=== PATIENT | female | born 1975 | race Caucasian/White ===

== ENCOUNTER 2019-12-19 09:15 | Outpatient (REF) | payer MEDICAID, SELFPAY | END 2019-12-19 09:16 | disposition home or self-care (01) | LOC: HO.LAB 09:15 | PROVIDERS: PCP Internal Medicine; Visit Provider Internal Medicine | DX: Z20.828 Contact with and (suspected) exposure to other viral communicable diseases (principal) | CPT/HCPCS: 36415; 87635 ==

== ENCOUNTER 2020-01-27 08:03 | Outpatient (REF) | payer MEDICAID, SELFPAY | END 2020-01-27 08:04 | disposition home or self-care (01) | LOC: HO.LAB 08:03 | PROVIDERS: Visit Provider Internal Medicine | DX: Z20.828 Contact with and (suspected) exposure to other viral communicable diseases (principal) | CPT/HCPCS: C9803; U0003 ==

== ENCOUNTER 2020-02-14 08:57 | Outpatient (REF) | payer MEDICAID, SELFPAY | END 2020-02-14 08:58 | disposition home or self-care (01) | LOC: HO.LAB 08:57 | PROVIDERS: Visit Provider Internal Medicine | DX: Z20.828 Contact with and (suspected) exposure to other viral communicable diseases (principal) | CPT/HCPCS: C9803; U0003 ==

== ENCOUNTER 2020-03-20 07:54 | Outpatient (REF) | payer MEDICAID, SELFPAY | END 2020-03-20 07:55 | disposition home or self-care (01) | LOC: HO.LAB 07:54 | PROVIDERS: Visit Provider Internal Medicine | DX: Z20.828 Contact with and (suspected) exposure to other viral communicable diseases (principal) | CPT/HCPCS: C9803; U0003 ==

== ENCOUNTER 2020-04-13 07:36 | Outpatient (REF) | payer MEDICAID, SELFPAY | END 2020-04-13 07:37 | disposition home or self-care (01) | LOC: HO.LAB 07:36 | PROVIDERS: Visit Provider Internal Medicine | DX: Z20.822 Contact with and (suspected) exposure to COVID-19 (principal) | CPT/HCPCS: 36415; C9803; U0003 ==

== ENCOUNTER 2020-05-01 07:56 | Outpatient (REF) | payer MEDICAID, SELFPAY | END 2020-05-01 07:57 | disposition home or self-care (01) | LOC: HO.LAB 07:56 | PROVIDERS: Visit Provider Internal Medicine | DX: Z20.822 Contact with and (suspected) exposure to COVID-19 (principal) | CPT/HCPCS: 36415; C9803; U0003; U0005 ==

== ENCOUNTER 2020-06-04 08:47 | Outpatient (REF) | payer MEDICAID, SELFPAY | END 2020-06-04 08:48 | disposition home or self-care (01) | LOC: HO.LAB 08:47 | PROVIDERS: Visit Provider Internal Medicine | DX: Z20.822 Contact with and (suspected) exposure to COVID-19 (principal) | CPT/HCPCS: 36415; C9803; U0003; U0005 ==

== ENCOUNTER 2020-06-07 10:21 | Outpatient (REF) | payer MEDICAID, SELFPAY ==
[2020-06-07 11:58] LABS: Alanine Aminotransferase 13 U/L (0-31); Albumin Level 4.2 g/dL (3.5-5.0); Alkaline Phosphatase 67 U/L (39-117); Aspartate Amino Transferase 16 U/L (5-31); Bilirubin Direct < 0.2 mg/dL (0.0-0.5); Bilirubin Total < 0.2 mg/dL (0.0-1.0); Cholesterol 218 mg/dL; HDL Cholesterol 49 mg/dL; LDL Cholesterol Calculated 158 mg/dl; Total Protein 7.6 g/dL (6.5-8.0); Triglycerides 56 mg/dL
[2020-06-07 12:03] LABS: Vitamin D 25-OH Total 45.6 ng/mL (>30)
== END 2020-06-07 10:22 | disposition home or self-care (01) ==
LOC: HO.LAB 10:21
PROVIDERS: PCP Internal Medicine; Visit Provider Internal Medicine
DX: Z00.00 Encounter for general adult medical examination without abnormal findings (principal)
CPT/HCPCS: 36415; 80061; 80076; 82306

== ENCOUNTER 2020-06-28 08:05 | Outpatient (REF) | payer MEDICAID, SELFPAY | END 2020-06-28 08:06 | disposition home or self-care (01) | LOC: HO.LAB 08:05 | PROVIDERS: Visit Provider Internal Medicine | DX: Z20.822 Contact with and (suspected) exposure to COVID-19 (principal) | CPT/HCPCS: C9803; U0003; U0005 ==

== ENCOUNTER 2020-11-03 09:18 | Outpatient (REF) | payer MEDICAID, SELFPAY | END 2020-11-03 09:19 | disposition home or self-care (01) | LOC: HO.LAB 09:18 | PROVIDERS: PCP Internal Medicine; Visit Provider Internal Medicine | DX: Z20.822 Contact with and (suspected) exposure to COVID-19 (principal) | CPT/HCPCS: C9803; U0003; U0005 ==

== ENCOUNTER 2020-12-30 10:42 | Outpatient (REF) | payer MEDICAID, SELFPAY | END 2020-12-30 10:43 | disposition home or self-care (01) | LOC: HO.LAB 10:42 | PROVIDERS: PCP Internal Medicine; Visit Provider Internal Medicine | DX: Z20.822 Contact with and (suspected) exposure to COVID-19 (principal) | CPT/HCPCS: C9803; U0003; U0005 ==

== ENCOUNTER 2021-01-06 09:19 | Emergency (ER) | payer MEDICAID, SELFPAY ==
[2021-01-06 09:51] VITALS: BP 132/80; PULSE 121; RESP 16; TEMP 36.1; O2SAT 98; BMI 29.6
--- NOTE | 2021-01-06 09:59 | ECG_ITS ---
Test Reason : cp Blood Pressure : / mmHG Vent. Rate : 114 BPM Atrial Rate : 114 BPM P-R Int : 138 ms QRS Dur : 072 ms QT Int : 322 ms P-R-T Axes : 069 041 045 degrees QTc Int : 443 ms Sinus tachycardia RSR' or QR pattern in V1 suggests right ventricular conduction delay Possible Left atrial enlargement Borderline ECG Heart rate has increased Referred By: Generic ED Physician Electronically Signed By:BETH VANEGAS MD
--- NOTE | 2021-01-06 11:40 | ED.ANXIETY ---
HPI - Anxiety General Chief Complaint: Anxiety Stated Complaint: Anxiety/panic attack Time Seen by Provider: 01/06/21 11:24 Source: patient Mode of arrival: ambulatory Limitations: no limitations History of Present Illness HPI narrative: 45-year-old female who presents emergency department for evaluation of panic attack. Patient states that she has had increased stress at work. She states that yesterday when she got home from work she felt very anxious. She states that she developed chest pain shortness of breath and felt dizzy. She took her Seroquel and try to relax but she states that it was not helping. She states that last night she had difficulty falling asleep again felt very anxious. She took her Seroquel again with no relief for symptoms. This morning, she states that she feels panic. She feels very anxious. She feels short of breath. She has chest pain which she describes as a left chest tightness which is worse with pushing on her chest, unchanged with movement or with breathing. The pain is [id number] in intensity. Patient states that she did have associated shortness of breath and nausea. She denies being suicidal or homicidal. Related Data Previous Rx's Medication Instructions Recorded lorazepam 1 mg tablet (Ativan) 1 mg PO TID PRN #10 tab 01/06/21 Allergies Allergy/AdvReac Type Severity Reaction Status Date / Time acetaminophen [Percocet] Allergy Unknown rash Verified 05/31/18 00:00 oxycodone [Percocet] Allergy Unknown rash Verified 05/31/18 00:00 penicillin G Allergy Unknown rash Verified 05/31/18 00:00 Penicillins Allergy Unknown ITCHY RASH Unverified 12/04/19 16:59 From VICODIN Allergy Unknown UNKNOWN Uncoded 12/04/19 16:59 Review of Systems Review of Systems: Yes all other systems are reviewed and are negative [facility] Past Medical History [facility] Narrative: Past medical history: Depression, anxiety, migraines, scoliosis. Social history: The patient states she is employed. She denies tobacco use. She denies alcohol use. She states she occasionally smokes marijuana for her anxiety. Social History Social History Advance Directives: No Physical Exam Vital Signs: Vital Signs: Last Vital Signs Temp 96.9 F 01/06/21 09:51 Pulse 121 H 01/06/21 09:51 Resp 16 01/06/21 09:51 BP 132/80 10/21/21 09:51 Pulse Ox 98 01/06/21 09:51 Body Mass Index 29.6 Const: General: cooperative and no acute distress Orientation/consciousness: oriented to person and oriented to place Limitations: no limitations HENMT: Head: Yes normal to inspection, Yes normocephalic and Yes atraumatic Ears: external ears normal General nose exam: Normal external nose present Face and sinus: Yes normal facial exam Mouth: Normal oral and palatal mucosa present Throat: Yes posterior oropharynx normal Eyes: General: appearance normal, both eyes and all related structures Pupils: Equal, round and reactive pupils present Neck: Neck: Yes normal visual inspection, Yes no lymphadenopathy, Yes trachea midline and Yes supple Chest: Chest palpation & inspection: normal inspection of the chest and normal palpation of entire chest wall Resp: Effort & Inspection: normal respiratory effort and able to speak in complete sentences Auscultation: clear to auscultation bilaterally Cardio: Rate: tachycardic Rhythm: regular rhythm Heart sounds: S1 normal heart sound present, S2 normal heart sound present and no murmurs GI: Inspection: Yes normal to inspection Palpation (GI): Soft to palpation, nontender and no guarding Auscultation: normal bowel sounds : General: Yes no CVA tenderness Back/Spine/Pelvis: Back: no CVA tenderness Skin: General skin exam: no rashes or lesions noted Neuro: General: oriented to person and oriented to place Cranial nerves: Yes CN's II-XII intact bilaterally and Yes Equal, round and reactive pupils present Cognition (Neuro): normal cognition Motor exam (neuro): 5/5 motor strength present throughout Extrem: General: Yes normal to inspection Psych: Appearance: grossly normal Speech and movement: Normal speech and movement present Affect: Anxious affect present Attitude: cooperative Thought process: Normal thought process present Thought content: Normal thought content present, suicidality and no homicidality Course Course Course Narrative: 45-year-old female with history of anxiety and depression states she has been under increased stress secondary to work who presents emergency department for evaluation of panic attack x3 episodes. The patient's vital signs reveal that she was tachycardic with a pulse of 121 otherwise unremarkable. Patient's physical examination did reveal left-sided chest wall tenderness. Patient's 12 EKG revealed a sinus tachycardia with a rate of 114 without any other abnormalities. Patient's presentation is consistent with anxiety/panic attack. The patient was given Ativan 1 mg orally. She was given a prescription for Ativan 1 mg every 6 hours as needed for anxiety, she was given 9 pills. She was advised to follow-up with her provider for further management of her anxiety. She was discharged home with printed and verbal instructions. [facility] was reviewed. The patient has been on clonazepam with her last prescription being filled on 09/2020. I do believe she is having acute anxiety would benefit from a short course of Ativan as discussed above, she was given 10 pills. MDM - Anxiety ECG Data Attestation: I personally reviewed and interpreted this ECG as follows: Interpretation: 1012: Sinus tachycardia with a rate of 114, normal ME interval, normal QRS duration, normal QTC interval. No ST segment elevation or depression, no PACs, no PVCs, no T-wave abnormalities. Except for this tachycardia, this EKG is normal. Discharge Plan Discharge Clinical Impression: Acute anxiety Patient Disposition: Home, Self-Care Instructions: Panic Disorder (ED) Additional Instructions: Your EKG was unremarkable. Your presentation is consistent with an anxiety/panic attack most likely triggered by stress. You received Ativan (lorazepam) 1 mg orally here in the emergency department. This medication will make you sleepy but should help with your anxiety, you should go home and rest. I am prescribing Ativan (lorazepam) 1 mg orally 3 times a day as needed for anxiety. This medication will make you sleepy so you should not drive or work while taking this medication. This medication can be addicting, if your concerned about addiction do not get this medication filled or you can ask the pharmacist for less pills than prescribed. Follow-up with your doctor in 2 days. Please return to the emergency department if your symptoms get worse or if you develop any symptoms that are concerning to you. Please see work note. Prescriptions: New lorazepam [Ativan] 1 mg tablet 1 mg PO TID PRN (Reason: anxiety) Qty: 10 RF: 0
[2021-01-06] MEDS: LORazepam 1 MG TABLET PO (11:53)
[2021-01-06] MEDS: Ondansetron ODT 4 MG TAB.RAPDIS TRANSLINGU (12:00)
== END 2021-01-06 12:01 | disposition home or self-care (01) ==
PROVIDERS: Emergency Provider Emergency Medicine Emergency Medical Services; PCP Internal Medicine
DX: F41.1 Generalized anxiety disorder (principal); F43.0 Acute stress reaction; Z79.899 Other long term (current) drug therapy
CPT/HCPCS: 93005; 99283; 99284

== ENCOUNTER 2021-01-19 11:40 | Outpatient (REF) | payer MEDICAID, SELFPAY ==
[2021-01-19 12:10] LABS: MANUAL DIFF FLAG NO
[2021-01-19 12:33] LABS: Basophils Absolute Auto 0.1 X10*3/uL (0.0-0.2); Basophils Percent Auto 0.7 % (0-2); Eosinophils Absolute Auto 0.2 X10*3/uL (0.0-0.4); Eosinophils Percent Auto 3.1 % (0-4); Hematocrit 39.8 % (37.0-47.0); Hemoglobin 13.5 g/dl (12.0-16.0); Imm Gran Abs Auto 0.02 X10*3/uL (0.00-0.03); Imm Gran Pct Auto 0.3 % (0.0-0.4); Lymphocytes Absolute Auto 1.8 X10*3/uL (1.2-4.9); Lymphocytes Percent Auto 26.2 % (20-40); Mean Corpuscular HGB Conc 33.9 g/dl (31.0-35.0); Mean Corpuscular Hemoglobin 30.8 pg (27.0-33.0); Mean Corpuscular Volume 90.9 fL (80.0-98.0); Mean Platelet Volume 10.1 fL (9.4-12.3); Monocytes Absolute Auto 0.6 X10*3/uL (0.1-1.2); NRBC Pct Auto 0.3 /100WBC (0.0-0.2); Neutrophils Absolute Auto 4.33 x10*3/uL (2.0-8.3); Neutrophils Percent Auto 61.7 % (45-73); Platelet Count 323 X10*3/uL (160-400); Red Blood Count 4.38 X10*6/uL (4.20-5.50); Red Cell Distribution Width 11.7 % (11.0-16.0)
[2021-01-19 13:03] LABS: INTERNATIONAL NORM RATIO 1.1 (0.9-1.1); Prothrombin Time 12.7 SEC (9.9-13.0)
[2021-01-19 13:06] LABS: Partial Thromboplastin Time 35.8 SEC (24.1-38.0)
[2021-01-19 13:29] LABS: Thyroid Stimulating Hormone 0.47 uIU/mL (0.32-4.0)
[2021-01-19 14:20] LABS: T4 Thyroxine 6.6 ug/dL (4.5-12.0)
[2021-01-21 03:46] LABS: Triiodothyronine T3 Free 2.8 pg/mL (2.3-4.2)
== END 2021-01-19 11:41 | disposition home or self-care (01) ==
LOC: HO.LAB 11:40
PROVIDERS: Absent Provider Internal Medicine; PCP Internal Medicine; Visit Provider Family Medicine
DX: N92.6 Irregular menstruation, unspecified (principal)
CPT/HCPCS: 36415; 84436; 84443; 84481; 85025; 85610; 85730

== ENCOUNTER 2021-06-26 11:26 | Emergency (ER) | payer MEDICAID, SELFPAY ==
[2021-06-26 11:50] VITALS: BP 118/69; PULSE 103; RESP 16; TEMP 37.2; O2SAT 97; BMI 27.9
--- NOTE | 2021-06-26 12:08 | ED_ITS ---
HPI - General Adult General Chief complaint: Skin/Abscess/Foreign Body Stated complaint: Abscess Time Seen by Provider: 06/26/21 11:53 Source: patient Mode of arrival: ambulatory Limitations: no limitations History of Present Illness HPI narrative: 44-year-old female with history of recurrent abscesses and breast cysts presents to ED for left breast abscess. Patient states for the past 6 days she had some swelling mass in the upper breast that was fluctuant red and warm and then it open and 3 days ago it drained completely. Patient states area no longer swollen and erythema improving. Patient came to the ED to be evaluated. Patient denies any nipple discharge, swelling of breasts, fever, chills, chest p ain, weight loss, or shortness of breath. Related Data Previous Rx's Medication Instructions Recorded lorazepam 1 mg tablet (Ativan) 1 mg PO TID PRN #10 tab 01/06/21 cephalexin 500 mg capsule 500 mg PO QID 7 Days #27 cap 06/26/21 doxycycline hyclate 100 mg tablet 100 mg PO BID 7 Days #14 tab 06/26/21 Allergies Allergy/AdvReac Type Severity Reaction Status Date / Time acetaminophen [Percocet] Allergy Unknown rash Verified 05/31/18 00:00 oxycodone [Percocet] Allergy Unknown rash Verified 05/31/18 00:00 penicillin G Allergy Unknown rash Verified 05/31/18 00:00 Penicillins Allergy Unknown ITCHY RASH Unverified 12/04/19 16:59 From VICODIN Allergy Unknown UNKNOWN Uncoded 12/04/19 16:59 Review of Systems Review of Systems: Left drain abscess. Yes all other systems are reviewed and are negative [facility] Past Medical History Medical History (Updated 06/26/21 @ 12:18 by [employer]) Anemia Cyst of breast High cholesterol Menses painful Migraine Seizures Social History Social History Advance Directives: No Advance Directives Information Provided: No Patient : No Physical Exam ED Vital Signs: Vital Signs - 24 hr 06/26/21 11:50 Temperature 98.9 F Pulse Rate 103 H Respiratory Rate 16 Blood Pressure 118/69 Pulse Oximetry 97 BMI result Body Mass Index 27.9 Const General: cooperative, healthy appearing, comfortable, no acute distress, well developed, alert, awake and Physically active Orientation/consciousness: patient oriented x3 HENMT Head: Yes normal to inspection, Yes No palpable skull fracture present, Yes normocephalic and Yes atraumatic Eyes General: appearance normal, both eyes and all related structures Neck Neck: Yes normal visual inspection, Yes full ROM, Yes no lymphadenopathy, Yes no meningeal signs, Yes trachea midline, Yes supple, No anterior neck swelling and No tender Chest Chest palpation & inspection: normal inspection of the chest and normal palpation of entire chest wall Chest/axillae images: 1. Opening with no drainage. Erythema resolving. Negative for fluctuance mass on palpation. Breast not swollen. Negative for redness of breasts. Negative for any nipple discharge. Negative for mass on palpation of breasts. Negative for any axilla lymphadenopathy. Right breast normal Resp Effort & Inspection: normal respiratory effort and able to speak in complete sentences Auscultation: clear to auscultation bilaterally Cardio Jugular venous distension: no JVD Heart sounds: S1 normal heart sound present and S2 normal heart sound present GI Inspection: Yes normal to inspection and No abdominal wall ecchymosis Palpation (GI): Soft to palpation, not firm, nontender, no guarding and not rigid General: No CVA tenderness and Yes no CVA tenderness Back/Spine/Pelvis Back: no CVA tenderness, No CVA tenderness and No back tenderness Skin General skin exam: no rashes or lesions noted and elasticity normal Neuro General: patient oriented x3, gait normal and no meningeal signs Cranial nerves: Yes CN's II-XII intact bilaterally Extrem General: Yes normal to inspection and Yes full ROM Psych Appearance: grossly normal, well kempt and not disheveled Course Course Course Narrative: Left breast abscess. Reevaluation(s) Reevaluation #1: Presently no indication for incision and drainage. No longer any fluctuance and patient states pus was fully drained couple days ago in the shower. Will discharge with antibiotics. Time: 16:[address] [facility] Narrative Medical decision making narrative: Breast abscess Discharge Plan Discharge Clinical Impression: Abscess of skin or subcutaneous tissue Patient Disposition: Home, Self-Care Instructions: Abscess (ED) Additional Instructions: Le diagnosticaron un absceso. Actualmente no ten?a indicaci?n de incisi?n y drenaje. Tu absceso se dren? por s? solo. Ser? dado de jordana con antibi?ticos. [place] un seguimiento con el proveedor de atenci?n primaria y un cirujano de mamas. Regrese al servicio de urgencias por cualquier hinchaz?n de los senos, secreci?n del pez?n, enrojecimiento de los senos, masa en los senos, hinchaz?n axilar, fiebre, escalofr?os, dolor en el pecho, dificultad para respirar o cualquier otro s?ntoma preocupante. Prescriptions: New doxycycline hyclate 100 mg tablet 100 mg PO BID 7 Days Qty: 14 0RF cephalexin 500 mg capsule 500 mg PO QID 7 Days Qty: 27 0RF Rx Instructions: Patient received 1st dose in the ER No Action lorazepam [Ativan] 1 mg tablet 1 mg PO TID PRN (Reason: anxiety) Qty: 10 0RF Rx Instructions: Patient may request partial fill Referrals: Ronal Vences MD [Physician] - (Recurrent breast abscesses. ) Interventions: ED Discharge Assessment Last Done: 06/26/21 13:45 Discharge Date/Time: 06/26/21 13:46 Print Language: Qatari
[2021-06-26] MEDS: cephALEXin 500 MG CAPSULE PO (12:17)
== END 2021-06-26 13:46 | disposition home or self-care (01) ==
PROVIDERS: Emergency Provider Emergency Medicine; PCP Internal Medicine
DX: N61.1 Abscess of the breast and nipple (principal); Z79.899 Other long term (current) drug therapy
CPT/HCPCS: 99283

== ENCOUNTER 2021-07-15 14:50 | Emergency (ER) | payer MEDICAID, SELFPAY ==
--- NOTE | ~2021-07-15 | XR_ITS ---
EXAMINATION: XR CHEST CLINICAL INFORMATION: Shortness of breath. COMPARISON: Chest radiograph dated from 01/03/2019. TECHNIQUE: AP view of the chest was obtained. FINDINGS: No significant abnormality is noted involving the heart, lungs, mediastinum, bony thorax or soft tissues. XR/XR chest 1V IMPRESSION: Unremarkable examination.
[2021-07-15 14:59] VITALS: BP 123/77; BP 131/85; PULSE 100; PULSE 110; RESP 16; RESP 18; TEMP 36.6; O2SAT 96; O2SAT 97; O2SAT 99; BMI 29.6
--- NOTE | 2021-07-15 15:55 | ED.GENADULT ---
HPI - General Adult General Chief complaint: Seizure Stated complaint: ?SEIZURES, SOB, [employer] Time Seen by Provider: 07/15/21 15:54 Source: patient Mode of arrival: ambulatory Limitations: other (poor historian) History of Present Illness HPI narrative: This is a 45-year-old female past medical history significant for depression, anxiety, migraines, scoliosis presenting to the emergency department from court with shortness of breath, anxiety x2 hours. According to patient she tells me that yesterday she was put in senior care and she had court this morning which made her extremely anxious. She tells me that at court she began feeling extremely anxious, short of breath and she feels like she was having a panic attack. She tells me her shortness of breath is better with deep breathing, and when talking to somebody. It is worse when she thinks about her situation, she tells me the uncertainty of her situation is making her extremely anxious and she thinks this is what triggered it. She also reports associated nausea, which she tells me is normal when she has panic attacks. She denies chest pain, leg swelling, fevers, chills, abdominal pain, weakness, dizziness, headache. According to staff members from the courthouse patient appeared to be having a seizure. Onset (ago): hour(s) (2) Radiation: non-radiation Relieving factors: none Exacerbating factors: none Treatments prior to arrival: none Related Data Previous Rx's Medication Instructions Recorded lorazepam 1 mg tablet (Ativan) 1 mg PO TID PRN #10 tab 01/06/21 cephalexin 500 mg capsule 500 mg PO QID 7 Days #27 cap 06/26/21 doxycycline hyclate 100 mg tablet 100 mg PO BID 7 Days #14 tab 06/26/21 lamotrigine 100 mg tablet 100 mg PO DAILY #14 tab 07/15/21 Allergies Allergy/AdvReac Type Severity Reaction Status Date / Time acetaminophen [Percocet] Allergy Unknown rash Verified 05/31/18 00:00 oxycodone [Percocet] Allergy Unknown rash Verified 05/31/18 00:00 penicillin G Allergy Unknown rash Verified 05/31/18 00:00 Penicillins Allergy Unknown ITCHY RASH Verified 07/15/21 16:06 From VICODIN Allergy Unknown UNKNOWN Uncoded 12/04/19 16:59 Review of Systems Review of Systems: Constitutional : No Weight loss, No Fever, No Chills, No Fatigue, No Malaise ENT/Mouth : No sore throat, No Rhinorrhea Eyes: No Eye Pain, No Swelling, No Redness Cardiovascular : No Chest Pain, + SOB, No Dyspnea on Exertion, No Orthopnea, No Edema, No Palpitations Respiratory : No Cough, No Sputum, No Wheezing Gastrointestinal : No Nausea, No Vomiting, No Diarrhea, No Constipation, No abdominal Pain, No Hematochezia, No Melena Genitourinary : No Dysuria, No Urinary Frequency, No Hematuria, Musculoskeletal : No joint pain, No Myalgias, No Joint Swelling Skin : No Skin Lesions, No rash Neuro : No Weakness, No Numbness, No Dizziness, No Headache Psych : + Anxiety/Panic, No Depression All other systems reviewed and are negative Yes all other systems are reviewed and are negative [facility] Past Medical History Attestation statement: The following information was validated with the patient. Source: old records reviewed and nursing notes reviewed Medical History Anemia Cyst of breast High cholesterol Menses painful Migraine Seizures Social History Social History Alcohol intake: never Patient Tobacco Use Status: Never used Tobacco Smoked in Last 30 Days: No Use of substances other than those prescribed or required for medical reasons: No Advance Directives: No Advance Directives Information Provided: No Physical Exam ED Vital Signs: Vital Signs - 24 hr 07/15/21 14:59 07/15/21 16:12 07/15/21 18:24 Temperature 97.8 F 98.8 F Pulse Rate 110 H 86 106 H Respiratory Rate 18 16 18 Blood Pressure 123/77 120/74 112/82 Pulse Oximetry 97 95 98 BMI result Body Mass Index 29.6 Vital signs stable Appearance: Alert.? Oriented X3.? No acute distress.? Patient appears anxious and tearful. Head: Normocephalic, atraumatic, no step-offs or deformities Eyes: Pupils equal, round and reactive to light.? ENT: Pharynx normal.? Neck: Normal inspection.? Neck supple.? CVS: Normal heart rate and rhythm.? Pulses normal.? Respiratory: No respiratory distress.? Breath sounds normal.? Abdomen: Soft and nontender.? Skin: Skin warm and dry.? Normal skin color.? Normal skin turgor.? Extremities: No lower extremity edema.? No calf ttp, negative Lilliam bilaterally. 5/5 strength to bilateral upper and lower extremities Back: No midline tenderness, no C-spine tenderness, full range of motion, no CVA tenderness bilaterally Neuro: Oriented X 3.? No motor deficit.? No sensory deficit. CN 2-12 intact Course Reevaluation(s) Reevaluation #1: Chest x-ray is unremarkable, lungs clear unlikely PNA. Chemistry with slight leukocytosis could be acute stress reaction from nausea, anxiety, panic, no acute electrolyte abnormalities. COVID and influenza negative. Urine pending. Time: 17:21 Reevaluation #2: UA clean. Patient is comfortably resting on the stretcher. No acute distress. Stable vital signs saturating 98% on room air. At this time patient can be discharged back to intermediate. Comfortable with discharge home. Outlined strict return precautions on discharge. Time: 18:43 Reevaluation #3: Patient takes lamotrigine 100 mg p.o. q.a.m., gave her a small script. Last filled at [place] [facility], as patient is in intermediate she does not have this prescription. Will send her home with a 2 week supply Time: 18:51 Medical Decision Making MDM Narrative Medical decision making narrative: 1600 45-year-old female presents with shortness of breath and anxiety that started at court few hours prior to her arrival. Physical examination benign. Negative Lilliam bilaterally. Lungs clear. Regular rate and rhythm. Abdomen soft nontender nondistended. No lower extremity edema. Patient is PERC negative, unlikely that this is a PE likely shortness of breath secondary to panic attack/ anxiety. Neuro non focal no head trauma , unlikely ICH/stroke Plan at this time is basic labs, flu/COVID, chest x-ray. Medical Records Medical records reviewed: Yes I reviewed the patient's medical records. Lab Data Lab results reviewed: Yes I reviewed the patient's lab results. Result diagrams: 07/15/21 16:19 07/15/21 16:19 Labs: Lab Results 07/15/21 07/15/21 07/15/21 Range/Units 16:01 16:01 16:19 WBC 13.2 H (4.8-10.8) X10*3/uL RBC 4.36 (4.20-5.50) X10*6/uL Hgb 13.1 (12.0-16.0) g/dl Hct 39.0 (37.0-47.0) % MCV 89.4 (80.0-98.0) fL MCH 30.0 (27.0-33.0) pg MCHC 33.6 (31.0-35.0) g/dl RDW 11.9 (11.0-16.0) % Plt Count 330 (160-400) X10*3/uL MPV 9.4 (9.4-12.3) fL Immature Gran % (Auto) 0.5 H (0.0-0.4) % Neut % (Auto) 79.8 H (45-73) % Lymph % (Auto) 12.9 L (20-40) % Coffey % (Auto) 6.1 (2-11) % Eos % (Auto) 0.5 (0-4) % Baso % (Auto) 0.2 (0-2) % Lymph # (Auto) 1.7 (1.2-4.9) X10*3/uL Coffey # (Auto) 0.8 (0.1-1.2) X10*3/uL Eos # (Auto) 0.1 (0.0-0.4) X10*3/uL Baso # (Auto) 0.0 (0.0-0.2) X10*3/uL Abs Immat Gran (auto) 0.06 H (0.00-0.03) X10*3/uL Absolute Neuts (auto) 10.5 H (2.0-8.3) x10*3/uL Absolute Nucleated RBC 0.000 (0.0-0.012) X10*3/uL Nucleated RBC % (auto) 0.0 (0.0-0.2) /100WBC Sodium (135-145) mmol/L Potassium (3.3-5.1) mmol/L Chloride (96-108) mmol/L Carbon Dioxide (22-29) mmol/L Anion Gap (12-20) BUN (9-16) mg/dL Creatinine (0.5-1.4) mg/dL Estim Creat Clear Calc Estimated GFR Random Glucose (60-115) mg/dL Calcium (8.4-10.2) mg/dL Magnesium (1.6-2.6) mg/dL Total Bilirubin (0.0-1.0) mg/dL AST (5-31) U/L ALT (0-31) U/L Alkaline Phosphatase (39-117) U/L Total Creatine Kinase (26-140) U/L Total Protein (6.5-8.0) g/dL Albumin (3.5-5.0) g/dL Urine Color Urine Appearance Urine pH (5.0-8.0) Ur Specific Bryant (1.005-1.025) Urine Protein (NEG-TRACE) MG/DL Urine Glucose (UA) (NEG) MG/DL Urine Ketones (NEG) MG/DL Urine Blood (NEG) Urine Nitrite (NEG) Ur Leukocyte Esterase (NEG) Urine Test (NEGATIVE) COVID-19 (TREVA) Negative (Negative) COVID-19 Clin Com See Note Influenza Type A (LITO) Negative (Negative) Influenza Type B (LITO) Negative (Negative) Influenza A & B Note See Note 07/15/21 07/15/21 07/15/21 Range/Units 16:19 17:32 17:32 WBC (4.8-10.8) X10*3/uL RBC (4.20-5.50) X10*6/uL Hgb (12.0-16.0) g/dl Hct (37.0-47.0) % MCV (80.0-98.0) fL MCH (27.0-33.0) pg MCHC (31.0-35.0) g/dl RDW (11.0-16.0) % Plt Count (160-400) X10*3/uL MPV (9.4-12.3) fL Immature Gran % (Auto) (0.0-0.4) % Neut % (Auto) (45-73) % Lymph % (Auto) (20-40) % Coffey % (Auto) (2-11) % Eos % (Auto) (0-4) % Baso % (Auto) (0-2) % Lymph # (Auto) (1.2-4.9) X10*3/uL Coffey # (Auto) (0.1-1.2) X10*3/uL Eos # (Auto) (0.0-0.4) X10*3/uL Baso # (Auto) (0.0-0.2) X10*3/uL Abs Immat Gran (auto) (0.00-0.03) X10*3/uL Absolute Neuts (auto) (2.0-8.3) x10*3/uL Absolute Nucleated RBC (0.0-0.012) X10*3/uL Nucleated RBC % (auto) (0.0-0.2) /100WBC Sodium 136 (135-145) mmol/L Potassium 3.5 (3.3-5.1) mmol/L Chloride 109 H (96-108) mmol/L Carbon Dioxide 19 L (22-29) mmol/L Anion Gap 12 (12-20) BUN 9 (9-16) mg/dL Creatinine 0.79 (0.5-1.4) mg/dL Estim Creat Clear Calc 82.8 Estimated GFR > 60 Random Glucose 95 (60-115) mg/dL Calcium 9.4 (8.4-10.2) mg/dL Magnesium 1.7 (1.6-2.6) mg/dL Total Bilirubin 0.2 (0.0-1.0) mg/dL AST 15 (5-31) U/L ALT 13 (0-31) U/L Alkaline Phosphatase 82 D (39-117) U/L Total Creatine Kinase 78 (26-140) U/L Total Protein 7.8 (6.5-8.0) g/dL Albumin 4.2 (3.5-5.0) g/dL Urine Color YELLOW Urine Appearance CLEAR Urine pH 6.5 (5.0-8.0) Ur Specific Bryant 1.020 (1.005-1.025) Urine Protein TRACE (NEG-TRACE) MG/DL Urine Glucose (UA) NEG (NEG) MG/DL Urine Ketones 40 (NEG) MG/DL Urine Blood NEG (NEG) Urine Nitrite NEG (NEG) Ur Leukocyte Esterase NEG (NEG) Urine Test NEGATIVE (NEGATIVE) COVID-19 (TREVA) (Negative) COVID-19 Clin Com Influenza Type A (LITO) (Negative) Influenza Type B (LITO) (Negative) Influenza A & B Note Critical Care Time Critical Care Time Critical Care Time: No Discharge Plan Discharge Clinical Impression: Anxiety, Shortness of breath Patient Disposition: Home, Self-Care Additional Instructions: Take your medications as prescribed. Follow-up with your primary care provider this week. Return to the emergency department with new or worsening symptoms. Such as fevers, chills, chest pain, shortness of breath, nausea, vomiting, dizziness, headache, vision changes, lethargy In case of emergency call 911 Patient currently taking lamotrigine 100 mg po daily QAM. A script with small supply given to patient. Prescriptions: New lamotrigine 100 mg tablet 100 mg PO DAILY Qty: 14 0RF No Action lorazepam [Ativan] 1 mg tablet 1 mg PO TID PRN (Reason: anxiety) Qty: 10 0RF Rx Instructions: Patient may request partial fill doxycycline hyclate 100 mg tablet 100 mg PO BID 7 Days Qty: 14 0RF cephalexin 500 mg capsule 500 mg PO QID 7 Days Qty: 27 0RF Rx Instructions: Patient received 1st dose in the ER Referrals: Physician,Unknown J [Primary Care Provider] - 2 days
[2021-07-15] MEDS: LORazepam 1 MG TABLET PO (16:06)
[2021-07-15] MEDS: Ondansetron ODT 4 MG TAB.RAPDIS TRANSLINGU (16:06)
[2021-07-15 16:12] VITALS: BP 120/74; PULSE 86; RESP 16; O2SAT 95
[2021-07-15 16:20] LABS: COVID-19 Test Negative (Negative)
[2021-07-15 16:23] LABS: MANUAL DIFF FLAG NO
[2021-07-15 16:26] LABS: Basophils Percent Auto 0.2 % (0-2); Eosinophils Absolute Auto 0.1 X10*3/uL (0.0-0.4); Eosinophils Percent Auto 0.5 % (0-4); Hemoglobin 13.1 g/dl (12.0-16.0); Imm Gran Abs Auto 0.06 X10*3/uL (0.00-0.03); Imm Gran Pct Auto 0.5 % (0.0-0.4); Lymphocytes Absolute Auto 1.7 X10*3/uL (1.2-4.9); Lymphocytes Percent Auto 12.9 % (20-40); Mean Corpuscular HGB Conc 33.6 g/dl (31.0-35.0); Mean Corpuscular Volume 89.4 fL (80.0-98.0); Mean Platelet Volume 9.4 fL (9.4-12.3); Monocytes Absolute Auto 0.8 X10*3/uL (0.1-1.2); Monocytes Percent Auto 6.1 % (2-11); Neutrophils Absolute Auto 10.5 x10*3/uL (2.0-8.3); Neutrophils Percent Auto 79.8 % (45-73); Platelet Count 330 X10*3/uL (160-400); Red Blood Count 4.36 X10*6/uL (4.20-5.50); Red Cell Distribution Width 11.9 % (11.0-16.0); White Blood Count 13.2 X10*3/uL (4.8-10.8)
[2021-07-15 16:30] LABS: IDNOW Serial# 16C4AD1C; Influenza A Negative (Negative); Influenza B2 Negative (Negative)
[2021-07-15 16:43] LABS: Alanine Aminotransferase 13 U/L (0-31); Albumin Level 4.2 g/dL (3.5-5.0); Alkaline Phosphatase 82 U/L (39-117); Anion Gap 12 (12-20); Aspartate Amino Transferase 15 U/L (5-31); Bilirubin Total 0.2 mg/dL (0.0-1.0); Blood Urea Nitrogen 9 mg/dL (9-16); Calcium 9.4 mg/dL (8.4-10.2); Carbon Dioxide 19 mmol/L (22-29); Chloride 109 mmol/L (96-108); Creatinine Clr Calc Pharmacy 82.8; Estimated Glomerular Filt Rate > 60; Glucose Random 95 mg/dL (60-115); Magnesium 1.7 mg/dL (1.6-2.6); Potassium 3.5 mmol/L (3.3-5.1); Sodium 136 mmol/L (135-145); Total Protein 7.8 g/dL (6.5-8.0)
[2021-07-15 17:41] LABS: Appearance Urine CLEAR; Color Urine YELLOW; Glucose Urine UA NEG (NEG); Leukocyte Esterase Urine NEG (NEG); Nitrite Urine NEG (NEG); PH 6.5 (5.0-8.0); Urine Blood NEG (NEG); Urine Ketones 40 MG/DL (NEG); Urine Protein TRACE MG/DL (NEG-TRACE)
[2021-07-15 17:47] LABS: UPreg QC Valid YES; Urine Pregnancy NEGATIVE (NEGATIVE)
[2021-07-15 18:24] VITALS: BP 112/82; PULSE 106; RESP 18; TEMP 37.1; O2SAT 98
== END 2021-07-15 19:45 | disposition home or self-care (01) ==
PROVIDERS: Physician Assistant; Emergency Provider Internal Medicine
DX: R56.9 Unspecified convulsions (principal); F41.1 Generalized anxiety disorder; F43.0 Acute stress reaction; R06.02 Shortness of breath; Z20.822 Contact with and (suspected) exposure to COVID-19; Z79.899 Other long term (current) drug therapy
CPT/HCPCS: 71045; 80053; 81003; 81025; 82550; 83735; 85025; 87502; 87635; 99283; 99284

== ENCOUNTER 2023-08-08 11:32 | Outpatient (REF) | payer MEDICAID, SELFPAY ==
--- NOTE | ~2023-08-08 | XR_ITS ---
EXAMINATION: XR ELBOW, RIGHT CLINICAL INFORMATION: Lateral epicondylitis COMPARISON: X-ray the right elbow January 2018 TECHNIQUE: 4 views of the right elbow FINDINGS: The bones and soft tissues are normal. No fracture or joint effusion. Alignment is anatomic. Joint spaces are maintained. XR/XR elbow RT min 3V IMPRESSION: Normal right elbow.
== END 2023-08-08 11:33 | disposition home or self-care (01) ==
LOC: HO.HHCX 11:32
PROVIDERS: Visit Provider Family Medicine
DX: M77.11 Lateral epicondylitis, right elbow (principal)
CPT/HCPCS: 73080

== ENCOUNTER 2023-09-26 10:30 | Outpatient (REF) | payer MEDICAID, SELFPAY ==
[2023-09-26 14:10] LABS: MANUAL DIFF FLAG NO
[2023-09-26 14:19] LABS: Basophils Absolute Auto 0.1 X10*3/uL (0.0-0.2); Basophils Percent Auto 0.8 % (0-2); Eosinophils Absolute Auto 0.3 X10*3/uL (0.0-0.4); Eosinophils Percent Auto 4.2 % (0-4); Hemoglobin 13.5 g/dl (12.0-16.0); Imm Gran Abs Auto 0.03 X10*3/uL (0.00-0.03); Imm Gran Pct Auto 0.4 % (0.0-0.4); Lymphocytes Absolute Auto 2.2 X10*3/uL (1.2-4.9); Lymphocytes Percent Auto 29.3 % (20-40); Mean Corpuscular HGB Conc 32.9 g/dl (31.0-35.0); Mean Corpuscular Hemoglobin 29.9 pg (27.0-33.0); Mean Corpuscular Volume 90.7 fL (80.0-98.0); Mean Platelet Volume 9.4 fL (9.4-12.3); Monocytes Absolute Auto 0.6 X10*3/uL (0.1-1.2); Monocytes Percent Auto 7.8 % (2-11); Neutrophils Absolute Auto 4.2 x10*3/uL (2.0-8.3); Neutrophils Percent Auto 57.5 % (45-73); Platelet Count 378 X10*3/uL (160-400); Red Blood Count 4.52 X10*6/uL (4.20-5.50); White Blood Count 7.4 X10*3/uL (4.8-10.8)
[2023-09-26 14:39] LABS: Alanine Aminotransferase 18 U/L (0-31); Albumin Level 4.3 g/dL (3.5-5.0); Alkaline Phosphatase 92 U/L (39-117); Anion Gap 12 (12-20); Aspartate Amino Transferase 14 U/L (5-31); Bilirubin Total 0.1 mg/dL (0.0-1.0); Blood Urea Nitrogen 7 mg/dL (9-16); Calcium 9.5 mg/dL (8.4-10.2); Carbon Dioxide 25 mmol/L (22-29); Chloride 107 mmol/L (96-108); Cholesterol 235 mg/dL (<200); Estimated Glomerular Filt Rate > 60; Glucose Random 90 mg/dL (60-115); HDL Cholesterol 47 mg/dL (>40); LDL Cholesterol Calculated 142 mg/dL (<100); Potassium 3.9 mmol/L (3.3-5.1); Sodium 140 mmol/L (135-145); Total Protein 8.2 g/dL (6.5-8.0); Triglycerides 234 mg/dL (<150)
[2023-09-26 14:54] LABS: Rheumatoid Factor < 13.0 IU/mL (<15.0)
[2023-09-26 14:55] LABS: Erythrocyte Sedimentation Rate 14 MM/HR (0-20)
[2023-09-26 14:58] LABS: TSH reflex Free T4 0.71 uIU/mL (0.32-4.0)
[2023-09-27 08:44] LABS: HIV AB/AG Nonreactive (Nonreactive); HIV Num 1 0.04 S/CO (0.00-0.99); ~HepC Num1 0.21 S/CO (0.00-0.79); ~Hepatitis C Antibody Nonreactive (Nonreactive)
== END 2023-09-26 10:31 | disposition home or self-care (01) ==
LOC: HO.CHCLDS 10:30
PROVIDERS: Visit Provider Internal Medicine
DX: F39 Unspecified mood [affective] disorder (principal); R52 Pain, unspecified; Z12.11 Encounter for screening for malignant neoplasm of colon; G43.809 Other migraine, not intractable, without status migrainosus
CPT/HCPCS: 36415; 80053; 80061; 84443; 85025; 85652; 86431; 86803; 87389

== ENCOUNTER 2023-11-22 11:52 | Outpatient (REF) | payer MEDICAID, SELFPAY ==
[2023-11-22 14:40] LABS: MANUAL DIFF FLAG NO
[2023-11-22 14:46] LABS: Basophils Absolute Auto 0.1 X10*3/uL (0.0-0.2); Basophils Percent Auto 0.7 % (0-2); Eosinophils Absolute Auto 0.4 X10*3/uL (0.0-0.4); Eosinophils Percent Auto 4.5 % (0-4); Hematocrit 41.3 % (37.0-47.0); Imm Gran Abs Auto 0.02 X10*3/uL (0.00-0.03); Imm Gran Pct Auto 0.2 % (0.0-0.4); Lymphocytes Absolute Auto 2.4 X10*3/uL (1.2-4.9); Lymphocytes Percent Auto 29.6 % (20-40); Mean Corpuscular HGB Conc 33.9 g/dl (31.0-35.0); Mean Corpuscular Volume 88.6 fL (80.0-98.0); Mean Platelet Volume 9.8 fL (9.4-12.3); Monocytes Absolute Auto 0.7 X10*3/uL (0.1-1.2); Monocytes Percent Auto 8.3 % (2-11); Neutrophils Absolute Auto 4.6 x10*3/uL (2.0-8.3); Neutrophils Percent Auto 56.7 % (45-73); Platelet Count 390 X10*3/uL (160-400); Red Blood Count 4.66 X10*6/uL (4.20-5.50); Red Cell Distribution Width 12.6 % (11.0-16.0); White Blood Count 8.1 X10*3/uL (4.8-10.8)
[2023-11-22 18:19] LABS: Anion Gap 14 (12-20); Blood Urea Nitrogen 7 mg/dL (9-16); Carbon Dioxide 22 mmol/L (22-29); Chloride 106 mmol/L (96-108); Estimated Glomerular Filt Rate > 60; Glucose Random 77 mg/dL (60-115); Potassium 3.8 mmol/L (3.3-5.1); Sodium 138 mmol/L (135-145)
[2023-11-22 18:38] LABS: TSH reflex Free T4 0.74 uIU/mL (0.32-4.0)
[2023-11-26 11:50] LABS: Anti Nuclear Antibody Screen NEGATIVE (NEGATIVE)
== END 2023-11-22 11:53 | disposition home or self-care (01) ==
LOC: HO.CHCLDS 11:52
PROVIDERS: Visit Provider Pediatrics
DX: L70.0 Acne vulgaris (principal); R21 Rash and other nonspecific skin eruption
CPT/HCPCS: 36415; 80048; 84443; 85025; 86038

== ENCOUNTER 2023-11-26 19:06 | Outpatient (REF) | payer MEDICAID, SELFPAY ==
[2023-11-30 10:34] LABS: HPV mRNA E6/E7 Not Detected (Not Detected)
[2023-11-30 15:24] LABS: C. trachomatis RNA TMA NOT DETECTED; N. gonorrhoeae RNA TMA NOT DETECTED
[2023-11-30 15:25] LABS: Trichomonas (NAAT) NOT DETECTED
== END 2023-11-26 19:07 | disposition home or self-care (01) ==
LOC: HO.HHCLNP 19:06
PROVIDERS: Visit Provider Advanced Practice Midwife
DX: Z11.3 Encounter for screening for infections with a predominantly sexual mode of transmission (principal)
CPT/HCPCS: 36415; 87491; 87591; 87624; 87661; 88175

== ENCOUNTER 2024-01-02 19:48 | Emergency (ER) | payer MEDICAID, SELFPAY ==
--- NOTE | ~2024-01-02 | CT_ITS ---
EXAMINATION: CT ANGIOGRAM HEAD CT ANGIOGRAM NECK CLINICAL INFORMATION: Dizziness. Headache. COMPARISON: CT head from 12/28/2018. TECHNIQUE: Initial noncontrast hoof and shoe inspector imaging of the head and neck was performed. Noncontrast head CT was also performed. Test bolus sequences followed by intravenous administration 70 mL of Omnipaque 350. Helical imaging was performed in the axial plane from the aortic arch to the skull vertex. Delayed postcontrast imaging of the head was also performed. The data was processed at the computer engineering technologist's workstation for generation of MIP sequences. Angled MIPs and volume rendered reformatted images were also generated at an offline 3D workstation. Stenoses are assessed in accordance with NASCET criteria unless otherwise indicated. This CT examination was performed using dose optimization techniques as appropriate, variously including the following: *Automated exposure control. *Adjustment of mA and/or kV according to patient size (this includes techniques or standardized protocols for targeted exams where dose is matched to indication/reason for exam; i.e. extremities or head). *Use of iterative reconstruction technique. DLP: 2006 mGy-cm FINDINGS: CT Head: There is no evidence of acute intracranial hemorrhage or edematous territorial infarction. [place]-white matter differentiation is preserved. There is no abnormal attenuation within the brain parenchyma. The ventricles are normal in morphology and size. No evidence for obstructive hydrocephalus. The suprasellar cistern remains widely patent. Normal positioning of the cerebellar tonsils. No abnormal mass effect or midline shift. No extra-axial fluid collections. No pathologic intra-axial enhancement or regional oligemia. No acute soft tissue or osseous abnormalities. Mild mucosal thickening of the paranasal sinuses. Mild leftward nasal septal deviation. The mastoid air cells and middle ear cavities are clear. CT Neck: The thyroid gland and remaining cervical soft tissues are within normal limits. Mild reversal the normal cervical lordosis. No additional significant abnormalities of the cervical spine. CT Upper Chest: The visualized lung apices and upper mediastinum are within normal limits. Neck CTA: Aortic Arch: Normal contour and caliber. Two vessel branching pattern of the arch with left common carotid artery arising from the brachiocephalic trunk. Great Vessel Origins: No significant stenosis of the branch origins. Right Common Carotid Artery: No focal stenosis or occlusion. Cervical Right Internal Carotid Artery: Normal opacification without focal stenosis or occlusion. Left Common Carotid Artery: No focal stenosis or occlusion. Cervical Left Internal Carotid Artery: Normal opacification without focal stenosis or occlusion. Cervical Right Vertebral Artery: Co-dominant. No focal stenosis or occlusion. Cervical Left Vertebral Artery: Co-dominant. No focal stenosis or occlusion. Brain CTA: Intracranial Internal Carotid Arteries: Mild calcific atherosclerotic disease of the intracranial internal carotid arteries without occlusion or flow-limiting stenosis. Right Anterior Cerebral Artery: Normal A1 segment. Normal opacification of the distal ROSAS segments. Left Anterior Cerebral Artery: Normal A1 segment. Normal opacification of the distal ROSAS segments. Anterior Communicating Artery: Normal. Right Middle Cerebral Artery: Normal M1 segment of the MCA without focal stenosis or occlusion. Normal arborization of the distal segments. Left Middle Cerebral Artery: Normal M1 segment of the MCA without focal stenosis or occlusion. Normal arborization of the distal segments. Right Vertebral Artery: Normal V4 segment. The posterior inferior cerebellar artery is not well opacified; however, there is no CT evidence of acute occlusion. Left Vertebral Artery: Normal V4 segment. Normal opacification of the proximal segments of the posterior inferior cerebellar artery. Basilar Artery: Normal without focal stenosis or occlusion. Normal appearance of the proximal superior cerebellar arteries. Right Posterior Cerebral Artery: Normal P1 segment. Normal opacification of the distal SUR[employer]Y [employer] CHIEF segments. Left Posterior Cerebral Artery: Normal P1 segment. Normal opacification of the distal SUR[employer]Y [employer]Y CHIEF segments. Normal opacification of the superior sagittal, straight, transverse, and sigmoid sinuses. CT/CT angio head neck IMPRESSION: 1. No evidence of acute intracranial hemorrhage or edematous territorial infarction. 2. CTA of the head and neck without proximal occlusion or flow-limiting stenosis. Electronically signed by: Galindo Ortega DO 01/03/2024 02:17 AM EDT
[2024-01-02 19:57] VITALS: BP 109/64; PULSE 62; RESP 16; TEMP 36.9; O2SAT 98; BMI 33.1
--- NOTE | 2024-01-02 19:57 | ECG_ITS ---
Test Reason : EVAL Blood Pressure : / mmHG Vent. Rate : 056 BPM Atrial Rate : 056 BPM P-R Int : 162 ms QRS Dur : 064 ms QT Int : 406 ms P-R-T Axes : 049 017 038 degrees QTc Int : 391 ms Sinus bradycardia Low voltage QRS Borderline ECG When compared with ECG of 06-JAN-2021 10:12, Vent. rate has decreased BY 58 BPM Referred By: Josse Hawk Electronically Signed By:BESSY FREEMAN
[2024-01-02 20:14] LABS: MANUAL DIFF FLAG NO
[2024-01-02] MEDS: Meclizine HCl 25 MG TABLET PO (20:15)
[2024-01-02] MEDS: Metoclopramide HCl 10 MG/2 ML VIAL IVPUSH (20:15)
[2024-01-02 20:16] LABS: Basophils Absolute Auto 0.1 X10*3/uL (0.0-0.2); Basophils Percent Auto 0.6 % (0-2); Eosinophils Absolute Auto 0.2 X10*3/uL (0.0-0.4); Eosinophils Percent Auto 1.8 % (0-4); Hematocrit 36.8 % (37.0-47.0); Hemoglobin 12.2 g/dl (12.0-16.0); Imm Gran Abs Auto 0.04 X10*3/uL (0.00-0.03); Imm Gran Pct Auto 0.4 % (0.0-0.4); Lymphocytes Absolute Auto 3.1 X10*3/uL (1.2-4.9); Lymphocytes Percent Auto 32.3 % (20-40); Mean Corpuscular HGB Conc 33.2 g/dl (31.0-35.0); Mean Corpuscular Hemoglobin 29.3 pg (27.0-33.0); Mean Corpuscular Volume 88.2 fL (80.0-98.0); Mean Platelet Volume 9.4 fL (9.4-12.3); Monocytes Percent Auto 10.3 % (2-11); Neutrophils Absolute Auto 5.2 x10*3/uL (2.0-8.3); Neutrophils Percent Auto 54.6 % (45-73); Platelet Count 333 X10*3/uL (160-400); Red Blood Count 4.17 X10*6/uL (4.20-5.50); Red Cell Distribution Width 12.3 % (11.0-16.0); White Blood Count 9.5 X10*3/uL (4.8-10.8)
--- NOTE | 2024-01-02 20:30 | MHC.EDTECH ---
pt ambulated to bathroom with 1 assist and steady gait. no complaints were given.
[2024-01-02 20:40] LABS: Appearance Urine Clear; Color Urine Yellow; Glucose Urine UA Negative (Negative); Leukocyte Esterase Urine Trace (Negative); Nitrite Urine Negative (Negative); UMIC TRIGGER UACC YES; Urine Blood Negative (Negative); Urine Ketones Negative (Negative); Urine Protein Negative (Neg-Trace)
[2024-01-02 20:42] LABS: Bacteria Urine None Seen (None Seen); Hyaline Casts Urine 0-2 /LPF (0-2); RBC Urine 0-2 /HPF (0-2); Squamous Epithelial Cell Urine 0-2 /HPF (0-2); WBC Urine 0-5 /HPF (0-5)
[2024-01-02 20:48] LABS: Alanine Aminotransferase 27 U/L (0-31); Albumin Level 3.8 g/dL (3.5-5.0); Alkaline Phosphatase 78 U/L (39-117); Anion Gap 12 (12-20); Aspartate Amino Transferase 19 U/L (5-31); Bilirubin Total 0.1 mg/dL (0.0-1.0); Blood Urea Nitrogen 11 mg/dL (9-16); Calcium 9.3 mg/dL (8.4-10.2); Carbon Dioxide 21 mmol/L (22-29); Chloride 110 mmol/L (96-108); Creatinine Clr Calc Pharmacy 79.8; Estimated Glomerular Filt Rate > 60; Glucose Random 99 mg/dL (60-115); Sodium 139 mmol/L (135-145); Total Protein 7.2 g/dL (6.5-8.0)
--- OUTSIDE RECORDS SUMMARY | 2024-01-02 20:48 | XMS_ITS | Continuity of Care Document ---
Author Organization [facility] Address [address] [place] [address]- Care Team Providers Care Gem Stone Cutter Name Role Phone Not on Staff, PCP Primary Care Physician Unavail able [place] [facility] [place] - 08/30/[address] [address]- Discharge Disposition: A-D/C Home Attending Physician: Anel Rizo MD Admitting Physician: Anel Rizo MD Referring Physician: Not on Staff, Referring MD Allergies, Adverse Reactions, Alerts No Known Allergies Medications BusPIRone By Mouth, 2 times a day, 0 Refills, Maintenance, 05/22/19 10:36:00 EST Start Date: 05/22/19 Status: Ordered Clonazepam By Mouth, 3 times a day, 0 Refills, Maintenance, 05/22/19 10:36:00 EST Start Date: 05/22/19 Status: Ordered gabapentin 100 mg oral capsule 100 mg, Capsule, By Mouth, Once, STAT, 08/30/22 3:46:00 EDT, Stop date 08/30/22 3:46:00 EDT Start Date: 08/30/22 Stop Date: 08/30/22 Status: Completed LaMICtal 100 mg oral tablet 100 mg, 1, tablet, By Mouth, 2 times a day, Refills 0, Maintenance, 05/22/19 10:36:00 EST Start Date: 05/22/19 Status: Ordered methocarbamol 500 mg oral tablet 2 tablet = 1,000 mg, By Mouth, 4 times a day, 0 Refills, Maintenance, 05/22/19 10:37:00 EST Start Date: 05/22/19 Status: Ordered Prazosin By Mouth, 3 times a day, 0 Refills, Maintenance, 05/22/19 10:36:00 EST Start Date: 05/22/19 Status: Ordered Promethazine 0 Refills, Maintenance, 05/22/19 10:37:00 EST Start Date: 05/22/19 Status: Ordered Trazodone By Mouth, 2 times a day, 0 Refills, Maintenance, 05/22/19 10:37:00 EST Start Date: 05/22/19 Status: Ordered Venlafaxine By Mouth, 0 Refills, Maintenance, 05/22/19 10:37:00 EST Start Date: 05/22/19 Status: Ordered Vitamin D3 By Mouth, Daily, 0 Refills, Maintenance, 05/22/19 10:36:00 EST Start Date: 05/22/19 Status: Ordered Ziprasidone 0 Refills, Maintenance, 05/22/19 10:37:00 EST Start Date: 05/22/19 Status: Ordered Problem List Condition Confirmation Course Effective Dates Status Health St atus Informant Obese class I Confirmed Active Results Radiology Reports * Exam Date Time Procedure Performing Provider Status 08/30/22 3:15 AM Humerus Min 2 Views Right Devine , Fel icia; Auth (Verified) Notes: (Humerus Min 2 Views Right) Reason For Exam: Pain RESULT: Humerus Min 2 Views Right Humerus Min 2 Views Right, 2 views Hx of Present Illness: has been having chest pain since 00.30 that radiates down her right arm withsome dizziness and intermittent shortness of breat. Had a similar episode 5 months ago that was an acute AR; Reason: Pain; Clinical Question(s): Fracture COMPARISON: None. FINDINGS: No fractures or bone lesions. The visualized portions of the joints are normal. Mineralization is seen along the posterior aspect of the greater tuberosity, compatible with calcific tendinopathy. IMPRESSION: No acute displaced fracture. Mineralization along the posterior aspect of her tuberosity, compatible with calcific tendinopathy. WSN: [id number] Ordering Physician: Benny Mooney Dictated By: Sandra Mclean MD Dictated Date/Time: 08/30/22 8:06 am Reviewed By: Sandra Mclean MD Signed By: Sandra Mclean MD Signed Date/Time: 08/30/22 8:06 am Transcribed By: MARYAM Transcribed Date/Time: 08/30/22 7:54 am * Exam Date Time Procedure Performing Provider Status 08/30/22 3:15 AM Chest 2 Views Frontal and Lat Devien , Trice; Auth (Verified) Notes: (Chest 2 Views Frontal and Lat) Reason For Exam: CP;Other: RESULT: Chest 2 Views Frontal and Lat Chest 2 Views Frontal and Lat Hx of Present Illness: has been having chest pain since 00.30 that radiates down her right arm withsome dizziness and intermitent shortness of breat. had a similar episode 5 months ago that was an acute AR; Reason: Other:; CP; Clinical Question(s): Pneumothorax COMPARISON: None. FINDINGS: LINES AND TUBES: None. LUNGS AND PLEURA: The lungs are hypoexpanded. There is no evidence of focal airspace disease. No pleural effusion. No pneumothorax. HEART, MEDIASTINUM AND RUSSEL: Heart is normal in size. Normal mediastinal and hilar contour. BONES AND SOFT TISSUES: No acute abnormality. IMPRESSION: No acute abnormality. WSN: [id number] Ordering Physician: Benny Mooney Dictated By: Cari Hill MD Dictated Date/Time: 08/30/22 6:48 am Reviewed By: Cari Hill MD Signed By: Cari Hill MD Signed Date/Time: 08/30/22 6:48 am Transcribed By: MARYAM Transcribed Date/Time: 08/30/22 6:48 am Vital Signs Most recent to oldest [Reference Range]: 1 2 3 Height 156 cm (08/30/22 8:00 AM) 156 cm (08/30/22 1:06 AM) 156 cm (08/30/22 12:55 AM) Weight 79 kg (08/30/22 8:00 AM) 79 kg (08/30/22 1:06 AM) 79 kg (08/30/22 12:55 AM) Oxygen Saturation [94-100 %] 100 % (08/30/22 8:00 AM) 100 % (08/30/22 6:11 AM) 100 % (08/30/22 3:40 AM) Pulse Rate [55-90 bpm] 87 bpm (08/30/22 8:00 AM) 66 bpm (08/30/22 6:11 AM) 84 bpm (08/30/22 3:40 AM) Body Mass Index [18.5-24.99 kg/m2] 32.46 kg/m2 *>HHI* (08/30/22 8:00 AM) 32.46 kg/m2 *>HHI* (08/30/22 12:51 AM) Blood Pressure [90-138/55-84 mm Hg] 97/65mm Hg (08/30/22 8:00 AM) 100/71mm Hg (08/30/22 6:11 AM) 102/64mm Hg (08/30/22 3:40 AM) Respiratory Rate [16-30 br/min] 18 br/min (08/30/22 8:00 AM) 18 br/min (08/30/22 6:17 AM) 16 br/min (08/30/22 6:11 AM) Temperature [96.8-100.4 DegF] 98.0 DegF (08/30/22 8:00 AM) 98.4 DegF (08/30/22 1:06 AM) 97.7 DegF (08/30/22 12:55 AM) Liters per Minute 2 L/min (08/30/22 1:06 AM) 2 L/min (08/30/22 12:55 AM) 2 L/min (08/30/22 12:51 AM) Mode of Delivery (Oxygen) Room air (08/30/22 8:00 AM) Room air (08/30/22 6:11 AM) Room air (08/30/22 3:40 AM) Blood pressure sites Arm, left (08/30/22 8:00 AM) Arm, left (08/30/22 6:11 AM) Arm, left (08/30/22 3:40 AM) Temperature Route Oral (08/30/22 8:00 AM) Oral (08/30/22 1:06 AM) Oral (08/30/22 12:55 AM) Dry Weight 79 kg (08/30/22 8:00 AM) 79 kg (08/30/22 1:06 AM) 79 kg (08/30/22 12:55 AM) EKG study * Event Display: ECG 12-Lead Authored Date: Please click on pdf link to open report * Event Display: ECG 12-Lead Authored Date: Ventricular Rate: 94 BPM Atrial Rate: 94 BPM P-R Interval: 160 ms QRS Duration: 76 ms Q-T Interval: 354 ms QTC Calculation(Bazett): 442 ms P [place]: 44 degrees R [place]: 25 degrees T [place]: 28 degrees Normal sinus rhythm Normal ECG No previous ECGs available Confirmed by KOFFI BOLAND ([id number]) on 08/30/2022 10:25:22 AM [place]: KOFFI BOLAND Note * Jesica LOVELL, Benny Murray: PERFORM Event Display: Patient Education Leaflets Authored Date: [id number] [facility] [place] you need a Doctor or Clinic ?? 34 If You Need a Doctor or Clinic ?? Call [facility] PCP Assignment Line to help you find a doctor:?? [phone] ?? Clinics in [place], [place] For a full list of clinics:? www.The Venue Report ?? [facility]? [address] [phone] [facility] Internal medicine Clinic?[address]?[phone] [place] [address]?[address][phone] [facility]?[address][phone] [facility]?[address] [phone] [facility]?[address][phone] [facility]?[address][phone] [facility]?[address] [phone] [facility]? [address][phone] [facility] social media & mobile manager?[address][phone] [facility]?[address][phone] [facility]?[address][phone] [facility]?[address][phone] [facility]? [address][phone] [facility]?[address][phone] ? * Jesica LOVELL, Benny Murray: PERFORM Event Display: Patient Education Leaflets Authored Date: [id number] Uncertain Causes of Chest Pain ?? [id number] Uncertain Causes of Chest Pain Chest pain can happen for a number of reasons. Sometimes the cause can't be determined. If your??condition does not seem serious, and your pain does not appear to be coming from your heart, your healthcare provider may recommend watching it closely. Sometimes the signs of a serious problem take more time to appear. Many problems not related to your heart can cause chest pain. These include: ??? Musculoskeletal. Costochondritis is an inflammation of the tissues around the ribs that can occur from trauma or overuse injuries, or a strain of the muscles of the chest wall. ??? Respiratory. Pneumonia, collapsed lung (pneumothorax), or inflammation of the lining of the chest and lungs (pleurisy). ??? Gastrointestinal. Esophageal reflux, heartburn, ulcers, or gallbladder disease. ??? Anxiety and panic disorders ??? Nerve compression and inflammation ??? Rare problems such as aortic aneurysm or aortic dissection (a swelling of the large artery coming out of the heart or a tear in the wall of the artery), or pulmonary embolism (a blood clot in the lungs). Home care After your visit, follow these recommendations: ??? Rest today and avoid strenuous activity. ??? Take any prescribed medicine as directed. ??? Be aware of any recurrent chest pain and notice any changes ?? Follow-up care Follow up with your healthcare provider if you don't start to feel better within 24 hours, or as advised. ?? Call 911 Call 911 if any of these occur: ??? A change in the type of pain: if it feels different, becomes more severe, lasts longer, or begins to spread into your shoulder, arm, neck, jaw or back ??? Shortness of breath or increased pain with breathing ??? Weakness, dizziness, or fainting ??? Rapid heartbeat ??? Crushing sensation in your chest ??? Coughing up more than a small amount of blood. ?? When to seek medical advice Call your healthcare provider right away if any of the following occur: ??? Cough with dark coloredsputum (phlegm) or small amount of blood ??? Fever of 100.4??F??(38??C) or higher, or as directed by your healthcare provider ??? Swelling, pain or redness in one leg ?? Last Reviewed Date: 2021 ?? [id number] [employer]. All rights reserved. This information is not intended as a substitute for professional medical care. Always follow your healthcare professional's instructions. ?? Patient Care team information Care Team Personnel Name: Not on Staff, PCP Position: [facility] Physician (General Medicine) Member Role: PCP Name: Darrius BEY, Anel Mathis Position: [facility] ED Medicine MD Member Role: Admitting Physician Address: Address: [address] [place] [address]- Name: Benny Tadeo Position: [facility] Associate Professional Member Role: ED Physician Hand Sizer Address: Address: [address] [place] [address]- Name: Silviano Curiel Position: [facility] ED [place] [facility] [place] Name: Lisa Rapp RN Position: [facility] ED RN W/OE and Tasks Member Role: Patient Care Provider Care Team Related Persons Name: DELANEY SHAH Name: KWASI VÁSQUEZ Address: [address] [address]
--- OUTSIDE RECORDS SUMMARY | 2024-01-02 20:48 | XMS_ITS | Continuity of Care Document ---
Author Organization [facility] Jenae yolande Address [address] [place] [address] [address] [place] [address]- Care Team Providers Care Maintenance Chief Name Role Phone Gilberto Dominique MD Primary Care Physician [phone] [place] [facility] [place] - 07/22/20 [facility] [address] [place], [place] [address] Allergies, Adverse Reactions, Alerts Substance Reaction Severity Status NKA Active Medications BusPIRone By Mouth, 2 times a day, 0 Refills, Maintenance, 05/22/19 10:36:00 EST Start Date: 05/22/19 Status: Ordered Clonazepam By Mouth, 3 times a day, 0 Refills, Maintenance, 05/22/19 10:36:00 EST Start Date: 05/22/19 Status: Ordered LaMICtal 100 mg oral tablet 100 mg, [...]
--- OUTSIDE RECORDS SUMMARY | 2024-01-02 20:48 | XMS_ITS | Continuity of Care Document ---
Author Organization [facility] Jenae yolande Address [address] [place] [address] [address] [place] [address]- Care Team Providers Care Bread And Pastry Baker Name Role Phone Gilberto Dominique MD Primary Care Physician Encounter [facility] [place] Date(s): 05/22/19 - 06/01/19 [facility] [address] [place] [address]- [facility] Attending Physician: Admtr, Ar8 Admitting Physician: Admtr, Ar8 Referring Physician: Admtr, Ar8 Allergies, Adverse Reactions, Alerts Substance Reaction Severity [...]
--- OUTSIDE RECORDS SUMMARY | 2024-01-02 20:48 | XMS_ITS | Continuity of Care Document ---
Author Organization [facility] Jenae yolande Address [address] [place] [address] [address] [place] [address]- Care Team Providers Care Land Planner Name Role Phone Gilberto Dominique MD Primary Care Physician Encounter [facility] [place] Date(s): 06/21/20 - 07/21/20 [facility] [address] [place], [place] [address] Allergies, Adverse Reactions, Alerts Substance Reaction Severity [...]
[2024-01-02 21:10] LABS: Influenza A PCR NEGATIVE (Negative); Influenza B PCR NEGATIVE (Negative); Resp Syncy Virus RNA Qual PCR NEGATIVE (Negative); SARS COV2 PCR INHOUSE NEGATIVE (Negative)
[2024-01-02] MEDS: iohexoL 350 MG/ML 100 ML INFUS..BTL IV (22:06)
[2024-01-02 22:08] LABS: UPreg QC Valid YES; Urine Pregnancy NEGATIVE (NEGATIVE)
[2024-01-02 22:36] VITALS: BP 99/63; PULSE 56; RESP 16; TEMP 36.8; O2SAT 100
--- NOTE | 2024-01-02 22:49 | ED.GENADULT ---
HPI - General Adult General Chief complaint: Dizziness Stated complaint: dizziness Time Seen by Provider: 01/02/24 19:52 History of Present Illness ED Provider: Kenn RUST narrative: 48-year-old female presenting for dizziness. Patient states that she has been experiencing approximately 3 days of dizziness that is worse with movement. She states that her symptoms worsened when she sits up and when she lies down. She denies URI symptoms, fevers, chills. Patient does state that she has been stressed lately and sometimes when she thinks about life she gets anxious and short of breath. She denies exertional dyspnea and has no shortness of breath when she is not feeling anxious. She denies chest pain, diaphoresis, abdominal pain, nausea, vomiting, urinary symptoms. Related Data Previous Rx's ?Medication ?Instructions ?Recorded lorazepam 1 mg tablet (Ativan) 1 mg PO TID PRN anxiety #10 tabs 01/06/21 cephalexin 500 mg capsule 500 mg PO QID 7 days #27 caps 06/26/21 doxycycline hyclate 100 mg tablet 100 mg PO BID 7 days #14 tabs 06/26/21 lamotrigine 100 mg tablet 100 mg PO DAILY #14 tabs 07/15/21 Allergies Allergy/AdvReac Type Severity Reaction Status Date / Time acetaminophen [Percocet] Allergy Unknown rash Verified 01/02/24 20:01 oxycodone [Percocet] Allergy Unknown rash Verified 01/02/24 20:01 penicillin G Allergy Unknown rash Verified 01/02/24 20:01 Penicillins Allergy Unknown ITCHY RASH Verified 01/02/24 20:01 From VICODIN Allergy Unknown UNKNOWN Uncoded 01/02/24 20:01 Review of Systems Review of Systems: Patient endorses dizziness Yes all other systems are reviewed and are negative [facility] Past Medical History Medical History Anemia Cyst of breast High cholesterol Menses painful Migraine Seizures Social History Social History Alcohol intake: never Patient Tobacco Use Status: Never used Tobacco Advance Directives: No Advance Directives Information Provided: No Physical Exam ED Vital Signs: Vital Signs - 24 hr 01/02/24 19:57 01/02/24 22:36 01/03/24 00:04 Temperature 98.5 F 98.2 F 97.9 F Pulse Rate 62 56 70 Respiratory Rate 16 16 18 Blood Pressure 109/64 99/63 100/58 L Pulse Oximetry 98 100 98 Oxygen Delivery Method Room Air Room Air Room Air BMI result Body Mass Index 33.1 Head normocephalic atraumatic; no midline C-spine tenderness Lungs clear to auscultation bilaterally; normal S1-S2 regular rate and rhythm Abdomen is soft nontender nondistended No focal neurologic deficits appreciated; no nystagmus; normal finger-nose test; the patient walking with steady gait Medications Administered Discontinued Medications Generic Name Dose Route Start Last Admin Trade Name Freq PRN Reason Stop Dose Admin Iohexol 100 ml 01/02/24 22:05 01/02/24 22:06 Iohexol 350 Mg/Ml 100 Ml Infus..Btl IV 01/02/24 22:06 70 ml ONCE ONE Administration Meclizine HCl 25 mg 01/02/24 19:57 01/02/24 20:15 Meclizine Hcl 25 Mg Tablet PO 01/02/24 19:58 25 mg ONCE ONE Administration Metoclopramide HCl 10 mg 01/02/24 20:05 01/02/24 20:15 Metoclopramide Hcl 10 Mg/2 Ml Vial IVPUSH 01/02/24 20:06 10 mg ONCE ONE Administration Medical Decision Making Medical Decision Making MDM Narrative: This is a 48-year-old female presenting for vertigo. I am concerned for the following; BPPV, vestibular neuritis, labyrinthitis, Meniere's - at this time I am not concerned for central vertigo as patient's symptoms are more consistent with a peripheral vertigo - labs, imaging studies, meclizine and Reglan ordered - labs notable for stable H&H, no white count, normal electrolytes - on reassessment patient reports significant improvement in symptoms stating that she only now gets a little dizzy when standing - I gave her safety precautions and outpatient follow up instructions and return precautions - patient is still pending facial CTA read however on my interpretation I did not appreciate a large head bleed or LVO - I signed the patient out to night provider Lab Data 01/02/24 20:10 01/02/24 20:10 Labs: Lab Results 01/02/24 01/02/24 Range/Units 20:10 20:33 WBC 9.5 (4.8-10.8) X10*3/uL RBC 4.17 L (4.20-5.50) X10*6/uL Hgb 12.2 (12.0-16.0) g/dl Hct 36.8 L (37.0-47.0) % MCV 88.2 (80.0-98.0) fL MCH 29.3 (27.0-33.0) pg MCHC 33.2 (31.0-35.0) g/dl RDW 12.3 (11.0-16.0) % Plt Count 333 (160-400) X10*3/uL MPV 9.4 (9.4-12.3) fL Immature Gran % (Auto) 0.4 (0.0-0.4) % Neut % (Auto) 54.6 (45-73) % Lymph % (Auto) 32.3 (20-40) % [place] % (Auto) 10.3 (2-11) % Eos % (Auto) 1.8 (0-4) % Baso % (Auto) 0.6 (0-2) % Lymph # (Auto) 3.1 (1.2-4.9) X10*3/uL [place] # (Auto) 1.0 (0.1-1.2) X10*3/uL Eos # (Auto) 0.2 (0.0-0.4) X10*3/uL Baso # (Auto) 0.1 (0.0-0.2) X10*3/uL Abs Immat Gran (auto) 0.04 H (0.00-0.03) X10*3/uL Absolute Neuts (auto) 5.2 (2.0-8.3) x10*3/uL Absolute Nucleated RBC 0.000 (0.0-0.012) X10*3/uL Nucleated RBC % (auto) 0.0 (0.0-0.2) /100WBC Sodium 139 (135-145) mmol/L Potassium 4.0 (3.3-5.1) mmol/L Chloride 110 H (96-108) mmol/L Carbon Dioxide 21 L (22-29) mmol/L Anion Gap 12 (12-20) BUN 11 (9-16) mg/dL Creatinine 0.84 (0.5-1.4) mg/dL Estim Creat Clear Calc 79.8 Estimated GFR > 60 Random Glucose 99 (60-115) mg/dL Calcium 9.3 D (8.4-10.2) mg/dL Total Bilirubin 0.1 (0.0-1.0) mg/dL AST 19 (5-31) U/L ALT 27 (0-31) U/L Alkaline Phosphatase 78 (39-117) U/L Total Protein 7.2 (6.5-8.0) g/dL Albumin 3.8 (3.5-5.0) g/dL Urine Color Yellow Urine Appearance Clear Urine pH 7.0 (5.0-9.0) Ur Specific [place] 1.010 (1.005-1.025) Urine Protein Negative (Neg-Trace) mg/dL Urine Glucose (UA) Negative (Negative) mg/dL Urine Ketones Negative (Negative) mg/dL Urine Blood Negative (Negative) Urine Nitrite Negative (Negative) Ur Leukocyte Esterase Trace H (Negative) Urine RBC 0-2 (0-2) /HPF Urine WBC 0-5 (0-5) /HPF Ur Squamous Epith Cells 0-2 (0-2) /HPF Urine Bacteria None Seen (None Seen) Hyaline Casts 0-2 (0-2) /LPF Urine Test NEGATIVE (NEGATIVE) Influenza Type A (PCR) NEGATIVE (Negative) Influenza Type B (PCR) NEGATIVE (Negative) RSV RNA Qual (PCR) NEGATIVE (Negative) SARS-CoV-2 RNA (RT-PCR) NEGATIVE (Negative) Discharge Plan Discharge Clinical Impression: Vertigo Patient Disposition: Home, Self-Care Additional Instructions: Programe radha maryam con mishra proveedor de atenci?n primaria para ser evaluado en las pr?ximas 24 a 48 horas. Si desarrolla alg?n s?ntoma nuevo o que empeora, regrese al departamento de emergencias. Prescriptions: No Action lorazepam [Ativan] 1 mg tablet 1 mg PO TID PRN (Reason: anxiety) Qty: 10 0RF Rx Instructions: Patient may request partial fill doxycycline hyclate 100 mg tablet 100 mg PO BID 7 Days Qty: 14 0RF cephalexin 500 mg capsule 500 mg PO QID 7 Days Qty: 27 0RF Rx Instructions: Patient received 1st dose in the ER lamotrigine 100 mg tablet 100 mg PO DAILY Qty: 14 0RF Print Language: Guatemalan
[2024-01-03 00:04] VITALS: BP 100/58; PULSE 70; RESP 18; TEMP 36.6; O2SAT 98
[2024-01-03 02:54] VITALS: BP 105/62; PULSE 78; RESP 16; TEMP 36.7; O2SAT 98
== END 2024-01-03 02:55 | disposition home or self-care (01) ==
PROVIDERS: Emergency Provider Student in an Organized Health Care Education/Training Program; PCP Internal Medicine
DX: R42 Dizziness and giddiness (principal); R00.1 Bradycardia, unspecified; Z79.899 Other long term (current) drug therapy
CPT/HCPCS: 0241U; 36415; 70496; 70498; 80053; 81001; 81025; 85025; 93005; 96374; 99284; J2765; Q9967

== ENCOUNTER → 2024-01-02 19:57 | Outpatient (BNV) | payer MEDICAID, SELFPAY | PROVIDERS: Emergency Provider Student in an Organized Health Care Education/Training Program; PCP Internal Medicine; Visit Provider Internal Medicine | DX: R00.1 Bradycardia, unspecified (principal) | CPT/HCPCS: 93010 ==

== ENCOUNTER 2024-01-07 16:32 | Emergency (ER) | payer MEDICAID, SELFPAY ==
--- NOTE | ~2024-01-07 | CT_ITS ---
EXAMINATION: CT HEAD WITHOUT CONTRAST CT CERVICAL SPINE WITHOUT CONTRAST CLINICAL INFORMATION: Pain, injury, fall COMPARISON: None. TECHNIQUE: Contiguous axial imaging was performed from the skull base to vertex without intravenous administration of contrast. In addition, helical noncontrast CT imaging was acquired through the cervical spine and source images were reviewed along with axial reconstructions and sagittal and coronal MPRs. DLP: 965 mGy-cm FINDINGS: HEAD: No intracranial mass, hemorrhage, or midline shift is visualized. The ventricles and sulci are age-appropriate. No extra-axial collections are identified. The paranasal sinuses are well aerated. CERVICAL SPINE: There is no evidence of acute cervical spine fracture. Vertebral bodies remain normal in height, intervertebral disc spaces are preserved, and alignment is anatomic. No pre- or paravertebral soft tissue abnormality is identified. Limited assessment of the lung apices is unremarkable. CT/CT head/brain wo IV con IMPRESSION: 1. No acute intracranial pathology. 2. No CT evidence of acute cervical spine fracture or traumatic subluxation Electronically signed by: Jackelin Gilmore MD 01/07/2024 06:51 PM EDT
--- NOTE | ~2024-01-07 | CT_ITS ---
EXAMINATION: CT HEAD WITHOUT CONTRAST CT CERVICAL SPINE WITHOUT CONTRAST CLINICAL INFORMATION: Pain, injury, fall COMPARISON: None. TECHNIQUE: Contiguous axial imaging was performed from the skull base to vertex without intravenous administration of contrast. In addition, helical noncontrast CT imaging was acquired through the cervical spine and source images were reviewed along with axial reconstructions and sagittal and coronal MPRs. DLP: 965 mGy-cm FINDINGS: HEAD: No intracranial mass, hemorrhage, or midline shift is visualized. The ventricles and sulci are age-appropriate. No extra-axial collections are identified. The paranasal sinuses are well aerated. CERVICAL SPINE: There is no evidence of acute cervical spine fracture. Vertebral bodies remain normal in height, intervertebral disc spaces are preserved, and alignment is anatomic. No pre- or paravertebral soft tissue abnormality is identified. Limited assessment of the lung apices is unremarkable. CT/CT cervical spine wo IV con IMPRESSION: 1. No acute intracranial pathology. 2. No CT evidence of acute cervical spine fracture or traumatic subluxation Electronically signed by: Jackelin Gilmore MD 01/07/2024 06:51 PM EDT
[2024-01-07 16:44] VITALS: BP 118/83; PULSE 101; O2SAT 100
[2024-01-07 16:57] VITALS: BP 118/70; PULSE 88; RESP 16; TEMP 36.6; O2SAT 100; BMI 33.1
--- NOTE | 2024-01-07 17:10 | ECG_ITS ---
Test Reason : SYNCOPE Blood Pressure : / mmHG Vent. Rate : 081 BPM Atrial Rate : 081 BPM P-R Int : 152 ms QRS Dur : 074 ms QT Int : 366 ms P-R-T Axes : 047 009 038 degrees QTc Int : 425 ms Normal sinus rhythm with sinus arrhythmia Normal ECG When compared with ECG of 02-JAN-2024 19:58, No significant change was found Referred By: Arlin Nguyễn Electronically Signed By:Curtis Anand
[2024-01-07 17:36] LABS: MANUAL DIFF FLAG NO
[2024-01-07 17:40] LABS: Basophils Absolute Auto 0.1 X10*3/uL (0.0-0.2); Basophils Percent Auto 0.6 % (0-2); Eosinophils Absolute Auto 0.2 X10*3/uL (0.0-0.4); Eosinophils Percent Auto 1.6 % (0-4); Hemoglobin 13.7 g/dl (12.0-16.0); Imm Gran Abs Auto 0.06 X10*3/uL (0.00-0.03); Imm Gran Pct Auto 0.6 % (0.0-0.4); Lymphocytes Percent Auto 20.9 % (20-40); Mean Corpuscular HGB Conc 34.3 g/dl (31.0-35.0); Mean Corpuscular Hemoglobin 29.7 pg (27.0-33.0); Mean Corpuscular Volume 86.8 fL (80.0-98.0); Mean Platelet Volume 9.4 fL (9.4-12.3); Monocytes Absolute Auto 0.8 X10*3/uL (0.1-1.2); Monocytes Percent Auto 8.5 % (2-11); Neutrophils Absolute Auto 6.5 x10*3/uL (2.0-8.3); Neutrophils Percent Auto 67.8 % (45-73); Platelet Count 376 X10*3/uL (160-400); Red Blood Count 4.61 X10*6/uL (4.20-5.50); Red Cell Distribution Width 12.6 % (11.0-16.0); White Blood Count 9.7 X10*3/uL (4.8-10.8)
[2024-01-07 18:14] LABS: Alanine Aminotransferase 25 U/L (0-31); Albumin Level 4.1 g/dL (3.5-5.0); Alkaline Phosphatase 85 U/L (39-117); Anion Gap 12 (12-20); Aspartate Amino Transferase 18 U/L (5-31); Bilirubin Total 0.2 mg/dL (0.0-1.0); Blood Urea Nitrogen 10 mg/dL (9-16); Calcium 9.2 mg/dL (8.4-10.2); Carbon Dioxide 21 mmol/L (22-29); Chloride 111 mmol/L (96-108); Creatinine Clr Calc Pharmacy 78.9; Estimated Glomerular Filt Rate > 60; Glucose Random 105 mg/dL (60-115); Influenza A PCR NEGATIVE (Negative); Influenza B PCR NEGATIVE (Negative); Potassium 3.6 mmol/L (3.3-5.1); Resp Syncy Virus RNA Qual PCR NEGATIVE (Negative); SARS COV2 PCR INHOUSE NEGATIVE (Negative); Sodium 140 mmol/L (135-145); Total Protein 7.6 g/dL (6.5-8.0)
--- NOTE | 2024-01-07 18:46 | ED_ITS ---
HPI - Syncope General Chief Complaint: Syncope Stated Complaint: syncopal episode w/ fall Time Seen by Provider: 01/07/24 17:26 Source: patient and EMS Mode of arrival: ambulatory Limitations: no limitations History of Present Illness HPI narrative: Patient is a 48-year-old female who presents emergency department for evaluation. She reports that she took her medications today including gabapentin, hydroxyzine, clonazepam, and her anxiety medications after 2 weeks of not taking him. She reports that she, and there was some trouble with her insurance. Typically these medications do make her sleepy but she ultimately took them all this morning and soon after she felt dizzy and very tired like she needed to lie down. She tried to get out of bed to go and make a cup of coffee, she was feeling very dizzy. Admitted that she had no eaten anything since last night. While she was standing at the kitchen counter she felt like she was going to pass out, and next thing she recalls is lying on the floor. She states that she awoke soon thereafter and called for help. She has a history of seizure disorder but does not feel as though she had a seizure, denies any bladder bowel incontinence. At the time of my evaluation she denies any headache, dizziness, lightheadedness, neck pain, chest pain, shortness of breath, difficulty breathing. Initially she had some neck pain, radiographic imaging was obtained prior to my assumption of care, although she endorses a neck pain was on the lateral sides and has since resolved. She had evaluation in the emergency department 5 days ago 01/02/2024 for dizziness at that time that was exacerbated with movement, CTA head and neck without LVO hemorrhage or infarct, treated with meclizine and Reglan significant improvement in symptoms, diagnosed with vertigo recommended outpatient follow-up Related Data Previous Rx's ?Medication ?Instructions ?Recorded lorazepam 1 mg tablet (Ativan) 1 mg PO TID PRN anxiety #10 tabs 01/06/21 cephalexin 500 mg capsule 500 mg PO QID 7 days #27 caps 06/26/21 doxycycline hyclate 100 mg tablet 100 mg PO BID 7 days #14 tabs 06/26/21 lamotrigine 100 mg tablet 100 mg PO DAILY #14 tabs 07/15/21 Allergies Allergy/AdvReac Type Severity Reaction Status Date / Time acetaminophen [Percocet] Allergy Unknown rash Verified 01/07/24 17:00 oxycodone [Percocet] Allergy Unknown rash Verified 01/07/24 17:00 penicillin G Allergy Unknown rash Verified 01/07/24 17:00 Penicillins Allergy Unknown ITCHY RASH Verified 01/07/24 17:00 From VICODIN Allergy Unknown UNKNOWN Uncoded 01/02/24 20:01 Review of Systems 2 Review of Systems: Yes all other systems are reviewed and are negative [facility] Past Medical History Attestation statement: The following information was validated with the patient. Source: old records reviewed Medical History High cholesterol Cyst of breast Menses painful Migraine Anemia Seizures Social History Social History Alcohol intake: never Patient Tobacco Use Status: Never used Tobacco Advance Directives: No Advance Directives Information Provided: Yes Physical Exam 2 Vital Signs: Vital Signs: Last Vital Signs Temp 98.0 F 01/07/24 19:03 Pulse 94 01/07/24 19:24 Resp 16 01/07/24 19:03 BP 123/94 H 01/07/24 19:24 Pulse Ox 100 01/07/24 19:03 O2 Del Method Room Air 01/07/24 19:03 BMI result Body Mass Index 33.1 Appearance: Alert.?Oriented to person, place and time. No acute distress.?Normal affect. Head: Normocephalic, atraumatic Eyes: Pupils equal, round and reactive to light.? EOMI. No nystagmus. ENT: Pharynx normal.?? Neck: Normal inspection.? Neck supple.??Full range of motion. No midline cervical spine tenderness, step-offs, deformities. No JVD CVS: Heart sounds normal. Normal heart rate and rhythm.? Pulses normal.?? Respiratory: No respiratory distress.? Lung sounds clear to auscultation bilaterally?? Abdomen: Soft and non-tender. Normoactive bowel sounds. Skin: Skin warm and dry.? Normal skin color.? Extremities: No lower extremity edema.? No calf ttp? Neuro: Moves all extremities spontaneously. Sensation intact bilaterally. CN II- XII intact. No focal neuro deficits. Ambulates with normal steady gait. Medical Decision Making Medical Decision Making MDM Narrative: Patient is a 48-year-old female past medical history of anemia, hypercholesterolemia, migraines, seizure presenting to emergency department for evaluation after syncopal episode with preceding dizziness and no oral intake throughout the day. She overall appears well, no signs of systemic illness, did not occur during exertion fall while supine, no associated chest pain shortness of breath palpitations, has been focal neurological deficits, no family history of sudden cardiac at a young age. Wells negative unlikely pulmonary embolism, low suspicion for dissection, ACS. Less likely CVA, SAH. No red flag symptoms No significant electrolyte derangement, no JENNIFER. High sensitive troponin normal range. ECG without acute ischemic findings; NSR, ventricular rate of 81, QTC 425, no ST elevation, appears unchanged when compared to ECG from 01/02/2024. Suspect less likely ACS. CBC is without leukocytosis anemia or thrombocytopenia. Likely symptoms are due to lack of oral intake, re-initiation of her medications after 2 weeks of not taking them. At the time of my evaluation she is entirely asymptomatic, has ambulate with a steady gait to the restroom without difficulty, no episodes of dizziness lightheadedness or near syncope. She was evaluated a few days ago and was thought to have vertigo at that time as her dizziness was exacerbated with head movement and I do not you she any findings at this time. She is without associated nausea tinnitus. The episodes of dizziness have been episodic by her account. Differential Diagnosis Differential Diagnoses: The differential diagnosis associated with the presentation includes Admission/Observation Consideration of admission/observation: Escalation of care including admission/observation considered (See narrative above and course narrative for further detail) Lab Data MDM Lab Attestation statement: I reviewed the patient's lab results. (See narrative above) 01/07/24 17:27 01/07/24 17:27 Labs: Lab Results 01/07/24 Range/Units 17:27 WBC 9.7 (4.8-10.8) X10*3/uL RBC 4.61 (4.20-5.50) X10*6/uL Hgb 13.7 (12.0-16.0) g/dl Hct 40.0 (37.0-47.0) % MCV 86.8 (80.0-98.0) fL MCH 29.7 (27.0-33.0) pg MCHC 34.3 (31.0-35.0) g/dl RDW 12.6 (11.0-16.0) % Plt Count 376 (160-400) X10*3/uL MPV 9.4 (9.4-12.3) fL Immature Gran % (Auto) 0.6 H (0.0-0.4) % Neut % (Auto) 67.8 (45-73) % Lymph % (Auto) 20.9 (20-40) % [place] % (Auto) 8.5 (2-11) % Eos % (Auto) 1.6 (0-4) % Baso % (Auto) 0.6 (0-2) % Lymph # (Auto) 2.0 (1.2-4.9) X10*3/uL [place] # (Auto) 0.8 (0.1-1.2) X10*3/uL Eos # (Auto) 0.2 (0.0-0.4) X10*3/uL Baso # (Auto) 0.1 (0.0-0.2) X10*3/uL Abs Immat Gran (auto) 0.06 H (0.00-0.03) X10*3/uL Absolute Neuts (auto) 6.5 (2.0-8.3) x10*3/uL Absolute Nucleated RBC 0.000 (0.0-0.012) X10*3/uL Nucleated RBC % (auto) 0.0 (0.0-0.2) /100WBC Sodium 140 (135-145) mmol/L Potassium 3.6 (3.3-5.1) mmol/L Chloride 111 H (96-108) mmol/L Carbon Dioxide 21 L (22-29) mmol/L Anion Gap 12 (12-20) BUN 10 (9-16) mg/dL Creatinine 0.85 (0.5-1.4) mg/dL Estim Creat Clear Calc 78.9 Estimated GFR > 60 Random Glucose 105 (60-115) mg/dL Calcium 9.2 (8.4-10.2) mg/dL Total Bilirubin 0.2 (0.0-1.0) mg/dL AST 18 (5-31) U/L ALT 25 (0-31) U/L Alkaline Phosphatase 85 (39-117) U/L Troponin I High Sens 4.6 (<3.5-17.0) ng/L Total Protein 7.6 (6.5-8.0) g/dL Albumin 4.1 (3.5-5.0) g/dL Influenza Type A (PCR) NEGATIVE (Negative) Influenza Type B (PCR) NEGATIVE (Negative) RSV RNA Qual (PCR) NEGATIVE (Negative) SARS-CoV-2 RNA (RT-PCR) NEGATIVE (Negative) Independent Interpretation I performed an independent interpretation of an: CT Scan (No ICH) Radiology Impression Discussion of test interpretation with radiology: I have reviewed the radiologist's reading. Radiologist Impression: CT/CT head/brain wo IV con IMPRESSION: 1. No acute intracranial pathology. 2. No CT evidence of acute cervical spine fracture or traumatic subluxation Independent Historian Clinical information obtained from an independent historian. History obtained from or confirmed by: EMS External Record Review External record reviewed: Outpatient record Discharge Plan Discharge Clinical Impression: Syncope Patient Disposition: Home, Self-Care Instructions: Syncope (ED) Additional Instructions: As discussed, your blood work including cardiac enzymes were very reassuring today. Your EKG did not show any changes in your heart rhythm. CT scan of your head and neck were obtained without abnormality. Dizziness has been ongoing since you had missed your medications for the past 2 weeks. It is quite likely that restarting all of the medications today core contributing to worsening of your symptoms, in addition you had not had anything to eat all day. Low blood sugar can cause you to experience these symptoms as well. It is very important that you stay well hydrated, drink plenty of water throughout the day, caffeine such as and coffee can be dehydrated as well. Be sure to consume small frequent meals throughout the day. Return to emergency department any new or worsening symptoms or concerns this includes but is not limited to headache, worsening dizziness, lightheadedness, chest pain, shortness of breath, difficulty breathing, additional passing out episodes, numbness or tingling of the extremities. Please follow-up with your primary care doctor. Prescriptions: No Action lorazepam [Ativan] 1 mg tablet 1 mg PO TID PRN (Reason: anxiety) Qty: 10 0RF Rx Instructions: Patient may request partial fill doxycycline hyclate 100 mg tablet 100 mg PO BID 7 Days Qty: 14 0RF cephalexin 500 mg capsule 500 mg PO QID 7 Days Qty: 27 0RF Rx Instructions: Patient received 1st dose in the ER lamotrigine 100 mg tablet 100 mg PO DAILY Qty: 14 0RF Referrals: Ricky Jefferson MD [Primary Care Provider] - Print Language: Monegasque
[2024-01-07 19:03] VITALS: BP 124/80; PULSE 86; RESP 16; TEMP 36.7; O2SAT 100
[2024-01-07 19:13] LABS: Troponin-I High Sensitivity 4.6 ng/L (<3.5-17.0)
[2024-01-07 19:21] VITALS: BP 132/84; PULSE 72
[2024-01-07 19:24] VITALS: BP 123/94; BP 124/90; PULSE 80; PULSE 94
== END 2024-01-07 21:00 | disposition home or self-care (01) ==
PROVIDERS: Nurse Practitioner Family; Physician Assistant Medical; Emergency Provider Emergency Medicine; PCP Internal Medicine
DX: R55 Syncope and collapse (principal); M54.2 Cervicalgia; Z03.818 Encounter for observation for suspected exposure to other biological agents ruled out
CPT/HCPCS: 0241U; 70450; 72125; 80053; 84484; 85025; 93005; 99284

== ENCOUNTER → 2024-01-07 17:10 | Outpatient (BNV) | payer MEDICAID, SELFPAY | PROVIDERS: Emergency Provider Emergency Medicine; PCP Internal Medicine; Visit Provider Internal Medicine Cardiovascular Disease | DX: R55 Syncope and collapse (principal) | CPT/HCPCS: 93010 ==

== ENCOUNTER 2024-06-19 11:48 | Outpatient (REF) | payer MEDICAID, SELFPAY ==
--- OUTSIDE RECORDS SUMMARY | 2024-06-19 13:09 | XMS_ITS | Encounter Summary ---
Author Organization [employer] Address [address] [place] [address] Care Team Providers Care Engine Assembler Name Role Phone Ricky Jefferson MD Primary Care Provider [phone] Encounter Details Date Type Department Care Team (Latest Contact Info) Description 06/19/2024 10:30 AM EDT Office Visit [facility] PEDS [address] [place], [place] [phone] Ricky Jefferson MD [address] [place] [address] Chronic midline low back pain without sciatica (Primary Dx); Lateral epicondylitis of right elbow; Joint pain in both hands Social History Tobacco Use Types Packs/Day Years Used Date Smoking Tobacco: Never Passive Smoke Exposure: Never Smokeless Tobacco: Never Alcohol Use Standard Drinks/Week Comments Never 0 (1 standard drink = 0.6 oz pur e alcohol) Depression Answer Date Recorded Patient Health Questionnaire-9 Score 8 05/01/2024 Patient Health Questionnaire-9 Score 8 05/01/2024 Last PHQ-9: Questionnaire Data Not on file 0 05/01/2024 Housing Stability Answer Date Recorded What is your housing situation today? I have escobar sing 09/28/[address] you li ve. Do you have problems with any of the following? None of the above 09/28/2023 Food Insecurity Answer Date Recorded Within the past 12 months, y ou worried that your food would run out before you got money to buy more: Never True 09/28/2023 Within the past 12 months,th e food you bought just didn't last and you didn't have enough money to get more: Never True 02/2024 Transportation Answer Date Recorded In the past 12 months, has l ack of transportation kept you from medical appts, meetings, work or from getting things needed for daily living? No 09/28/2023 Utilities Answer Date Recorded In the past 12 months, has t he electric, gas, oil or water company threatened to shut off services in your home? No 09/28/2023 Depression Answer Date Recorded Patient Health Questionnaire-2 Score 2 05/01/2024 Internet Access Answer Date Recorded Internet Access Q1 Yes 11/19/2023 Internet Access Q2 Not on file 11/19/2023 Comments No Sex and Gender Information Value Date Recorded Sex Assigned at Female 01/16/2022 10:16 AM EDT Legal Sex Female 10:16 AM EDT Gender Identity Female 01/16/2022 10:16 AM EDT Sexual Orientation Straight 01/16/2022 10 :16 AM EDT documented as of this encounter Last Filed Vital Signs Vital Sign Reading Time Taken Comments Blood Pressure 123/86 06/19/2024 10:43 AM EDT Pulse 84 06/19/2024 10:43 AM EDT Temperature 36.9 ??C (98.4 ??F) 06/19/2024 10:43 AM E DT Respiratory Rate 20 06/19/2024 10:43 AM EDT Oxygen Saturation 98% 06/19/2024 10:43 AM EDT Inhaled Oxygen Concentration - - Weight 83.7 kg (184 lb 9.6 oz) 06/19/2024 10:43 AM EDT Height 154 cm (5' 0.63 ) 06/19/2024 10:43 AM EDT Body Mass Index 35.31 06/19/2024 10:43 AM EDT documented in this encounter Progress Notes * Ricky Jefferson MD - 06/19/2024 10:30 AM EDT Subjective Patient ID: Joanne Vences is a 48 y.o. female who presents for No chief complaint on file.. HPI 1) evaluated on June 05, 2024 with the right carpal tunnel syndrome. Patient was referred to hand surgery to consider an injection. Still complaining of tingling and numbness of the hand. 2) history of right lateral epicondylitis. No improvement with the use of diclofenac gel and the elbow strap. Patient is interested in getting a steroid injection to the area. 3) history of generalized bodyaches associated with low back pain and multiple other joint pains. Patient is requesting to get started on medication to help control the pain. Patient Active Problem List Diagnosis Chronic low back pain Depressive disorder Hydroureteronephrosis Kidney stone Headache Lateral epicondylitis of right elbow Bronchitis Seizure (CMS/HCC) Current Outpatient Medications on File Prior to Visit Medication Sig Dispense Refill albuterol 108 (90 Base) MCG/ACT inhaler Inhale 2 puffs every 4 (four) hours if needed for wheezing.18 g 0 amitriptyline (Elavil) 25 MG tablet TAKE 1 TABLET (25 MG) BY MOUTH AT BEDTIME. 30 tablet 3 azithromycin (Zithromax) 250 MG tablet Take 1 tablet (250 mg) by mouth Once per day. Take 2 tabletsPO once and then 1 tablet PO daily, total 5 days 6 tablet 0 busPIRone (Buspar) 30 MG tablet clonazePAM (KlonoPIN) 0.5 MG tablet diclofenac (Cataflam) 50 MG tablet Take 1 tablet (50 mg) by mouth 3 times daily. 20 tablet 0 Diclofenac Sodium 1 % gel To apply to the affected area 3 times a day 100 g 0 Elastic Bandages & Supports (Nobles Adjustable Back Brace) [facility] To wear daily 1 each 0 estradiol (Estrace) 0.1 MG/GM vaginal cream 1g vaginally at night x 2 weeks, then 1 g vaginally twice a week ongoing 42.5 g 0 famotidine (Pepcid) 20 MG tablet Take 1 tablet (20 mg) by mouth 2 times daily. 60 tablet 11 gabapentin (Neurontin) 100 MG capsule Take 1 capsule (100 mg) by mouth every 8 (eight) hours. Duloxetine discontinued because pt is on Amitriptyline. 90 capsule 11 meloxicam (Mobic) 7.5 MG tablet TAKE 1 TABLET (7.5 MG) BY MOUTH IN THE MORNING. 30 tablet 10 metroNIDAZOLE (Metrogel) 0.75 % gel Apply topically 2 times daily. 45 g 2 Omeprazole 20 MG tablet delayed-release Take 1 tablet (20 mg) by mouth Once per day. 30 tablet 1 [] sucralfate (Carafate) 1 g tablet Take 1 tablet (1 g) by mouth before breakfast, before lunch, before evening meal, and at bedtime for 7 days. 28 tablet 0 topiramate (Topamax) 100 MG tablet tretinoin (Retin-A) 0.025 % gel Apply topically at bedtime. 45 g 2 venlafaxine XR (Effexor XR) 150 MG 24 hr capsule witch david-glycerin (Tucks) pad Apply topically if needed for irritation. 40 each 3 ziprasidone (Geodon) 40 MG capsule No current facility-administered medications on file prior to visit. Allergies Allergen Reactions Acetaminophen Oxycodone Other reaction(s): itchy,hives Penicillins Review of Systems Constitutional: Negative for appetite change, chills and diaphoresis. HENT: Negative for ear discharge, ear pain and facial swelling. Respiratory: Negative for cough, choking and chest tightness. Cardiovascular: Negative for chest pain and leg swelling. Musculoskeletal: Positive for arthralgias and myalgias. Objective Physical Exam Constitutional: General: She is not in acute distress. Appearance: Normal appearance. She is obese. She is not ill-appearing, toxic- appearing or diaphoretic. Cardiovascular: Rate and Rhythm: Normal rate. Pulmonary: Effort: Pulmonary effort is normal. Abdominal: General: Abdomen is flat. Neurological: General: No focal deficit present. Mental Status: She is alert. Assessment/Plan Diagnoses and all orders for this visit: Chronic midline low back pain without sciatica - Sed Rate by Modified Westergren; Future - C-reactive Protein; Future - JACKY Screen,IFA, with Reflex to Titer and Pattern; Future - Rheumatoid Factor; Future - DULoxetine (Cymbalta) [address] capsule; Take 1 capsule (20 mg) by mouth 2 times daily. Do not crush or chew. - meloxicam (Mobic) 7.5 MG tablet; Take 2 tablets (15 mg) by mouth Once per day. Lateral epicondylitis of right elbow Comments: Continue with the use of the elbow strap Referral to consider an injection of the right elbow to the injection clinic. Orders: - meloxicam (Mobic) 7.5 MG tablet; Take 2 tablets (15 mg) by mouth Once per day. Joint pain in both hands Comments: Labs ordered. Patient will be contacted with results. Continue with meloxicam daily. Orders: - Sed Rate by Modified Westergren; Future - C-reactive Protein; Future - JACKY Screen,IFA, with Reflex to Titer and Pattern; Future - Rheumatoid Factor; Future - meloxicam (Mobic) 7.5 MG tablet; Take 2 tablets (15 mg) by mouth Once per day. documented in this encounter Plan of Treatment Upcoming Encounters Date Type Department Care Team (Late st Contact Info) Description 08/19/2024 10:30 AM EDT Office Visit [facility] PEDS [address] [place] [address] Ricky Jefferson MD [address] [place] [address] Scheduled Orders Name Type Priority Associated Diagnoses Orde r Schedule Sed Rate by Modified Westergren Lab Routine Chronic midline low back pain without sciatica Joint pain in both hands Expected: 06/19/2024, Expires: 06/19/2025 C-reactive Protein Lab Routine Chronic midline low back pain without sciatica Joint pain in both hands Expected: 06/19/2024 (Approximate), Expires: 06/19/2025 JACKY Screen,IFA, with Reflex to Titer and Pattern Lab Routine Chronic midline low back pain without sciatica Joint pain in both hands Expected: 06/19/2024 (Approximate), Expires: 06/19/2025 Rheumatoid Factor Lab Routine Chronic midline low back pain without sciatica Joint pain in both hands Expected: 06/19/2024, Expires: 06/19/2025 documented as of this encounter Visit Diagnoses Diagnosis Chronic midline low back pain without sciatica- Primary Lateral epicondylitis of right elbow Joint pain in both hands documented in this encounter Additional Health Concerns Assessment Noted Time PHQ-9 Depression Total Score: 8 05/01/19 25 11:20 AM EST documented as of this encounter Care Teams Engine Assembler Relationship Specialty Start Date End Date Ricky Jefferson MD [address] [place] [address] PCP - General Internal Medicine 03/19/18 documented as of this encounter
--- OUTSIDE RECORDS SUMMARY | 2024-06-19 13:09 | XMS_ITS | Encounter Summary ---
Author Organization [employer] Address [address] [address] Care Team Providers Care Aoc Director Intelligence Officer Name Role Phone Ricky Jefferson MD Primary Care Provider [phone] Reason for Visit * Reason Onset Date Comments PT1 08/29/2022 Encounter Details Date Type Department Care Team ([facility] st Contact Info) Description 08/29/2022 Telephone [facility]S [address] [place], [place] [phone] Ricky Jefferson MD [address] [place], [place] [phone] PT1 Social History Tobacco Use Types Packs/Day Years Used Date Smoking Tobacco: Never Smokeless Tobacco: Never Depression Answer Date Recorded Patient Health Questionnaire-9 Score 17 08/03/2022 Depression Answer Date Recorded Patient Health Questionnaire-2 Score 4 08/03/2022 Comments No Sex and Gender Information Value Date Recorded Sex Assigned at Female 01/16/2022 10:16 AM EDT Legal Sex Female 10:16 AM EDT Gender Identity Female 01/16/2022 10:16 AM EDT Sexual Orientation Straight 01/16/2022 10 :16 AM EDT COVID-19 Exposure Response Date Recorded In the last 10 days, have yo u been in contact with someone who was confirmed or suspected to have Coronavirus/COVID-19? No / Unsure 08/22/2022 12:51 PM EDT documented as of this encounter Miscellaneous Notes * Telephone Encounter - Luna Gupta - 09/13/2022 11:28 AM EDT PT-1 submitted for patient. They will receive a letter of approval or denial in the mail. * Telephone Encounter - Denice Fidel - 08/29/2022 11:42 AM EDT PT1- Location: [address] [place] [address] Date: n/a Time: n/a General Manager Needed: yes Wheel Chair Access: no PT1- Location: [address] [place] [address] Date: n/a Time: n/a General Manager Needed: yes Wheel Chair Access: no documented in this encounter Plan of Treatment Upcoming Encounters Date Type Department Care Team (Late st Contact Info) Description 08/19/2024 10:30 AM EDT Office Visit [facility] MED & PEDS [address] [place] [address] Ricky Jefferson MD [address] [place] [address] documented as of this encounter Visit Diagnoses Not on filedocumented in this encounter Additional Health Concerns Assessment Noted Time PHQ-9 Depression Total Score: 17 023 2:03 PM EDT documented as of this encounter Care Teams Aoc Director Intelligence Officer Relationship Specialty Start Date End Date Ricky Jefferson MD [address] [place] [address] PCP - General Internal Medicine 03/19/18 documented as of this encounter
--- OUTSIDE RECORDS SUMMARY | 2024-06-19 13:09 | XMS_ITS | Encounter Summary ---
Author Organization [employer] Address [address] [facility] [address] [place] [address] Care Team Providers Care Proofing Machine Operator Name Role Phone Ricky Jefferson MD Primary Care Provider [phone] Reason for Visit * Reason Onset Date Comments Appointment Request 08/15/2022 Encounter Details Date Type Department Care Team ([facility] st Contact Info) Description 08/15/2022 Telephone [facility] [address] [place] [address] Ricky Jefferson MD [address] [place], [place] [phone] Appointment Request Social History Tobacco Use Types Packs/Day Years Used Date Smoking Tobacco: Never Smokeless Tobacco: Never Depression Answer Date Recorded Patient Health Questionnaire-9 Score 17 08/03/2022 Depression Answer Date Recorded Patient Health Questionnaire-2 Score 4 08/03/2022 Comments Unknown Sex and Gender Information Value Date Recorded [...] suspected to have Coronavirus/COVID-19? No / Unsure 08/03/2022 1:07 PM EDT documented as of this encounter Miscellaneous Notes * Telephone Encounter - Aston Pepper - 08/15/2022 12:42 PM EDT Tc from pt requesting to r/s appt on 08/15/22 ( pap ) documented in this encounter Plan of Treatment Upcoming Encounters Date Type Department Care Team (Late st Contact Info) Description 08/19/2024 10:30 AM EDT Office Visit [facility] PEDS [address] [place] [address] Ricky Jefferson MD [address] [place] [address] documented as of this encounter Visit Diagnoses Not on filedocumented in this encounter Additional Health Concerns Assessment Noted Time PHQ-9 Depression Total Score: 17 023 2:03 PM EDT documented as of this encounter Care Teams Proofing Machine Operator Relationship Specialty Start Date End Date Ricky Jefferson MD [address] [place] [address] PCP - General Internal Medicine 03/19/18 documented as of this encounter
--- OUTSIDE RECORDS SUMMARY | 2024-06-19 13:09 | XMS_ITS | Encounter Summary ---
Author Organization [employer] Address [address] [place] [address] Care Team Providers Care Injection Molding Machine Operator Name Role Phone Ricky Jefferson MD Primary Care Provider [phone] Encounter Details Date Type Department Care Team (Late st Contact Info) Description 04/15/2024 Orders Only [facility] CH[facility] MED & PEDS [address] [place], [place] [phone] Ricky Jefferson MD [address] [place], [place] [phone] Vel (Primary Dx) Social History Tobacco Use Types Packs/Day Years Used Date Smoking Tobacco: Never Passive Smoke Exposure: Never Smokeless Tobacco: Never Alcohol Use Standard Drinks/Week Comments Never 0 (1 standard drink = 0.6 oz pur e alcohol) Depression Answer Date Recorded Patient Health Questionnaire-9 Score 17 08/03/2022 Housing Stability Answer Date Recorded What is your housing situation today? I have escobar farias 09/28/[address] you li [...] the past 12 months, has t he [employer], gas, oil or water company threatened to shut off services in your home? No 09/28/2023 Depression Answer Date Recorded Patient Health Questionnaire-2 Score 4 08/03/2022 Internet Access Answer Date Recorded Internet Access Q1 Yes 11/19/2023 Internet Access Q2 Not on file 11/19/2023 Comments No Sex and Gender Information Value Date Recorded Sex Assigned at Female 01/16/2022 10:16 AM EDT Legal Sex Female 10:16 AM EDT Gender Identity Female 01/16/2022 10:16 AM EDT Sexual Orientation Straight 01/16/2022 10 :16 AM EDT documented as of this encounter Plan of Treatment Upcoming Encounters Date Type Department Care Team (Late st Contact Info) Description 08/19/2024 10:30 AM EDT Office Visit [facility] MED & PEDS [address] [place] [address] Ricky Jefferson MD [address] [place] [address] documented as of this encounter Visit Diagnoses Diagnosis Rosacea- Primary documented in this encounter Additional Health Concerns Assessment Noted Time PHQ-9 Depression Total Score: 17 023 2:03 PM EDT documented as of this encounter Care Teams Injection Molding Machine Operator Relationship Specialty Start Date End Date Ricky Jefferson MD [address] [place] [address] PCP - General Internal Medicine 03/19/18 documented as of this encounter
--- OUTSIDE RECORDS SUMMARY | 2024-06-19 13:10 | XMS_ITS | Encounter Summary ---
Author Organization [employer] Address [address] [place] [address] Care Team Providers Care Product Design Manager Name Role Phone Ricky Jefferson MD Primary Care Provider [phone] Encounter Details Date Type Department Care Team (Latest Contact Info) Description 06/19/2024 Travel Social History Tobacco Use Types Packs/Day Years [...] Description 08/19/2024 10:30 AM EDT Office Visit [facility] MED & PEDS [address] [place] [address] Ricky Jefferson MD [address] [place] [address] documented as of this encounter Visit Diagnoses Not on filedocumented in this encounter Additional Health Concerns Assessment Noted Time PHQ-9 Depression Total Score: 8 05/01/19 25 11:20 AM EST documented as of this encounter Care Teams Product Design Manager Relationship Specialty Start Date End Date Ricky Jefferson MD [address] [place] [address] PCP - General Internal Medicine 03/19/18 documented as of this encounter
--- OUTSIDE RECORDS SUMMARY | 2024-06-19 13:10 | XMS_ITS | Clinical Summary ---
Author Organization [employer] Address [address] [facility] 7t [place] [address] Care Team Providers Care Compass Operator Name Role Phone Ricky Jefferson MD Primary Care Provider [phone] Allergies Active Allergy Reactions Criticality Noted Date Comments Acetaminophen 12/02/2012 Oxycodone 12/02/2012 Other reaction(s): itchy,hives Penicillins 12/01/2011 Medications busPIRone (Buspar) 30 MG tablet 023 Active clonazePAM (KlonoPIN) 0.5 MG tablet 023 Active topiramate (Topamax) 100 MG tablet 023 Active venlafaxine XR (Effexor XR) 150 MG 24 hr capsule 023 Active ziprasidone (Geodon) 40 MG capsule Active albuterol 108 (90 Base) MCG/ACT inhaler Inhale 2 puffs every 4 (four) hours if needed for wheezing. 18 g 024 2024 Active azithromycin (Zithromax) 250 MG tablet Take 1 tablet (250 mg) by mouth Once per day. Take 2 tablets PO once and then 1 tablet PO daily, total 5 days 6 tablet Active gabapentin (Neurontin) 100 MG capsuleIndicatio ns:Body aches Take 1 capsule (100 mg) by mouth every 8 (eight) hours. Duloxetine discontinued because pt is on Amitriptyline. 90 capsule 11 024 2024 Active Elastic Bandages & Supports (Nobles Adjustable Back Brace) miscIndications: Chronic midline low back pain without sciatica To wear daily 1 each Active famotidine (Pepcid) 20 MG tabletIndication s:Gastroesophage al reflux disease without esophagitis Take 1 tablet (20 mg) by mouth 2 times daily. 60 tablet 11 024 2024 Active tretinoin (Retin-A) 0.025 % gel Apply topically at bedtime. 45 g 2 024 2024 Active estradiol (Estrace) 0.1 MG/GM vaginal cream 1g vaginally at night x 2 weeks, then 1 g vaginally twice a week ongoing 42.5 g 024 Active metroNIDAZOLE (Metrogel) 0.75 % gelIndications:R osacea Apply topically 2 times daily. 45 g 2 024 2024 Active diclofenac (Cataflam) 50 MG tabletIndication s:Contusion of soft tissue Take 1 tablet (50 mg) by mouth 3 times daily. 20 tablet 024 Active witch david-glycerin (Tucks) pad Apply topically if needed for irritation. 40 each 3 024 Active amitriptyline (Elavil) 25 MG tabletIndication s:Other migraine without status migrainosus, not intractable TAKE 1 TABLET (25 MG) BY MOUTH AT BEDTIME. 30 tablet 3 025 2024 Active Diclofenac Sodium 1 % gelIndications:L ateral epicondylitis of right elbow To apply to the affected area 3 times a day 100 g 025 Active Omeprazole 20 MG tablet delayed-releaseI ndications:Gastr oesophageal reflux disease without esophagitis Take 1 tablet (20 mg) by mouth Once per day. 30 tablet 1 025 Active DULoxetine (Cymbalta) [address] capsuleIndicatio ns:Chronic midline low back pain without sciatica Take 1 capsule (20 mg) by mouth 2 times daily. Do not crush or chew. 60 capsule 11 025 2025 Active meloxicam (Mobic) 7.5 MG tabletIndication s:Chronic midline low back pain without sciatica,Lateral epicondylitis of right elbow,Joint pain in both hands Take 2 tablets (15 mg) by mouth Once per day. 30 tablet 10 025 Active meloxicam (Mobic) 7.5 MG tablet TAKE 1 TABLET (7.5 MG) BY MOUTH IN THE MORNING. 30 tablet 10 025 2024 Discontinued(R eorder (will not trigger notification to Pharmacy)) sucralfate (Carafate) 1 g tablet Take 1 tablet (1 g) by mouth before breakfast, before lunch, before evening meal, and at bedtime for 7 days. 28 tablet 025 2024 Active Problems Problem Noted Date Diagnosed Date Lateral epicondylitis of right elbow 08/08/2023 Assessment & Plan (12/24/2023 11:31 AM EDT): Follow up with Dr. Michelle for further treatment. Prescribing Diclofenac for relief of symptoms. Assessment & Plan (08/08/2023 11:09 AM EDT): Ordering XR imaging of Right Elbow. Referring to Orthopaedic for further treatment. Prescribing Diclofenac for relief of symptoms, discontinue Meloxicam. Relevant Medication Diclofenac (Cataflam) 50 MG Tablet Bronchitis 08/08/2023 Assessment & Plan (08/08/2023 11:11 AM EDT): Prescribing Zithromax, Prednisone, and Albuterol for symptoms. F/u with PCP. Relevant Medication Azithromycin (Zithromax) 250 MG Tablet Prednisone (Deltasone) 20 MG Tablet Albuterol 108 (90 Base) MCG/ACT inhaler Seizure 01/08/2020 Chronic low back pain 02/06/2018 Hydroureteronephrosis 02/02/2016 Kidney stone 02/02/2016 Depressive disorder 12/08/2014 Headache 01/23/2011 04/19/2023 Resolved Problems Problem Noted Date Diagnosed Date Resolved Date Moderate persistent asthma w ith acute exacerbation 08/08/2023 08/08/2023 Encounters Date Type Department Care Team Description 06/19/2024 10:30 AM EDT Office Visit [facility] [address] [place] [address] Ricky Jefferson MD Chronic midline low back pain without sciatica (Primary Dx); Lateral epicondylitis of right elbow; Joint pain in both hands 06/19/2024 Travel 06/05/2024 3:30 PM EDT Office Visit [facility] [address] [place] [address] Berlin Ricks MD Right carpal tunnel syndrome (Primary Dx) 06/05/2024 Travel 06/03/2024 Telephone [facility] [address] [place] [phone] Ricky Jefferson MD Nurse Triage 05/30/2024 Population Health Risk Score [facility] () Department [address] [place] [phone] Provider, Population Health Generic 05/21/[address] [address] Ricky Jefferson MD Nurse Triage 05/01/2024 9:15 AM EST Office Visit [facility] [address] [place] [address] Ricky Jefferson MD Lateral epicondylitis of right elbow (Primary Dx); Dietary counseling; Exercise counseling; Class 2 severe obesity due to excess calories with serious comorbidity and body mass index (BMI) of 35.0 to 35.9 in adult ([facility]); Gastroesophageal reflux disease without esophagitis 05/01/2024 Travel 04/22/2024 Refill [facility] [address] [place] [address] Ricky Jefferson MD 04/17/2024 10:30 AM EST Office Visit [facility] [address] [place] [address] Audrey Barlow MD Tinea cruris (Primary Dx) 04/17/2024 Travel 04/16/2024 Telephone [facility] [address] [place] [address] Ricky Jefferson MD Nurse Triage 04/15/2024 Orders Only [facility] [address] [place] [address] Ricky Jefferson MD Rosacea (Primary Dx) 04/14/[address] [address] Ricky Jefferson MD Medication Question 03/27/2024 Telephone [facility] [address] [place] [address] Ricky Jefferson MD No Show 03/27/2024 Telephone [facility] [address] [place] [address] Ricky Jefferson MD Nurse Triage 03/25/2024 Refill [facility] PEDS [address] [place] [address] Ricky Jefferson MD Other migraine without status migrainosus, not intractable from Last 3 Months Immunizations Name Administration Dates Next Due Hep B, adult 07/28/2016,06/16/2002 Influenza injectable quadrivalent preservative f ree 04/19/2023,04/28/2015 Influenza, Split (incl. purified surface antigen ) 12/01/2011 Influenza, seasonal, injectable, preservative fr ee 12/06/2023 Pfizer Covid-19 Vaccine 12+ 04/19/2023 TD (adult), 2 Lf tetanus tox oid, preservative free, adsorbed 06/16/2002 Tdap 10/20/2015 Family History Medical History Relation Name Comments Bipolar disorder Father Depression Mother anxiety Mother Relation Name Status Comments Father Mother Social History Tobacco Use Types Packs/Day Years Used Date Smoking Tobacco: Never Passive Smoke Exposure: Never Smokeless Tobacco: Never Tobacco Cessation:Counseling Given: Not Answered Alcohol Use Standard Drinks/Week Comments Never 0 [...] Orientation Straight 01/16/2022 10 :16 AM EDT Last Filed Vital Signs Vital Sign Reading [...] Mass Index 35.31 06/19/2024 10:43 AM EDT Plan of Treatment Upcoming Encounters Date Type Department Care Team (Late st Contact Info) Description 08/19/2024 10:30 AM EDT Office Visit [facility] [address] [place] [address] Ricky Jefferson MD [address] [place] [address] Health Maintenance Due Date Last Done Comments CT Colonography 1977 Colonoscopy 1977 Colorectal Cancer Screening 1977 Dental Oral Exam 1977 Dental Prophylaxis 1977 Dental X-Ray: Full Mouth 1977 FIT DNA/Cologuard 1977 FIT 1977 FOBT 1977 Sigmoidoscopy 1977 Family Planning (PISQ) 1992 Hepatitis B Vaccines (3 of 3 - 19+ 3-dose series) 09/22/2016 07/28/2016, 06/16/2002 Mammogram 02/21/2020 02/20/2018, 02/14/2018 COVID-19 Vaccine ( season) 2023 04/19/2023 SDOH Screening 09/27/2024 09/28/2023 Dental X-Ray: Bitewings 11/09/2024 11/09/2023, 03/05 Depression Screening 05/01/2025 05/01/2024, 05/01/19 Tobacco Screening 05/01/2025 05/01/2024 Alcohol/Substance Use Screening 06/19/2025 06/19/2024 DTaP/Tdap/Td Vaccines (2 - Td or Tdap) 10/19/2025 10/20/2015, 06/16/2002 Cervical Cancer Screening 11/25/2026 HPV/Cotest 11/25/2026 11/26/2023, 08/03/2020 Pap Smear 11/25/2026 11/26/2023, 08/03/2020 Zoster Vaccines (1 of 2) 01/01/2028 Lipid Panel 09/25/2028 09/26/2023 RSV Patients and Patients Aged 60 years or older (1 - 1-dose 75+ series) 2052 HIV Screening Completed 09/26/2023 Hepatitis C Screening Completed 09/26/2023 Influenza Vaccine Completed 12/06/2023, , 04/28/2015, Additional history exists HIB Vaccines Aged Out No longer eligi ble based on patient's age to complete this topic HPV Vaccines Aged Out No longer eligi ble based on patient's age to complete this topic Hepatitis A Vaccines Aged Out No long er eligible based on patient's age to complete this topic IPV Vaccines Aged Out No longer eligi ble based on patient's age to complete this topic Meningococcal Vaccine Aged Out No griselda dago eligible based on patient's age to complete this topic Pneumococcal Vaccine: Pediatrics (0 to 5 Years) and At-Risk Patients (6 to 49) Years) Aged Out No longer eligible based on patient's age to complete this topic RSV under 20 months Aged Out No longe r eligible based on patient's age to complete this topic Rotavirus Vaccines Aged Out No longer eligible based on patient's age to complete this topic Procedures Procedure Name Priority Date/Time Associated Diagnosis Comments THINPREP IMAGING PAP AND HPV MRNA E6/E7 Routine 11/26/2023 11:52 AM EDT BITEWING - SINGLE RADIOGRAPHIC IMAGE Routine 11/09/2023 11:00 AM EDT HEPATITIS C ANTIBODY Routine 09/26/2023 10:32 AM EDT Mood disorder (CMS/HCC) Body aches Encounter for screening colonoscopy Other migraine without status migrainosus, not intractable HIV 1/2 ANTIGEN/ANTIBODY, FOURTH GENERATION W/RFL Routine 09/26/2023 10:32 AM EDT Mood disorder (CMS/HCC) Body aches Encounter for screening colonoscopy Other migraine without status migrainosus, not intractable LIPID PANEL, STANDARD Routine 09/26/2023 10:32 AM EDT Mood disorder (CMS/HCC) Body aches Encounter for screening colonoscopy Other migraine without status migrainosus, not intractable MAMMOGRAM GENERIC Routine 02/20/2018 4:3 9 PM EST from Last 3 Months or Most Recently Relevant to Health Maintenance Results * ThinPrep Imaging Pap and HPV mRNA E6/E7 (11/26/2023 11:52 AM EDT) HPV nRNA E6/E7 Not Detected Not Detected [facility] Comment:Methodology: Transcr iption-Mediated AmplificationThis assay detects E6/E7 viral messenger RNA (mRNA) from 14high-risk HPV types (16,18,31,33,35,39,45,51,52,56,58,59,66,68).Cervical sources are required for HPV testing.If a vaginal source from a patient who has had atotal hysterectomy with removal of cervix wassubmitted, please contact the testing laboratoryfor alternative testing options.For additional information, please refer [email or web address]/YHW246m5(This link if provided for information/educational purposes only.)THIS TEST WAS PERFORMED AT:[employer] ([employer]) [address] [phone] DURAND MD SOURCE: SEE NOTE [facility] Comment:None given Report Status: [facility] Clinical Information: SEE NOTE [facility] Comment:None given LMP: SEE NOTE [facility] Comment:NONE GIVEN Prev. PAP: SEE NOTE [facility] Comment:NONE GIVEN Prev. BX: SEE NOTE [facility] Comment:NONE GIVEN Statement Of Adequacy: SEE NOTE [facility] Comment:Satisfactory for brant luation.Endocervical/transformation zone component absent. General Categorization: [facility] Interpretation/Result: SEE NOTE [facility] Comment:Cytology Results: Ne gative for intraepitheliallesion or malignancy. Cytology Comment SEE NOTE [facility] Comment:This Pap test has be en evaluated with computerassisted technology. Fuel Cell Assembler: SEE NOTE [facility] Comment:JORDAN CT(ASCP)CT scre ening location: [address] [address] Review Fuel Cell Assembler: [facility] Pathologist [facility] PAP Infection [facility] See Note SEE [facility] Comment:EXPLANATORY NOTE:The Pap is a screening test for cervical cancer. It isnot a diagnostic test and is subject to false negativeand false positive results. It is most reliable when asatisfactory sample, regularly obtained, is submittedwith relevant clinical findings and history, and whenthe Pap result is evaluated along with historic andcurrent clinical information. 11/26/2023 11:5 2 AM EDT 11/26/2023 7:10 PM EDT [facility] - 11/30/2023 3:23 PM EDT SEE SCANNED RESULTS IN EMR us Joslyn Gage CNM LAB PATHOLOGY ORDERABLES Final Result Performing Organization Address [facility]/ZIP Co de Phone Number [facility] [address] [place] [address] [phone] * Hepatitis C Ab (09/26/2023 10:32 AM EDT) Hepatitis C Antibody Nonreactive Nonreactive [facility] Comment:Antibodies to HCV no t detected; does not exclude early acuteHCV infection. Blood Venous blood specimen / Unknown 09/26/2023 10:32 AM EDT 09/26/2023 2:08 PM EDT us Ricky Jefferson MD LAB BLOOD ORDERABLES Final Result Performing Organization Address [facility] Co de Phone Number [facility] [address] [place] [address] [phone] * HIV-1/2 Antigen and Antibodies, Fourth Generation, with Reflexes (09/26/2023 10:32 AM EDT) Pathologist [facility] HIV AB/AG Nonreactive Nonreactive [facility] Comment:HIV-1 p24 Ag and/or HIV-1/HIV-2 Ab not detected.A test result that is nonreactive does not exclude thepossibility of exposure to or infection with HIV-1 and/orHIV-2. Nonreactive results in this assay for individualswith prior exposure to HIV-1 and/or HIV-2 may be due toantigen and antibody levels that are below the limit ofdetection of this assay.The [employer] HIV Ag/Ab Combo assay result andsupplemental assay results should be interpreted inconjunction with the patient's clinical presentation,history and other laboratory results. If the results areinconsistent with clinical evidence, additional testing issuggested to confirm the result. Blood Venous blood specimen / Unknown 09/26/2023 10:32 AM EDT 09/26/2023 2:08 PM EDT us Ricky Jefferson MD LAB BLOOD ORDERABLES Final Result Performing Organization Address City/[facility]/ZIP Co de Phone Number [facility] [address] [place] [address] [phone] * (ABNORMAL) Lipid Panel, Standard (09/26/2023 10:32 AM EDT) Triglycerides 234(H) <150 mg/dL [facility] Comment:Desirable Triglyceri de: less than 150 mg/dLBorderline High Triglyceride 150-199 mg/dLHigh Triglyceride: 200-499 mg/dLVery High Triglyceride: greater than or equal to 5OO mg/dL Cholesterol 235(H) <200 mg/dL [facility] Comment:Desirable Cholestero l: less than 200 mg/dLBorderline High Cholesterol: 200-239 mg/dLHigh Cholesterol: greater than 239 mg/dL LDL Cholesterol Calculated 142(H) <100 mg/dL [facility] Comment:Desirable LDL: less than 100 mg/dLNear Optimal/Above Optimal LDL: 110- 129 mg/dLBorderline High LDL: 130-159 mg/dLHigh LDL: 160-189 mg/dLVery High LDL: greater than or equal to 190 mg/dL HDL Cholesterol 47 >40 mg/dL [facility] Comment:Desirable HDL: great er than 40 mg/dL Note: This HDL assay may give artificially low results in patients with liver disease. Blood Venous blood specimen / Unknown 09/26/2023 10:32 AM EDT 09/26/2023 2:08 PM EDT us Ricky Jefferson MD LAB BLOOD ORDERABLES Final Result [facility] [address] [place] [address] [phone] * 3D UNILATERAL ADDED VIEWS 1 (02/20/2018 4:39 PM EST) Anatomical Region Laterality Modality Breast Bilateral Mammography 02/20/2018 4:39 PM EST Narrative 02/21/2018 7:21 AM EST Refer to the Notes tab for result details [facility] Procedure: 3D UNILATERAL ADDED VIEWS 1 Procedure Note Provider, MD Mei - 06/10/2022 Refer to the Notes tab for result details [facility] Procedure: 3D UNILATERAL ADDED VIEWS 1 us Ricky Jefferson MD IMG BI PROCEDURES Final Res ult from Last 3 Months or Most Recently Relevant to Health Maintenance Insurance [facility] C3 DENTAL-[facility] MEDICAID STAND ADULT Care Teams Compass Operator Relationship Specialty Start Date End Date Ricky Jefferson MD [address] [place] [phone] PCP - General Internal Medicine 03/19/18
[2024-06-19 14:24] LABS: C Reactive Protein 0.77 mg/dL (< or = 0.50)
[2024-06-19 14:35] LABS: Rheumatoid Factor < 13.0 IU/mL (<15.0)
[2024-06-19 14:54] LABS: Erythrocyte Sedimentation Rate 18 MM/HR (0-20)
[2024-06-25 10:38] LABS: Anti Nuclear Antibody Screen NEGATIVE (NEGATIVE)
== END 2024-06-19 11:49 | disposition home or self-care (01) ==
LOC: HO.CHCLDS 11:48
PROVIDERS: Visit Provider Internal Medicine
DX: M54.50 Low back pain, unspecified (principal); G89.29 Other chronic pain; M25.541 Pain in joints of right hand; M25.542 Pain in joints of left hand
CPT/HCPCS: 36415; 85652; 86038; 86140; 86431

== ENCOUNTER 2024-07-13 09:50 | Emergency (ER) | payer MEDICAID, SELFPAY ==
[2024-07-13 09:59] VITALS: BP 127/60; BP 132/83; PULSE 106; PULSE 93; RESP 16; TEMP 36.8; O2SAT 100; BMI 31.8
--- OUTSIDE RECORDS SUMMARY | 2024-07-13 10:24 | XMS_ITS | Encounter Summary ---
Author Organization [employer] Address [address] [place] [address] Care Team Providers Care Mailing Manager Name Role Phone Ricky Jefferson MD Primary Care Provider [phone] Encounter Details Date Type Department Care Team (Late st Contact Info) Description 04/15/2024 Orders Only [facility] [address] [place], [place] [phone] Ricky Jefferson MD [address] [place], [place] [phone] Vel (Primary Dx) Social History Tobacco Use [...] the past 12 months, has t he [email or web address], gas, oil or water company threatened to [...] Description 08/19/2024 10:30 AM EDT Office Visit [facility] [address] [place] [address] Ricky Jefferson MD [address] [place] [address] documented as of this encounter Visit Diagnoses Diagnosis Rosacea- Primary documented in this encounter Additional Health Concerns Assessment Noted Time PHQ-9 Depression Total Score: 17 023 2:03 PM EDT documented as of this encounter Care Teams Mailing Manager Relationship Specialty Start Date End Date Ricky Jefferson MD [address] [place] [address] PCP - General Internal Medicine 03/19/18 documented as of this encounter
--- OUTSIDE RECORDS SUMMARY | 2024-07-13 10:24 | XMS_ITS | Encounter Summary ---
Author Organization [employer] Address [address] [place] [address] Care Team Providers Care End Frazer Name Role Phone Ricky Jefferson MD Primary Care Provider [phone] [phone] Encounter Details Date Type Department Care Team ([facility] st Contact Info) Description 07/08/2024 Telephone C [facility] [address] [place], [place] [phone] Ricky Jefferson MD [address] [place] [address] Social History Tobacco Use Types Packs/Day Years [...] AM EDT documented as of this encounter Miscellaneous Notes * Telephone Encounter - Bren Norton RN - 07/08/2024 2:31 PM EDT Pt was referred to [facility] hand surgery. Pt to call their office to discuss appt. * Telephone Encounter - Janee Love - 07/08/2024 9:19 AM EDT Tc from pt calling to see when is she able to come in to get cortisone shot. States was inform willreceive a call on last visit but has not yet heard from anyone. documented in this encounter Plan of Treatment Upcoming Encounters Date Type Department Care Team ([facility] st Contact Info) Description 08/19/2024 10:30 AM EDT Office Visit [facility] P[facility] [address] [place] [address] Ricky Jefferson MD [address] [place] [address] documented as of this encounter Visit Diagnoses Not on filedocumented in this encounter Additional Health Concerns Assessment Noted Time PHQ-9 Depression Total Score: 8 05/01/19 25 11:20 AM EST documented as of this encounter Care Teams End Frazer Relationship Specialty Start Date End Date Ricky Jefferson MD [address] [place] [phone] PCP - General Internal Medicine 03/19/18 documented as of this encounter
--- OUTSIDE RECORDS SUMMARY | 2024-07-13 10:24 | XMS_ITS | Encounter Summary ---
Author Organization [employer] Address [address] [facility] [address] [place] [address] Care Team Providers Care Principal Biostatistician Name Role Phone Ricky Jefferson MD Primary Care Provider [phone] Reason for Visit * Reason Onset Date Comments Appointment Request 08/15/2022 Encounter Details Date Type Department Care Team ([facility] st Contact Info) Description 08/15/2022 Telephone [facility] MED[facility] [address] [place] [address] Ricky Jefferson MD [address] [place] [address] Appointment Request Social History Tobacco Use Types [...] Description 08/19/2024 10:30 AM EDT Office Visit [facility] PEDS [address] [place] [address] Ricky Jefferson MD [address] [place] [address] documented as of this encounter Visit Diagnoses Not on filedocumented in this encounter Additional Health Concerns Assessment Noted Time PHQ-9 Depression Total Score: 17 023 2:03 PM EDT documented as of this encounter Care Teams Principal Biostatistician Relationship Specialty Start Date End Date Ricky Jefferson MD [address] [place] [address] PCP - General Internal Medicine 03/19/18 documented as of this encounter
--- OUTSIDE RECORDS SUMMARY | 2024-07-13 10:24 | XMS_ITS | Clinical Summary ---
Author Organization [employer] Address [address] [facility] 7[address] [place] [address] Care Team Providers Care Ladle Watcher Name Role Phone Ricky Jefferson MD Primary Care Provider [phone] Allergies Active Allergy Reactions Criticality Noted Date [...] eorder (will not trigger notification to Pharmacy)) Active Problems Problem Noted Date Diagnosed Date [...] Encounters Date Type Department Care Team Description 07/08/2024 Telephone [facility] MED & PEDS [address] [place] [address] Ricky Jefferson MD 07/08/2024 Telephone [facility] [address] [place] [phone] Ricky Jefferson MD Referral 06/19/2024 10:30 AM EDT Office Visit [facility] [address] [place] [address] Ricky Jefferson MD Chronic midline low back pain without sciatica (Primary Dx); Lateral epicondylitis of right elbow; Joint pain in both hands 06/19/2024 Travel 06/05/2024 3:30 PM EDT Office Visit [facility] PEDS [address] [place] [address] Berlin Ricks MD Right carpal tunnel syndrome (Primary Dx) 06/05/2024 Travel 06/03/2024 Telephone [facility] MEDICINE [address] [place] [phone] Ricky Jefferson MD Nurse Triage 05/30/2024 Population Health Risk Score [facility] ([facility]) Department [address] [phone] Provider, Population Health Generic 05/21/[address] [address] Ricky Jefferson MD Nurse Triage 05/01/2024 9:15 AM EST Office Visit [facility] MED [facility] PEDS [address] [place] [address] Ricky Jefferson MD Lateral epicondylitis of right elbow (Primary Dx); Dietary counseling; Exercise counseling; Class 2 severe obesity due to excess calories with serious comorbidity and body mass index (BMI) of 35.0 to 35.9 in adult ([facility]); Gastroesophageal reflux disease without esophagitis 05/01/2024 Travel 04/22/2024 Refill [facility]EDS [address] [place] [address] Ricky Jefferson MD 04/17/2024 10:30 AM EST Office Visit [facility] MED [facility] PEDS [address] [place] [address] Audrey Barlow MD Tinea cruris (Primary Dx) 04/17/2024 Travel 04/16/2024 Telephone [facility] MED [facility] PEDS [address] [place] [address] Ricky Jefferson MD Nurse Triage 04/15/2024 Orders Only [facility] PEDS [address] [place] [address] Ricky Jefferson MD Rosacea (Primary Dx) 04/14/2024 Telephone [facility] MEDICINE [address] [place] [phone] Ricky Jefferson MD Medication Question from Last 3 Months Immunizations Name Administration [...] 08/19/2024 10:30 AM EDT Office Visit [facility] MED & PEDS [address] [place] [address] Ricky Jefferson MD [address] [place] [address] Health Maintenance Due Date Last Done Comments [...] Procedure Name Priority Date/Time Associated Diagnosis Comments RHEUMATOID FACTOR Routine 06/19/2024 11: 50 AM EDT Chronic midline low back pain without sciatica Joint pain in both hands JACKY SCREEN, IFA, W/REFL TITER AND PATTERN Routine 06/19/2024 11:50 AM EDT Chronic midline low back pain without sciatica Joint pain in both hands C-REACTIVE PROTEIN Routine 06/19/2024 11 :50 AM EDT Chronic midline low back pain without sciatica Joint pain in both hands SED RATE BY MODIFIED WESTERGREN Routine 06/19/2024 11:50 AM EDT Chronic midline low back pain without sciatica Joint pain in both hands THINPREP IMAGING PAP AND HPV MRNA E6/E7 [...] Recently Relevant to Health Maintenance Results * Sed Rate by Modified Westergren (06/19/2024 11:50 AM EDT) Erythrocyte Sedimentation Rate 18 0 - 20 MM/HR [facility] Comment:Patients with polycy themia and many hemoglobin abnormalitiesmay have depressed sed rates whereas patients with anemiamay have elevated sed rates. Blood Venous blood specimen / Unknown 06/19/2024 11:50 AM EDT 06/19/2024 2:04 PM EDT us Ricky Jefferson MD LAB BLOOD ORDERABLES Final Result Performing Organization Address [facility] Co de Phone Number [facility] [address] [place] [phone] * Rheumatoid Factor (06/19/2024 11:50 AM EDT) [facility] Rheumatoid Factor <13.0 <15.0 IU/mL [facility] Blood Venous blood specimen / Unknown 06/19/2024 11:50 AM EDT 06/19/2024 2:04 PM EDT us Ricky Jefferson MD LAB BLOOD ORDERABLES Final Result Performing Organization Address [facility] Number [facility] [address] [place] [phone] * (ABNORMAL) C-reactive Protein (06/19/2024 11:50 AM EDT) [facility] C Reactive Protein 0.77(H) < or = 0.50 mg/dL [facility] Blood Venous blood specimen / Unknown 06/19/2024 11:50 AM EDT 06/19/2024 2:04 PM EDT us Ricky Jefferson MD LAB BLOOD ORDERABLES Final Result Performing Organization Address [facility] de Phone Number [facility] [address] [place] [phone] * JACKY Screen,IFA, with Reflex to Titer and Pattern (06/19/2024 11:50 AM EDT) [facility] Anti Nuclear Antibody Screen NEGATIVE NEGATIVE [facility] Comment:JACKY IFA is a first l ine screen for detecting thepresence of up to approximately 150 autoantibodies invarious autoimmune diseases. A negative JACKY IFA resultsuggests an JACKY-associated autoimmune disease is notpresent at this time, but is not definitive. If thereis high clinical suspicion for Sjogren's syndrome,testing for anti-SS-A/Ro antibody should be considered.Anti-Rebekah-1 antibody should be considered for clinicallysuspected inflammatory myopathies.AC-0: NegativeInternational Consensus on JACKY Patterns(https://doi.org/10.1515/uocf-5664-9720)For additional information, please refer tohttp://education.memory lane syndications/faq/GAI921(This link is being provided for informational/educational purposes only.)THIS TEST WAS PERFORMED AT:[facility] [place] [phone] DURAND MD JACKY Titer TNP [facility] JACKY Pattern TNP [facility] JACKY TITER 2 (REF LAB) TNP [facility] JACKY Pattern 2 TNP [facility] 3 [facility] JACKY PATTERN 3 UTP [facility] Blood Venous blood specimen / Unknown 06/19/2024 11:50 AM EDT 06/19/2024 2:04 PM EDT Ricky Jefferson MD LAB BLOOD ORDERABLES Final Result [facility] [address] [place] [phone] * ThinPrep Imaging Pap and HPV mRNA E6/E7 (11/26/2023 11:52 AM EDT) Pathologist [facility] HPV nRNA E6/E7 Not Detected Not Detected [facility] Comment:Methodology: Transcr iption-Mediated AmplificationThis assay detects E6/E7 viral messenger RNA (mRNA) from 14high-risk HPV types (16,18,31,33,35,39,45,51,52,56,58,59,66,68).Cervical sources are required for HPV testing.If a vaginal source from a patient who has had atotal hysterectomy with removal of cervix wassubmitted, please contact the testing laboratoryfor alternative testing options.For additional information, please refer tohttp://education.Everest/faq/QRN763p0(This link if provided for information/educational purposes only.)THIS TEST WAS PERFORMED AT:[employer] [facility] [address] [phone] DURAND MD SOURCE: SEE NOTE [facility] Comment:None given Report Status: [facility] Clinical Information: SEE NOTE [facility] Comment:None given LMP: SEE NOTE [facility] Comment:NONE GIVEN Prev. PAP: SEE NOTE [facility] Comment:NONE GIVEN Prev. BX: SEE NOTE [facility] Comment:NONE GIVEN Statement Of Adequacy: SEE NOTE [facility] Comment:Satisfactory for brant luation.Endocervical/transformation zone component absent. General Categorization: [facility] Interpretation/Result: SEE NOTE [facility] Comment:Cytology Results: Ne gative for intraepitheliallesion or malignancy. Cytology Comment SEE NOTE [facility] Comment:This Pap test has be en evaluated with computerassisted technology. Tire Man: SEE NOTE [facility] Comment:JXM, CT(ASCP)CT scre ening location: [address] [address] Review Tire Man: [facility] Pathologist [facility] PAP Infection [facility] See Note SEE [facility] Comment:EXPLANATORY NOTE:The Pap is a screening test for cervical cancer. It isnot a diagnostic test and is subject to false negativeand false positive results. It is most reliable when asatisfactory sample, regularly obtained, is submittedwith relevant clinical findings and history, and whenthe Pap result is evaluated along with historic andcurrent clinical information. 11/26/2023 11:5 2 AM EDT 11/26/2023 7:10 PM EDT Narrative [facility] - 11/30/2023 3:23 PM EDT SEE SCANNED RESULTS IN EMR us Joslyn Gage CNM LAB PATHOLOGY ORDERABLES Final Result Performing Organization Address [facility]/ZIP Co de Phone Number [facility] [address] [place] [phone] * Hepatitis C Ab (09/26/2023 10:32 AM EDT) Hepatitis C Antibody Nonreactive Nonreactive [facility] Comment:Antibodies to HCV no t detected; does not exclude early acuteHCV infection. Blood Venous blood specimen / Unknown 09/26/2023 10:32 AM EDT 09/26/2023 2:08 PM EDT Ricky Jefferson MD LAB BLOOD ORDERABLES Final Result Performing Organization Address [facility] de Phone Number [facility] [address] [place] [phone] * HIV-1/2 Antigen and Antibodies, Fourth Generation, with Reflexes (09/26/2023 10:32 AM EDT) Pathologist [facility] HIV AB/AG Nonreactive Nonreactive [facility] Comment:HIV-1 p24 Ag and/or HIV-1/HIV-2 Ab not detected.A test result that is nonreactive does not exclude thepossibility of exposure to or infection with HIV-1 and/orHIV-2. Nonreactive results in this assay for individualswith prior exposure to HIV-1 and/or HIV-2 may be due toantigen and antibody levels that are below the limit ofdetection of this assay.The [employer] HIV Ag/Ab Combo assay result andsupplemental assay results should be interpreted inconjunction with the patient's clinical presentation,history and other laboratory results. If the results areinconsistent with clinical evidence, additional testing issuggested to confirm the result. Blood Venous blood specimen / Unknown 09/26/2023 10:32 AM EDT 09/26/2023 2:08 PM EDT us Ricky Jefferson MD LAB BLOOD ORDERABLES Final Result [facility] [address] [place] [phone] [phone] * (ABNORMAL) Lipid Panel, Standard (09/26/2023 10:32 AM EDT) Triglycerides 234(H) <150 mg/dL [facility] Comment:Desirable Triglyceri de: less than 150 mg/dLBorderline High Triglyceride 150-199 mg/dLHigh Triglyceride: 200-499 mg/dLVery High Triglyceride: greater than or equal to 5OO mg/dL Cholesterol 235(H) <200 mg/dL [facility] Comment:Desirable Cholestero l: less than 200 mg/dLBorderline High Cholesterol: 200-239 mg/dLHigh Cholesterol: greater than 239 mg/dL LDL Cholesterol Calculated 142(H) <100 mg/dL [facility] Comment:Desirable LDL: less than 100 mg/dLNear Optimal/Above Optimal LDL: 110- 129 mg/dLBorderline High LDL: 130-159 mg/dLHigh LDL: 160-189 mg/dLVery High LDL: greater than or equal to 190 mg/dL HDL Cholesterol 47 >40 mg/dL [facility] Comment:Desirable HDL: great er than 40 mg/dL Note: This HDL assay may give artificially low results in patients with liver disease. Blood Venous blood specimen / Unknown 09/26/2023 10:32 AM EDT 09/26/2023 2:08 PM EDT us Ricky Jefferson MD LAB BLOOD ORDERABLES Final Result [facility] [address] [place] [phone] * 3D UNILATERAL ADDED VIEWS 1 [...] Most Recently Relevant to Health Maintenance Insurance C3 [facility] MEDICAID STAND ADULT Care Teams Ladle Watcher Relationship Specialty Start Date End Date Ricky Jefferson MD [address] [place] [phone] PCP - General Internal Medicine 03/19/18
--- OUTSIDE RECORDS SUMMARY | 2024-07-13 10:24 | XMS_ITS | Encounter Summary ---
Author Organization [employer] Address [address] [facility] [address] [place] [address] Care Team Providers Care Building Coordinator Name Role Phone Ricky Jefferson MD Primary Care Provider [phone]- [phone] Reason for Visit * Reason Onset Date Comments PT1 08/29/2022 Encounter Details Date Type Department Care Team ([facility] st Contact Info) Description 08/29/2022 Telephone [facility]S [address] [place], [place] [phone] Ricky Jefferson MD [address] [place], [place] [phone] PT1 Social History Tobacco Use Types Packs/Day [...] 08/29/2022 11:42 AM EDT PT1- Location: [address] [place] [address] Date: n/a Time: n/a Lead Performance Support Analyst Needed: yes Wheel Chair Access: no PT1- Location: [address] [place] [address] Date: n/a Time: n/a Lead Performance Support Analyst Needed: yes Wheel Chair Access: no documented in this encounter Plan of Treatment Upcoming Encounters Date Type Department Care Team (Late st Contact Info) Description 08/19/2024 10:30 AM EDT Office Visit [facility] [address] [place] [address] Ricky Jefferson MD [address] [place] [address] documented as of this encounter Visit Diagnoses Not on filedocumented in this encounter Additional Health Concerns Assessment Noted Time PHQ-9 Depression Total Score: 17 023 2:03 PM EDT documented as of this encounter Care Teams Building Coordinator Relationship Specialty Start Date End Date Ricky Jefferson MD [address] [place] [address] PCP - General Internal Medicine 03/19/18 documented as of this encounter
--- NOTE | 2024-07-13 10:30 | ED_ITS ---
HPI - General Adult General Chief complaint: General Medical Stated complaint: NAUSEA Time Seen by Provider: 07/13/24 10:08 Source: patient Mode of arrival: ambulatory Limitations: no limitations History of Present Illness ED Provider: Mar Garza NP HPI narrative: Patient is a 48-year-old female who presents emergency department for evaluation. She reports over the past year she has been experiencing malaise, body aches with myalgias and arthralgias. Has followed with her primary care doctor for this. She takes multiple medications including clonazepam, duloxetine, gabapentin, hydroxyzine none of which she feels helps her pain. She typically gets associated nausea with this. Over the past month or so she has noticed her symptoms to be worsening. She states that she saw her primary care doctor they did blood work and they found ?inflammation and my body?, but she was only made aware of this result 2 days ago and has not spoke with her primary care doctor regarding next steps or follow-up. She has tried taking Tylenol at home in addition to her prescribed medications without much relief. She denies any fevers, chills, headache, chest pain, shortness of breath, recent upper respiratory symptoms such as cough, rhinorrhea, nasal congestion, vomiting, abdominal pain, genitourinary symptoms. Related Data Previous Rx's ?Medication ?Instructions ?Recorded lorazepam 1 mg tablet (Ativan) 1 mg PO TID PRN anxiety #10 tabs 01/06/21 cephalexin 500 mg capsule 500 mg PO QID 7 days #27 caps 06/26/21 doxycycline hyclate 100 mg tablet 100 mg PO BID 7 days #14 tabs 06/26/21 lamotrigine 100 mg tablet 100 mg PO DAILY #14 tabs 07/15/21 magnesium oxide 400 mg (241.3 mg 400 mg PO DAILY #14 tabs 07/13/24 magnesium) tablet Allergies Allergy/AdvReac Type Severity Reaction Status Date / Time acetaminophen [Percocet] Allergy Unknown rash Verified 07/13/24 10:00 oxycodone [Percocet] Allergy Unknown rash Verified 07/13/24 10:00 penicillin G Allergy Unknown rash Verified 07/13/24 10:00 Penicillins Allergy Unknown ITCHY RASH Verified 07/13/24 10:00 From VICODIN Allergy Unknown UNKNOWN Uncoded 07/13/24 10:00 Review of Systems 2 Review of Systems: Yes all other systems are reviewed and are negative [facility] Past Medical History Attestation statement: The following information was validated with the patient. Source: old records reviewed Medical History High cholesterol Cyst of breast Menses painful Migraine Anemia Seizures Social History Social History Alcohol intake: never Patient Tobacco Use Status: Never used Tobacco Smoked in Last 30 Days: No Use of substances other than those prescribed or required for medical reasons: No Advance Directives: No Advance Directives Information Provided: Yes Do you have a plan to hurt others: No Plan Patient : No Physical Exam ED Vital Signs: Vital Signs - 24 hr 07/13/24 09:59 07/13/24 13:09 Temperature 98.3 F 98.3 F Pulse Rate 106 H 86 Respiratory Rate 16 16 Blood Pressure 132/83 131/78 Pulse Oximetry 100 100 Oxygen Delivery Method Room Air Room Air BMI result Body Mass Index 31.8 Appearance: Alert.?Oriented to person, place and time. No acute distress.?Normal affect. Eyes: Pupils equal, round and reactive to light.? ENT: Pharynx normal.?? Neck: Normal inspection.? Neck supple.?? CVS: Heart sounds normal. Mild tachycardia? Pulses normal.?? Respiratory: No respiratory distress.? Lung sounds clear to auscultation bilaterally?? Abdomen: Soft and non-tender. Normoactive bowel sounds. No pulsatile mass.?? Skin: Skin warm and dry.? Normal skin color.? Extremities: No lower extremity edema.?? Neuro: Moves all extremities spontaneously. Sensation intact bilaterally. CN II- XII intact. No focal neuro deficits. Ambulates with normal steady gait. Course Reevaluation(s) Reevaluation #1: Mild hypomagnesemia at 1.4 for which she received mesial oxide 400 mg orally. Serum labs are otherwise unremarkable without leukocytosis anemia or thrombocytopenia. No other significant electrolyte derangement. No JENNIFER. LFTs unremarkable. CK is normal. Urinalysis with 1+ leukocyte esterase, 6-10 urine WBCs as well as squamous epithelial cells and 1+ urine bacteria, without symptoms suspect urogenital contamination versus true urinary tract infection. Advised outpatient follow-up with primary care doctor regarding her chronic myalgias and arthralgias, provided with magnesium oxide supplementation. Medications Administered Discontinued Medications Generic Name Dose Route Start Last Admin Trade Name Major PRN Reason Stop Dose Admin Ketorolac Tromethamine 15 mg 07/13/24 10:48 07/13/24 11:04 Ketorolac Tromethamine 15 Mg/Ml Vial IM 07/13/24 10:49 15 mg ONCE ONE Administration Magnesium Oxide 400 mg 07/13/24 12:02 07/13/24 12:11 Magnesium Oxide 400 Mg Tablet PO 07/13/24 12:03 400 mg ONCE ONE Administration Ondansetron HCl 4 mg 07/13/24 10:48 07/13/24 11:04 Ondansetron Odt 4 Mg Tab.Rapdis TRANSLINGU 07/13/24 10:49 4 mg ONCE ONE Administration Medical Decision Making Medical Decision Making [facility] Narrative: Patient is a 48-year-old female with past medical history of migraines, anemia, seizure disorder, hypercholesterolemia who presents emergency department for evaluation of 1 year with malaise, myalgias and arthralgias, and nausea worse over the past month or so. Recently informed of elevated inflammatory markers but has not followed up with primary care doctor in regards to a plan for this. Took Tylenol in addition to her regularly prescribed medications as per HPI without improvement. Seeking pain relief today. Denies any new additional symptoms. She appears to have discomfort with any sort of movement but she is able to range all of her joints, she was ambulatory with a steady gait. She has a benign abdominal examination. She is mildly tachycardic though I would suspect this is secondary to pain. Reviewed with patient will obtain viral serologies, urinalysis to exclude UTI, basic labs to exclude alternative VTI such as anemia, electrolyte derangement, JENNIFER, rhabdo though I suspect that this is less likely. She was offered Zofran in the emergency department in addition to a single dose of Toradol for pain. Of note she has previously been prescribed meloxicam she states she has not taken this over the past few days as she has not found it to be helpful. Differential Diagnosis Differential Diagnoses: The differential diagnosis associated with the presentation includes (Fibromyalgia, rhabdomyolysis, viral syndrome, UTI) Admission/Observation Consideration of admission/observation: Escalation of care including admission/observation considered Lab Data [facility] Lab Attestation statement: I reviewed the patient's lab results. 07/13/24 11:33 07/13/24 11:33 Labs: Lab Results 07/13/24 07/13/24 Range/Units 10:13 11:33 WBC 7.8 (4.8-10.8) X10*3/uL RBC 4.47 (4.20-5.50) X10*6/uL Hgb 12.7 (12.0-16.0) g/dl Hct 38.9 (37.0-47.0) % MCV 87.0 (80.0-98.0) fL MCH 28.4 (27.0-33.0) pg MCHC 32.6 (31.0-35.0) g/dl RDW 13.4 (11.0-16.0) % Plt Count 373 (160-400) X10*3/uL MPV 8.5 L (9.4-12.3) fL Immature Gran % (Auto) 0.4 (0.0-0.4) % Neut % (Auto) 54.1 (45-73) % Lymph % (Auto) 33.0 (20-40) % [place] % (Auto) 8.2 (2-11) % Eos % (Auto) 3.4 (0-4) % Baso % (Auto) 0.9 (0-2) % Lymph # (Auto) 2.6 (1.2-4.9) X10*3/uL [place] # (Auto) 0.6 (0.1-1.2) X10*3/uL Eos # (Auto) 0.3 (0.0-0.4) X10*3/uL Baso # (Auto) 0.1 (0.0-0.2) X10*3/uL Abs Immat Gran (auto) 0.03 (0.00-0.03) X10*3/uL Absolute Neuts (auto) 4.2 (2.0-8.3) x10*3/uL Absolute Nucleated RBC 0.000 (0.0-0.012) X10*3/uL Nucleated RBC % (auto) 0.0 (0.0-0.2) /100WBC Sodium 141 (135-145) mmol/L Potassium 3.5 (3.3-5.1) mmol/L Chloride 109 H (96-108) mmol/L Carbon Dioxide 24 (22-29) mmol/L Anion Gap 12 (12-20) BUN 9 (9-16) mg/dL Creatinine 0.79 (0.5-1.4) mg/dL Estim Creat Clear Calc 93.2 Estimated GFR > 60 Random Glucose 94 (60-115) mg/dL Calcium 9.2 (8.4-10.2) mg/dL Magnesium 1.4 L* (1.6-2.6) mg/dL Total Bilirubin 0.2 (0.0-1.0) mg/dL AST 21 (5-31) U/L ALT 28 (0-31) U/L Alkaline Phosphatase 96 (39-117) U/L Total Creatine Kinase 54 (26-140) U/L Total Protein 7.7 (6.5-8.0) g/dL Albumin 4.1 (3.5-5.0) g/dL Urine Color Yellow Urine Appearance Clear Urine pH 7.5 (5.0-9.0) Ur Specific [place] 1.015 (1.005-1.025) Urine Protein Negative (Neg-Trace) mg/dL Urine Glucose (UA) Negative (Negative) mg/dL Urine Ketones Negative (Negative) mg/dL Urine Blood Negative (Negative) Urine Nitrite Negative (Negative) Ur Leukocyte Esterase Small (1+) H (Negative) Urine RBC 0-2 (0-2) /HPF Urine WBC 6-10 H (0-5) /HPF Ur Squamous Epith Cells 6-10 (0-2) /HPF Urine Bacteria 1+ (None Seen) Hyaline Casts 0-2 (0-2) /LPF Urine Test NEGATIVE (NEGATIVE) Influenza Type A (PCR) NEGATIVE (Negative) Influenza Type B (PCR) NEGATIVE (Negative) RSV RNA Qual (PCR) NEGATIVE (Negative) SARS-CoV-2 RNA (RT-PCR) NEGATIVE (Negative) External Record Review External record reviewed: Outpatient record Prescription Management I considered prescription management with: Pain Medication Chronic Conditions Patient?s care impacted by: Other (See narrative above) Discharge Plan Discharge Clinical Impression: Arthralgia, Hypomagnesemia Patient Disposition: Home, Self-Care Instructions: Hypomagnesemia (ED), Arthralgia (ED) Additional Instructions: You were seen in the emergency department for evaluation of chronic body pain over the past year that has been progressively worsening. On review of your lab work today your magnesium level was found to be slightly low, if chronic, this can result in muscle pain and cramping. You were given a dose of magnesium supplement in the emergency department. Take magnesium oxide 400 mg daily, follow up with your primary care doctor and consider having a repeat level within the next week. Follow-up with them accordingly regarding your elevated inflammatory markers, they may consider referral to Rheumatology/pain management for your chronic pains. Prescriptions: New magnesium oxide 400 mg (241.3 mg magnesium) tablet 400 mg PO DAILY Qty: 14 0RF No Action lorazepam [Ativan] 1 mg tablet 1 mg PO TID PRN (Reason: anxiety) Qty: 10 0RF Rx Instructions: Patient may request partial fill doxycycline hyclate 100 mg tablet 100 mg PO BID 7 Days Qty: 14 0RF cephalexin 500 mg capsule 500 mg PO QID 7 Days Qty: 27 0RF Rx Instructions: Patient received 1st dose in the ER lamotrigine 100 mg tablet 100 mg PO DAILY Qty: 14 0RF Print Language: Chinese
[2024-07-13] MEDS: Ketorolac Tromethamine 15 MG/ML VIAL IM (11:04)
[2024-07-13] MEDS: Ondansetron ODT 4 MG TAB.RAPDIS TRANSLINGU (11:04)
[2024-07-13 11:17] LABS: Influenza A PCR NEGATIVE (Negative); Influenza B PCR NEGATIVE (Negative); Resp Syncy Virus RNA Qual PCR NEGATIVE (Negative); SARS COV2 PCR INHOUSE NEGATIVE (Negative)
[2024-07-13 11:38] LABS: MANUAL DIFF FLAG NO
[2024-07-13 11:41] LABS: Basophils Absolute Auto 0.1 X10*3/uL (0.0-0.2); Basophils Percent Auto 0.9 % (0-2); Eosinophils Absolute Auto 0.3 X10*3/uL (0.0-0.4); Eosinophils Percent Auto 3.4 % (0-4); Hematocrit 38.9 % (37.0-47.0); Hemoglobin 12.7 g/dl (12.0-16.0); Imm Gran Abs Auto 0.03 X10*3/uL (0.00-0.03); Imm Gran Pct Auto 0.4 % (0.0-0.4); Lymphocytes Absolute Auto 2.6 X10*3/uL (1.2-4.9); Mean Corpuscular HGB Conc 32.6 g/dl (31.0-35.0); Mean Corpuscular Hemoglobin 28.4 pg (27.0-33.0); Mean Platelet Volume 8.5 fL (9.4-12.3); Monocytes Absolute Auto 0.6 X10*3/uL (0.1-1.2); Monocytes Percent Auto 8.2 % (2-11); Neutrophils Absolute Auto 4.2 x10*3/uL (2.0-8.3); Neutrophils Percent Auto 54.1 % (45-73); Platelet Count 373 X10*3/uL (160-400); Red Blood Count 4.47 X10*6/uL (4.20-5.50); Red Cell Distribution Width 13.4 % (11.0-16.0); White Blood Count 7.8 X10*3/uL (4.8-10.8)
[2024-07-13 11:43] LABS: Appearance Urine Clear; Color Urine Yellow; Glucose Urine UA Negative (Negative); Leukocyte Esterase Urine Small (1+) (Negative); Nitrite Urine Negative (Negative); PH 7.5 (5.0-9.0); Specific Gravity - Urine 1.015 (1.005-1.025); UMIC TRIGGER UACC YES; Urine Blood Negative (Negative); Urine Ketones Negative (Negative); Urine Protein Negative (Neg-Trace)
[2024-07-13 11:45] LABS: UPreg QC Valid YES; Urine Pregnancy NEGATIVE (NEGATIVE)
[2024-07-13 11:48] LABS: Bacteria Urine 1+ (None Seen); Hyaline Casts Urine 0-2 /LPF (0-2); RBC Urine 0-2 /HPF (0-2); UACC Culture Trigger YES
[2024-07-13 12:00] LABS: Magnesium 1.4 mg/dL (1.6-2.6)
[2024-07-13 12:01] LABS: Alanine Aminotransferase 28 U/L (0-31); Albumin Level 4.1 g/dL (3.5-5.0); Alkaline Phosphatase 96 U/L (39-117); Anion Gap 12 (12-20); Aspartate Amino Transferase 21 U/L (5-31); Bilirubin Total 0.2 mg/dL (0.0-1.0); Blood Urea Nitrogen 9 mg/dL (9-16); Calcium 9.2 mg/dL (8.4-10.2); Carbon Dioxide 24 mmol/L (22-29); Chloride 109 mmol/L (96-108); Creatinine Clr Calc Pharmacy 93.2; Estimated Glomerular Filt Rate > 60; Glucose Random 94 mg/dL (60-115); Potassium 3.5 mmol/L (3.3-5.1); Sodium 141 mmol/L (135-145); Total Protein 7.7 g/dL (6.5-8.0)
--- NOTE | 2024-07-13 12:02 | ECG_ITS ---
Test Reason : check qtc Blood Pressure : */* mmHG Vent. Rate : 90 BPM Atrial Rate : 90 BPM P-R Int : 136 ms QRS Dur : 70 ms QT Int : 376 ms P-R-T Axes : 50 4 44 degrees QTcB Int : 459 ms Normal sinus rhythm Low voltage QRS Borderline ECG When compared to the previous EKG of No significant changes seen Referred By: Mar Garza Electronically Signed By: Curtis Anand
[2024-07-13] MEDS: Magnesium Oxide 400 MG TABLET PO (12:11)
[2024-07-13 13:09] VITALS: BP 131/78; PULSE 86; RESP 16; TEMP 36.8; O2SAT 100
[2024-07-13 14:14] VITALS: BP 131/78; PULSE 86; RESP 16; TEMP 36.8; O2SAT 100
== END 2024-07-13 14:25 | disposition home or self-care (01) ==
PROVIDERS: Nurse Practitioner Family; Emergency Provider Emergency Medicine
DX: E83.42 Hypomagnesemia (principal); M25.50 Pain in unspecified joint; R53.81 Other malaise; Z03.818 Encounter for observation for suspected exposure to other biological agents ruled out
CPT/HCPCS: 0241U; 36415; 80053; 81001; 81025; 82550; 83735; 85025; 87086; 87147; 93005; 96372; 99284; J1885

== ENCOUNTER → 2024-07-13 12:02 | Outpatient (BNV) | payer MEDICAID, SELFPAY | PROVIDERS: Emergency Provider Emergency Medicine; Visit Provider Internal Medicine Cardiovascular Disease | DX: Z13.6 Encounter for screening for cardiovascular disorders (principal) | CPT/HCPCS: 93010 ==

== ENCOUNTER 2024-07-29 18:05 | Emergency (ER) | payer MEDICAID, SELFPAY ==
[2024-07-29 18:08] VITALS: BP 126/86; PULSE 103; O2SAT 97
[2024-07-29 18:51] VITALS: BP 99/65; PULSE 102; RESP 18; TEMP 36.6; O2SAT 98; BMI 34.4
--- NOTE | 2024-07-29 18:52 | ED_ITS ---
HPI - General Adult General Chief complaint: GI Bleed Stated complaint: hemorrhoids x3 days, bleeding,swelling,pain Time Seen by Provider: 07/29/24 21:14 Source: patient Limitations: language barrier History of Present Illness ED Provider: Sonia Rai PA-C HPI narrative: 48-year-old female presents with painful hemorrhoids x3 days. Patient states she has known hemorrhoids, over the past 3 days, she has developed worsening pain and bleeding from her rectum. Initially she was noting bright red blood on the toilet paper after a bowel movement. She states now the bleeding has become more significant. Patient saw her primary care, they prescribed medication, the pharmacy we will not have it ready until tomorrow. Denies purulent drainage from the rectum, swelling or fever. No abdominal pain. Related Data Previous Rx's ?Medication ?Instructions ?Recorded lorazepam 1 mg tablet (Ativan) 1 mg PO TID PRN anxiety #10 tabs 01/06/21 cephalexin 500 mg capsule 500 mg PO QID 7 days #27 caps 06/26/21 doxycycline hyclate 100 mg tablet 100 mg PO BID 7 days #14 tabs 06/26/21 lamotrigine 100 mg tablet 100 mg PO DAILY #14 tabs 07/15/21 magnesium oxide 400 mg (241.3 mg 400 mg PO DAILY #14 tabs 07/13/24 magnesium) tablet Allergies Allergy/AdvReac Type Severity Reaction Status Date / Time acetaminophen [Percocet] Allergy Unknown rash Verified 07/29/24 18:53 oxycodone [Percocet] Allergy Unknown rash Verified 07/29/24 18:53 penicillin G Allergy Unknown rash Verified 07/29/24 18:53 Penicillins Allergy Unknown ITCHY RASH Verified 07/29/24 18:53 From VICODIN Allergy Unknown UNKNOWN Uncoded 07/13/24 10:00 Review of Systems 2 Review of Systems: Yes all other systems are reviewed and are negative Constitutional: Constitutional: Denies fatigue and Denies fever(s) Cardiovascular: Cardiovascular: Denies chest pain and Denies dyspnea Respiratory: Respiratory: Denies dyspnea Gastrointestinal: Gastrointestinal: Denies abdominal pain, Reports hematochezia, Denies nausea and Denies vomiting Endocrine: Endocrine: Denies fatigue PMFSH Past Medical History Attestation statement: The following information was validated with the patient. Medical History High cholesterol Cyst of breast Menses painful Migraine Anemia Seizures Social History Social History Alcohol intake: never Patient Tobacco Use Status: Never used Tobacco Advance Directives: No Advance Directives Information Provided: No Physical Exam ED Vital Signs: Vital Signs - 24 hr 07/29/24 18:51 07/29/24 21:11 Temperature 97.9 F 98.1 F Pulse Rate 102 H 89 Respiratory Rate 18 16 Blood Pressure 99/65 109/68 Pulse Oximetry 98 100 Oxygen Delivery Method Room Air Room Air BMI result Body Mass Index 34.4 Const Other: Alert well-appearing Orientation/consciousness: patient oriented x3 Resp Effort & Inspection: normal respiratory effort Cardio Other: Normal peripheral perfusion GI Other: External hemorrhoids noted they are not thrombosed, no bleeding no purulent drainage from rectum Skin Other: Warm dry no rash Neuro General: patient oriented x3, gait normal, no focal motor deficits and CN's II- XI intact bilaterally Psych Other: Cooperative Course Course Course Narrative: This is a rapid medical exam performed by Jarocho Conner NP: Additional HPI, ROS, PE not included below will be deferred to primary provider. Patient is a 48-year-old female presenting with complaint of rectal pain, hemorrhoid, rectal bleeding x 3 days. 10/10 pain. Area not visualized in triage due to privacy concerns. Denies diarrhea or constipation. Plan: basic labs Medical Decision Making Medical Decision Making MDM Narrative: 48-year-old female presents with painful hemorrhoids x3 days. Patient states she has known hemorrhoids, over the past 3 days, she has developed worsening pain and bleeding from her rectum. Initially she was noting bright red blood on the toilet paper after a bowel movement. She states now the bleeding has become more significant. Patient saw her primary care, they prescribed medication, the pharmacy we will not have it ready until tomorrow. Denies purulent drainage from the rectum, swelling or fever. No abdominal pain. Problem: Hemorrhoids History: Per patient I have considered the following differential diagnoses: Perirectal abscess, hemorrhoid, thrombosed hemorrhoid, diverticulosis Plan: Screening labs were obtained from triage her H&H are stable. The patient does have hemorrhoids however they are not thrombosed, her pain is out of proportion with exam, perhaps she has a internal hemorrhoids that I can not palpate. 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 There was no evidence of perirectal abscess on exam, no indication For imaging. I have independently reviewed the following tests: Labs: No leukocytosis, not anemic, no electrolyte abnormality noted, Lab Data 07/29/24 18:59 07/29/24 18:59 Labs: Lab Results 07/29/24 Range/Units 18:59 WBC 9.9 (4.8-10.8) X10*3/uL RBC 4.00 L (4.20-5.50) X10*6/uL Hgb 11.6 L (12.0-16.0) g/dl Hct 34.3 L (37.0-47.0) % MCV 85.8 (80.0-98.0) fL MCH 29.0 (27.0-33.0) pg MCHC 33.8 (31.0-35.0) g/dl RDW 13.2 (11.0-16.0) % Plt Count 397 (160-400) X10*3/uL MPV 9.0 L (9.4-12.3) fL Immature Gran % (Auto) 0.4 (0.0-0.4) % Neut % (Auto) 59.5 (45-73) % Lymph % (Auto) 26.6 (20-40) % [place] % (Auto) 9.4 (2-11) % Eos % (Auto) 3.4 (0-4) % Baso % (Auto) 0.7 (0-2) % Lymph # (Auto) 2.6 (1.2-4.9) X10*3/uL [place] # (Auto) 0.9 (0.1-1.2) X10*3/uL Eos # (Auto) 0.3 (0.0-0.4) X10*3/uL Baso # (Auto) 0.1 (0.0-0.2) X10*3/uL Abs Immat Gran (auto) 0.04 H (0.00-0.03) X10*3/uL Absolute Neuts (auto) 5.9 (2.0-8.3) x10*3/uL Absolute Nucleated RBC 0.000 (0.0-0.012) X10*3/uL Nucleated RBC % (auto) 0.0 (0.0-0.2) /100WBC Sodium 140 (135-145) mmol/L Potassium 4.0 (3.3-5.1) mmol/L Chloride 107 (96-108) mmol/L Carbon Dioxide 24 (22-29) mmol/L Anion Gap 13 (12-20) BUN 20 H (9-16) mg/dL Creatinine 0.68 (0.5-1.4) mg/dL Estim Creat Clear Calc 100.6 Estimated GFR > 60 Random Glucose 100 (60-115) mg/dL Calcium 9.1 (8.4-10.2) mg/dL Discharge Plan Discharge Clinical Impression: Hemorrhoids Patient Disposition: Home, Self-Care Instructions: Sitz Bath (DC), Hemorrhoids (ED) Additional Instructions: You were found to have hemorrhoids, see home care instructions. You should use an fbxc-ceo-wmpunwa stool softener such as Colace, to help make your bowel movements less painful. Use the lidocaine as needed overnight for pain. You can insert it directly into your rectum. 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 To note, there were no lab abnormalities your blood counts are normal and stable. Prescriptions: No Action lorazepam [Ativan] 1 mg tablet 1 mg PO TID PRN (Reason: anxiety) Qty: 10 0RF Rx Instructions: Patient may request partial fill doxycycline hyclate 100 mg tablet 100 mg PO BID 7 Days Qty: 14 0RF cephalexin 500 mg capsule 500 mg PO QID 7 Days Qty: 27 0RF Rx Instructions: Patient received 1st dose in the ER lamotrigine 100 mg tablet 100 mg PO DAILY Qty: 14 0RF magnesium oxide 400 mg (241.3 mg magnesium) tablet 400 mg PO DAILY Qty: 14 0RF Print Language: Greenlandic
[2024-07-29 19:04] LABS: Basophils Absolute Auto 0.1 X10*3/uL (0.0-0.2); Basophils Percent Auto 0.7 % (0-2); Eosinophils Absolute Auto 0.3 X10*3/uL (0.0-0.4); Eosinophils Percent Auto 3.4 % (0-4); Hematocrit 34.3 % (37.0-47.0); Hemoglobin 11.6 g/dl (12.0-16.0); Imm Gran Abs Auto 0.04 X10*3/uL (0.00-0.03); Imm Gran Pct Auto 0.4 % (0.0-0.4); Lymphocytes Absolute Auto 2.6 X10*3/uL (1.2-4.9); Lymphocytes Percent Auto 26.6 % (20-40); MANUAL DIFF FLAG NO; Mean Corpuscular HGB Conc 33.8 g/dl (31.0-35.0); Mean Corpuscular Volume 85.8 fL (80.0-98.0); Monocytes Absolute Auto 0.9 X10*3/uL (0.1-1.2); Monocytes Percent Auto 9.4 % (2-11); Neutrophils Absolute Auto 5.9 x10*3/uL (2.0-8.3); Neutrophils Percent Auto 59.5 % (45-73); Platelet Count 397 X10*3/uL (160-400); Red Cell Distribution Width 13.2 % (11.0-16.0); White Blood Count 9.9 X10*3/uL (4.8-10.8)
[2024-07-29 19:16] LABS: Anion Gap 13 (12-20); Blood Urea Nitrogen 20 mg/dL (9-16); Calcium 9.1 mg/dL (8.4-10.2); Carbon Dioxide 24 mmol/L (22-29); Chloride 107 mmol/L (96-108); Creatinine Clr Calc Pharmacy 100.6; Estimated Glomerular Filt Rate > 60; Glucose Random 100 mg/dL (60-115); Sodium 140 mmol/L (135-145)
[2024-07-29 21:11] VITALS: BP 109/68; PULSE 89; RESP 16; TEMP 36.7; O2SAT 100
[2024-07-29 22:45] VITALS: BP 109/68; PULSE 89; RESP 16; TEMP 36.7; O2SAT 100
[2024-07-29] MEDS: Lidocaine/Racepinep/Tetracaine 3 ML GEL.PF.APP TOPICAL (22:59)
== END 2024-07-29 23:22 | disposition home or self-care (01) ==
PROVIDERS: Registered Nurse Emergency; Emergency Provider Emergency Medicine
DX: K64.4 Residual hemorrhoidal skin tags (principal); K62.5 Hemorrhage of anus and rectum
CPT/HCPCS: 36415; 80048; 85025; 99283; 99284

== ENCOUNTER 2024-08-04 14:30 | Outpatient (REF) | payer MEDICAID, SELFPAY ==
[2024-08-04 17:27] LABS: MANUAL DIFF FLAG NO
[2024-08-04 17:30] LABS: Basophils Absolute Auto 0.1 X10*3/uL (0.0-0.2); Basophils Percent Auto 0.6 % (0-2); Eosinophils Absolute Auto 0.3 X10*3/uL (0.0-0.4); Eosinophils Percent Auto 4.1 % (0-4); Hematocrit 37.6 % (37.0-47.0); Hemoglobin 12.4 g/dl (12.0-16.0); Imm Gran Abs Auto 0.04 X10*3/uL (0.00-0.03); Imm Gran Pct Auto 0.5 % (0.0-0.4); Lymphocytes Absolute Auto 2.8 X10*3/uL (1.2-4.9); Lymphocytes Percent Auto 34.5 % (20-40); Mean Corpuscular Volume 87.9 fL (80.0-98.0); Monocytes Absolute Auto 0.9 X10*3/uL (0.1-1.2); Neutrophils Percent Auto 49.3 % (45-73); Platelet Count 418 X10*3/uL (160-400); Red Blood Count 4.28 X10*6/uL (4.20-5.50); Red Cell Distribution Width 13.4 % (11.0-16.0)
[2024-08-04 17:52] LABS: Alanine Aminotransferase 27 U/L (0-31); Albumin Level 4.1 g/dL (3.5-5.0); Alkaline Phosphatase 94 U/L (39-117); Anion Gap 12 (12-20); Aspartate Amino Transferase 25 U/L (5-31); Bilirubin Total 0.2 mg/dL (0.0-1.0); Blood Urea Nitrogen 15 mg/dL (9-16); Calcium 9.4 mg/dL (8.4-10.2); Carbon Dioxide 25 mmol/L (22-29); Chloride 106 mmol/L (96-108); Cholesterol 235 mg/dL (<200); Estimated Glomerular Filt Rate > 60; Glucose Random 86 mg/dL (60-115); HDL Cholesterol 51 mg/dL (>40); LDL Cholesterol Calculated 160 mg/dL (<100); Magnesium 1.7 mg/dL (1.6-2.6); Potassium 3.5 mmol/L (3.3-5.1); Sodium 139 mmol/L (135-145); Total Protein 7.7 g/dL (6.5-8.0); Triglycerides 122 mg/dL (<150)
[2024-08-04 18:09] LABS: TSH reflex Free T4 0.52 uIU/mL (0.32-4.0)
== END 2024-08-04 14:31 | disposition home or self-care (01) ==
LOC: HO.CHCLDS 14:30
PROVIDERS: Visit Provider Family Medicine
DX: R03.0 Elevated blood-pressure reading, without diagnosis of hypertension (principal); E83.42 Hypomagnesemia
CPT/HCPCS: 36415; 80053; 80061; 83735; 84443; 85025

== ENCOUNTER 2024-08-05 10:41 | Outpatient (REF) | payer MEDICAID, SELFPAY ==
--- OUTSIDE RECORDS SUMMARY | 2024-08-05 11:56 | XMS_ITS | Encounter Summary ---
Author Organization [employer] Address [address] [place] [address] Care Team Providers Care Hearing Instrument Specialist Name Role Phone Ricky Jefferson MD Primary Care Provider [phone] Sheri Santos MD Primary Care Provider [phone] Reason for Visit * Reason Onset Date Comments PT1 08/29/2022 Encounter Details Date Type Department Care Team ([facility] st Contact Info) Description 08/29/2022 Telephone [facility] [address] [place], [place] [id number] Ricky Jefferson MD [address] [place] [address] PT1 Social History Tobacco Use Types Packs/Day [...] Miscellaneous Notes * Telephone Encounter - Luna Colon - 09/13/2022 11:28 AM EDT PT-1 submitted for patient. They will receive a letter of approval or denial in the mail. 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 Wheel Chair Access: no PT1- Location: [address] [place] [address] Date: n/a Time: n/a Retail Salesman Needed: yes Wheel Chair Access: no documented in this encounter Plan of Treatment Upcoming Encounters Date Type Department Care Team (Late st Contact Info) Description 08/14/2024 1:00 PM EDT Nutrition [facility] DIABETES/NTRN [address] [place] [address] [place] [address] 08/19/2024 10:30 AM EDT Office Visit [facility] MED & PEDS [address] [place] [address] Ricky Jefferson MD [address] [place] [address] 08/28/2024 10:00 AM EDT Office Visit [facility] MEDICINE [address] [place] [address] Joslyn Gage CNM [address] [place] [address] documented as of this encounter Visit Diagnoses Not on filedocumented in this encounter Additional Health Concerns Assessment Noted Time PHQ-9 Depression Total Score: 17 052 023 2:03 PM EDT documented as of this encounter Care Teams Hearing Instrument Specialist Relationship Specialty Start Date End Date Ricky Jefferson MD [address] [place] [address] PCP - General Internal Medicine 03/19/18 08/03/24 Sheri Santos MD [address] [place] [address] PCP - General Family Medicine 08/04/24 Silviano River STRIP PRESSER Nurse Practitioner Psychiatry 03/19/19 documented as of this encounter
--- OUTSIDE RECORDS SUMMARY | 2024-08-05 11:56 | XMS_ITS | Encounter Summary ---
Author Organization Number 100 [facility] Address [address] [facility] [address] [place] [address] Care Team Providers Care Gas Appliance Adjuster Name Role Phone Sheri Santos MD Primary Care Provider [phone] Reason for Referral * Consultation (Routine) - Authorized Specialty Diagnoses / Procedures Referred By Leslie escamilla Referred To Contact Pharmacy Diagnoses Vasomotor symptoms due to menopause Bipolar affective disorder in remission (CMS/HCC) Seizure (CMS/HCC) Intractable headache, unspecified chronicity pattern, unspecified headache type Syncope, unspecified syncope type Sheri Santos MD [address] [place] [address] Phone: tel: fax: Referral ID Status Reason Start Date Expiration Date Visits Requested Visits Authorized [id number] Authorized Continuity of Care 08/05/2024 08/05/2025 6 6 * Cardiology (Routine) - Authorized Specialty Diagnoses / Procedures Referred By Leslie escamilla Referred To Contact Cardiology Diagnoses Syncope, unspecified syncope type Procedures Holter monitor - 24 hour Sheri Santos MD [address] [place] [phone] Phone: tel: fax: [address] Phone: tel: fax: Referral ID Status Reason Start Date Expiration Date V isits Requested Visits Authorized [id number] Authorized 08/04/2024 08/04/2025 1 1 * Imaging (Urgent) - Authorized Specialty Diagnoses / Procedures Referred By Contac t Referred To Contact Radiology Diagnoses Syncope, unspecified syncope type Procedures CT Head w/o Contrast Sheri Santos MD [address] [place] [address] Phone: tel: fax: [address] Phone: tel: fax: Referral ID Status Reason Start Date Expiration Date V isits Requested Visits Authorized [id number] Authorized 08/04/2024 08/04/2025 1 1 * Consultation (Routine) - Authorized Specialty Diagnoses / Procedures [facility] Referred To Contact Neurology Diagnoses Seizure (CMS/HCC) Intractable headache, unspecified chronicity pattern, unspecified headache type Sheri Santos MD [address] [place] [address] Phone: tel: fax: [facility] Neurology [address] [facility] 3rd Floor [address] [place] [address] Phone: tel: fax: Referral ID Status Reason Start Date Expiration Date Visits Requested Visits Authorized [id number] Authorized Specialty Services Required 08/04/2024 08/04/2025 1 1 * Imaging (Routine) - Authorized Specialty Diagnoses / Procedures [facility] Referred To Contact Radiology Diagnoses Breast cancer screening by mammogram Procedures BI Mammogram Screening Tomosynthesis Bilateral Sheri Santos MD [address] [place] [address] Phone: tel: fax: [address] Phone: tel: fax: Referral ID Status Reason Start Date Expiration Date V isits Requested Visits Authorized [id number] Authorized 08/04/2024 08/04/2025 1 1 Reason for Visit * Reason Comments Vasomotor symptoms Transfer Care Encounter Details Date Type Department Care Team (Late st Contact Info) Description 08/04/2024 1:15 PM EDT Office Visit [facility] [address] [place] [address] Sheri Santos MD [address] [place] [address] Vasomotor symptoms due to menopause (Primary Dx); Breast cancer screening by mammogram; Elevated blood pressure reading; Hypomagnesemia; Bipolar affective disorder in remission (CMS/HCC); MP (generalized anxiety disorder); PTSD (post-traumatic stress disorder); Seizure (CMS/HCC); Intractable headache, unspecified chronicity pattern, unspecified headache type; Syncope, unspecified syncope type Social History Tobacco Use Types Packs/Day Years [...] Sign Reading Time Taken Comments Blood Pressure 144/98 08/04/2024 1:52 PM EDT Pulse 80 08/04/2024 1:12 PM EDT Temperature 36.7 ??C (98.1 ??F) 08/04/2024 1:12 PM ED T Respiratory Rate 18 08/04/2024 1:12 PM EDT Oxygen Saturation 98% 08/04/2024 1:12 PM EDT Inhaled Oxygen Concentration - - Weight 85.7 kg (189 lb) 08/04/2024 1:12 PM EDT Height 152.4 cm (5') 08/04/2024 1:12 PM EDT Body Mass Index 36.91 08/04/2024 1:12 PM EDT documented in this encounter Progress Notes * Sheri Santos MD - 08/04/2024 1:15 PM EDT Subjective Patient ID: Joanne Vences is a 48 y.o. female who presents for Vasomotor symptoms and Transfer Care. Chief Complaint Syncope with falls and injuries, menopause symptoms (headaches, sweating, vaginal dryness), high blood pressure for 1 week, left knee pain from fall, migraine with nausea and stomach pain, confusion and memory issues History of Present Illness Joanne Vences is a 48 y.o. female with a history of generalized anxiety, PTSD, bipolar disorder, and epilepsy presenting with multiple concerns including syncope, menopause symptoms, and hypertension. The patient reports experiencing syncope episodes over the past 2 months, with the most recent episode occurring yesterday. She describes sudden loss of consciousness, falling, and injuring herself. Associated symptoms include nausea, dizziness, confusion, and hoarseness. She notes these episodes can occur unexpectedly during daily activities like dressing or making coffee. The patient expresses concern about the frequency and unpredictability of these episodes, as well as the resulting injuries. Ms. Armando Vences also reports menopausal symptoms including headaches, sweating, and vaginal dryness. She states these symptoms began some time ago, and a chief solution architect diagnosed her with premenopause a year ago. She describes experiencing intense heat, especially when going to bed, with sudden body temperature changes and facial sweating. The patient also mentions having vaginismus. Additionally, the patient reports experiencing high blood pressure for the past week, which is unusual for her. She denies typically having hypertension. The patient describes recent migraine episodes, including one yesterday that required ice application to her head. Associated symptoms include stomach discomfort and nausea. She also mentions experiencing convulsions in the past, though the timing is unclear. Ms. Armando Vences reports a recent fall resulting in left knee pain and tendinitis in her arms. [facility]was [facility] following this incident. The patient expresses confusion about the events surrounding her fall and describes difficulty coordinating her thoughts and actions afterward. Regarding her psychiatric conditions, the patient continues to be followed by her psych provider, Silviano River NP for the past 5 years. She reports ongoing symptoms related to her anxiety, PTSD,and bipolar disorder. The patient denies having breast cancer, ovarian cancer, or current kidney stones. She also denies having an allergy to Tylenol or currently taking diclofenac, Cymbalta, or duloxetine. Review of Systems Constitutional: Negative for fever. HENT: Negative for congestion, postnasal drip and rhinorrhea. Eyes: Negative for discharge and redness. Respiratory: Negative for apnea, cough, chest tightness and shortness of breath. Cardiovascular: Negative for chest pain. Gastrointestinal: Negative for abdominal pain. Endocrine: Negative for polyphagia. Genitourinary: Negative for difficulty urinating, dysuria and urgency. Neurological: Positive for seizures, syncope and headaches. Negative for numbness. Hematological: Negative for adenopathy. Does not bruise/bleed easily. General: Positive for fatigue, sweating. HEENT: Positive for headaches. Cardiovascular: Positive for syncope, palpitations. Gastrointestinal: Positive for nausea. Genitourinary: Positive for vaginal dryness, frequent urination. Musculoskeletal: Positive for arm pain, knee pain. Neurological: Positive for dizziness, confusion, seizures. Psychiatric: Positive for anxiety, crying spells. Objective Visit Vitals BP (!) 144/98 (BP Location: Right arm, Patient Position: Sitting, BP Cuff Size: Adult) Pulse 80 Temp 98.1 ??F (36.7 ??C) (Oral) Resp 18 Ht 5' (1.524 m) Wt 189 lb (85.7 kg) SpO2 98% BMI 36.91 kg/m?? OB Status Ablation Smoking Status Never BSA 1.9 m?? Physical Exam Constitutional: General: She is not in acute distress. Appearance: She is obese. She is not ill-appearing. HENT: Head: Normocephalic and atraumatic. Nose: No congestion. Pulmonary: Effort: Pulmonary effort is normal. No respiratory distress. Breath sounds: Normal breath sounds. Musculoskeletal: Cervical back: Normal range of motion. Neurological: General: No focal deficit present. Mental Status: She is alert. Psychiatric: Attention and Perception: Attention normal. Mood and Affect: Mood is anxious. Speech: Speech is tangential. Behavior: Behavior is cooperative. Comments: Tangential Assessment/Plan Problem List Items Addressed This Visit Headache Relevant Medications QUEtiapine (SEROquel) 200 MG tablet MAGNESIUM CITRATE PO clonazePAM (KlonoPIN) 0.5 MG tablet Other Relevant Orders Referral to Neurology Seizure ([facility]) Relevant Medications clonazePAM (KlonoPIN) 0.5 MG tablet Other Relevant Orders Referral to Neurology Bipolar affective disorder in remission ([facility]) Relevant Medications QUEtiapine (SEROquel) 200 MG tablet clonazePAM (KlonoPIN) 0.5 MG tablet MP (generalized anxiety disorder) Relevant Medications QUEtiapine (SEROquel) 200 MG tablet clonazePAM (KlonoPIN) 0.5 MG tablet PTSD (post-traumatic stress disorder) Relevant Medications QUEtiapine (SEROquel) 200 MG tablet clonazePAM (KlonoPIN) 0.5 MG tablet Syncopal episodes Patient reports multiple recent episodes of syncope, including a fall resulting in emergency room visit. No head imaging was performed during the ER visit per pt, no records available. Patient has a history of epilepsy and reports confusion before and after syncopal episodes. Differential diagnosesinclude cardiac arrhythmias, neurological causes (e.g., seizures), and medication side effects. Plan: - Order laboratory tests to investigate cause of syncope - Refer to neurology for evaluation of syncope, headaches, and seizures - Schedule follow-up appointment in one month - Educate patient that syncope is not a normal occurrence and requires further investigation Relevant Orders CT Head w/o Contrast Holter monitor - 24 hour Vasomotor symptoms due to menopause - Primary Patient reports menopausal symptoms including headaches, sweating, lack of lubrication, and heat sensations, particularly at night. Slice Plug Cutter Operator Helper previously diagnosed premenopause approximately one year ago and prescribed vaginal cream. Patient also reports a history of vaginismus. Plan: - Order hormone panel to assess menopausal status as patient had an endometrial ablation - Schedule mammogram at [facility] for breast cancer screening - Refer to gynecology for further management of menopausal symptoms and vaginismus Relevant Orders FSH Estradiol Anti-Mullerian Hormone (AMH), Female Hypomagnesemia Relevant Orders Magnesium (Completed) Breast cancer screening by mammogram Relevant Medications minocycline 100 MG capsule Other Relevant Orders BI Mammogram Screening Tomosynthesis Bilateral Elevated blood pressure reading Patient reports recent onset of elevated blood pressure, with current reading of 144/98 mmHg. Patient denies typical hypertension but reports consistently elevated readings over the past week. Plan: - Consider prescribing home blood pressure monitoring device if elevated readings persist - Educate patient on lifestyle modifications for blood pressure control - Monitor blood pressure at follow-up appointment in one month Relevant Orders CBC auto differential (Completed) Comprehensive Metabolic Panel (Completed) TSH W/Reflex to FT4 (Completed) Lipid Panel, Standard (Completed) # Polypharmacy and medication interactions Assessment: Patient is on multiple medications that may interact, including psychiatric medications(Seroquel, buspirone, gabapentin, Lamictal, Topamax, Effexor, amitriptyline, Cymbalta), pain medications (meloxicam, diclofenac), and others (doxycycline, albuterol, clonidine, omeprazole, magnesium citrate, ketamine). Concerns about medication interactions and side effects, particularly in relation to syncope. Plan: - Review current medication list for potential interactions and side effects - Discuss Topamax use with psychiatrist due to patient's history of kidney stones - Adjust medications as necessary based on review and recent symptoms - Educate patient on importance of medication adherence and reporting side effects -Will refer to [facility] documented in this encounter Miscellaneous Notes * Assessment & Plan Note - Sheri Santos MD - 08/05/2024 8:57 AM EDT Associated Problem(s): Headache Patient reports recent severe migraine requiring ice application and causing gastrointestinal symptoms. History of migraines managed by neurologist, but has not seen neurology in over 2 years. Plan: - Refer to neurology for migraine management - Review current migraine treatment regimen and adjust as necessary * Assessment & Plan Note - Sheri Santos MD - 08/05/2024 8:56 AM EDT Associated Problem(s): Elevated blood pressure reading Patient reports recent onset of elevated blood pressure, with current reading of 144/98 mmHg. Patient denies typical hypertension but reports consistently elevated readings over the past week. Plan: - Consider prescribing home blood pressure monitoring device if elevated readings persist - Educate patient on lifestyle modifications for blood pressure control - Monitor blood pressure at follow-up appointment in one month * Assessment & Plan Note - Sheri Santos MD - 08/05/2024 8:55 AM EDT Associated Problem(s): Vasomotor symptoms due to menopause Patient reports menopausal symptoms including headaches, sweating, lack of lubrication, and heat sensations, particularly at night. Slice Plug Cutter Operator Helper previously diagnosed premenopause approximately one year ago and prescribed vaginal cream. Patient also reports a history of vaginismus. Plan: - Order hormone panel to assess menopausal status as patient had an endometrial ablation - Schedule mammogram at [facility] for breast cancer screening - Refer to gynecology for further management of menopausal symptoms and vaginismus * Assessment & Plan Note - Sheri Santos MD - 08/05/2024 8:54 AM EDT Associated Problem(s): Syncopal episodes Patient reports multiple recent episodes of syncope, including a fall resulting in emergency room visit. No head imaging was performed during the ER visit per pt, no records available. Patient has a history of epilepsy and reports confusion before and after syncopal episodes. Differential diagnosesinclude cardiac arrhythmias, neurological causes (e.g., seizures), and medication side effects. Plan: - Order laboratory tests to investigate cause of syncope - Refer to neurology for evaluation of syncope, headaches, and seizures - Schedule follow-up appointment in one month - Educate patient that syncope is not a normal occurrence and requires further investigation documented in this encounter Plan of Treatment Upcoming Encounters Date Type Department Care Team (Late st Contact Info) Description 08/14/2024 1:00 PM EDT Nutrition [facility] [address], [place] [phone] [address] [place], [place] [phone] 08/19/2024 10:30 AM EDT Office Visit [facility] [address], [place] [phone] Ricky [place] MD [address] [place], [place] [phone] 08/28/2024 10:00 AM EDT Office Visit [facility] [address] [place], [place] [phone] Joslyn Gage CNM [address] [place], [place] [phone] Scheduled Orders Name Type Priority Associated Diagnoses Orde r Schedule FSH Lab Routine Vasomotor symptoms due to menopause Expected: 08/04/2024, Expires: 08/04/2025 Estradiol Lab Routine Vasomotor symptoms due to menopause Expected: 08/04/2024, Expires: 08/04/2025 Anti-Mullerian Hormone (AMH), Female Lab Routine Vasomotor symptoms due to menopause Expected: 08/04/2024 (Approximate), Expires: 08/04/2025 BI Mammogram Screening Tomosynthesis Bilateral Imaging Routine Breast cancer screening by mammogram Expected: 08/04/2024, Expires: 10/04/2025 CT Head w/o Contrast Imaging Urgent Syncope, unspecified syncope type Expected: 08/04/2024, Expires: 08/04/2025 Holter monitor - 24 hour Cardiac Services Routine Syncope, unspecified syncope type Expected: 08/04/2024 (Approximate), Expires: 08/04/2026 Scheduled Referrals Name Type Priority Associated Diagnoses Orde r Schedule Referral to Neurology Outpatient Referral Routine Seizure (CMS/HCC) Intractable headache, unspecified chronicity pattern, unspecified headache type Expected: 08/04/2024 (Approximate), Expires: 08/04/2025 Referral to Pharmacy [facility] Outpatient Referral Routine Vasomotor symptoms due to menopause Bipolar affective disorder in remission (CMS/HCC) Seizure (CMS/HCC) Intractable headache, unspecified chronicity pattern, unspecified headache type Syncope, unspecified syncope type Ordered: 08/05/2024 documented as of this encounter Procedures Procedure Name Priority Date/Time Associated Diagnosis Comments TSH W/REFLEX TO FT4 Routine 08/04/2024 2 :34 PM EDT Elevated blood pressure reading CBC WITH AUTO DIFFERENTIAL Routine 08/04/2024 2:34 PM EDT Elevated blood pressure reading MAGNESIUM Routine 08/04/2024 2:34 PM EDT Hypomagnesemia LIPID PANEL, STANDARD Routine 08/04/2024 2:34 PM EDT Elevated blood pressure reading COMPREHENSIVE METABOLIC PANEL Routine 08/04/2024 2:34 PM EDT Elevated blood pressure reading documented in this encounter Results * Magnesium (08/04/2024 2:34 PM EDT) Magnesium 1.7 1.6 - 2.6 mg/dL [facility] Blood Venous blood specimen / Unknown 08/04/2024 2:34 PM EDT 08/04/2024 5:23 PM EDT us Sheri Santos MD LAB BLOOD ORDERABLES Final Re sult Performing Organization Address City/[facility]/ZIP Co de Phone Number [facility] [address] [place] [address] [phone] * (ABNORMAL) Lipid Panel, Standard (08/04/2024 2:34 PM EDT) Triglycerides 122 <150 mg/dL [facility] Comment:Desirable Triglyceri de: less than 150 mg/dLBorderline High Triglyceride 150-199 mg/dLHigh Triglyceride: 200-499 mg/dLVery High Triglyceride: greater than or equal to 5OO mg/dL Cholesterol 235(H) <200 mg/dL [facility] Comment:Desirable Cholestero l: less than 200 mg/dLBorderline High Cholesterol: 200-239 mg/dLHigh Cholesterol: greater than 239 mg/dL LDL Cholesterol Calculated 160(H) <100 mg/dL [facility] Comment:Desirable LDL: less than 100 mg/dLNear Optimal/Above Optimal LDL: 110- 129 mg/dLBorderline High LDL: 130-159 mg/dLHigh LDL: 160-189 mg/dLVery High LDL: greater than or equal to 190 mg/dL HDL Cholesterol 51 >40 mg/dL [facility] Comment:Desirable HDL: great er than 40 mg/dL Note: This HDL assay may give artificially low results in patients with liver disease. Blood Venous blood specimen / Unknown 08/04/2024 2:34 PM EDT 08/04/2024 5:23 PM EDT us Sheri Santos MD LAB BLOOD ORDERABLES Final Re sult Performing Organization Address City/[facility]/ZIP Co de Phone Number [facility] [address] [place] [address] [phone] * TSH W/Reflex to FT4 (08/04/2024 2:34 PM EDT) TSH reflex Free T4 0.52 0.32 - 4.0 uIU/mL [facility] Blood Venous blood specimen / Unknown 08/04/2024 2:34 PM EDT 08/04/2024 5:23 PM EDT us Sheri Santos MD LAB BLOOD ORDERABLES Final Re sult Performing Organization Address City/[facility]/ZIP Co de Phone Number [facility] [address] [place] [address] [phone] * Comprehensive Metabolic Panel (08/04/2024 2:34 PM EDT) Sodium 139 135 - 145 mmol/L [facility] Potassium 3.5 3.3 - 5.1 mmol/L [facility] Chloride 106 96 - 108 mmol/L [facility] Carbon Dioxide 25 22 - 29 mmol/L [facility] Anion Gap 12 12 - 20 [facility] Urea Nitrogen (BUN) 15 9 - 16 mg/dL [facility] Creatinine, Serum 0.80 0.5 - 1.4 mg/dL [facility] Estimated Glomerular Filt Rate >60 [facility] Comment:Chronic Kidney Disea se: Estimated GFR < 60 mL/min/1.71d6Meomtr Kidney Disease: Estimated GFR < 15 mL/min/1.73m2 Glucose 86 60 - 115 mg/dL [facility] Calcium 9.4 8.4 - 10.2 mg/dL [facility] Bilirubin, Total 0.2 0.0 - 1.0 mg/dL [facility] Aspartate Amino Transferase 25 5 - 31 U/L [facility] Alanine Aminotransferase 27 0 - 31 U/L [facility] Total Protein 7.7 6.5 - 8.0 g/dL [facility] Albumin Level 4.1 3.5 - 5.0 g/dL [facility] Alkaline Phosphatase 94 39 - 117 U/L [facility] Blood Venous blood specimen / Unknown 08/04/2024 2:34 PM EDT 08/04/2024 5:23 PM EDT us Sheri Santos MD LAB BLOOD ORDERABLES Final Re sult [facility] [address] [place] [address] [phone] * (ABNORMAL) CBC auto differential (08/04/2024 2:34 PM EDT) White Blood Count 8.0 4.8 - 10.8 X10*3/uL [facility] Red Blood Count 4.28 4.20 - 5.50 X10*6/uL [facility] Hemoglobin 12.4 12.0 - 16.0 g/dl [facility] Hematocrit 37.6 37.0 - 47.0 % [facility] Mean Corpuscular Volume 87.9 80.0 - 98.0 fL [facility] Mean Corpuscular Hemoglobin 29.0 27.0 - 33.0 pg [facility] Mean Corpuscular HGB Conc 33.0 31.0 - 35.0 g/dl [facility] Red Cell Distribution Width 13.4 11.0 - 16.0 % [facility] Platelet Count 418(H) 160 - 400 X10*3/uL [facility] Mean Platelet Volume 9.0(L) 9.4 - 12.3 fL [facility] Neutrophils Percent Auto 49.3 45 - 73 % [facility] Imm Gran Pct Auto 0.5(H) 0.0 - 0.4 % [facility] Lymphocytes Percent Auto 34.5 20 - 40 % [facility] Monocytes Percent Auto 11.0 2 - 11 % [facility] Eosinophils Percent Auto 4.1(H) 0 - 4 % [facility] Basophils Percent Auto 0.6 0 - 2 % [facility] NRBC Pct Auto 0.0 0.0 - 0.2 /100WBC [facility] Neutrophils Absolute Auto 4.0 2.0 - 8.3 x10*3/uL [facility] Imm Gran Abs Auto 0.04(H) 0.00 - 0.03 X10*3/uL [facility] Lymphocytes Absolute Auto 2.8 1.2 - 4.9 X10*3/uL [facility] Monocytes Absolute Auto 0.9 0.1 - 1.2 X10*3/uL [facility] Eosinophils Absolute Auto 0.3 0.0 - 0.4 X10*3/uL [facility] Basophils Absolute Auto 0.1 0.0 - 0.2 X10*3/uL [facility] NRBC Abs Auto 0.000 0.0 - 0.012 X10*3/uL [facility] Blood Venous blood specimen / Unknown 08/04/2024 2:34 PM EDT 08/04/2024 5:23 PM EDT us Sheri Santos MD LAB BLOOD ORDERABLES Final Re sult [facility] [address] [place] [address] [phone] documented in this encounter Visit Diagnoses Diagnosis Vasomotor symptoms due to menopause- Primary Breast cancer screening by mammogram Elevated blood pressure reading Elevated blood pressure reading without diagnosis of hypertension Hypomagnesemia Disorders of magnesium metabolism Bipolar affective disorder in remission (CMS/HCC) MP (generalized anxiety disorder) Generalized anxiety disorder PTSD (post-traumatic stress disorder) Posttraumatic stress disorder Seizure (CMS/HCC) Other convulsions Intractable headache, unspecified chronicity pattern, unspecified headache type Syncope, unspecified syncope type documented in this encounter Additional Health Concerns Assessment Noted Time PHQ-9 Depression Total Score: 8 05/01/19 25 11:20 AM EST documented as of this encounter Care Teams Gas Appliance Adjuster Relationship Specialty Start Date End Date Sheri Santos MD [address] [place] [phone] PCP - General Family Medicine 08/04/24 Silviano River QUALITY AND RELIABILITY ENGINEER Nurse Practitioner Psychiatry 03/19/19 documented as of this encounter
--- OUTSIDE RECORDS SUMMARY | 2024-08-05 11:56 | XMS_ITS | Encounter Summary ---
Author Organization [employer] Address [address] [facility] 7t [place] [address] Care Team Providers Care Recreational Leader Name Role Phone Ricky Jefferson MD Primary Care Provider [phone] Sheri Santos MD Primary Care Provider [phone] Encounter Details Date Type Department Care Team (Late st Contact Info) Description 07/15/2024 Telephone [facility] MEDICINE [address] [place] [address] Ricky Jefferson MD [address] [place] [address] Social History Tobacco Use Types Packs/Day Years [...] Info) Description 08/14/2024 1:00 PM EDT Nutrition [facility] DIABETES/NTRN [address] [place] [address] [place] [address] 08/19/2024 10:30 AM EDT Office Visit [facility] MED & PEDS [address] [place] [address] Ricky Jefferson MD [address] [place] [address] 08/28/2024 10:00 AM EDT Office Visit [facility] MEDICINE [address] [place] [address] Joslyn Gage CNM [address] [place] [address] documented as of this encounter Visit Diagnoses Not on filedocumented in this encounter Additional Health Concerns Assessment Noted Time PHQ-9 Depression Total Score: 8 05/01/19 25 11:20 AM EST documented as of this encounter Care Teams Recreational Leader Relationship Specialty Start Date End Date Ricky Jefferson MD [address] [place] [address] PCP - General Internal Medicine 03/19/18 08/03/24 Sheri Santos MD [address] [place] [address] PCP - General Family Medicine 08/04/24 Silviano River STUDIO OPERATIONS MANAGER Nurse Practitioner Psychiatry 03/19/19 documented as of this encounter
--- OUTSIDE RECORDS SUMMARY | 2024-08-05 11:56 | XMS_ITS | Encounter Summary ---
Author Organization [employer] Address [address] [facility] 7t [place] [address] Care Team Providers Care Idea Worker Name Role Phone Ricky Jefferson MD Primary Care Provider [phone] Sheri Santos MD Primary Care Provider [phone] Encounter Details Date Type Department Care Team ([facility] st Contact Info) Description 07/08/2024 Telephone [facility] CHC MED & PEDS [address] [place], [place] [phone] Ricky Jefferson MD 505 [place] [address] Social History Tobacco Use Types Packs/Day Years [...] 2:31 PM EDT Pt was referred to [facility] hand surgery. Pt to call their office [...] Description 08/14/2024 1:00 PM EDT Nutrition [facility] DIABETES/NTRN [address] [place] [address] [place] [address] 08/19/2024 10:30 AM EDT Office Visit [facility] MED & PEDS [address] [place] [address] Ricky Jefferson MD [address] [place], [place] [phone] 08/28/2024 10:00 AM EDT Office Visit [facility] MEDICINE [address] [place], [place] [phone] Joslyn Gage CNM [address] [place], [place] [phone] documented as of this encounter Visit Diagnoses Not on filedocumented in this encounter Additional Health Concerns Assessment Noted Time PHQ-9 Depression Total Score: 8 05/01/19 25 11:20 AM EST documented as of this encounter Care Teams Idea Worker Relationship Specialty Start Date End Date Ricky Jefferson MD [address] [place] [address] PCP - General Internal Medicine 03/19/18 08/03/24 Sheri Santos MD 505 [place] [address] PCP - General Family Medicine 08/04/24 Silviano River RATE CLERK Nurse Practitioner Psychiatry 03/19/19 documented as of this encounter
--- OUTSIDE RECORDS SUMMARY | 2024-08-05 11:56 | XMS_ITS | Encounter Summary ---
Author Organization [employer] Address [address] [facility] 7t [place] [address] Care Team Providers Care Stacker Name Role Phone Ricky Jefferson MD Primary Care Provider [phone] Sheri Santos MD Primary Care Provider [phone] Reason for Visit * Reason Onset Date Comments Appointment Request 08/15/2022 Encounter Details Date Type Department Care Team ([facility] st Contact Info) Description 08/15/2022 Telephone [facility] MEDICINE [address] [place] [address] Ricky Jefferson MD 505 [place] [address] Appointment Request Social History Tobacco Use Types [...] Miscellaneous Notes * Telephone Encounter - Aston Marshallos - 08/15/2022 12:42 PM EDT Tc from pt requesting to r/s appt on 08/15/22 ( pap ) documented in this encounter Plan of Treatment Upcoming Encounters Date Type Department Care Team (Late st Contact Info) Description 08/14/2024 1:00 PM EDT Nutrition [facility] DIABETES/NTRN [address] [place] [address] Chloe Wharton, KAMINI [address] [place] [address] 08/19/2024 10:30 AM EDT Office Visit [facility] MED & PEDS [address] [place] [address] Ricky Jefferson MD [address] [place], [place] [phone] 08/28/2024 10:00 AM EDT Office Visit [facility] MEDICINE [address] [place] [address] Joslyn Gage, CNM [address] [place] [address] documented as of this encounter Visit Diagnoses Not on filedocumented in this encounter Additional Health Concerns Assessment Noted Time PHQ-9 Depression Total Score: 17 023 2:03 PM EDT documented as of this encounter Care Teams Stacker Relationship Specialty Start Date End Date Ricky Jefferson MD 505 [place] [address] PCP - General Internal Medicine 03/19/18 08/03/24 Sheri Santos MD [address] [place] [address] PCP - General Family Medicine 08/04/24 Silviano River AUTO APPRENTICE MECHANIC Nurse Practitioner Psychiatry 03/19/19 documented as of this encounter
--- OUTSIDE RECORDS SUMMARY | 2024-08-05 11:56 | XMS_ITS | Encounter Summary ---
Author Organization [employer] Address [address] [facility] 7t [place] [address] Care Team Providers Care Vmware Architect Name Role Phone Sheri Santos MD Primary Care Provider [phone] Reason for Visit * Reason Onset Date Comments ER Follow-up 08/04/2024 Nurse Triage 08/04/2024 Encounter Details Date Type Department Care Team ([facility] st Contact Info) Description 08/04/2024 Telephone [facility] MEDICINE [address] [place] [address] Sheri Santos MD [address] [place] [address] ER Follow-up; Nurse Triage Social History Tobacco Use Types Packs/Day Years [...] encounter Miscellaneous Notes * Telephone Encounter - Kasandra Morrow RN - 08/04/2024 11:18 AM EDT Fax request to [facility] for ER notes to be sent to PCP. Confirmed fax was received. * Telephone Encounter - Opal Phillip RN - 08/04/2024 8:54 AM EDT Patient seen at [facility] ER yesterday. Coming in for TP with Dr. Santos today. * Telephone Encounter - Opal Phillip RN - 08/04/2024 8:46 AM EDT No land acquisition specialist needed as this director underwriter sales speaks Arabic. Call returned to Joanne Vences to triage below. Reports seen at [facility] ER following a fall. Per pt was sweating and became faint after getting out of the shower. Per pt had blood work done . Found to have elevated BP and low magnesium. Pt given IM injection for pain related to left knee pain. Xray negative for fracture. Pt forgot about TPtoday. Reminded to keep appt. Pt to bring paperwork to visit. Requesting [employer] for transportation. Set up for a 12:30pm brick picker one way trip from home- office. Pt to request return ride after visit. Protocol Used: Recent Medical Visit for Illness Follow-up Call (Adult) Protocol-Based Disposition: See in Office or Video Visit Today or Tomorrow Future Appointments Date Time Provider Department Center 08/04/2024 1:15 PM Sheri Santos MD [facility] 08/14/2024 1:[address] [facility] 08/19/2024 10:30 AM Ricky Jefferson MD [facility] 09/17/2024 9:45 AM Audrey Barlow MD [facility] Insurance verified as active per Real Time Eligibility in [employer]. Video visit offer not recorded Positive Triage Question: * Patient wants to be seen * All higher-acuity triage questions were negative Care Advice Discussed: * Continue Treatment * Reasons To Call Back - You become worse * Telephone Encounter - Shelbi Turner - 08/04/2024 8:35 AM EDT Patient calling to report ED visit on : Date: 08/03 Hospital: [facility] ER Seen for: Fall Symptomatic Yes *if yes message should go to Triage Patient advised will forward to team nurse for follow up Symptoms: Dizziness, Nausea But No Vomiting, Fever, Arm Pain - Not From Injury, Shoulder Pain - NotFrom Injury, Fall Outcome: Schedule an urgent appointment (within 1 hour) or talk to a nurse or provider soon Reason: Caller denied all higher acuity questions The caller accepted this outcome. [phone] bhutanese documented in this encounter Plan of Treatment Upcoming Encounters Date Type Department Care Team ([facility] st Contact Info) Description 08/14/2024 1:00 PM EDT [facility] DIABETES/NTRN [address] [place] [address] [facility] [place], [place] [phone] 08/19/2024 10:30 AM EDT Office Visit [facility] CHC MED & PEDS [address] [place] [address] Ricky Jefferson MD [address] [place] [address] 08/28/2024 10:00 AM EDT Office Visit [facility] MEDICINE [address] [place] [address] Joslyn Ggae CNM [address] [place] [address] documented as of this encounter Visit Diagnoses Not on filedocumented in this encounter Additional Health Concerns Assessment Noted Time PHQ-9 Depression Total Score: 8 05/01/19 25 11:20 AM EST documented as of this encounter Care Teams Vmware Architect Relationship Specialty Start Date End Date Sheri Santos MD [address] [place] [address] PCP - General Family Medicine 08/04/24 Silviano River ORTHOTIC/PROSTHETIC CLINICIAN Nurse Practitioner Psychiatry 03/19/19 documented as of this encounter
--- OUTSIDE RECORDS SUMMARY | 2024-08-05 11:56 | XMS_ITS | Encounter Summary ---
Author Organization [employer] Address [address] [facility] 7t [place] [address] Care Team Providers Care Parts Manager Name Role Phone Ricky Jefferson MD Primary Care Provider [phone] Encounter Details Date Type Department Care Team (Late st Contact Info) Description 07/15/2024 Telephone [facility] MEDICINE [address] [place] [address] Ricky Jefferson MD [address] [place] [address] Social History Tobacco Use Types Packs/Day Years [...] Telephone Encounter - Bren Norton RN - 08/01/2024 3:14 PM EDT Placed call to pt regarding message below. Pt stated feeling unheard and not validated about her issues. Pt also stated she feels more comfortable with a female provider discussing women's health issues. Pt had no preference as long as it was a female. Pt agreed to TP on 08/04/[address] Santos. * Telephone Encounter - Krunal Anna - 07/15/2024 9:07 AM EDT Pt wants to change PCP Due to her not being Satisfied with the service that is being provided but she also said that she feels as if a Female doctor would be able to undertand her more . documented in this encounter Plan of Treatment Upcoming Encounters Date Type Department Care Team (Late st Contact Info) Description 08/14/2024 1:00 PM EDT Nutrition [facility] DIABETES/NTRN [address] [place] [address] Chloe Wharton, RD 230 [place] [address] 08/19/2024 10:30 AM EDT Office Visit [facility] MED & PEDS [address] [place], [place] [phone] Ricky Jefferson MD [address] [place] [address] 08/28/2024 10:00 AM EDT Office Visit [facility] MEDICINE [address] [place], [place] [phone] Joslyn Gage, CN [address] [place], [place] [phone] documented as of this encounter Visit Diagnoses Not on filedocumented in this encounter Additional Health Concerns Assessment Noted Time PHQ-9 Depression Total Score: 8 05/01/19 25 11:20 AM EST documented as of this encounter Care Teams Parts Manager Relationship Specialty Start Date End Date Ricky Jefferson MD [address] [place] [address] PCP - General Internal Medicine 03/19/18 08/03/24 Silviano River PLATE STACKER Nurse Practitioner Psychiatry 03/19/19 documented as of this encounter
--- OUTSIDE RECORDS SUMMARY | 2024-08-05 11:56 | XMS_ITS | Encounter Summary ---
Author Organization [employer] Address [address] [facility] 7t [place] [address] Care Team Providers Care Cell Stripper Final Name Role Phone Ricky Jefferson MD Primary Care Provider [phone] Encounter Details Date Type Department Care Team ([facility] st Contact Info) Description 07/31/2024 1:30 PM EDT Office Visit [facility] CHC MED & PEDS [address] [place], [place] [phone] Audrey Barlow MD [address] [place] [address] Depressive disorder (Primary Dx); Boil of groin Social History Tobacco Use Types Packs/Day Years [...] Sign Reading Time Taken Comments Blood Pressure 144/94 07/31/2024 1:30 PM EDT Pulse 106 07/31/2024 1:30 PM EDT Temperature 37.6 ??C (99.7 ??F) 07/31/2024 1:30 PM ED T Respiratory Rate 20 07/31/2024 1:30 PM EDT Oxygen Saturation 98% 07/31/2024 1:30 PM EDT Inhaled Oxygen Concentration - - Weight 83.9 kg (185 lb) 07/31/2024 1:30 PM EDT Height 152.4 cm (5') 07/31/2024 1:30 PM EDT Body Mass Index 36.13 07/31/2024 1:30 PM EDT documented in this encounter Progress Notes * Audrey Barlow MD - 07/31/2024 1:30 PM EDT Subjective Patient ID: Joanne Vences is a 48 y.o. female who presents for boil. Joanne is a 48-year-old patient of Dr. Santos here for concerns for a suprapubic skin infection. Patient was placed on scheduled by nurse due to concerns of skin infection but patient was seen [address] Jefferson for painful hemorrhoids for which she has already been referred for GI consultation. States her hemorrhoids are still painful but she has been using witch david wipes, hemorrhoidal cream and try not to strain during bowel movement which has also helped. Patient states he has seen a small lesion above her pubic mound that has been oozing. Patient does shave regularly. Denies fevers or chills nausea or vomiting. Review of Systems Constitutional: Negative for activity change, chills, fever and unexpected weight change. Respiratory: Negative for cough, shortness of breath and wheezing. Cardiovascular: Negative for chest pain, palpitations and leg swelling. Gastrointestinal: Negative for abdominal pain and blood in stool. Endocrine: Negative for polydipsia and polyuria. Genitourinary: Negative for decreased urine volume, difficulty urinating, dysuria and hematuria. Musculoskeletal: Negative for arthralgias and gait problem. Skin: Positive for rash and wound. Negative for color change. Neurological: Negative for dizziness and headaches. Hematological: Negative for adenopathy. Psychiatric/Behavioral: Negative for dysphoric mood, hallucinations, sleep disturbance and suicidalideas. The patient is not nervous/anxious. Objective BP (!) 144/94 (BP Location: Left arm, Patient Position: Sitting, BP Cuff Size: Adult) Pulse 106 Temp 99.7 ??F (37.6 ??C) (Oral) Resp 20 Ht 5' (1.524 m) Wt 185 lb (83.9 kg) SpO2 98% BMI 36.13 kg/m?? Physical Exam Constitutional: General: She is not in acute distress. Appearance: She is obese. HENT: Head: Normocephalic. Pulmonary: Effort: Pulmonary effort is normal. Breath sounds: Normal breath sounds. Abdominal: General: There is distension. Palpations: Abdomen is soft. Tenderness: There is no abdominal tenderness. There is no guarding. Skin: Comments: Less than 1 cm mildly erythematous boil, already opened and draining clear fluid located over pubic mound ,no inguinal lymphadenopathy palpable Neurological: Mental Status: She is alert and oriented to person, place, and time. Mental status is at baseline. Psychiatric: Mood and Affect: Mood normal. Assessment/Plan Diagnoses and all orders for this visit: Depressive disorder Comments: Sees psychiatrist Dr. River. Seems to have a lot of anxiety for which is frequently seen in clinic. Transfer patient appointment with Dr. Santos soon. Advised not to miss appointment. Boil of groin Comments: Patient is already on minocycline antibiotics prescribed twice daily. Advised to continue and warm compresses or do warm showers. Boil is already resolving. Follow-up as needed if needed. No referralneeded at this time. Patient expresses understanding. Advised not to shave the area until this is completely resolved. documented in this encounter Plan of Treatment Upcoming Encounters Date Type Department Care Team (Late st Contact Info) Description 08/14/2024 1:00 PM EDT Nutrition [facility] DIABETES/NTRN [address] [place] [address] Chloe Wharton, RD [address] [place] [address] 08/19/2024 10:30 AM EDT Office Visit [facility] MED & PEDS [address] [place] [address] Ricky Jefferson MD [address] [place] [address] 08/28/2024 10:00 AM EDT Office Visit [facility] MEDICINE [address] [place] [address] Joslyn Gage CNM [address] [place] [address] documented as of this encounter Visit Diagnoses Diagnosis Depressive disorder- Primary Depressive disorder, not elsewhere classified Boil of groin documented in this encounter Additional Health Concerns Assessment Noted Time PHQ-9 Depression Total Score: 8 05/01/19 25 11:20 AM EST documented as of this encounter Care Teams Cell Stripper Final Relationship Specialty Start Date End Date Rikcy Jefferson MD [address] [place] [address] PCP - General Internal Medicine 03/19/18 08/03/24 Silviano River LACE SEWER Nurse Practitioner Psychiatry 03/19/19 documented as of this encounter
--- OUTSIDE RECORDS SUMMARY | 2024-08-05 11:56 | XMS_ITS | Encounter Summary ---
Author Organization [employer] Address 75 [facility] 7t [place] [address] Care Team Providers Care Bread Distributor Name Role Phone Ricky Jefferson MD Primary Care Provider [phone] Sheri Santos MD Primary Care Provider [phone] Encounter Details Date Type Department Care Team ([facility] st Contact Info) Description 04/15/2024 Orders Only [facility] CHC MED & PEDS [address] [place], [place] [phone] Ricyk Jefferson MD [address] [place], [place] [phone] Vel (Primary Dx) Social History Tobacco Use [...] Info) Description 08/14/2024 1:00 PM EDT Nutrition [facility] DIABETES/NTRN [address] [place] [address] [place] [address] 08/19/2024 10:30 AM EDT Office Visit [facility] MED & PEDS [address] [place] [address] Ricky Jefferson MD [address] [place], [place] [phone] 08/28/2024 10:00 AM EDT Office Visit [facility] MEDICINE [address] [place] [address] Joslyn Gage CNM [address] [place] [address] documented as of this encounter Visit Diagnoses Diagnosis Rosacea- Primary documented in this encounter Additional Health Concerns Assessment Noted Time PHQ-9 Depression Total Score: 17 023 2:03 PM EDT documented as of this encounter Care Teams Bread Distributor Relationship Specialty Start Date End Date Ricky Jefferson MD [address] [place] [address] PCP - General Internal Medicine 03/19/18 08/03/24 Sheri Santos MD [address] [place] [address] PCP - General Family Medicine 08/04/24 Silviano River EMPLOYEE DEVELOPMENT MANAGER Nurse Practitioner Psychiatry 03/19/19 documented as of this encounter
--- OUTSIDE RECORDS SUMMARY | 2024-08-05 11:56 | XMS_ITS | Clinical Summary ---
Author Organization [employer] Address [address] [facility] [address] [place] [address] Care Team Providers Care Facilities Management Executive Name Role Phone Sheri Santos MD Primary Care Provider [phone] Allergies Active Allergy Reactions Criticality Noted Date Comments Oxycodone 12/02/2012 Other reaction(s): itchy,hives Penicillins 12/01/2011 Medications busPIRone (Buspar) 30 MG tablet 023 Active albuterol 108 (90 Base) MCG/ACT inhaler Inhale 2 puffs every 4 (four) hours if needed for wheezing. 18 g 024 2024 Active Elastic Bandages & Supports (Nobles Adjustable Back Brace) miscIndications: Chronic midline low back pain without sciatica To wear daily 1 each 024 Active metroNIDAZOLE (Metrogel) 0.75 % gelIndications:R osacea Apply topically 2 times daily. 45 g 2 024 2024 Active Omeprazole 20 MG tablet delayed-releaseI ndications:Gastr oesophageal reflux disease without esophagitis Take 1 tablet (20 mg) by mouth Once per day. 30 tablet 1 025 Active meloxicam (Mobic) 7.5 MG tabletIndication s:Chronic midline low back pain without sciatica,Lateral epicondylitis of right elbow,Joint pain in both hands Take 2 tablets (15 mg) by mouth Once per day. 30 tablet 10 025 Active SUMAtriptan (Imitrex) 50 MG tabletIndication s:Other migraine without status migrainosus, not intractable Take 1 tablet (50 mg) by mouth 1 (one) time if needed for migraine for up to 9 doses. May repeat dose once in 2 hours if no relief. Do not exceed 2 doses in 24 hours. 9 tablet Active metoclopramide (Reglan) 10 MG tabletIndication s:Other migraine without status migrainosus, not intractable Take 1 tablet (10 mg) by mouth 4 times daily for 10 days. 10 tablet Active hydrocortisone (Anusol-HC) 2.5 % rectal creamIndications :External hemorrhoids Insert into the rectum 2 times daily. 28 g 1 025 Active cloNIDine (Catapres) 0.2 MG tablet Active hydrOXYzine HCl (Atarax) 25 MG tablet Active lamoTRIgine (LaMICtal) 25 MG tablet Active prazosin (Minipress) 2 MG capsule Active QUEtiapine (SEROquel) 200 MG tablet Active minocycline 100 MG capsule Active MAGNESIUM CITRATE PO Take 400 mg by mouth Once per day. Active Multiple Vitamin (multivitamin) tablet Take 1 tablet by mouth Once per day. Active Moringa Oleifera (MORINGA PO) Take 6,000 mg by mouth Once per day. Active clonazePAM (KlonoPIN) 0.5 MG tablet Take 0.5 mg by mouth 2 times daily. Active clonazePAM (KlonoPIN) 0.5 MG tablet 023 2024 Discontinued(T herapy completed) topiramate (Topamax) 100 MG tablet Take 50 mg by mouth 2 times daily. 023 2024 Discontinued(T herapy completed) venlafaxine XR (Effexor XR) 150 MG 24 hr capsule Take 225 mg by mouth Once per day. 023 2024 Discontinued(T herapy completed) ziprasidone (Geodon) 40 MG capsule 023 2024 Discontinued(T herapy completed) azithromycin (Zithromax) 250 MG tablet Take 1 tablet (250 mg) by mouth Once per day. Take 2 tablets PO once and then 1 tablet PO daily, total 5 days 6 tablet 024 2024 Discontinued(T herapy completed) gabapentin (Neurontin) 100 MG capsuleIndicatio ns:Body aches Take 1 capsule (100 mg) by mouth every 8 (eight) hours. Duloxetine discontinued because pt is on Amitriptyline. 90 capsule 11 2024 Discontinued(T herapy completed) famotidine (Pepcid) 20 MG tabletIndication s:Gastroesophage al reflux disease without esophagitis Take 1 tablet (20 mg) by mouth 2 times daily. 60 tablet 11 024 2024 Discontinued(T herapy completed) tretinoin (Retin-A) 0.025 % gel Apply topically at bedtime. 45 g 2 2024 Discontinued(T herapy completed) estradiol (Estrace) 0.1 MG/GM vaginal cream 1g vaginally at night x 2 weeks, then 1 g vaginally twice a week ongoing 42.5 g 2024 Discontinued(T herapy completed) diclofenac (Cataflam) 50 MG tabletIndication s:Contusion of soft tissue Take 1 tablet (50 mg) by mouth 3 times daily. 20 tablet 024 2024 Discontinued witch david-glycerin (Tucks) pad Apply topically if needed for irritation. 40 each 3 2024 Discontinued(T herapy completed) amitriptyline (Elavil) 25 MG tabletIndication s:Other migraine without status migrainosus, not intractable TAKE 1 TABLET (25 MG) BY MOUTH AT BEDTIME. 30 tablet 3 2024 Discontinued(T herapy completed) Diclofenac Sodium 1 % gelIndications:L ateral epicondylitis of right elbow To apply to the affected area 3 times a day 100 g 2024 Discontinued(T herapy completed) DULoxetine (Cymbalta) [address] capsuleIndicatio ns:Chronic midline low back pain without sciatica Take 1 capsule (20 mg) by mouth 2 times daily. Do not crush or chew. 60 capsule 11 025 2024 Discontinued(T herapy completed) minocycline (Dynacin) 100 MG tabletIndication s:Cystic acne Take 1 tablet (100 mg) by mouth 2 times daily. 60 tablet 2 025 2024 Discontinued Active Problems Problem Noted Date Diagnosed Date Bipolar affective disorder in remission 08/05/19 25 MP (generalized anxiety disorder) 08/04/2024 PTSD (post-traumatic stress disorder) 08/04/2024 Syncopal episodes 08/04/2024 Assessment & Plan (08/05/2024 8:54 AM EDT): Patient reports multiple recent episodes of syncope, including a fall resulting in emergency room visit. No head imaging was performed during the ER visit per pt, no records available. Patient has a history of epilepsy and reports confusion before and after syncopal episodes. Differential diagnoses include cardiac arrhythmias, neurological causes (e.g., seizures), and medication side effects. Plan: - Order laboratory tests to investigate cause of syncope - Refer to neurology for evaluation of syncope, headaches, and seizures - Schedule follow-up appointment in one month - Educate patient that syncope is not a normal occurrence and requires further investigation Vasomotor symptoms due to menopause 08/04/2024 Assessment & Plan (08/05/2024 8:55 AM EDT): Patient reports menopausal symptoms including headaches, sweating, lack of lubrication, and heat sensations, particularly at night. P [employer] previously diagnosed premenopause approximately one year ago and prescribed vaginal cream. Patient also reports a history of vaginismus. Plan: - Order hormone panel to assess menopausal status as patient had an endometrial ablation - Schedule mammogram at [facility] for breast cancer screening - Refer to gynecology for further management of menopausal symptoms and vaginismus Hypomagnesemia 08/04/2024 Breast cancer screening by mammogram 08/04/2024 Elevated blood pressure reading 08/04/2024 Assessment & Plan (08/05/2024 8:56 AM EDT): Patient reports recent onset of elevated blood pressure, with current reading of 144/98 mmHg. Patient denies typical hypertension but reports consistently elevated readings over the past week. Plan: - Consider prescribing home blood pressure monitoring device if elevated readings persist - Educate patient on lifestyle modifications for blood pressure control - Monitor blood pressure at follow-up appointment in one month Lateral epicondylitis of right elbow 08/08/2023 Assessment [...] 02/02/2016 Depressive disorder 12/08/2014 Headache 01/23/2011 04/19/2023 Assessment & Plan (08/05/2024 8:57 AM EDT): Patient reports recent severe migraine requiring ice application and causing gastrointestinal symptoms. History of migraines managed by neurologist, but has not seen neurology in over 2 years. Plan: - Refer to neurology for migraine management - Review current migraine treatment regimen and adjust as necessary Resolved Problems Problem Noted Date Diagnosed Date Resolved Date Moderate persistent asthma w ith acute exacerbation 08/08/2023 08/08/2023 Encounters Date Type Department Care Team Description 08/04/2024 1:15 PM EDT Office Visit [facility] [address], [place] [phone] Sheri Santos MD Vasomotor symptoms due to menopause (Primary Dx); Breast cancer screening by mammogram; Elevated blood pressure reading; Hypomagnesemia; Bipolar affective disorder in remission (CMS/HCC); MP (generalized anxiety disorder); PTSD (post-traumatic stress disorder); Seizure (CMS/HCC); Intractable headache, unspecified chronicity pattern, unspecified headache type; Syncope, unspecified syncope type 08/04/2024 Travel 08/04/2024 Telephone [facility] [address] [place] [phone] Sheri Santos MD ER Follow-up; Nurse Triage 07/31/2024 1:30 PM EDT Office Visit [facility] [address] [place] [address] Audrey Barlow MD Depressive disorder (Primary Dx); Boil of groin 07/31/2024 Travel 07/31/2024 Telephone [facility] [address] [place] [phone] Ricky Jefferson MD ER Follow-up 07/28/2024 1:45 PM EDT Office Visit [facility] [address] [place] [address] Ricky Jefferson MD External hemorrhoids (Primary Dx); Cystic acne 07/28/2024 Travel 07/28/[address] [phone] Ricky Jefferson MD Nurse Triage 07/18/[address] [phone] Ricky Jefferson MD med request 07/15/[address] [address] Ricky Jefferson MD 07/15/[address] [phone] Ricky Jefferson MD 07/14/2024 10:45 AM EDT Office Visit [facility] [address] [place] [address] Ricky Jefferson MD Other migraine without status migrainosus, not intractable (Primary Dx) 07/14/2024 Travel 07/14/[address] [address] Ricky Jefferson MD ER Follow-up; Nurse Triage 07/08/2024 Telephone [facility] [address] [place] [address] Ricky Jefferson MD 07/08/2024 Telephone [facility] [address] [place] [address] Ricky Jefferson MD Referral 06/19/2024 10:30 AM EDT Office Visit [facility] [address] [place] [address] Ricky Jefferson MD Chronic midline low back pain without sciatica (Primary Dx); Lateral epicondylitis of right elbow; Joint pain in both hands 06/19/2024 Travel 06/05/2024 3:30 PM EDT Office Visit [facility] [address] [place] [address] Berlin Ricks MD Right carpal tunnel syndrome (Primary Dx) 06/05/2024 Travel 06/03/2024 Telephone [facility] [address] [place] [address] Ricky Jefferson MD Nurse Triage 05/30/2024 Population Health Risk Score [facility] (C3) Department [address] [place] [phone] Provider, Population Health Generic 05/21/2024 Telephone [facility] [address] [place] [address] Ricky Jefferson MD Nurse Triage from Last 3 Months Immunizations Immunization Administration Dates Next Due Hep B, adult [...] Mass Index 36.91 08/04/2024 1:12 PM EDT Plan of Treatment Upcoming Encounters Date Type Department Care Team (Late st Contact Info) Description 08/14/2024 1:00 PM EDT Nutrition [facility] [address] [place] [address] Chloe Wharton, RD [address] [place] [address] 08/19/2024 10:30 AM EDT Office Visit [facility] [address] [place] [address] Ricky Jefferson MD [address] [place] [address] 08/28/2024 10:00 AM EDT Office Visit [facility] [address] [place] [address] Joslyn Gage, CNM [address] [place] [address] Health Maintenance Due Date Last Done Comments CT Colonography 1977 Colonoscopy 1977 Colorectal Cancer Screening 1977 Dental Oral Exam 1977 Dental Prophylaxis 1977 Dental X-Ray: Full Mouth 1977 FIT DNA/Cologuard 1977 FIT 1977 FOBT 1977 Sigmoidoscopy 1977 Disability Screening 01/01/1978 Family Planning (PISQ) 1992 Hepatitis B Vaccines (3 of 3 - 19+ 3-dose series) 09/22/2016 07/28/2016, 06/16/2002 Mammogram 02/21/2020 02/20/2018, 02/14/2018 COVID-19 Vaccine ( season) 2023 04/19/2023 SDOH Screening 09/27/2024 09/28/2023 Dental X-Ray: Bitewings 11/09/2024 11/09/2023, 03/05 Depression Screening 05/01/2025 05/01/2024, 05/01/19 Alcohol/Substance Use Screening 06/19/2025 06/19/2024 Tobacco Screening 08/04/2025 08/04/2024 DTaP/Tdap/Td Vaccines (2 - Td or Tdap) 10/19/2025 10/20/2015, 06/16/2002 Cervical Cancer Screening 11/25/2026 HPV/Cotest 11/25/2026 11/26/2023, 08/03/2020 Pap Smear 11/25/2026 11/26/2023, 08/03/2020 Zoster Vaccines (1 of 2) 01/01/2028 Lipid Panel 08/04/2029 08/04/2024, 09/26/2023 RSV Patients and Patients Aged 60 [...] patient's age to complete this topic Meningococcal B Vaccine Aged Out No l onger eligible based on patient's age to complete [...] Procedure Name Priority Date/Time Associated Diagnosis Comments MAGNESIUM Routine 08/04/2024 2:34 PM EDT Hypomagnesemia LIPID PANEL, STANDARD Routine 08/04/2024 2:34 PM EDT Elevated blood pressure reading TSH W/REFLEX TO FT4 Routine 08/04/2024 2 :34 PM EDT Elevated blood pressure reading COMPREHENSIVE METABOLIC PANEL Routine 08/04/2024 2:34 PM EDT Elevated blood pressure reading CBC WITH AUTO DIFFERENTIAL Routine 08/04/2024 2:34 PM EDT Elevated blood pressure reading RHEUMATOID FACTOR Routine 06/19/2024 11: 50 AM [...] Recently Relevant to Health Maintenance Results * TSH W/Reflex to FT4 (08/04/2024 2:34 PM EDT) TSH reflex Free T4 0.52 0.32 - 4.0 uIU/mL [facility] Blood Venous blood specimen / Unknown 08/04/2024 2:34 PM EDT 08/04/2024 5:23 PM EDT us Sheri Santos MD LAB BLOOD ORDERABLES Final Re sult [facility] [address] [place] [phone] * (ABNORMAL) CBC auto differential (08/04/2024 2:34 PM EDT) Pathologist [facility] White Blood Count 8.0 4.8 - 10.8 X10*3/uL [facility] Red Blood Count 4.28 4.20 - 5.50 X10*6/uL [facility] Hemoglobin 12.4 12.0 - 16.0 g/dl [facility] Hematocrit 37.6 37.0 - 47.0 % [facility] Mean Corpuscular Volume 87.9 80.0 - 98.0 fL [facility] Mean Corpuscular Hemoglobin 29.0 27.0 - 33.0 pg [facility] Mean Corpuscular HGB Conc 33.0 31.0 - 35.0 g/dl [facility] Red Cell Distribution Width 13.4 11.0 - 16.0 % [facility] Platelet Count 418(H) 160 - 400 X10*3/uL [facility] Mean Platelet Volume 9.0(L) 9.4 - 12.3 fL [facility] Neutrophils Percent Auto 49.3 45 - 73 % [facility] Imm Gran Pct Auto 0.5(H) 0.0 - 0.4 % [facility] Lymphocytes Percent Auto 34.5 20 - 40 % [facility] Monocytes Percent Auto 11.0 2 - 11 % [facility] Eosinophils Percent Auto 4.1(H) 0 - 4 % [facility] Basophils Percent Auto 0.6 0 - 2 % [facility] NRBC Pct Auto 0.0 0.0 - 0.2 /100WBC [facility] Neutrophils Absolute Auto 4.0 2.0 - 8.3 x10*3/uL [facility] Imm Gran Abs Auto 0.04(H) 0.00 - 0.03 X10*3/uL [facility] Lymphocytes Absolute Auto 2.8 1.2 - 4.9 X10*3/uL [facility] Monocytes Absolute Auto 0.9 0.1 - 1.2 X10*3/uL [facility] Eosinophils Absolute Auto 0.3 0.0 - 0.4 X10*3/uL [facility] Basophils Absolute Auto 0.1 0.0 - 0.2 X10*3/uL [facility] NRBC Abs Auto 0.000 0.0 - 0.012 X10*3/uL [facility] Blood Venous blood specimen / Unknown 08/04/2024 2:34 PM EDT 08/04/2024 5:23 PM EDT Sheri Santos MD LAB BLOOD ORDERABLES Final Re sult Performing Organization Address [facility]/ZIP Co de Phone Number [facility] [address] [place] [phone] * Magnesium (08/04/2024 2:34 PM EDT) Magnesium 1.7 1.6 - 2.6 mg/dL [facility] Blood Venous blood specimen / Unknown 08/04/2024 2:34 PM EDT 08/04/2024 5:23 PM EDT Sheri Santos MD LAB BLOOD ORDERABLES Final Re sult Performing Organization Address City/[facility]/ZIP Co de Phone Number [facility] [address] [place] [address] [place] [phone] * (ABNORMAL) Lipid Panel, Standard (08/04/2024 2:34 PM EDT) Triglycerides 122 <150 mg/dL [facility] Comment:Desirable Triglyceri de: less than 150 mg/dLBorderline High Triglyceride 150-199 mg/dLHigh Triglyceride: 200-499 mg/dLVery High Triglyceride: greater than or equal to 5OO mg/dL Cholesterol 235(H) <200 mg/dL [facility] Comment:Desirable Cholestero l: less than 200 mg/dLBorderline High Cholesterol: 200-239 mg/dLHigh Cholesterol: greater than 239 mg/dL LDL Cholesterol Calculated 160(H) <100 mg/dL [facility] Comment:Desirable LDL: less than 100 mg/dLNear Optimal/Above Optimal LDL: 110- 129 mg/dLBorderline High LDL: 130-159 mg/dLHigh LDL: 160-189 mg/dLVery High LDL: greater than or equal to 190 mg/dL HDL Cholesterol 51 >40 mg/dL [facility] Comment:Desirable HDL: great er than 40 mg/dL Note: This HDL assay may give artificially low results in patients with liver disease. Blood Venous blood specimen / Unknown 08/04/2024 2:34 PM EDT 08/04/2024 5:23 PM EDT us Sheri Santos MD LAB BLOOD ORDERABLES Final Re sult [facility] [address] [place] [phone] * Comprehensive Metabolic Panel (08/04/2024 2:34 PM EDT) Sodium 139 135 - 145 mmol/L [facility] Potassium 3.5 3.3 - 5.1 mmol/L [facility] Chloride 106 96 - 108 mmol/L [facility] Carbon Dioxide 25 22 - 29 mmol/L [facility] Anion Gap 12 12 - 20 [facility] Urea Nitrogen (BUN) 15 9 - 16 mg/dL [facility] Creatinine, Serum 0.80 0.5 - 1.4 mg/dL [facility] Estimated Glomerular Filt Rate >60 [facility] Comment:Chronic Kidney Disea se: Estimated GFR < 60 mL/min/[id number] Kidney Disease: Estimated GFR < 15 mL/min/1.73m2 Glucose 86 60 - 115 mg/dL [facility] Calcium 9.4 8.4 - 10.2 mg/dL [facility] Bilirubin, Total 0.2 0.0 - 1.0 mg/dL [facility] Aspartate Amino Transferase 25 5 - 31 U/L [facility] Alanine Aminotransferase 27 0 - 31 U/L [facility] Total Protein 7.7 6.5 - 8.0 g/dL [facility] Albumin Level 4.1 3.5 - 5.0 g/dL [facility] Alkaline Phosphatase 94 39 - 117 U/L [facility] Blood Venous blood specimen / Unknown 08/04/2024 2:34 PM EDT 08/04/2024 5:23 PM EDT us Sheri Santos MD LAB BLOOD ORDERABLES Final Re sult Performing Organization Address [facility] Co de Phone Number [facility] [address] [place] [phone] * Sed Rate by Modified Juanren (06/19/2024 11:50 AM EDT) Erythrocyte Sedimentation Rate 18 0 - 20 MM/HR [facility] Comment:Patients with polycy themia and many hemoglobin abnormalitiesmay have depressed sed rates whereas patients with anemiamay have elevated sed rates. Blood Venous blood specimen / Unknown 06/19/2024 11:50 AM EDT 06/19/2024 2:04 PM EDT us Ricky Jefferson MD LAB BLOOD ORDERABLES Final Result Performing Organization Address City/[facility] Co de Phone Number [facility] [address] [place] [phone] [phone] * Rheumatoid Factor (06/19/2024 11:50 AM EDT) Rheumatoid Factor <13.0 <15.0 IU/mL [facility] Blood Venous blood specimen / Unknown 06/19/2024 11:50 AM EDT 06/19/2024 2:04 PM EDT us Ricky Jefferson MD LAB BLOOD ORDERABLES Final Result Performing Organization Address [facility]/ZIP Co de Phone Number [facility] [address] [place] [phone] * (ABNORMAL) C-reactive Protein (06/19/2024 11:50 AM EDT) Pathologist [facility] C Reactive Protein 0.77(H) < or = 0.50 mg/dL [facility] Blood Venous blood specimen / Unknown 06/19/2024 11:50 AM EDT 06/19/2024 2:04 PM EDT us Ricky Jefferson MD LAB BLOOD ORDERABLES Final Result Performing Organization Address [facility]/ZIP Co de Phone Number [facility] [address] [place] [phone] * JACKY Screen,IFA, with Reflex to Titer and Pattern (06/19/2024 11:50 AM EDT) Pathologist [facility] Anti Nuclear Antibody Screen NEGATIVE NEGATIVE [facility] Comment:JACKY IFA is a first [...] clinicallysuspected inflammatory myopathies.AC-0: NegativeInternational Consensus on JACKY Patterns(https://doi.org/10.1515/andd-[email or web address])For additional information, please refer [email or web address]/[email or web address](This link is being provided for informational/educational purposes only.)THIS TEST WAS PERFORMED AT:[facility] [phone] DURAND MD JACKY Titer TNP [facility] JACKY Pattern TNP [facility] JACKY TITER 2 (REF LAB) TNP [facility] JACKY Pattern 2 TNP [facility] 3 [facility] PATTERN 3 [facility] Blood Venous blood specimen / Unknown 06/19/2024 11:50 AM EDT 06/19/2024 2:04 PM EDT Ricky Jefferson MD LAB BLOOD ORDERABLES Final Result [facility] [address] [place] [phone] [phone] * ThinPrep Imaging Pap and HPV mRNA E6/E7 (11/26/2023 11:52 AM EDT) HPV nRNA E6/E7 Not Detected Not Detected [facility] Comment:Methodology: Transcr iption-Mediated AmplificationThis assay detects E6/E7 viral messenger RNA (mRNA) from 14high-risk HPV types (16,18,31,33,35,39,45,51,52,56,58,59,66,68).Cervical sources are required for HPV testing.If a vaginal source from a patient who has had atotal hysterectomy with removal of cervix wassubmitted, please contact the testing laboratoryfor alternative testing options.For additional information, please refer [email or web address]/[email or web address](This link if provided for information/educational purposes only.)THIS TEST WAS PERFORMED AT:[facility] [place] [phone] DURAND MD SOURCE: SEE NOTE [facility] Comment:None given Report Status: [facility] Clinical Information: SEE NOTE [facility] Comment:None given LMP: SEE NOTE [facility] Comment:NONE GIVEN Prev. PAP: SEE NOTE [facility] Comment:NONE GIVEN Prev. BX: SEE NOTE [facility] Comment:NONE GIVEN Statement Of Adequacy: SEE NOTE [facility] Comment:Satisfactory for brant luation.Endocervical/transformation zone component absent. General Categorization: [facility] Interpretation/Result: SEE NOTE [facility] Comment:Cytology Results: Ne gative for intraepitheliallesion or malignancy. Cytology Comment SEE NOTE [facility] Comment:This Pap test has be en evaluated with computerassisted technology. Photography Manager: SEE NOTE [facility] Comment:JXM, CT(ASCP)CT scre ening location: [place] [address] Review Photography Manager: [facility] Pathologist [facility] PAP Infection [facility] See Note SEE NOTE [facility] Comment:EXPLANATORY NOTE:The Pap is a [...] AM EDT 11/26/2023 7:10 PM EDT Narrative [facility] - 11/30/2023 3:23 PM EDT SEE SCANNED RESULTS IN EMR us Joslyn Gage CNM LAB PATHOLOGY ORDERABLES Final Result [facility] [address] [place] [phone] * Hepatitis C Ab (09/26/2023 10:32 AM EDT) Hepatitis C Antibody Nonreactive Nonreactive [facility] Comment:Antibodies to HCV no t detected; does not exclude early acuteHCV infection. Blood Venous blood specimen / Unknown 09/26/2023 10:32 AM EDT 09/26/2023 2:08 PM EDT us Ricky Jefferson MD LAB BLOOD ORDERABLES Final Result Performing Organization Address City/[facility]/ZIP Co de Phone Number [facility] [address] [place] [address] [phone] * HIV-1/2 Antigen and Antibodies, Fourth Generation, with Reflexes (09/26/2023 10:32 AM EDT) Pathologist [facility] HIV AB/AG Nonreactive Nonreactive [facility] Comment:HIV-1 p24 Ag and/or HIV-1/HIV-2 Ab not detected.A test result that is nonreactive does not exclude thepossibility of exposure to or infection with HIV-1 and/orHIV-2. Nonreactive results in this assay for individualswith prior exposure to HIV-1 and/or HIV-2 may be due toantigen and antibody levels that are below the limit ofdetection of this assay.The [employer] Electron Beams HIV Ag/Ab Combo assay result andsupplemental assay results should be interpreted inconjunction with the patient's clinical presentation,history and other laboratory results. If the results areinconsistent with clinical evidence, additional testing issuggested to confirm the result. Blood Venous blood specimen / Unknown 09/26/2023 10:32 AM EDT 09/26/2023 2:08 PM EDT us Ricky Jefferson MD LAB BLOOD ORDERABLES Final Result Performing Organization Address City/[facility]/ZIP Co de Phone Number [facility] [address] [place] [address] [phone] * 3D UNILATERAL ADDED VIEWS 1 [...] Most Recently Relevant to Health Maintenance Insurance [facility] C3 DENTAL[facility] MEDICAID STAND ADULT Care Teams Facilities Management Executive Relationship Specialty Start Date End Date Sheri Santos MD [address] [place] [id number] PCP - General Family Medicine 08/04/24 Silviano River GLOBAL PRODUCT MANAGER Nurse Practitioner Psychiatry 03/19/19
--- OUTSIDE RECORDS SUMMARY | 2024-08-05 11:56 | XMS_ITS | Encounter Summary ---
Author Organization [employer] Address [address] [facility] [address] 7t [place] [address] Care Team Providers Care Burrer Marker Axle Name Role Phone Sheri Santos MD Primary Care Provider [phone] Encounter Details Date Type Department Care Team (Latest Contact Info) Description 08/04/2024 Travel Social History Tobacco Use Types Packs/Day [...] [facility] DIABETES/NTRN [address] [place] [address] Chloe Wharton, KAMINI [address] [place] [address] 08/19/2024 10:30 AM EDT Office Visit [facility] MED & PEDS [address] [place] [address] Ricky Jefferson MD [address] [place] [address] 08/28/2024 10:00 AM EDT Office Visit [facility] MEDICINE [address] [place] [address] Joslyn Gage CNM [address] [place] [address] documented as of this encounter Visit Diagnoses Not on filedocumented in this encounter Additional Health Concerns Assessment Noted Time PHQ-9 Depression Total Score: 8 05/01/19 25 11:20 AM EST documented as of this encounter Care Teams Burrer Marker Axle Relationship Specialty Start Date End Date Sheri Santos MD [address] [place] [address] PCP - General Family Medicine 08/04/24 Silviano River DEPLOYMENT MANAGER Nurse Practitioner Psychiatry 03/19/19 documented as of this encounter
--- OUTSIDE RECORDS SUMMARY | 2024-08-05 11:56 | XMS_ITS | Encounter Summary ---
Author Organization [employer] Address [address] [facility] [address] [place] [address] Care Team Providers Care Compensation Director Name Role Phone Ricky Jefferson MD Primary Care Provider [phone] Encounter Details Date Type Department Care Team (Latest Contact Info) Description 07/31/2024 Travel Social History Tobacco Use Types Packs/Day [...] Info) Description 08/14/2024 1:00 PM EDT Nutrition [facility] DIABETES/NTRN [address] [place] [address] [place] [address] 08/19/2024 10:30 AM EDT Office Visit [facility] MED & PEDS [address] [place] [address] Ricky Jefferson MD [address] [place], [place] [phone] 08/28/2024 10:00 AM EDT Office Visit [facility] MEDICINE [address] [place] [address] Joslyn Gage CNM [address] [place] [address] documented as of this encounter Visit Diagnoses Not on filedocumented in this encounter Additional Health Concerns Assessment Noted Time PHQ-9 Depression Total Score: 8 05/01/19 25 11:20 AM EST documented as of this encounter Care Teams Compensation Director Relationship Specialty Start Date End Date Ricky Jefferson MD [address] [place] [address] PCP - General Internal Medicine 03/19/18 08/03/24 Silviano River NP Nurse Practitioner Psychiatry 03/19/19 documented as of this encounter
--- OUTSIDE RECORDS SUMMARY | 2024-08-05 11:56 | XMS_ITS | Encounter Summary ---
Author Organization [employer] Address [address] [facility] 7t [place] [address] Care Team Providers Care Visual Display Associate Name Role Phone Ricky Jefferson MD Primary Care Provider [phone] Reason for Visit * Reason Onset Date Comments ER Follow-up 07/31/2024 Encounter Details Date Type Department Care Team ([facility] st Contact Info) Description 07/31/2024 Telephone [facility] MEDICINE [address] [place] [address] Ricky Jefferson MD [address] [place] [address] ER Follow-up Social History Tobacco Use Types Packs/Day Years [...] encounter Miscellaneous Notes * Telephone Encounter - Devora Figueroa RN - 07/31/2024 12:16 PM EDT Date: 07/29/24 Hospital: [facility] Seen for: hemorrhoid Symptomatic Yes Called pt. Via [employer] per diem interpreter [id number] [address]. Pt states that she has very swollen hemorrhoids with excessive bleeding. Pt. Pain level is 9/10. Pt. States when she [facility] ED and the ED wanted to remove hemorrhoids but then realized that they are internal and pt. Needs to have a referral to see a specialist for surgery to remove hemorrhoids. Pt. Was sent home with a cream but, pt. Is still in pain. Pt. Also has an abscess under belly button that is red and painful. Pt. Needs ride to appt. [employer] ride created and address verified along with mobile phone number. Protocol Used: Rectal Bleeding (Adult) Protocol-Based Disposition: See in Office or Video Visit Today Positive Triage Question: * Patient wants to be seen * All higher-acuity triage questions were negative Care Advice Discussed: * Warm Saline Sitz Baths - For Rectal Symptoms * Warm Saline Sitz Baths - How to Make a Sitz Bath * Telephone Encounter - Nica Johnston - 07/31/2024 12:09 PM EDT Patient calling to report ED visit on : Date: 07/29/24 Hospital: [facility] Seen for: hemorrhoid Symptomatic Yes *if yes message should go to Triage Patient advised will forward to team nurse for follow up documented in this encounter Plan of Treatment Upcoming Encounters Date Type Department Care Team (Late st Contact Info) Description 08/14/2024 1:00 PM EDT Nutrition [facility] DIABETES/NTRN [address] [place] [address] Chloe Wharton, RD [address] [place] [address] 08/19/2024 10:30 AM EDT Office Visit [facility] MED & PEDS [address] [place] [address] Ricky Jefferson MD [address] [place], [place] [phone] 08/28/2024 10:00 AM EDT Office Visit [facility] MEDICINE [address] [place] [address] Joslyn Gage CNM [address] [place] [address] documented as of this encounter Visit Diagnoses Not on filedocumented in this encounter Additional Health Concerns Assessment Noted Time PHQ-9 Depression Total Score: 8 05/01/19 25 11:20 AM EST documented as of this encounter Care Teams Visual Display Associate Relationship Specialty Start Date End Date Ricky Jefferson MD [address] [place] [address] PCP - General Internal Medicine 03/19/18 08/03/24 Silviano River ANALYTICAL TECH Nurse Practitioner Psychiatry 03/19/19 documented as of this encounter
[2024-08-07 22:48] LABS: Follicle Stimulating Hormone 108.4 mIU/mL
[2024-08-18 08:32] LABS: Estradiol Ultra Sensitive <2 pg/mL
[2024-08-20 13:58] LABS: Anti-Mullerian Hormone-Female 0.01 ng/mL
== END 2024-08-05 10:42 | disposition home or self-care (01) ==
LOC: HO.CHCLDS 10:41
PROVIDERS: Visit Provider Family Medicine
DX: N95.1 Menopausal and female climacteric states (principal)
CPT/HCPCS: 36415; 82166; 82670; 83001

== ENCOUNTER 2024-08-18 09:59 | Outpatient (AMB) | payer MEDICAID, SELFPAY ==
--- NOTE | 2024-08-18 10:15 | A.OFFVIS_ITS ---
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 States her right hand is worse. States her hand goes numb in the night time, comes and goes thought out the day. Patient states she is having pain from her hand to her elbow when she does a twisting motion of her wrist that started about 2 years ago. She has had injection 2x in her elbow in 2023 which helped with her pain. No EMG done. Fire Claims Adjuster Name: Mechelle AGGARWAL/FABIOLA Allergies acetaminophen [Percocet] Allergy (Unknown, Verified 08/18/24 10:18) rash oxycodone [Percocet] Allergy (Unknown, Verified 08/18/24 10:18) rash penicillin G Allergy (Unknown, Verified 08/18/24 10:18) rash Penicillins Allergy (Unknown, Verified 08/18/24 10:18) ITCHY RASH From VICODIN Allergy (Unknown, Uncoded 08/18/24 10:18) UNKNOWN [facility] Medical History High cholesterol Cyst of breast Menses painful Migraine Anemia Seizures Social History (Updated 08/18/24 @ 10:21 by ALESSIA Tarango) Alcohol intake: never Patient Tobacco Use Status: Never used Tobacco Current occupational status: disabled 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 These symptoms began a few months before the visit, initially affecting the right hand with three particular fingers and later involving the left hand. The patient describes her fingers as 'falling asleep', pointing to a sensory involvement. Her symptoms worsen in severity with time, particularly impacting both hands, causing functional limitations. The examination indicated positive findings at the elbow on the right side. The pattern suggests nerve compression, with ulnar component involvement signified by small finger symptomatology. Review of Systems - Musculoskeletal: Reports constant pain, radiating numbness, and tingling in fingers on both hands. - Neurological: Reports numbness and tingling in fingers, particularly affecting the right hand. Systems reviewed and are negative except as per HPI and below Physical Exam - Extremities- Positive Cozens test indicative of lateral epicondylitis on the right. Neuro: normal sensation of the tips of all digits of bilateral hands in the office today.No thenar or intrinsic wasting.Good APB muscle firing and good finger cross. Vascular:Capillary refill brisk. ROM:Patient can make a fist and extend all their digits. Skin:No lacerations or abrasions noted. General:No ecchymosis. No erythema or evidence of infection. Results Procedure - Diagnostic Testing Recommendation: I have requested an EMG and nerve conduction study. Plan The patient presents with lateral epicondylitis and suspected cubital tunnel syndrome. I have decided to commence occupational therapy for the treatment of lateral epicondylitis to manage tendon inflammation. Given the suspicion of cubital tunnel syndrome based on symptoms involving the wrist and small finger, an EMG and nerve conduction study are ordered to confirm the diagnosis. Should surgical intervention become necessary after confirming cubital involvement, I explained procedural variances in anesthesia based on diagnostic outcomes to the patient. Factors considered include potential for symptom management, diagnostic confirmation needs, and possible surgical pathways, ensuring the patient is well-informed. Consent provided for diagnostic testing. Patient was informed and verbally consented to the use of an ambient scribe for clinic note documentation during this visit. Discussion Notes During the consultation, I discussed the potential dual diagnosis of lateral epicondylitis and cubital tunnel syndrome with the patient. Diagnostic tests, including an EMG and nerve conduction study, were recommended, with consent to proceed obtained from the patient. I explained that if confirmed, surgical intervention may be necessary, with anesthesia options dependent on the affected tunnel. The treatment initiative for lateral epicondylitis will involve occupational therapy, focusing on tendon inflammation relief. I also laid out follow-up procedures contingent upon diagnostic testing results. Patient Instructions - Contact occupational therapy to schedule an appointment. - Await contact from neurodiagnostics to schedule an EMG and nerve conduction study. - Return for a follow-up visit after diagnostic testing completion. - Report any worsening symptoms immediately. Orders: Orders OT Evaluation and Treatment Today M77.11 - Lateral epicondylitis, right elbow NE electromyogram (EMG) Today R20.0 - Anesthesia of skin, R20.2 - Paresthesia of skin NE nerve conduction velocity Today R20.0 - Anesthesia of skin, R20.2 - Paresthesia of skin Coding Level of Care Code New Pt Level 3 (55973) Complex EM visit Add On G2211 Diagnoses Right lateral epicondylitis M77.11 Numbness and tingling in both hands R20.0; R20.2
[2024-08-18 10:16] VITALS: BMI 34.4
--- OUTSIDE RECORDS SUMMARY | 2024-08-18 10:53 | XMS_ITS | Encounter Summary ---
Author Organization [employer] Address [address] [facility] 7t [place] [address] Care Team Providers Care Osd Clerk Name Role Phone Ricky Jefferson MD Primary Care Provider [phone] Sheri Santos MD Primary Care Provider [phone] Encounter Details Date Type Department Care Team (Late st Contact Info) Description 07/15/2024 Telephone [facility] MEDICINE [address] [place] [address] Ricky Jefferson MD [address] [place] [address] Social History Tobacco Use Types Packs/Day Years [...] 10:30 AM EDT Office Visit [facility] MED & PEDS [address] [place] [address] Ricky Jefferson MD [address] [place] [address] 08/21/2024 3:00 PM EDT Clinical Support [facility] DIABETES/NTRN [address] [place] [address] Chloe Wharton, KAMINI [address] [place] [address] 08/28/2024 10:00 AM EDT Office Visit [facility] MEDICINE [address] [place] [address] Joslyn Gage CNM [address] [place] [address] documented as of this encounter Visit Diagnoses Not on filedocumented in this encounter Additional Health Concerns Assessment Noted Time PHQ-9 Depression Total Score: 8 05/01/19 25 11:20 AM EST documented as of this encounter Care Teams Osd Clerk Relationship Specialty Start Date End Date Ricky Jefferson MD [address] [place] [address] PCP - General Internal Medicine 03/19/18 08/03/24 Sheri Santos MD [address] [place] [address] PCP - General Family Medicine 08/04/24 Silviano River MATERIALS ANALYST Nurse Practitioner Psychiatry 03/19/19 documented as of this encounter
== END 2024-08-18 10:38 | disposition home or self-care (01) ==
LOC: HO.HOS 10:00
PROVIDERS: PCP Internal Medicine
DX: M77.11 Lateral epicondylitis, right elbow (principal); R20.0 Anesthesia of skin; R20.2 Paresthesia of skin
CPT/HCPCS: 99203

== ENCOUNTER → 2024-08-18 09:59 | Outpatient (BNVA) | payer MEDICAID, SELFPAY | PROVIDERS: PCP Internal Medicine | DX: M77.11 Lateral epicondylitis, right elbow (principal); R20.0 Anesthesia of skin; R20.2 Paresthesia of skin | CPT/HCPCS: 99212 ==

== ENCOUNTER 2024-08-18 15:52 | Emergency (ER) | payer MEDICAID, SELFPAY ==
--- NOTE | ~2024-08-18 | XR_ITS ---
EXAMINATION: XR HIP, LEFT CLINICAL INFORMATION: pain COMPARISON: None available. TECHNIQUE: Two views of the left hip. FINDINGS: No fracture. Alignment is anatomic. Hip joint space is maintained. Soft tissues are unremarkable. XR/XR hip LT w PEL1V IMPRESSION: Normal left hip. Electronically signed by: Zeferino Galdamez MD 08/18/2024 04:27 PM EDT
[2024-08-18 15:58] VITALS: BP 129/84; PULSE 102; RESP 18; TEMP 36.5; O2SAT 98; BMI 36.2
--- NOTE | 2024-08-18 16:02 | ED.GENADULT ---
HPI - General Adult General Chief complaint: Extremity Injury, Lower Stated complaint: left hip pain Time Seen by Provider: 08/18/24 21:12 Source: patient Mode of arrival: ambulatory Limitations: no limitations History of Present Illness ED Provider: jovanna murray np HPI narrative: Patient is a 48-year-old female presents emergency department for evaluation of left hip pain. She reports that she has chronic hip pain for which she uses a topical cream for. However she had a fall 2 weeks ago after which she was evaluated at [facility] she had been experiencing left knee pain at that time states that she had a negative workup. However her chronic left hip pain has been worse since that initial fall. She denies any numbness tingling a cold sensation to the extremity. Denies any swelling to the extremity. No redness rashes or lesions. No fevers or chills. Pain does not been relieved by Tylenol or ibuprofen alternatively. She has an appointment to see your primary care doctor tomorrow for this. Related Data Previous Rx's ?Medication ?Instructions ?Recorded lorazepam 1 mg tablet (Ativan) 1 mg PO TID PRN anxiety #10 tabs 01/06/21 cephalexin 500 mg capsule 500 mg PO QID 7 days #27 caps 06/26/21 doxycycline hyclate 100 mg tablet 100 mg PO BID 7 days #14 tabs 06/26/21 lamotrigine 100 mg tablet 100 mg PO DAILY #14 tabs 07/15/21 magnesium oxide 400 mg (241.3 mg 400 mg PO DAILY #14 tabs 07/13/24 magnesium) tablet cyclobenzaprine 5 mg tablet 5 mg PO BEDTIME PRN muscle spasm 08/18/24 #7 tabs Allergies Allergy/AdvReac Type Severity Reaction Status Date / Time acetaminophen [Percocet] Allergy Unknown rash Verified 08/18/24 16:03 oxycodone [Percocet] Allergy Unknown rash Verified 08/18/24 10:18 penicillin G Allergy Unknown rash Verified 08/18/24 10:18 Penicillins Allergy Unknown ITCHY RASH Verified 08/18/24 10:18 From VICODIN Allergy Unknown UNKNOWN Uncoded 08/18/24 10:18 Review of Systems Review of Systems: Yes all other systems are reviewed and are negative PMFSH Past Medical History Attestation statement: The following information was validated with the patient. 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 No acute distress.?Normal affect. CVS: Heart sounds normal. Normal heart rate and rhythm.? Pulses normal.?? Respiratory: No respiratory distress.? Lung sounds clear to auscultation bilaterally?? Abdomen: Soft and non-tender. Normoactive bowel sounds. Skin: Skin warm and dry.? Normal skin color.? Back: Diffuse lateral lumbar spinal muscle tenderness upon examination Extremities: No lower extremity edema.? No calf ttp. 2+ DP/PT pulse. Full range of motion to left hip. Neuro: Moves all extremities spontaneously. Sensation intact bilaterally. No focal neuro deficits. Ambulates with normal steady gait. Course Course Course Narrative: This is an RME: Additional HPI, ROS, PE not included below will be deferred to primary provider. RME assessment and note performed by: Neniat Araiza PA-C This is a 48-year-old female who presents emergency department for evaluation of left hip pain. Patient reports that 2 weeks ago she fainted and fell onto her left knee and was seen at [facility] afterwards. No other syncopal episodes since. She states that she did not injure her left hip however states that over the last 2 weeks she has had increased pain. Pain worsens with movement and with ambulation. Plan; x-rays, further ER evaluation needed. Medical Decision Making Medical Decision Making MDM Narrative: Patient is a 48-year-old female with a past medical history of hypercholesterolemia, migraine, anemia, seizures who presents for evaluation of acute on chronic left hip pain in the setting of recent injury as per HPI. Overall she is well-appearing, nontoxic, afebrile. Extremities neurovascularly intact distally. Has full range of motion to the hip. She is ambulatory with a steady gait. She has tried conservative treatment including ice/heat, acetaminophen/ibuprofen as well as a topical cream without much relief. I did advise she could trial a short course of muscle relaxant which I will sent to the pharmacy, however she should speak with her primary care doctor at your appointment scheduled for tomorrow regarding course of physical therapy and/or further evaluation with Orthopedics given this is chronic in nature. All questions were answered. Stable for discharge Differential Diagnosis Differential Diagnoses: The differential diagnosis associated with the presentation includes (Fracture, dislocation, sprain, contusion, bursitis) Independent Interpretation I performed an independent interpretation of an: Plain X-Ray (No acute fracture dislocation) Radiology Impression Discussion of test interpretation with radiology: I have reviewed the radiologist's reading. Radiologist Impression: Two views of the left hip. FINDINGS: No fracture. Alignment is anatomic. Hip joint space is maintained. Soft tissues are unremarkable. XR/XR hip LT w PEL1V IMPRESSION: Normal left hip. External Record Review External record reviewed: Outpatient record Prescription Management I considered prescription management with: Pain Medication Discharge Plan Discharge Clinical Impression: Hip pain, chronic Patient Disposition: Home, Self-Care Instructions: Hip Pain (ED) Additional Instructions: You were seen in the emergency department today for worsening of your chronic left hip pain after recent fall 2 weeks ago. X-ray did not show any evidence of fracture dislocation. As discussed it is recommended that you refrain from excessive walking/pending as this may worsen your pain. You can take ibuprofen 200 mg, 3 tablets (600mg) every 6-8 hours as needed for pain, in addition to Tylenol 500 mg, 2 tablets (1,000mg) every 4-6 hours as needed for pain, but not to exceed 3 doses daily (3,000mg).? You short prescription for a muscle relaxer has been sent to your pharmacy. This medication may make you drowsy. You should not drive, drink alcohol, or work while taking this medication. As discussed, please speak with your primary care doctor tomorrow regarding possible physical therapy and/or referral to orthopedics given your chronic pain. Prescriptions: New cyclobenzaprine 5 mg tablet 5 mg PO BEDTIME PRN (Reason: muscle spasm) Qty: 7 0RF No Action lorazepam [Ativan] 1 mg tablet 1 mg PO TID PRN (Reason: anxiety) Qty: 10 0RF Rx Instructions: Patient may request partial fill doxycycline hyclate 100 mg tablet 100 mg PO BID 7 Days Qty: 14 0RF cephalexin 500 mg capsule 500 mg PO QID 7 Days Qty: 27 0RF Rx Instructions: Patient received 1st dose in the ER lamotrigine 100 mg tablet 100 mg PO DAILY Qty: 14 0RF magnesium oxide 400 mg (241.3 mg magnesium) tablet 400 mg PO DAILY Qty: 14 0RF Referrals: Sheri Santos MD [Primary Care Provider] - Interventions: ED Discharge Assessment Last Done: 08/18/24 23:49 Discharge Date/Time: 08/18/24 23:50 Print Language: Tajik
[2024-08-18 22:36] VITALS: BP 116/58; PULSE 85; RESP 18; TEMP 36.6; O2SAT 97
[2024-08-18 23:49] VITALS: BP 116/58; PULSE 85; RESP 18; TEMP 36.6; O2SAT 97
== END 2024-08-18 23:50 | disposition home or self-care (01) ==
PROVIDERS: Emergency Provider Emergency Medicine; PCP Family Medicine
DX: M25.552 Pain in left hip (principal)
CPT/HCPCS: 73502; 99282; 99283

== ENCOUNTER → 2024-08-18 16:03 | Outpatient (BNV) | payer MEDICAID, SELFPAY | PROVIDERS: PCP Family Medicine; Visit Provider Radiology Diagnostic Radiology | DX: M25.552 Pain in left hip (principal) | CPT/HCPCS: 73502 ==

== ENCOUNTER 2024-08-19 11:05 | Outpatient (REF) | payer MEDICAID, SELFPAY ==
[2024-08-19 15:42] LABS: C Reactive Protein 1.12 mg/dL (< or = 0.50); Iron 40 mcg/dL (30-160); Percent Iron Saturation 13 % (15-50); Total Iron Binding Capacity 302 mcg/dL (228-428); Unsaturated Iron Binding 262 ug/dL
[2024-08-19 15:52] LABS: Ferritin 33 ng/mL (10-250)
== END 2024-08-19 11:06 | disposition home or self-care (01) ==
LOC: HO.CHCLDS 11:05
PROVIDERS: Visit Provider Family Medicine
DX: D75.839 Thrombocytosis, unspecified (principal)
CPT/HCPCS: 82728; 83540; 86140

== ENCOUNTER 2024-08-27 13:21 | Outpatient (AMB) | payer MEDICAID, SELFPAY ==
[2024-08-27 13:51] VITALS: BP 125/78; PULSE 106; BMI 36.3
--- NOTE | 2024-08-27 13:51 | A.OFFVIS_ITS ---
Vital Signs 08/27/24 13:51 Height 5 ft 1 in Weight 192 lb BMI 36.3 BP 125/78 Blood Pressure Location Rt brachial Position Sitting Pulse 106 H Intake Visit Reasons: external hemorrhoids Intake Note: Patient referred for external hemorrhoids. Patient c/o: bleeding lasted for 2wks. Currently hemorrhoids are starting to get inflamed. Vendor Management Specialist Required: Yes Accompanied by: Self / Same As Patient Allergies acetaminophen [Percocet] Allergy (Unknown, Verified 08/27/24 13:53) rash oxycodone [Percocet] Allergy (Unknown, Verified 08/27/24 13:53) rash penicillin G Allergy (Unknown, Verified 08/27/24 13:53) rash Penicillins Allergy (Unknown, Verified 08/27/24 13:53) ITCHY RASH From VICODIN Allergy (Unknown, Uncoded 08/27/24 13:53) UNKNOWN Medication List - Last Reconciled 08/27/24 by Ronal Vences MD cephalexin 500 mg PO QID 7 days cyclobenzaprine 5 mg PO BEDTIME PRN doxycycline hyclate 100 mg PO BID 7 days lamotrigine 100 mg PO DAILY lorazepam (Ativan) 1 mg PO TID PRN magnesium oxide 400 mg PO DAILY HPI HPI external hemorrhoids: Details: [age] year female referred for bleeding hemorrhoids She says she has had hemorrhoids for over 20 years but this really had not bothered her before. However, currently, she noted passage of blood per rectum with bowel movements. This lasted for about 2 weeks. She says that this was not every day but this would happen quite frequently. She describes some chronic constipation She says that the bleeding per rectum has slowed down significantly. She denies any pain but does state that she feels that hemorrhoids had been swollen as well. 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 Review of Systems Const Denies chills and Denies fever(s) Card Denies chest pain, Denies dyspnea and Denies dyspnea on exertion Resp Denies cough, Denies dyspnea and Denies dyspnea on exertion GI Reports hematochezia, Denies change in bowel habits and Reports constipation Denies hematuria Musc Denies back pain and Denies limited range of motion Neuro Denies focal weakness and Denies convulsions Psych Denies depression and Denies mood swings Physical Exam Vital Signs: Last Vital Signs Pulse 106 H 08/27/24 13:51 BP 125/78 08/27/24 13:51 BMI result Body Mass Index 36.3 Const General: comfortable and no acute distress Orientation/consciousness: patient oriented x3 Neck Neck: Yes no lymphadenopathy Resp Auscultation: clear to auscultation bilaterally Cardio Rhythm: regular rhythm GI Other: Rectal exam shows small external hemorrhoids Palpation (GI): Soft to palpation, nontender and no guarding Neuro General: patient oriented x3 Office Procedures Anoscopy She was in kneeling ailyn-knife position. The anoscope was gently inserted and full examination of the entire anal canal was done. There was note of small internal hemorrhoids as well. There were no fissures, ulcerations and there was no induration on digital exam. There was no bleeding noted. There is no tenderness. [id number] Assessment & Plan Assessment & Plan (1) Bleeding hemorrhoids: Code(s): K64.9 - Unspecified hemorrhoids Category: Medical Plan: She describes having some passage of bright blood per rectum for about 2 weeks frequently. This has slowed down significantly. She admits to chronic constipation. She also describes having some inflammation of her hemorrhoids recently Current exam does not really show large hemorrhoidal tissue. I therefore told her that I would not really recommend proceeding with hemorrhoidectomy at this time especially with improving symptoms I did tell her that if she has worsening bleeding again down the line or other symptoms, she is welcome to come back to the office to be re-evaluated I will prescribe her Metamucil because of her chronic constipation. Coding Level of Care Code New Pt Level 3 (70371) Diagnoses Bleeding hemorrhoids K64.9 CPT Codes Details - CPT: 88552-Burqmfwm ([id number])
--- OUTSIDE RECORDS SUMMARY | 2024-08-27 15:02 | XMS_ITS | Encounter Summary ---
Author Organization [employer] Address [address] [place] [address] Care Team Providers Care Putty Maker Name Role Phone Ricky Jefferson MD Primary Care Provider [phone] Sheri Santos MD Primary Care Provider [phone] Encounter Details Date Type Department Care Team (Late st Contact Info) Description 07/15/2024 Telephone [facility] MEDICINE [address] [place] [address] Ricky Jefferson MD [address] [place] [address] Social History Tobacco Use Types Packs/Day Years [...] Care Team (Late st Contact Info) Description 08/28/2024 10:00 AM EDT Office Visit [facility] MEDICINE [address] [place] [address] Joslyn Gage CNM [address] [place] [address] 08/29/2024 2:15 PM EDT Office Visit [facility] MED & PEDS [address] [place] [address] Sheri Santos MD [address] [place] [address] documented as of this encounter Visit Diagnoses Not on filedocumented in this encounter Additional Health Concerns Assessment Noted Time PHQ-9 Depression Total Score: 8 05/01/19 25 11:20 AM EST documented as of this encounter Care Teams Putty Maker Relationship Specialty Start Date End Date Ricky Jefferson MD [address] [place] [address] PCP - General Internal Medicine 03/19/18 08/03/24 Sheri Santos MD [address] [place] [address] PCP - General Family Medicine 08/04/24 Silviano River NP Nurse Practitioner Psychiatry 03/19/19 documented as of this encounter
== END 2024-08-27 14:15 | disposition home or self-care (01) ==
LOC: HO.HGS 13:22
PROVIDERS: Visit Provider Surgery
DX: K64.9 Unspecified hemorrhoids (principal)
CPT/HCPCS: 46600; 99203

== ENCOUNTER → 2024-08-27 13:21 | Outpatient (BNVA) | payer MEDICAID, SELFPAY | PROVIDERS: Visit Provider Surgery | DX: K64.4 Residual hemorrhoidal skin tags (principal) | CPT/HCPCS: 46600; 99202 ==

== ENCOUNTER 2024-09-18 13:45 | Emergency (ER) | payer MEDICAID, SELFPAY ==
--- NOTE | ~2024-09-18 | XR_ITS ---
EXAMINATION: XR KNEE, LEFT CLINICAL INFORMATION: Pain and cracking sensations when getting out of bed, fell one month ago, left knee pain since then COMPARISON: None TECHNIQUE: Four views of the left knee. FINDINGS: There is no joint effusion. There are no osteophytes. There is no soft tissue calcification. Joint spaces are preserved. XR/XR knee LT 4V IMPRESSION: Unremarkable left knee Electronically signed by: Tano Hilton MD 09/18/2024 02:44 PM EDT
[2024-09-18 13:59] VITALS: BP 131/72; BP 160/98; PULSE 95; PULSE 97; RESP 18; TEMP 36.7; O2SAT 100; O2SAT 97; BMI 36.3
--- NOTE | 2024-09-18 14:10 | ED.GENADULT ---
HPI - General Adult General Chief complaint: Extremity Injury, Lower Stated complaint: L KNEE PAIN,UNABLE TO AMB,NO NEW INJURY PER EMS Time Seen by Provider: 09/18/24 13:54 Source: patient, RN notes reviewed, old records reviewed and senior fund accountant Mode of arrival: ambulatory Limitations: language barrier History of Present Illness ED Provider: Dalila HPI narrative: Patient is a 48-year-old Maltese-speaking female presenting in the emergency department with complaint of left knee pain since this morning. States that she was at home in bed, went to straighten her leg and felt a crack with pain to her anterior knee. States she did this again and again had a cracking sound and increased pain. When she attempted to stand and get out of bed, she was unable to bear weight on her left knee. Reports fall 1 month ago for which she was evaluated and had negative x-rays. Denies any falls today. States she does not have any pain at rest but does have pain with movement and flexion of her knee. MD complaint: left knee pain Onset (ago): hour(s) Related Data Previous Rx's ?Medication ?Instructions ?Recorded lorazepam 1 mg tablet (Ativan) 1 mg PO TID PRN anxiety #10 tabs 01/06/21 cephalexin 500 mg capsule 500 mg PO QID 7 days #27 caps 06/26/21 doxycycline hyclate 100 mg tablet 100 mg PO BID 7 days #14 tabs 06/26/21 lamotrigine 100 mg tablet 100 mg PO DAILY #14 tabs 07/15/21 magnesium oxide 400 mg (241.3 mg 400 mg PO DAILY #14 tabs 07/13/24 magnesium) tablet cyclobenzaprine 5 mg tablet 5 mg PO BEDTIME PRN muscle spasm 08/18/24 #7 tabs psyllium seed (sugar) oral powder 1 tbsp PO BID #1,254 grams 08/27/24 (Metamucil (sugar) oral powder) Allergies Allergy/AdvReac Type Severity Reaction Status Date / Time acetaminophen (Percocet) Allergy Unknown rash Verified 09/18/24 14:02 oxycodone (Percocet) Allergy Unknown rash Verified 09/18/24 14:02 penicillin G Allergy Unknown rash Verified 09/18/24 14:02 Penicillins Allergy Unknown ITCHY RASH Verified 09/18/24 14:02 From VICODIN Allergy Unknown UNKNOWN Uncoded 08/27/24 13:53 Review of Systems Review of Systems: As per HPI Yes all other systems are reviewed and are negative Constitutional: Constitutional: Reports as per HPI [facility] Past Medical History Medical History (Updated 09/18/24 @ 15:59 by Migdalia Conner NP) Bleeding hemorrhoids Thrombocytosis Hx of carpal tunnel syndrome High cholesterol Cyst of breast Menses painful Migraine Anemia Seizures Family History Family History Mother Primary cancer of blood vessel Social History Social History Alcohol intake: never Patient Tobacco Use Status: Never used Tobacco Advance Directives: No Advance Directives Information Provided: No Do you have a plan to hurt others: No Plan Current occupational status: disabled 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 Blood pressure normal. Heart rate normal. Respiratory rate normal. Temperature normal. Oxygen saturation normal. Const General: cooperative, healthy appearing and no acute distress Orientation/consciousness: oriented to person, oriented to place, oriented to time and patient oriented x3 Limitations: no limitations HENMT Head: Yes normocephalic and Yes atraumatic Ears: external ears normal General nose exam: Normal external nose present Face and sinus: Yes face symmetric Mouth: oropharynx normal and moist mucous membranes Throat: Yes uvula midline Eyes Pupils: Equal, round and reactive pupils present Neck Neck: Yes normal visual inspection and Yes supple Resp Effort & Inspection: normal respiratory effort and able to speak in complete sentences Auscultation: clear to auscultation bilaterally Cardio Rate: regular rate Rhythm: regular rhythm Heart sounds: S1 normal heart sound present and S2 normal heart sound present GI Palpation (GI): Soft to palpation and nontender Auscultation: normoactive bowel sounds General: Yes no CVA tenderness Back/Spine/Pelvis Back: no CVA tenderness Skin General skin exam: elasticity normal and turgor normal Neuro General: oriented to person, oriented to place, oriented to time, patient oriented x3, moves all extremities, no focal motor deficits and CN's II-XI intact bilaterally Cranial nerves: Yes Equal, round and reactive pupils present Cognition (Neuro): normal cognition Extrem General: Yes full ROM, Yes no pedal edema and Yes no calf tenderness Left lower extremity: knee Details: normal to inspection, tenderness Location: of the patella, normal ROM (passive) and knee ligament exam normal Psych Mental Status: mental status grossly normal Affect: normal affect Thought process: Normal thought process present Medical Decision Making Medical Decision Making [facility] Narrative: Patient is a 48-year-old Maltese-speaking female presenting in the emergency department with complaint of left knee pain since this morning. On exam patient is awake, A+Ox3, VS WNL, afebrile, normal neurological exam without focal deficits, physical exam findings as above. Given reported symptoms and physical exam findings, initial differential includes but is not limited to strain, sprain, fracture, dislocation, ligamentous injury. X-ray left knee notable for no acute fracture or dislocation. My interpretation is in agreement with the radiologist's interpretation. Will place in knee immobilizer and provide with crutches until patient can be seen by ortho for further evaluation. Return precautions discussed. Advised ice, Tylenol, and ibuprofen. Patient verbalized understanding of and agreement with plan. Differential Diagnosis Differential Diagnoses: The differential diagnosis associated with the presentation includes as per mDM Admission/Observation Consideration of admission/observation: Escalation of care including admission/observation considered Patient would have been admitted to the hospital had their work up had any findings where hospital admission was appropriate and their clinical presentation warranted hospital admission. Independent Interpretation I performed an independent interpretation of an: Plain X-Ray Interpretation: No acute fracture or dislocation of left knee on x-ray. Radiology Impression Discussion of test interpretation with radiology: I have reviewed the radiologist's reading. Radiologist Impression: XR/XR knee LT 4V IMPRESSION: Unremarkable left knee External Record Review External record reviewed: Inpatient record, Office record and Outpatient record Discharge Plan Discharge Clinical Impression: Left knee sprain Qualifiers: Encounter type: initial encounter Involved ligament of knee: unspecified ligament Qualified Code(s): S83.92XA - Sprain of unspecified site of left knee, initial encounter Patient Disposition: Home, Self-Care Instructions: Knee Sprain (DC), Crutch Instructions (ED), Knee Immobilizer (ED) Additional Instructions: You were evaluated in the emergency department today for left knee pain. Your x-ray did not show evidence of any fracture or dislocation. Your knee was placed in an immobilizer today and you were provided with crutches and crutch teaching. You are being referred to orthopedics for further evaluation and management of your symptoms. Call their office to schedule an appointment. Return to the emergency department if you develop worsening pain, new weakness, numbness, tingling, change in color in your leg or any other new or concerning symptoms. Prescriptions: No Action lorazepam [Ativan] 1 mg tablet 1 mg PO TID PRN (Reason: anxiety) Qty: 10 0RF Rx Instructions: Patient may request partial fill doxycycline hyclate 100 mg tablet 100 mg PO BID 7 Days Qty: 14 0RF cephalexin 500 mg capsule 500 mg PO QID 7 Days Qty: 27 0RF Rx Instructions: Patient received 1st dose in the ER lamotrigine 100 mg tablet 100 mg PO DAILY Qty: 14 0RF magnesium oxide 400 mg (241.3 mg magnesium) tablet 400 mg PO DAILY Qty: 14 0RF cyclobenzaprine 5 mg tablet 5 mg PO BEDTIME PRN (Reason: muscle spasm) Qty: 7 0RF Metamucil (sugar) Powder 1 tbsp PO BID Qty: 1254 2RF Referrals: [facility] Orthopedic Surgeons [Provider Group] Clinical Impression: Left knee sprain Print Language: Maltese
--- NOTE | 2024-09-18 14:11 | MHC.EDTECH ---
pt ambulated to the bathroom with 1 assist. Patient ambulated back to room with the use of a walker.
--- OUTSIDE RECORDS SUMMARY | 2024-09-18 14:39 | XMS_ITS | Encounter Summary ---
Author Organization [employer] Address [address] [place] [address] Care Team Providers Care Automotive Instructor Name Role Phone Sheri Santos MD Primary Care Provider [phone] Reason for Visit * Reason Onset Date Comments Nurse Triage 09/16/2024 Encounter Details Date Type Department Care Team ([facility] st Contact Info) Description 09/16/2024 Telephone [facility] MEDICINE [address] [place] [address] Sheri Santos MD [address] [place] [address] Nurse Triage Social History Tobacco Use Types [...] Telephone Encounter - Devora Figueroa RN - 09/16/2024 11:15 AM EDT Called pt. Via [facility] educational sign language interpreter [phone] [address]. Call went straight to voicemail. Lapper left message on pt. Voicemail to call back [facility] nurses at [phone]. Called back x2. Call went straight to voicemail. Did not leave 2nd voicemail. RE: Hand/wrist pain- cannot use hand normal * Telephone Encounter - Nica Johnston - 09/16/2024 10:49 AM EDT Symptom: Hand or Wrist Pain - Not From Injury Outcome: Schedule an urgent appointment (within 1 hour) or talk to a nurse or provider soon Reason: Can't use the hand normally The caller accepted this outcome. Need interperter documented in this encounter Plan of Treatment Upcoming Encounters Date Type Department Care Team (Late st Contact Info) Description 09/24/2024 2:30 PM EDT Medication Management [facility] MED & PEDS [address] [place] [address] Annita Pickering, PharmD [address] [place] [address] 10/02/2024 10:00 AM EDT Clinical Support [facility] DIABETES/NTRN [address] [place], [place] [phone] Chloe Wharton, KAMINI [address] [place] [address] 10/17/2024 11:30 AM EDT Office Visit [facility] MED & PEDS [address] [place], [place] [phone] Sheri Santos MD [address] [place], [place] documented as of this encounter Visit Diagnoses Not on filedocumented in this encounter Additional Health Concerns Assessment Noted Time PHQ-9 Depression Total Score: 8 05/01/19 25 11:20 AM EST documented as of this encounter Care Teams Automotive Instructor Relationship Specialty Start Date End Date Sheri Santos MD [address] [place] [address] PCP - General Family Medicine 08/04/24 Silviano River NP Nurse Practitioner Psychiatry 03/19/19 documented as of this encounter
--- NOTE | 2024-09-18 16:48 | MHC.EDTECH ---
knee immobilizer and crutches providedpt tolerated it well
[2024-09-18 17:14] VITALS: BP 131/72; PULSE 97; RESP 18; TEMP 36.7; O2SAT 97
== END 2024-09-18 17:14 | disposition home or self-care (01) ==
PROVIDERS: Emergency Provider Emergency Medicine Emergency Medical Services; PCP Family Medicine
DX: S83.92XA Sprain of unspecified site of left knee, initial encounter (principal); M25.562 Pain in left knee; R26.81 Unsteadiness on feet; X58.XXXA Exposure to other specified factors, initial encounter; Y93.9 Activity, unspecified; Y92.9 Unspecified place or not applicable; Y99.8 Other external cause status
CPT/HCPCS: 73564; 96372; 99283; 99284; J1885

== ENCOUNTER → 2024-09-18 14:17 | Outpatient (BNV) | payer MEDICAID, SELFPAY | PROVIDERS: Emergency Provider Emergency Medicine Emergency Medical Services; PCP Family Medicine; Visit Provider Radiology Diagnostic Radiology | DX: M25.562 Pain in left knee (principal) | CPT/HCPCS: 73564 ==

== ENCOUNTER 2024-09-30 09:36 | Emergency (ER) | payer MEDICAID, SELFPAY ==
[2024-09-30 10:04] VITALS: BP 146/92; PULSE 100; RESP 16; TEMP 37; O2SAT 98; BMI 36.1
--- NOTE | 2024-09-30 10:10 | ED_ITS ---
HPI - Extremity Problem General Chief complaint: Extremity Injury, Upper Stated complaint: hand issues Time Seen by Provider: 09/30/24 10:09 Source: patient, old records reviewed and seismic interpreter Mode of arrival: ambulatory Limitations: no limitations History of Present Illness ED Provider: GABRIELE RUST Narrative: 48 yo female with PMH of carpal tunnel for months followed by our orthopedics t jered, last cortisone shot was many months ago. She has store bought braces but notes she cannot sleep at night due to the pain. She does not work. She takes tylenol and gabapentin but no relief. No new trauma. She states she cannot get comfortable. No hx of diabetes. She is still waiting on her EMG. MD Complaint: joint pain Onset (ago): month(s) Pain Consistency: intermittent Location: left, right and upper extremity Quality: aching, crushing and dull Radiation: none Relieving factors: immobilization Exacerbating factors: range of motion, weight bearing and palpation Associated symptoms: other (tingling) Context: other Related Data Previous Rx's ?Medication ?Instructions ?Recorded lorazepam 1 mg tablet (Ativan) 1 mg PO TID PRN anxiety #10 tabs 01/06/21 cephalexin 500 mg capsule 500 mg PO QID 7 days #27 cap s 06/26/21 doxycycline hyclate 100 mg tablet 100 mg PO BID 7 days #14 tabs 06/26/21 lamotrigine 100 mg tablet 100 mg PO DAILY #14 tabs magnesium oxide 400 mg (241.3 mg 400 mg PO DAILY #14 t abs 07/13/24 magnesium) tablet cyclobenzaprine 5 mg tablet 5 mg PO BEDTIME PRN muscle spasm 08/18/24 #7 tabs psyllium seed (sugar) oral powder 1 tbsp PO BID #1,254 grams 08/27/24 (Metamucil (sugar) oral powder) methocarbamol 750 mg tablet 750 mg PO Q8H PRN pain #30 tabs 09/30/24 prednisone 20 mg tablet 40 mg (2 x 20 mg) PO DAILY 5 days 09/30/24 #10 tabs Allergies Allergy/AdvReac Type Severity Reaction Status Date / Time acetaminophen (Percocet) Allergy Unknown rash Verified 09/18/24 14:02 oxycodone (Percocet) Allergy Unknown rash Verified 09/18/24 14:02 penicillin G Allergy Unknown rash Verified 09/30/24 10:15 Penicillins Allergy Unknown ITCHY RASH Verified 09/30/24 10:15 From VICODIN Allergy Unknown UNKNOWN Uncoded 09/30/24 10:15 Review of Systems Review of Systems: Constitutional : No Fever, No Chills ENT/Mouth : No Ear Pain, No Hoarseness, No sore throat Eyes: No Eye Pain, No Swelling, No Redness, No Foreign Body Cardiovascular : No Chest Pain, No SOB Respiratory : No Cough, No Dyspnea Gastrointestinal : No Nausea, No Vomiting, No Diarrhea, No abdominal Pain Genitourinary : No Dysuria, No Hematuria Musculoskeletal : positive joint pain, No Myalgias, No Joint Swelling Skin : No Skin lacerations, No rash Neuro : No Weakness, pos numbness. All other systems reviewed and are negative [facility] Past Medical History Attestation statement: The following information was validated with the patient. 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 Oriented X3. No acute distress. Eyes: Pupils equal, round and reactive to light. ENT: Pharynx normal. Neck: Normal inspection. Neck supple. CVS: Normal heart rate and rhythm. Pulses normal. Respiratory: No respiratory distress. Breath sounds normal. Abdomen: Soft and nontender. Skin: Skin warm and dry. Normal skin color. Normal skin turgor. Extremities: No lower extremity edema. both hands + phalens signs NV intact, ttp but no overt swelling or rash noted, pain with compression of carpal tunnel her home braces are soft and compress the thumb inward onto her carpal tunnel Neuro: Oriented X 3. No motor deficit. No sensory deficit. CN2-12 intact Medical Decision Making Medical Decision Making MDM Narrative: 48 yo female with PMH of carpal tunnel for months now with tight store bough braces that actually compress the carpal tunnel she is NV intact on exam she has no signs of infection will use harder flat braces from here start on oral steroids and muscle relaxers at night and refer her back to orthopedics. Differential Diagnosis Differential Diagnoses: The differential diagnosis associated with the presentation includes acute carpal tunnel syndrome External Record Review External record reviewed: Outpatient record Tests considered The following testing was considered but not selected: xray but has no trauma no concern for fracture Prescription Management I considered prescription management with: Pain Medication and Other Procedures Orthopedic Splinting/Casting Injury #1: Side: left Upper Extremity Injury Location: wrist Upper Extremity Immobilizer: wrist splint Additional Comments: NV intact Injury #2: Side: right Upper Extremity Injury Location: wrist Upper Extremity Immobilizer: wrist splint Additional Comments: NV intact Discharge Plan Discharge Clinical Impression: Acute carpal tunnel syndrome Qualifiers: Laterality: unspecified laterality Qualified Code(s): G56.00 - Carpal tunnel syndrome, unspecified upper limb Patient Disposition: Home, Self-Care Instructions: Paresthesia (ED) Additional Instructions: please follow up with orthopedics return for worsening symptoms or pain wear splints at night can take off during the day when resting. Prescriptions: New prednisone 20 mg tablet 40 mg PO DAILY 5 Days Qty: 10 0RF methocarbamol 750 mg tablet 750 mg PO Q8H PRN (Reason: pain) Qty: 30 0RF No Action lorazepam [Ativan] 1 mg tablet 1 mg PO TID PRN (Reason: anxiety) Qty: 10 0RF Rx Instructions: Patient may request partial fill doxycycline hyclate 100 mg tablet 100 mg PO BID 7 Days Qty: 14 0RF cephalexin 500 mg capsule 500 mg PO QID 7 Days Qty: 27 0RF Rx Instructions: Patient received 1st dose in the ER lamotrigine 100 mg tablet 100 mg PO DAILY Qty: 14 0RF magnesium oxide 400 mg (241.3 mg magnesium) tablet 400 mg PO DAILY Qty: 14 0RF cyclobenzaprine 5 mg tablet 5 mg PO BEDTIME PRN (Reason: muscle spasm) Qty: 7 0RF Metamucil (sugar) Powder 1 tbsp PO BID Qty: 1254 2RF Print Language: Bruneian
--- NOTE | 2024-09-30 10:35 | PC.NURSE ---
pt was seen by provider in triage, wrist splints applied and patient was discharged
--- OUTSIDE RECORDS SUMMARY | 2024-09-30 11:42 | XMS_ITS | Encounter Summary ---
Author Organization [employer] Address [address] [place] [address] [address] [place] [address] Care Team Providers Care Early Interventionist Name Role Phone Sheri Santos MD Primary Care Provider [phone] Reason for Referral * Neurology (Routine) - Authorized Specialty Diagnoses / Procedures Referred By Leslie escamilla Referred To Contact Diagnoses Seizure (CMS/HCC) Procedures EEG awake or drowsy routine Ricky Jefferson MD [address] [place] [address] Phone: tel: fax: [address] Phone: tel: fax: Referral ID Status Reason Start Date Expiration Date V isits Requested Visits Authorized [id number] Authorized 08/28/2024 08/28/2025 1 1 Encounter Details Date Type Department Care Team ([facility] st Contact Info) Description 08/28/2024 Orders Only [facility] P[facility] [address] [place] [address] Ricky Jefferson MD [address], [place] [phone] Seizure (CMS/HCC) (Primary Dx) Social History Tobacco Use Types [...] Care Team (Late st Contact Info) Description 10/02/2024 10:00 AM EDT Clinical Support [facility] DI[facility]/NTRN [address] [place], [place] [phone] [place] [address] 10/17/2024 11:30 AM EDT Office Visit [facility] MED [facility] PEDS [address], [place] [phone] Sheri Santos MD [address] [place] [address] Scheduled Orders Name Type Priority Associated Diagnoses Orde r Schedule EEG awake or drowsy routine Neurology Routine Seizure ([facility]) Expected: 08/28/2024 (Approximate), Expires: 08/28/2025 documented as of this encounter Procedures Procedure Name Priority Date/Time Associated Diagnosis Comments XR KNEE 4+ VIEWS LEFT Routine 09/18/2024 2:25 PM EDT documented in this encounter Results * XR Knee 4+ Views Left (09/18/2024 2:25 PM EDT) Anatomical Region Laterality Modality Lower Extremities, Knee Left Radiogra phic Imaging 09/18/2024 2:25 PM EDT Narrative 09/18/2024 2:47 PM EDT [address] [address] XRay Report Signed Patient: Joanne Vences MR#: [id number] : 1975 Acct:[id number] Age/Sex: 48 / F ADM Date: 09/18/24 Loc: .ED Attending Dr: Ordering Physician: Migdalia Conner NP Date of Service: 09/18/24 Procedure(s): XR knee LT 4V Accession Number(s): [id number] cc: Migdalia Conner NP; Sheri Santos MD EXAMINATION: XR KNEE, LEFT CLINICAL INFORMATION: Pain and cracking sensations when getting out of bed, fell one month ago, left knee pain since then COMPARISON: None TECHNIQUE: Four views of the left knee. FINDINGS: There is no joint effusion. There are no osteophytes. There is no soft tissue calcification. Joint spaces are preserved. XR/XR knee LT 4V IMPRESSION: Unremarkable left knee Electronically signed by: Tano Hilton MD 09/18/2024 02:44 PM EDT Dictated By: Tano Hilton MD Signed By: <Electronically signed by Tano Hilton MD in OV> 09/18/24 1444 DD/ 1425 TD/TT: 09/18/24 1430 Loan Service Officer: Procedure Note Donotsallyinterpreter, Image - 09/18/2024 [facility] [address] [place] [address] XRay Report Signed Patient: Ary Vences#: [id number] : 1975Acct:[id number] Age/Sex: 48 / FADM Date: 09/18/24 Loc: HO.ED Attending Dr: Ordering Physician: Migdalia Conner NP Date of Service: 09/18/24 Procedure(s): XR knee LT 4V Accession Number(s): [id number] cc: Migdalia Conner CARGO SURVEYOR; Sheri Santos MD EXAMINATION: XR KNEE, LEFT CLINICAL INFORMATION: Pain and cracking sensations when getting out of bed, fell one month ago, left knee pain since then COMPARISON: None TECHNIQUE: Four views of the left knee. FINDINGS: There is no joint effusion. There are no osteophytes. There is no soft tissue calcification. Joint spaces are preserved. XR/XR knee LT 4V IMPRESSION: Unremarkable left knee Electronically signed by: Tano Hilton MD 09/18/2024 02:44 PM EDT Dictated By: Tano Hilton MD Signed By: <Electronically signed by Tano Hilton MD in OV> 09/18/24 1444 DD/ 1425 TD/TT: 09/18/24 1430 Loan Service Officer: [facility] External Provider IMG XR PROCEDURES Edited Result - Final documented in this encounter Visit Diagnoses Diagnosis Seizure (CMS/HCC)- Primary Other convulsions documented in this encounter Additional Health Concerns Assessment Noted Time PHQ-9 Depression Total Score: 8 05/01/19 25 11:20 AM EST documented as of this encounter Care Teams Early Interventionist Relationship Specialty Start Date End Date Sheri Santos MD [address] [place] [id number] PCP - General Family Medicine 08/04/24 Silviano River NP Nurse Practitioner Psychiatry 03/19/19 documented as of this encounter
== END 2024-09-30 10:36 | disposition home or self-care (01) ==
PROVIDERS: Emergency Provider Emergency Medicine; PCP Family Medicine
DX: G56.00 Carpal tunnel syndrome, unspecified upper limb (principal); M79.603 Pain in arm, unspecified
CPT/HCPCS: 99281; 99283

== ENCOUNTER 2024-09-30 18:56 | Emergency (ER) | payer MEDICAID, SELFPAY ==
[2024-09-30 19:01] VITALS: BP 150/91; BP 160/90; PULSE 100; PULSE 112; RESP 17; TEMP 36.9; O2SAT 100; BMI 35.9
--- NOTE | 2024-09-30 19:05 | ECG_ITS ---
Test Reason : HYPERTENSION Blood Pressure : */* mmHG Vent. Rate : 108 BPM Atrial Rate : 108 BPM P-R Int : 144 ms QRS Dur : 68 ms QT Int : 336 ms P-R-T Axes : 35 12 35 degrees QTcB Int : 450 ms Sinus tachycardia Otherwise normal ECG When compared with ECG of 13-Jul-2024 12:35, No significant change was found Referred By: Myah Boykin Electronically Signed By: BESSY FREEMAN
[2024-09-30 19:24] LABS: MANUAL DIFF FLAG NO
[2024-09-30 19:25] LABS: Hematocrit 33.9 % (37.0-47.0); Hemoglobin 11.7 g/dl (12.0-16.0); Imm Gran Abs Auto 0.03 X10*3/uL (0.00-0.03); Imm Gran Pct Auto 0.3 % (0.0-0.4); Lymphocytes Absolute Auto 3.0 X10*3/uL (1.2-4.9); Mean Corpuscular HGB Conc 34.5 g/dl (31.0-35.0); Mean Corpuscular Hemoglobin 28.5 pg (27.0-33.0); Mean Corpuscular Volume 82.7 fL (80.0-98.0); NRBC Abs Auto 0.000 X10*3/uL (0.0-0.012); NRBC Pct Auto 0.0 /100WBC (0.0-0.2); Platelet Count 371 X10*3/uL (160-400); Red Blood Count 4.10 X10*6/uL (4.20-5.50); White Blood Count 9.9 X10*3/uL (4.8-10.8)
[2024-09-30 19:45] LABS: Alanine Aminotransferase 39 U/L (0-31); Albumin Level 4.2 g/dL (3.5-5.0); Alkaline Phosphatase 96 U/L (39-117); Anion Gap 16 (12-20); Aspartate Amino Transferase 28 U/L (5-31); Blood Urea Nitrogen 12 mg/dL (9-16); Calcium 9.2 mg/dL (8.4-10.2); Carbon Dioxide 25 mmol/L (22-29); Chloride 105 mmol/L (96-108); Creatinine Clr Calc Pharmacy 101.5; Estimated Glomerular Filt Rate > 60; Magnesium 1.8 mg/dL (1.6-2.6); Potassium 3.9 mmol/L (3.3-5.1); Sodium 142 mmol/L (135-145); Total Protein 7.3 g/dL (6.5-8.0)
[2024-09-30 19:47] LABS: Troponin-I High Sensitivity < 2.7 ng/L (<3.5-17.0)
--- NOTE | 2024-09-30 19:54 | ED_ITS ---
HPI - General Adult General Chief complaint: General Medical Stated complaint: High bp Time Seen by Provider: 09/30/24 22:03 Source: patient Mode of arrival: EMS Limitations: language barrier History of Present Illness ED Provider: Zeferino LOVELL HPI narrative: The patient is a 48-year-old female with history of chronic numbness and tingling of the bilateral upper extremities, right lateral epicondylitis, chronic low back pain, and migraines presenting to the ED reporting she has been experiencing recurrent daily headaches with paresthesias of the bilateral hands and shooting electrical pain of the right upper extremity when waking in the morning. The patient reports she recently was diagnosed with hypertension by her PCP and initiated on amlodipine which she states she began taking 2 weeks ago. Patient reports despite the medication she has had persistently elevated blood pressures when she wakes with the symptoms in the morning. The patient states today she woke with more severe headache and checked her blood pressure which was elevated at 160 systolic. Patient reports she had went to bed last night without headache and blood pressure was normal. The patient denies any recent fall, blunt head trauma, or other injury. The patient denies recent sick contacts, denies associated chest pain, shortness of breath, vision change, or other focal neurological deficit. The patient takes Tylenol daily every morning when she wakes up with her headaches, took Tylenol this morning, denies taking other medication for her symptoms prior to coming to the ED for evaluation. Related Data Previous Rx's ?Medication ?Instructions ?Recorded lorazepam 1 mg tablet (Ativan) 1 mg PO TID PRN anxiety #10 tabs 01/06/21 cephalexin 500 mg capsule 500 mg PO QID 7 days #27 cap s 06/26/21 doxycycline hyclate 100 mg tablet 100 mg PO BID 7 days #14 tabs 06/26/21 lamotrigine 100 mg tablet 100 mg PO DAILY #14 tabs magnesium oxide 400 mg (241.3 mg 400 mg PO DAILY #14 t abs 07/13/24 magnesium) tablet cyclobenzaprine 5 mg tablet 5 mg PO BEDTIME PRN muscle spasm 08/18/24 #7 tabs psyllium seed (sugar) oral powder 1 tbsp PO BID #1,254 grams 08/27/24 (Metamucil (sugar) oral powder) methocarbamol 750 mg tablet 750 mg PO Q8H PRN pain #30 tabs 09/30/24 prednisone 20 mg tablet 40 mg (2 x 20 mg) PO DAILY 5 days 09/30/24 #10 tabs Allergies Allergy/AdvReac Type Severity Reaction Status Date / Time acetaminophen (Percocet) Allergy Unknown rash Verified 09/30/24 19:08 oxycodone (Percocet) Allergy Unknown rash Verified 09/30/24 19:08 penicillin G Allergy Unknown rash Verified 09/30/24 19:08 Penicillins Allergy Unknown ITCHY RASH Verified 09/30/24 19:08 From VICODIN Allergy Unknown UNKNOWN Uncoded 09/30/24 19:08 Review of Systems 2 Review of Systems: Yes all other systems are reviewed and are negative PMFSH Past Medical History Medical History Bleeding hemorrhoids Thrombocytosis Hx of carpal tunnel syndrome High cholesterol Cyst of breast Menses painful Migraine Anemia Seizures Family History Family History Mother Primary cancer of blood vessel Social History Social History Alcohol intake: never Patient Tobacco Use Status: Never used Tobacco Smoked in Last 30 Days: No Use of substances other than those prescribed or required for medical reasons: No Advance Directives: No Advance Directives Information Provided: No Do you have a plan to hurt others: No Plan Patient : No Current occupational status: disabled 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 Vital signs as documented. HEAD: Atraumatic, normocephalic. EYES: EOMs grossly intact, pupils equal, conjunctiva clear, no exudate. ENT: Nares patent, no discharge. Airway patent, no audible stridor, visible mucosa is pink and moist without noted lesions. NECK: Trachea is midline, no obvious masses or gross abnormalities. CHEST: Symmetric movement, normal appearance. LUNGS: LS present and CTAB, no w/r/r. Non-labored work of breathing. CARDIAC: Regular Rhythm, S1/S2 appreciated, no murmurs, rubs or gallops. ABDOMEN: Abdomen soft and non-tender x4 quadrants, no palpable masses or organomegaly. : Deferred. EXTREMITIES: Normal tone, moves all extremities spontaneously without reported pain. No obvious acute injury or deformity noted. NEURO: Alert and oriented x3, CN II-XII intact. Cerebellar Functioning intact. No sensory or motor deficits. Speech clear and appropriate. PSYCH: Anxious affect, otherwise appropriate eye contact, fluid speech, with appropriate response to questioning. No reported suicidality or homicidality. SKIN: Warm, dry, color appropriate, normal turgor. No rashes noted. Course Course Course Narrative: 09/30/241954 NAS Gomez This is a Rapid Medical Examination (RME) performed by Kaur Boykin PA-C in triage. Full HPI, ROS, assessment and treatment plan per primary provider in the Main ED. Hx: 48 yo F here for eval of elevated BP readings since 0500 this morning. highest SBP reading 160. admits to CA[place]EDO and low back pain. took her morning amlodipine. plan: labs, ekg Medications Administered Discontinued Medications Generic Name Dose Route Start Last Admin Trade Name Major PRN Reason Stop Dose Admin Diphenhydramine HCl 25 mg 09/30/24 22:39 09/30/24 23:29 Diphenhydramine Hcl 50 Mg/Ml Vial IVPUSH 09/30/24 22:40 25 mg ONCE ONE Administration Sodium Chloride 1,000 mls @ 999 mls/hr 09/30/24 22:45 10/01/24 00:54 Ns IV 09/30/24 23:45 Infused .Q1H1M DEXTER Infusion Ketorolac Tromethamine 15 mg 09/30/24 22:39 09/30/24 23:30 Ketorolac Tromethamine 15 Mg/Ml Vial IVPUSH 09/30/24 22:40 15 mg ONCE ONE Administration Metoclopramide HCl 10 mg 09/30/24 22:39 09/30/24 23:30 Metoclopramide Hcl 10 Mg/2 Ml Vial IVPUSH 09/30/24 22:40 10 mg ONCE ONE Administration Medical Decision Making Medical Decision Making MDM Narrative: 11:10 PM 09/30/2024 (Kaur LOVELL): The patient is a 48-year-old female presenting to the ED with multiple complaints but primarily complaining of high blood pressure with headache since waking this morning. The patient denies other acute somatic complaint, reports persistence of her chronic low back pain and chronic bilateral upper extremity paresthesias. The patient in the ED appears in no acute distress, exam is benign. Laboratory evaluation is reassuring, no evidence of JENNIFER, electrolyte abnormality, significant anemia, or leukocytosis. The patient's EKG is nonischemic, troponin is negative. There is no evidence of any end-organ damage secondary to elevated blood pressure. The patient's presentation is concerning for possible migraine with elevated blood pressure secondary to pain. We will treat with a migraine cocktail and reassess symptoms and blood pressure. 2:11 AM 10/01/2024 (Kaur LOVELL): The patient reports her symptoms have completely resolved following intervention with the migraine cocktail. Patient's blood pressure is also improved. Patient will be discharged to follow up with PCP for ongoing blood pressure and chronic pain management. Admission/Observation Consideration of admission/observation: Escalation of care including admission/observation considered Lab Data [facility] Lab Attestation statement: I reviewed the patient's lab results. 09/30/24 19:20 09/30/24 19:20 Labs: Lab Results 09/30/24 Range/Units 19:20 WBC 9.9 (4.8-10.8) X10*3/uL RBC 4.10 L (4.20-5.50) X10*6/uL Hgb 11.7 L (12.0-16.0) g/dl Hct 33.9 L (37.0-47.0) % MCV 82.7 (80.0-98.0) fL MCH 28.5 (27.0-33.0) pg MCHC 34.5 (31.0-35.0) g/dl RDW 12.9 (11.0-16.0) % Plt Count 371 (160-400) X10*3/uL MPV 8.4 L (9.4-12.3) fL Immature Gran % (Auto) 0.3 (0.0-0.4) % Neut % (Auto) 54.4 (45-73) % Lymph % (Auto) 30.1 (20-40) % Beaver % (Auto) 10.4 (2-11) % Eos % (Auto) 4.2 H (0-4) % Baso % (Auto) 0.6 (0-2) % Lymph # (Auto) 3.0 (1.2-4.9) X10*3/uL Beaver # (Auto) 1.0 (0.1-1.2) X10*3/uL Eos # (Auto) 0.4 (0.0-0.4) X10*3/uL Baso # (Auto) 0.1 (0.0-0.2) X10*3/uL Abs Immat Gran (auto) 0.03 (0.00-0.03) X10*3/uL Absolute Neuts (auto) 5.4 (2.0-8.3) x10*3/uL Absolute Nucleated RBC 0.000 (0.0-0.012) X10*3/uL Nucleated RBC % (auto) 0.0 (0.0-0.2) /100WBC Sodium 142 (135-145) mmol/L Potassium 3.9 (3.3-5.1) mmol/L Chloride 105 (96-108) mmol/L Carbon Dioxide 25 (22-29) mmol/L Anion Gap 16 (12-20) BUN 12 (9-16) mg/dL Creatinine 0.69 (0.5-1.4) mg/dL Estim Creat Clear Calc 101.5 Estimated GFR > 60 Random Glucose 104 (60-115) mg/dL Calcium 9.2 (8.4-10.2) mg/dL Magnesium 1.8 (1.6-2.6) mg/dL Total Bilirubin 0.1 (0.0-1.0) mg/dL AST 28 (5-31) U/L ALT 39 H (0-31) U/L Alkaline Phosphatase 96 (39-117) U/L Troponin I High Sens < 2.7 (<3.5-17.0) ng/L Total Protein 7.3 (6.5-8.0) g/dL Albumin 4.2 (3.5-5.0) g/dL TSH 0.77 (0.32-4.0) uIU/mL Beta HCG, Quant < 2 mIU/mL Independent Interpretation I performed an independent interpretation of an: EKG (EKG shows sinus tachycardia with a rate of 108, no evidence of acute ischemia, no ST elevation, no ectopy. QTC 450, compared to previous on 07/13/2024 there are no significant morphology changes.) Discharge Plan Discharge Clinical Impression: Headache Qualifiers: Headache type: unspecified Headache chronicity pattern: acute headache I ntractability: not intractable Qualified Code(s): R51.9 - Headache, unspecified Hypertension Qualifiers: Hypertension type: primary hypertension Qualified Code(s): I10 - Essential (primary) hypertension Patient Disposition: Home, Self-Care Instructions: Acute Headache (ED), Hypertension (ED) Additional Instructions: Thank you for choosing [facility]'s Emergency Department for your care today. Thankfully your laboratory evaluation today is reassuring and shows no evidence of end-organ damage as a result of your elevated blood pressure. Your headache symptoms resolved following interventions in the emergency department. At this time there is no evidence of an acute process requiring admission to the hospital or continued ED observation, and it is safe to discharge you home. You may take alternating (staggered) doses of ibuprofen 600mg and Tylenol 1000mg every 4 hours as needed for any additional pain. Please stay well hydrated and get plenty of rest. Please follow up with your primary care physician for re-evaluation, additional management of your symptoms, and continued preventative care. If you do not have a primary care physician, please call the [facility] at [phone] to establish a new primary care physician. While waiting to establish your new primary care physician, you can call our [facility] at [phone] for non-emergency needs. Please return to the emergency department if you develop a severe or sudden change in your symptoms, a fever over 100.4 that does not improve with Tylenol or Ibuprofen, recurrent vomiting, or any other new or worsening symptoms or concerns. Prescriptions: No Action lorazepam [Ativan] 1 mg tablet 1 mg PO TID PRN (Reason: anxiety) Qty: 10 0RF Rx Instructions: Patient may request partial fill doxycycline hyclate 100 mg tablet 100 mg PO BID 7 Days Qty: 14 0RF cephalexin 500 mg capsule 500 mg PO QID 7 Days Qty: 27 0RF Rx Instructions: Patient received 1st dose in the ER lamotrigine 100 mg tablet 100 mg PO DAILY Qty: 14 0RF magnesium oxide 400 mg (241.3 mg magnesium) tablet 400 mg PO DAILY Qty: 14 0RF cyclobenzaprine 5 mg tablet 5 mg PO BEDTIME PRN (Reason: muscle spasm) Qty: 7 0RF prednisone 20 mg tablet 40 mg PO DAILY 5 Days Qty: 10 0RF methocarbamol 750 mg tablet 750 mg PO Q8H PRN (Reason: pain) Qty: 30 0RF Metamucil (sugar) Powder 1 tbsp PO BID Qty: 1254 2RF Referrals: Sheri Santos MD [Primary Care Provider, Medical] Clinical Impression: Headache; Hypertension Print Language: Romanian
--- OUTSIDE RECORDS SUMMARY | 2024-09-30 21:36 | XMS_ITS | Encounter Summary ---
Author Organization [employer] Address [address] [place] [address] 7 [place] [address] Care Team Providers Care Surg Tech Name Role Phone Sheri Santos MD Primary Care Provider [phone] Reason for Referral * Neurology (Routine) - Authorized Specialty Diagnoses / Procedures Referred By Leslie escamilla Referred To Contact Diagnoses Seizure (CMS/HCC) Procedures EEG awake or drowsy routine Ricky Jefferson MD [address] [place] [address] Phone: tel: fax: [address] Phone: tel: fax: Referral ID Status Reason Start Date Expiration Date V isits Requested Visits Authorized [id number] Authorized 08/28/2024 08/28/2025 1 1 Encounter Details Date Type Department Care Team ([facility] st Contact Info) Description 08/28/2024 Orders Only [facility] MED & PEDS [address] [place] [address] Ricky Jefferson MD [address] [place], [place] [phone] Seizure (CMS/HCC) (Primary Dx) Social History Tobacco [...] Description 10/02/2024 10:00 AM EDT Clinical Support [facility] [address] [place], [place] [phone] [address] [place] [address] 10/17/2024 11:30 AM EDT Office Visit [facility] [address] [place], [place] [phone] Sheri Santos MD [address] [place] [address] Scheduled Orders Name Type Priority Associated Diagnoses Orde r Schedule EEG awake or drowsy routine Neurology Routine Seizure ([facility]) Expected: 08/28/2024 (Approximate), Expires: 08/28/2025 documented as of this encounter Procedures Procedure Name Priority Date/Time Associated Diagnosis Comments XR KNEE 4+ VIEWS LEFT Routine 09/18/2024 2:25 PM EDT documented in this encounter Results * XR Knee 4+ Views Left (09/18/2024 2:25 PM EDT) Anatomical Region Laterality Modality Lower Extremities, Knee Left Radiogra phic Imaging 09/18/2024 2:25 PM EDT Narrative 09/18/2024 2:47 PM EDT [address] [address] XRay Report Signed Patient: Joanne Vences MR#: [id number] 370 : 1975 Acct:[id number] Age/Sex: 48 / F ADM Date: 09/18/24 Loc: .ED Attending Dr: Ordering Physician: Migdalia Conner NP Date of Service: 09/18/24 Procedure(s): XR knee LT 4V Accession Number(s): [id number] cc: Migdalia Conner NP; Sheri Santos MD [...] 09/18/24 1444 DD/ 1425 TD/TT: 09/18/24 1430 [employer] Worker: Procedure Note Donotsallyinterpreter, Image - 09/18/2024 [facility] [address] [place] [address] XRay Report Signed Patient: Ary Vences#: [id number] : 1975Acct:[id number] Age/Sex: 48 / FADM Date: 09/18/24 Loc: HO.ED Attending Dr: Ordering Physician: Migdalia Conner NP Date of Service: 09/18/24 Procedure(s): XR knee LT 4V Accession Number(s): [id number] cc: Migdalia Conner MANAGER FLIGHT; Sheri Santos MD EXAMINATION: XR KNEE, LEFT [...] 09/18/24 1444 DD/ 1425 TD/TT: 09/18/24 1430 [employer] Worker: [facility] External Provider IMG XR PROCEDURES Edited Result - Final documented in this encounter Visit Diagnoses Diagnosis Seizure (CMS/HCC)- Primary Other convulsions documented in this encounter Additional Health Concerns Assessment Noted Time PHQ-9 Depression Total Score: 8 05/01/19 25 11:20 AM EST documented as of this encounter Care Teams Surg Tech Relationship Specialty Start Date End Date Sheri Santos MD [address] [place] [address] PCP - General Family Medicine 08/04/24 Silviano River NP Nurse Practitioner Psychiatry 03/19/19 documented as of this encounter
[2024-09-30 23:33] VITALS: BP 144/74; PULSE 88; RESP 16; TEMP 36.8; O2SAT 98
--- NOTE | 2024-09-30 23:41 | PC.NURSE ---
Patient medicated per order for 10/10 head,neck and back pain.
[2024-10-01 02:11] VITALS: BP 142/95; PULSE 98; RESP 16; TEMP 36.6; O2SAT 99
[2024-10-01 02:25] VITALS: BP 142/95; PULSE 98; RESP 16; TEMP 36.6; O2SAT 99
== END 2024-10-01 02:26 | disposition home or self-care (01) ==
PROVIDERS: Physician Assistant Medical; Emergency Provider Emergency Medicine; PCP Family Medicine
DX: R51.9 Headache, unspecified (principal); R00.0 Tachycardia, unspecified; I10 Essential (primary) hypertension; M54.50 Low back pain, unspecified; R20.2 Paresthesia of skin
CPT/HCPCS: 36415; 80053; 83735; 84443; 84484; 84702; 85025; 93005; 96361; 96374; 96375; 99285; J1200; J1885; J2765

== ENCOUNTER → 2024-09-30 19:05 | Outpatient (BNV) | payer MEDICAID, SELFPAY | PROVIDERS: Emergency Provider Emergency Medicine; PCP Family Medicine; Visit Provider Internal Medicine | DX: R00.0 Tachycardia, unspecified (principal) | CPT/HCPCS: 93010 ==

== ENCOUNTER 2024-10-08 11:10 | Outpatient (REF) | payer MEDICAID, SELFPAY ==
--- OUTSIDE RECORDS SUMMARY | 2024-10-09 12:05 | XMS_ITS | Encounter Summary ---
Author Organization [employer] Address [address] [place] [address] 7 [place] [address] Care Team Providers Care Dark Room Attendant Name Role Phone Sheri Santos MD Primary Care Provider [phone] Reason for Referral * Neurology (Routine) - Closed Specialty Diagnoses / Procedures Referred By Leslie escamilla Referred To Contact Diagnoses Seizure (CMS/HCC) Procedures EEG awake or drowsy routine Ricky Jefferson MD [address] [place] [address] Phone: tel: fax: [address] Phone: tel: fax: Referral ID Status Reason Start Date Expiration Date Visits Re quested Visits Authorized [id number] Closed 08/28/2024 08/28/2025 1 1 Encounter Details Date Type Department Care Team ([facility] st Contact Info) Description 08/28/2024 Orders Only [facility] MED & PEDS [address] [place], [place] [phone] Ricky Jefferson MD [address] [place], [place] [phone] Seizure (CMS/HCC) (Primary Dx) Social History Tobacco [...] Upcoming Encounters Date Type Department Care Team ([facility] st Contact Info) Description 10/17/2024 11:30 AM EDT Office Visit [facility] MED & PEDS [address] [place] [address] Sheri Santos MD [address] [place] [address] Scheduled Orders Name Type Priority Associated Diagnoses Orde r Schedule EEG awake or drowsy routine Neurology Routine Seizure (CMS/HCC) Expected: 08/28/2024 (Approximate), Expires: 08/28/2025 documented as of this encounter Procedures Procedure Name Priority Date/Time Associated Diagnosis Comments XR KNEE 4+ VIEWS LEFT Routine 09/18/2024 2:25 PM EDT documented in this encounter Results * XR Knee 4+ Views Left (09/18/2024 2:25 PM EDT) Anatomical Region Laterality Modality Lower Extremities, Knee Left Radiogra phic Imaging 09/18/2024 2:25 PM EDT Narrative 09/18/2024 2:47 PM EDT [address] [address] XRay Report Signed Patient: Joanne Vences MR#: [id number] 370 : 1975 Acct:[id number] Age/Sex: 48 / F ADM Date: 09/18/24 Loc: .ED Attending Dr: Ordering Physician: Migdalia Conner NP Date of Service: 09/18/24 Procedure(s): XR knee LT 4V Accession Number(s): [id number] cc: Migdalia Conner KENO MANAGER; Sheri Santos MD EXAMINATION: XR KNEE, LEFT [...] 09/18/24 1444 DD/ 1425 TD/TT: 09/18/24 1430 Field Cane Scaler: Procedure Note Donotuseinterpreter, Image - 09/18/[address] [address] XRay Report Signed Patient: Ary Vences#: [id number] 370 : 1975Acct:[id number] Age/Sex: 48 / FADM Date: 09/18/24 Loc: HO.ED Attending Dr: Ordering Physician: Migdalia Conner NP Date of Service: 09/18/24 Procedure(s): XR knee LT 4V Accession Number(s): [id number] cc: Migdalia Conner KENO MANAGER; Sheri Santos MD EXAMINATION: XR KNEE, LEFT [...] 09/18/24 1444 DD/ 1425 TD/TT: 09/18/24 1430 Field Cane Scaler: [facility] External Provider IMG XR PROCEDURES Edited Result - Final documented in this encounter Visit Diagnoses Diagnosis Seizure (CMS/HCC)- Primary Other convulsions documented in this encounter Additional Health Concerns Assessment Noted Time PHQ-9 Depression Total Score: 8 05/01/19 25 11:20 AM EST documented as of this encounter Care Teams Dark Room Attendant Relationship Specialty Start Date End Date Sheri Santos MD [address] [place] [address] PCP - General Family Medicine 08/04/24 Silviano River NP Nurse Practitioner Psychiatry 03/19/19 documented as of this encounter
== END 2024-10-08 11:11 | disposition home or self-care (01) ==
LOC: HO.HOSX 11:10
PROVIDERS: Visit Provider Physician Assistant
DX: Z13.89 Encounter for screening for other disorder (principal)

== ENCOUNTER 2024-12-03 16:04 | Outpatient (REF) | payer MEDICAID, SELFPAY ==
--- OUTSIDE RECORDS SUMMARY | 2024-11-21 10:00 | XMS_ITS | Encounter Summary ---
Author Organization [employer] Address [address] [facility] 7t [place] [address] Care Team Providers Care Director [employer] Name Role Phone Sheri Santos MD Primary Care Provider [phone] Reason for Visit * Consultation (Routine) - Authorized Specialty Diagnoses / Procedures Referred By Leslie escamilla Referred To Contact Pharmacy Diagnoses Primary hypertension Sheri Santos MD [address] [place], [place] Phone: tel: fax: Referral ID Status Reason Start Date Expiration Date Visits Requested Visits Authorized [id number] Authorized Consult and Treat 10/17/2024 10/17/2025 6 6 Encounter Details Date Type Department Care Team ([facility] Contact Info) Description 11/21/2024 10:00 AM EDT Telemedicine [facility] MED & PEDS [address] [place] [address] Annita Pickering, PharmD [address] [place] [address] Primary hypertension (Primary Dx) Social History Tobacco Use Types Packs/Day Years Used Date Smoking Tobacco: Never Passive Smoke Exposure: Never Smokeless Tobacco: Never Alcohol Use Standard Drinks/Week Comments Never 0 (1 standard drink = 0.6 oz pur e alcohol) Depression Answer Date Recorded Patient Health Questionnaire-9 Score 13 10/27/2024 Patient Health Questionnaire-9 Score 13 10/27/2024 Last PHQ-9: Questionnaire Data Not on file 0 10/27/2024 Housing Stability Answer Date Recorded What is your housing situation today? I have escobar farias 10/10/[address] you li ve. Do you have problems with any of the following? None of the above 10/10/2024 Food Insecurity Answer Date Recorded Within the past 12 months, y ou worried that your food would run out before you got money to buy more: Never True 10/10/2024 Within the past 12 months,th e food you bought just didn't last and you didn't have enough money to get more: Never True Transportation Answer Date Recorded In the past 12 months, has l ack of transportation kept you from medical appts, meetings, work or from getting things needed for daily living? No 10/10/2024 Utilities Answer Date Recorded In the past 12 months, has t he electric, gas, oil or water company threatened to shut off services in your home? No 10/10/2024 Depression Answer Date Recorded Patient Health Questionnaire-2 Score 6 10/27/2024 Internet Access Answer Date Recorded Internet Access Q1 Yes 10/10/2024 Internet Access Q2 Not on file 10/10/2024 Comments No Sex and Gender Information Value Date Recorded Sex Assigned at Female 01/16/2022 10:16 AM EDT Legal Sex Female 10:16 AM EDT Gender Identity Female 01/16/2022 10:16 AM EDT Sexual Orientation Straight 01/16/2022 10 :16 AM EDT documented as of this encounter Last Filed Vital Signs Vital Sign Reading Time Taken Comments Blood Pressure 149/102 11/21/2024 11:30 AM EDT ho co BP reading; after coffee, did not take meds Pulse - - Temperature - - Respiratory Rate - - Oxygen Saturation - - Inhaled Oxygen Concentration - - Weight - - Height - - Body Mass Index - - documented in this encounter Progress Notes * Annita Pickering PharmD - 11/21/2024 10:00 AM EDT Pharmacy Consult Visit Type: [facility] Pharmacist: Annita Pickering, PharmMargarito Joanne Vences is a 48 y.o. year old patient here for a follow-up visit completed over the phone. Addendum: patient did not understand how to upload BP values into [employer] but reports reading was normal after taking morning medications. Subjective History: General / Intake (updated 11/05/24) Allergies: is allergic to oxycodone and penicillins. Read/Write: Yes, in [place]i Recent Hospitalizations: No Social History as reported by patient: Tobacco: Denies Alcohol: Denies Caffeine: Current, coffee up to 3 per day Illicit drugs: Past (marijuana) Diet: Breakfast shake Fried meat with salad and fried plantains; chicken soup (homemade) Oatmeal, sandwich Has been trying to limit salt and drink more water (with Crystal Lite) Exercise: trying , limited by back pain Adherence / patient self-management Uses weekly pill box for organization Manages medications independently Denies missed doses or purposeful omission of any medication d/t suspected MEY OTC medication, vitamin, supplement use: reports Centrum and magnesium Hypertension Last visit patient was advised to reduce caffeine consumption and check BP at different times of day. Today patient reports decreasing from 3 cups to 1 cup of coffee per day. Patient reports the following SMBP readings: 11/20: 124/90mmHg, 76bpm 11/19: 130/85mmHg, 95bpm Patient checked BP during visit and reports 149/102mmHg, 91bpm. Reports drinking coffee, not yet eating breakfast, and not yet taking meds. Pertinent negatives include chest pain, headache, dizziness, blurry vision Objective History: Treatment history/considerations: PMH: HTN, tachycardia, syncope, hypercholesterolemia, kidney stone, seizure, chronic pain, PTSD, BPD, anxiety Medication: Clonidine and prazosin from psych Recent labs: Lab Results Component Value Date ALT 27 08/04/2024 AST 25 08/04/2024 LDLCHOLCAL 160 (H) 08/04/2024 TRIG 122 08/04/2024 K 3.5 08/04/2024 NA 139 08/04/2024 CREATININE 0.80 08/04/2024 EGFR >60 08/04/2024 The 10-year ASCVD risk score (Romeo WALTON, et al., 2019) is: 1.6% Values used to calculate the score: Age: 48 years Sex: Female Is Non- : No Diabetic: No Tobacco smoker: No Systolic Blood Pressure: 122 mmHg Is BP treated: Yes HDL Cholesterol: 51 mg/dL Total Cholesterol: 235 mg/dL Recent blood pressure readings: BP Readings from Last 4 Encounters: 11/05/24 122/76 10/17/24 136/88 10/03/24 (!) 157/98 08/29/24 (!) 153/94 Pulse Readings from Last 4 Encounters: 11/05/24 72 10/17/24 86 10/03/24 (!) 121 08/29/24 82 Immunizations Due: Pharmacist reviewed immunization records today; no vaccination gaps exist at this time. Preferred Pharmacy: [facility] [place] [id number] [facility] [address] [address] [facility] - [address] [facility] [address] Assessment/Plan: Hypertension Pharmacotherapy: Amlodipine 5mg daily Olmesartan 20mg daily Goals of Therapy per JNC 8: Achieve BP <140/90mmHg Plan: Home BP readings have been borderline with today's reading elevated. Patient agrees to re-check 1-2hours after eating and taking meds and send via [employer]. Patient to follow up in [facility] in 1 month (tele) for next steps. Education: Reviewed benefits of DASH diet, reduced caffeine intake, and increased exercise for improved BP control. Counseling provided to SMBP daily & log results for review in follow up. Reviewed BP goals, patient instructed to call if extremes of BP are noted prior to next scheduled visit. Total time spent on this encounter was 30 minutes, including time for history review, examination, counseling, care coordination, and documentation. documented in this encounter Plan of Treatment Upcoming Encounters Date Type Department Care Team (Late st Contact Info) Description 12/19/2024 1:00 PM EDT Telemedicine [facility] MED & PEDS [address] [place] [address] Annita Pickering PharmD [address] [place] [address] 01/19/2025 9:30 AM EST Office Visit [facility] MED & PEDS [address] [place] [address] Sheri Santos MD [address] [place] [address] documented as of this encounter Visit Diagnoses Diagnosis Primary hypertension- Primary Unspecified essential hypertension documented in this encounter Additional Health Concerns Assessment Noted Time PHQ-9 Depression Total Score: 13 025 11:35 AM EDT documented as of this encounter Care Teams Director Council On Aging Relationship Specialty Start Date End Date Sheri Santos MD [address] [place] [address] PCP - General Family Medicine 08/04/24 Silviano River BUSINESS AREA MANAGER Nurse Practitioner Psychiatry 03/19/19 documented as of this encounter
--- OUTSIDE RECORDS SUMMARY | 2024-12-03 15:20 | XMS_ITS | Encounter Summary ---
Author Organization [employer] Address [address] [facility] 7t [place] [address] Care Team Providers Care Liner Machine Operator Helper Name Role Phone Sheri Santos MD Primary Care Provider [phone] Reason for Referral * Consultation (Routine) - Pending Review Specialty Diagnoses / Procedures Referred By Leslie escamilla Referred To Contact Dermatology Diagnoses Rosacea Ricky Jefferson MD [address] [place] [address] Phone: tel: fax: Referral ID Status Reason Start Date Expiration Date Visits Requested Visits Authorized [id number] Pending Review Specialty Services Required 12/03/2024 12/03/2025 1 1 Encounter Details Date Type Department Care Team (Late st Contact Info) Description 12/03/2024 3:20 PM EDT Office Visit [facility] CHC MED & PEDS [address] [place] [address] Ricky Jefferson MD [address] [place] [address] Rosacea (Primary Dx); Acute vaginitis Social History Tobacco Use Types Packs/Day Years [...] Sign Reading Time Taken Comments Blood Pressure 123/77 12/03/2024 3:31 PM EDT Pulse 98 12/03/2024 3:31 PM EDT Temperature - - Respiratory Rate 19 12/03/2024 3:31 PM EDT Oxygen Saturation 98% 12/03/2024 3:31 PM EDT Inhaled Oxygen Concentration - - Weight 88 kg (194 lb) 12/03/2024 3:31 PM EDT Height 154 cm (5' 0.63 ) 12/03/2024 3:31 PM EDT Body Mass Index 37.1 12/03/2024 3:31 PM EDT documented in this encounter Progress Notes * Ricky Jefferson MD - 12/03/2024 3:20 PM EDT SUBJECTIVE Joanne Vences is a 48 y.o. female who presents for No chief complaint on file.. HPI 1) history of rosacea. Patient was treated recently with minocycline with improvement. She has noticed a recurrence of the erythema of the face associated with some pustules after the medication was discontinued. Metronidazole gel was tried in the past without improvement. 2) presence of whitish vaginal discharge cottage cheese like associated with itchiness of the vulvar area for the last 3 days. Patient is not sexually active in the last 2 years. Problem List[1] Allergies[2] Medications Ordered Prior to Encounter[3] Review of Systems Constitutional: Negative for appetite change, chills and diaphoresis. Eyes: Negative for pain, redness and itching. Respiratory: Negative for cough and choking. Cardiovascular: Negative for leg swelling. Musculoskeletal: Negative for gait problem and joint swelling. Skin: Negative for pallor and rash. OBJECTIVE Vitals: 12/03/24 1531 BP: 123/77 BP Location: Left arm Patient Position: Sitting BP Cuff Size: Adult long Pulse: 98 Resp: 19 SpO2: 98% Weight: 194 lb (88 kg) Height: 5' 0.63 (1.54 m) Physical Exam Constitutional: General: She is not in acute distress. Appearance: Normal appearance. She is not ill-appearing, toxic-appearing or diaphoretic. Pulmonary: Effort: Pulmonary effort is normal. Skin: Comments: telangiectatic erythema on the cheeks bilaterally with some papulopustules on the chin Neurological: Mental Status: She is alert. Assessment/Plan Assessment/Plan Diagnoses and all orders for this visit: Rosacea - azelaic acid (Finacea) 15 % gel; Apply 1 Application. topically 2 times daily. - minocycline 100 MG capsule; Take 1 capsule (100 mg) by mouth 2 times daily. - Referral to Dermatology; Future Acute vaginitis - fluconazole (Diflucan) 150 MG tablet; Take 1 tablet (150 mg) by mouth 1 (one) time per week for 14 days. - Bacterial Vaginosis Panel Patient will be contacted with results of the workup. [1] Patient Active Problem List Diagnosis Chronic low back pain Depressive disorder Hydroureteronephrosis Kidney stone Headache Lateral epicondylitis of right elbow Bronchitis Seizure (CMS/HCC) Bipolar affective disorder in remission (CMS/HCC) MP (generalized anxiety disorder) PTSD (post-traumatic stress disorder) Syncopal episodes Vasomotor symptoms due to menopause Hypomagnesemia Breast cancer screening by mammogram Numbness and tingling in both hands Hip pain, chronic Hemorrhoids Arthralgia Primary hypertension Hypercholesteremia Chest pain Tachycardia [2] Allergies Allergen Reactions Oxycodone Other reaction(s): itchy,hives Penicillins [3] Current Outpatient Medications on File Prior to Visit Medication Sig Dispense Refill albuterol 108 (90 Base) MCG/ACT inhaler Inhale 2 puffs every 4 (four) hours if needed for wheezing.18 g 0 amLODIPine (Norvasc) 5 MG tablet Take 1 tablet (5 mg) by mouth Once per day. 90 tablet 1 Blood Pressure kit 1 kit Once per day. 1 kit 0 busPIRone (Buspar) 30 MG tablet clonazePAM (KlonoPIN) 0.5 MG tablet Take 0.5 mg by mouth 2 times daily. cloNIDine (Catapres) 0.2 MG tablet Diclofenac Sodium 1 % gel To apply to the affected area 3 times a day 100 g 0 Elastic Bandages & Supports (Nobles Adjustable Back Brace) misc To wear daily 1 each 0 gabapentin (Neurontin) 100 MG capsule hydrocortisone (Anusol-HC) 2.5 % rectal cream Insert into the rectum 2 times daily. 28 g 1 hydrOXYzine HCl (Atarax) 25 MG tablet lamoTRIgine (LaMICtal) 25 MG tablet MAGNESIUM CITRATE PO Take 400 mg by mouth Once per day. magnesium oxide (Mag-Ox) 400 (240 Mg) MG tablet Take 1 tablet by mouth Once per day. meloxicam (Mobic) 7.5 MG tablet Take 2 tablets (15 mg) by mouth Once per day. 30 tablet 10 metoclopramide (Reglan) 10 MG tablet Take 1 tablet (10 mg) by mouth 4 times daily for 10 days. 10 tablet 0 metroNIDAZOLE (Metrogel) 0.75 % gel Apply topically 2 times daily. 45 g 2 minocycline 100 MG capsule Take 1 capsule (100 mg) by mouth 2 times daily. 60 capsule 0 Moringa Oleifera (MORINGA PO) Take 6,000 mg by mouth Once per day. Multiple Vitamin (multivitamin) tablet Take 1 tablet by mouth Once per day. olmesartan (Benicar) 20 MG tablet Take 1 tablet (20 mg) by mouth Once per day. 90 tablet 1 Omeprazole 20 MG tablet delayed-release Take 1 tablet (20 mg) by mouth Once per day. 30 tablet 1 prazosin (Minipress) 2 MG capsule QUEtiapine (SEROquel) 50 MG tablet SUMAtriptan (Imitrex) 50 MG tablet Take 1 tablet (50 mg) by mouth 1 (one) time if needed for migraine for up to 9 doses. May repeat dose once in 2 hours if no relief. Do not exceed 2 doses in 24 hours. 9 tablet 0 Tirzepatide-Weight Management (Zepbound) 2.5 MG/0.5ML solution auto-injector Inject 0.5 mL (2.5 mg)under the skin 1 (one) time per week. 2 mL 1 venlafaxine XR (Effexor XR) 150 MG 24 hr capsule venlafaxine XR (Effexor XR) 75 MG 24 hr capsule ziprasidone (Geodon) 20 MG capsule No current facility-administered medications on file prior to visit. documented in this encounter Plan of Treatment Upcoming Encounters Date Type Department Care Team (Late st Contact Info) Description 12/19/2024 1:00 PM EDT Telemedicine [facility] MED & PEDS [address] [place] [address] Annita Pickering PharmD [address] [place] [address] 01/19/2025 9:30 AM EST Office Visit [facility] MED & PEDS [address] [place] [address] Sheri Santos MD [address] [place] [address] Scheduled Orders Name Type Priority Associated Diagnoses Orde r Schedule Bacterial Vaginosis Panel Microbiology Routine Acute vaginitis Ordered: 12/03/2024 Scheduled Referrals Name Type Priority Associated Diagnoses Order Schedule Referral to Dermatology Outpatient Referral Routine Rosacea Expected: 12/03/2024 (Approximate), Expires: 12/03/2025 documented as of this encounter Visit Diagnoses Diagnosis Rosacea- Primary Acute vaginitis Unspecified vaginitis and vulvovaginitis documented in this encounter Additional Health Concerns Assessment Noted Time PHQ-9 Depression Total Score: 13 025 11:35 AM EDT documented as of this encounter Care Teams Liner Machine Operator Helper Relationship Specialty Start Date End Date Sheri Santos MD [address] [place] [address] PCP - General Family Medicine 08/04/24 Silviano River MANAGER REGULATORY Nurse Practitioner Psychiatry 03/19/19 documented as of this encounter
--- OUTSIDE RECORDS SUMMARY | 2024-12-03 19:15 | XMS_ITS | Clinical Summary ---
Author Organization [employer] Address [address] [facility] 7[address] [place] [address] Care Team Providers Care Hand Sole Sewer Name Role Phone Sheri Santos MD Primary Care Provider [phone] Allergies Active Allergy Reactions Criticality Noted Date Comments Oxycodone 12/02/2012 Other reaction(s): itchy,hives Penicillins 12/01/2011 Medications * This document contains information received from the source organization and may not represent a complete record from that organization. busPIRone (Buspar) 30 MG tablet 3 Active albuterol 108 (90 Base) MCG/ACT inhaler Inhale 2 puffs every 4 (four) hours if needed for wheezing. 18 g 4 Active Elastic Bandages & Supports (Nobles Adjustable Back Brace) miscIndications:Ch ronic midline low back pain without sciatica To wear daily 1 each 4 Active metroNIDAZOLE (Metrogel) 0.75 % gelIndications:Ros acea Apply topically 2 times daily. 45 g 2 4 12/11/19 25 Active Omeprazole 20 MG tablet delayed-releaseInd ications:Gastroeso phageal reflux disease without esophagitis Take 1 tablet (20 mg) by mouth Once per day. 30 tablet 1 5 Active meloxicam (Mobic) 7.5 MG tabletIndications: Chronic midline low back pain without sciatica,Lateral epicondylitis of right elbow,Joint pain in both hands Take 2 tablets (15 mg) by mouth Once per day. 30 tablet 10 5 Active SUMAtriptan (Imitrex) 50 MG tabletIndications: Other migraine without status migrainosus, not intractable Take 1 tablet (50 mg) by mouth 1 (one) time if needed for migraine for up to 9 doses. May repeat dose once in 2 hours if no relief. Do not exceed 2 doses in 24 hours. 9 tablet 5 Active metoclopramide (Reglan) 10 MG tabletIndications: Other migraine without status migrainosus, not intractable Take 1 tablet (10 mg) by mouth 4 times daily for 10 days. 10 tablet 5 Active hydrocortisone (Anusol-HC) 2.5 % rectal creamIndications:E xternal hemorrhoids Insert into the rectum 2 times daily. 28 g 1 5 Active cloNIDine (Catapres) 0.2 MG tablet 5 Active hydrOXYzine HCl (Atarax) 25 MG tablet 5 Active lamoTRIgine (LaMICtal) 25 MG tablet 5 Active prazosin (Minipress) 2 MG capsule 5 Active MAGNESIUM CITRATE PO Take 400 mg by mouth Once per day. Active Multiple Vitamin (multivitamin) tablet Take 1 tablet by mouth Once per day. Active Moringa Oleifera (MORINGA PO) Take 6,000 mg by mouth Once per day. Active clonazePAM (KlonoPIN) 0.5 MG tablet Take 0.5 mg by mouth 2 times daily. Active Blood Pressure kit 1 kit Once per day. 1 kit 5 Active Diclofenac Sodium 1 % gelIndications:Acu te pain of left knee,Left hip pain To apply to the affected area 3 times a day 100 g 5 Active gabapentin (Neurontin) 100 MG capsule 5 Active magnesium oxide (Mag-Ox) 400 (240 Mg) MG tablet Take 1 tablet by mouth Once per day. 5 Active venlafaxine XR (Effexor XR) 150 MG 24 hr capsule 5 Active venlafaxine XR (Effexor XR) 75 MG 24 hr capsule 5 Active ziprasidone (Geodon) 20 MG capsule 4 Active QUEtiapine (SEROquel) 50 MG tablet 5 Active amLODIPine (Norvasc) 5 MG tablet Take 1 tablet (5 mg) by mouth Once per day. 90 tablet 1 5 Active olmesartan (Benicar) 20 MG tabletIndications: Primary hypertension Take 1 tablet (20 mg) by mouth Once per day. 90 tablet 1 5 Active Tirzepatide-Weight Management (Zepbound) 2.5 MG/0.5ML solution auto-injector Inject 0.5 mL (2.5 mg) under the skin 1 (one) time per week. 2 mL 1 5 Active minocycline 100 MG capsuleIndications :Rosacea Take 1 capsule (100 mg) by mouth 2 times daily. 60 capsule 5 Active azelaic acid (Finacea) 15 % gelIndications:Ros acea Apply 1 Application. topically 2 times daily. 60 g 11 5 12/04/19 26 Active minocycline 100 MG capsuleIndications :Rosacea Take 1 capsule (100 mg) by mouth 2 times daily. 60 capsule 5 01/03/20 25 Active fluconazole (Diflucan) 150 MG tabletIndications: Acute vaginitis Take 1 tablet (150 mg) by mouth 1 (one) time per week for 14 days. 2 tablet 5 12/18/19 25 Active Active Problems Problem Noted Date Diagnosed Date Chest pain 10/03/2024 Tachycardia 10/03/2024 Assessment & Plan (10/04/2024 10:46 AM EDT): Consider holter Possible s/e from meds Could also consider beta tramaine. Pt will monitor heart rate and denies any chest pain, or presyncopal symptoms Hypercholesteremia 09/03/2024 Assessment & Plan (09/03/2024 8:48 AM EDT): Recent lipid panel shows elevated LDL at 141 mg/dL (target <100 mg/dL) and cholesterol > 200 mg/dL. The hypercholesterolemia may be secondary to antipsychotic medication use. Plan: - Monitor lipid levels - Encourage dietary modifications (reduce saturated fats, increase fiber) and regular exercise as tolerated Numbness and tingling in both hands 08/29/2024 Assessment & Plan (09/03/2024 8:45 AM EDT): Patient reports severe bilateral hand pain and swelling, describing a sensation of her hands going to explode from the pressure. She has difficulty sleeping due to the pain. Recent orthopedic evaluation suggested possible carpal tunnel syndrome. An nerve conduction study has been recommended. Plan: - Proceed with nerve conduction study as recommended by orthopedist - Schedule follow-up appointment with Dr. Michelle for trial of steroid injection for lateral epicondylitis of the R elbow - Continue use of heat therapy for symptomatic relief Hip pain, chronic 08/29/2024 Hemorrhoids 08/29/2024 Arthralgia 08/29/2024 Primary hypertension 08/29/2024 Assessment & Plan (10/04/2024 10:49 AM EDT): Stage 2 htn, add olmesartan 20 mg Continue home bp measurements Future bmp ordered Continue amlodipine 5 mg. Pt has scheduled follow up with pcp Assessment & Plan (09/03/2024 8:46 AM EDT): Plan: - Start amlodipine for blood pressure control - Follow up in 6 weeks to assess blood pressure control Bipolar affective disorder in remission 08/05/19 25 [...] due to menopause 08/04/2024 Assessment & Plan (09/03/2024 8:45 AM EDT): Laboratory results indicate perimenopause status. FSH is elevated at 108 (normal >40 indicates menopause), estradiol is low at <2, and AMH is low at 0.01. These findings are consistent with declining ovarian function and the transition to menopause. Plan: - Reschedule missed appointment with building appraiser Joslyn for further evaluation and management Assessment & Plan (08/05/2024 8:55 AM EDT): Patient reports menopausal symptoms including headaches, sweating, lack of lubrication, and heat sensations, particularly at night. Brand Sales Manager previously diagnosed premenopause approximately one year ago and prescribed vaginal cream. Patient also reports a history of vaginismus. Plan: - Order hormone panel to assess menopausal status as patient had an endometrial ablation - Schedule mammogram at [facility] for breast cancer screening - Refer to gynecology for further management of menopausal symptoms and vaginismus Hypomagnesemia 08/04/2024 Breast cancer screening by mammogram 08/04/2024 Lateral epicondylitis of right elbow 08/08/2023 Assessment [...] 12/08/2014 Headache 01/23/2011 04/19/2023 Assessment & Plan (09/03/2024 8:46 AM EDT): Patient reports severe morning headaches, describing them as terrible and requiring coffee for relief. She also experiences dizziness, describing it as her head floating in the morning. A neurologist referral and CT scan were previously ordered, but the CT scan has not been completed yet. Plan: - Proceed with previously ordered CT scan - Await neurologist consultation results Assessment & Plan (08/05/2024 8:57 AM EDT): Patient reports recent severe migraine requiring ice application and causing gastrointestinal symptoms. History of migraines managed by neurologist, but has not seen neurology in over 2 years. Plan: - Refer to neurology for migraine management - Review current migraine treatment regimen and adjust as necessary Resolved Problems Problem Noted Date Diagnosed Date Resolved Date Elevated blood pressure reading 08/04/2024 08/29/2024 Assessment & Plan (08/05/2024 8:56 AM EDT): [...] pressure at follow-up appointment in one month Moderate persistent asthma w ith acute exacerbation 08/08/2023 08/08/2023 Encounters * This document contains information received from the source organization and may not represent a complete record from that organization. Date Type Department Care Team Description 12/03/2024 3:20 PM EDT Office Visit [facility] [address] [place] [address] Ricky Jefferson MD Rosacea (Primary Dx); Acute vaginitis 12/03/2024 Travel 12/02/2024 Telephone [facility] [address] [place] [address] Sheri Santos MD Nurse Triage 11/21/2024 10:00 AM EDT Telemedicine [facility] [address] [place] [address] Annita Sims PharmD Primary hypertension (Primary Dx) 11/21/2024 Travel 11/18/2024 Telephone [facility] [address] [place] [address] Sheri Santos MD chart prep 11/13/[address] [address] Sheri Santos MD Referral 11/13/2024 Telephone [facility] [address] [place] [address] Sheri Santos MD Chart prep 11/13/[address] [address] Sheri Santos MD Referral 11/11/2024 Telephone [facility] [address] [place] [address] Sheri Santos MD Appointment Request 11/07/2024 Patient Outreach [address] [address] Sheri Santos MD Pre-visit Planning (SDOH screening completed on 10/10/24) 11/05/2024 Travel 11/03/[address] [address] Sheri Santos MD Appointment Request 11/03/[address] [address] Sheri Santos MD Prior Auth Prescription 10/26/2024 Travel 10/17/2024 11:30 AM EDT Office Visit [facility] [address] [place] [address] Sheri Santos MD Primary hypertension (Primary Dx); Rosacea; Obesity, unspecified class, unspecified obesity type, unspecified whether serious comorbidity present; Depressive disorder 10/17/2024 Travel 10/16/[address] [address] Sheri Santos MD Medication Question 10/14/2024 Refill [facility] [address] [place] [address] Ricky Jefferson MD 10/10/2024 Patient Outreach [address] [address] Sheri Santos MD Pre-visit Planning (SDOH screening negative and Tobacco screening negative) 10/08/2024 Travel 10/08/2024 Telephone [facility] [address] [place] [address] Sheri Santos MD Nurse Triage 10/08/2024 Refill [facility] [address] [place] [address] Teri Aj NP Primary hypertension 10/07/2024 Telephone [facility] [address] [place] [address] Sheri Santos MD CHART PREP 10/03/2024 1:00 PM EDT Office Visit [facility] [address] [address] Teri Aj NP Tachycardia (Primary Dx); Primary hypertension 10/03/2024 Travel 10/01/2024 Telephone [facility] [address] [place] [address] Sheri Santos MD Nurse Triage 09/30/2024 Telephone [facility] [address] [place] [address] Sheri Santos MD Referral 09/30/2024 Telephone [facility] [address] [place] [address] Sheri Santos MD Appointment Request 09/22/2024 Telephone [facility] [address] [place] [address] Sheri Santos MD Nurse Triage 09/18/[address] [address] Sheri Santos MD ER Follow-up 09/18/[address] [address] Sheri Santos MD Nurse Triage 09/16/[address] [address] Sheri Santos MD Nurse Triage 09/11/2024 Telephone [facility] [address] [place] [address] Sheri Santos MD Transition Of Care (Tcm) from Last 3 Months Immunizations Immunization Administration Dates Next Due Hep A, Adult 05/17/2022,10/04/2021 Hep B, adult 08/11/2021,07/28/2016,06/16/2002 Influenza injectable quadriv alent preservative free 04/19/2023,11/24/2020,04/28/2015 Influenza, Split (incl. humaira fied surface antigen) 12/01/2011 Influenza, seasonal, injecta ble, preservative free 12/06/2023 Pfizer Covid-19 Vaccine 12+ 04/19/2023 TD [...] Pulse 98 12/03/2024 3:31 PM EDT Temperature 37.1 C (98.8 F) 10/17/2024 11:05 AM EDT Respiratory Rate 19 12/03/2024 3:31 PM EDT Oxygen Saturation 98% 12/03/2024 3:31 PM EDT Inhaled Oxygen Concentration - - Weight 88 kg (194 lb) 12/03/2024 3:31 PM EDT Height 154 cm (5' 0.63 ) 12/03/2024 3:31 PM EDT Body Mass Index 37.1 12/03/2024 3:31 PM EDT Plan of Treatment Upcoming Encounters Date Type Department Care Team (Late st Contact Info) Description 12/19/2024 1:00 PM EDT Telemedicine [facility] [address] [place] [address] Annita Pickering, PharmD [address] [place] [address] 01/19/2025 9:30 AM EST Office Visit [facility] [address] [place] [address] Sheri Santos MD [address] [place] [address] Health Maintenance Due Date Last Done Comments CT Colonography 1975 Colonoscopy 1977 Colorectal Cancer Screening 1977 Dental Oral Exam 1977 Dental Prophylaxis 1977 Dental X-Ray: Full Mouth 1977 FIT DNA/Cologuard 1977 FIT 1977 FOBT 1977 Sigmoidoscopy 1977 Family Planning (PISQ) 1992 Mammogram 02/21/2020 02/20/2018, 02/14/2018 Dental X-Ray: Bitewings 11/09/2024 11/09/2023, 03/05 COVID-19 Vaccine ( season) 2024 04/19/2023, 03/03/2022, 02/16/2021, Additional history exists Influenza Vaccine (#1) 2024 , 04/19/2023, 11/24/2020, Additional history exists Depression Monitoring 04/29/2025 10/27/2024, 025 Alcohol/Substance Use Screening 06/19/2025 06/19/2024 Disability Screening 08/29/2025 08/29/2024 SDOH Screening 10/10/2025 10/10/2024 DTaP/Tdap/Td Vaccines (2 - Td or Tdap) 10/19/2025 10/20/2015, 06/16/2002 Tobacco Screening 12/03/2025 12/03/2024 Cervical Cancer Screening 11/25/2026 HPV/Cotest 11/25/2026 11/26/2023, 08/03/2020 Pap Smear 11/25/2026 11/26/2023, 08/03/2020 Zoster Vaccines (1 of 2) 01/01/2028 Lipid Panel 08/04/2029 08/04/2024, 09/26/2023 RSV Patients and Patients Aged 60 years or older (1 - 1-dose 75+ series) 2052 Hepatitis B Vaccines Completed 08/11/2021, 07/28/2016, 06/16/2002 Hepatitis A Vaccines Aged Out 05/17/2022, 10/05/19 22 No longer eligible based on patient's age to complete this topic HIV Screening Completed 09/26/2023 Hepatitis C Screening Completed 09/26/2023 HIB Vaccines Aged Out No longer eligi [...] Years) and At-Risk Patients (6 to 49) Years Aged Out No longer eligible based on [...] VIEWS LEFT Routine 09/18/2024 2:25 PM EDT LIPID PANEL, STANDARD Routine 08/04/2024 2:34 PM EDT Elevated blood pressure reading [facility] PAP AND HPV MRNA E6/E7 [...] Recently Relevant to Health Maintenance Results * XR Knee 4+ Views Left (09/18/2024 2:25 PM EDT) Anatomical Region Laterality Modality Lower Extremities, Knee Left Radiogra phic Imaging 09/18/2024 2:25 PM EDT Narrative 09/18/2024 2:47 PM EDT [address] [address] XRay Report Signed Patient: Joanne Vences MR#: [id number] : 1975 Acct:[id number] Age/Sex: 48 / F ADM Date: 09/18/24 Loc: HO.ED Attending Dr: Ordering Physician: Migdalia Conner NP Date of Service: 09/18/24 Procedure(s): XR knee LT 4V Accession Number(s): [id number] cc: Migdalia Conner NP; Sheri Santos MD [...] 09/18/24 1444 DD/ 1425 TD/TT: 09/18/24 1430 Follow Up Rep: Procedure Note Donotuseinterpreter, Image - 09/18/[address] [address] XRay Report Signed Patient: Yolanda VencesR#: [id number] : 1975Acct:[id number] Age/Sex: 48 / FADM Date: 09/18/24 Loc: HO.ED Attending Dr: Ordering Physician: Migdalia Conner NP Date of Service: 09/18/24 Procedure(s): XR knee LT 4V Accession Number(s): [id number] cc: Migdalia Conner CROZER OPERATOR; Sheri Santos MD EXAMINATION: XR KNEE, LEFT [...] Tano Hilton MD 09/18/2024 02:44 PM EDT RP Dictated By: Tano Hilton MD Signed By: <Electronically signed by Tano Hilton MD in OV> 09/18/24 1444 DD/ 1425 TD/TT: 09/18/24 1430 Follow Up Rep: [facility] External Provider IMG XR PROCEDURES Edited Result - Final * (ABNORMAL) Lipid Panel, Standard (08/04/2024 2:34 PM EDT) Triglycerides 122 <150 mg/dL [facility] Comment:Desirable Triglyceri de: less than 150 mg/dLBorderline High Triglyceride 150-199 mg/dLHigh Triglyceride: 200-499 mg/dLVery High Triglyceride: greater than or equal to 5OO mg/dL Cholesterol 235(H) <200 mg/dL [facility] Comment:Desirable Cholestero l: less than 200 mg/dLBorderline High Cholesterol: 200-239 mg/dLHigh Cholesterol: greater than 239 mg/dL LDL Cholesterol Calculated 160(H) <100 mg/dL [facility] Comment:Desirable LDL: less than 100 mg/dLNear Optimal/Above Optimal LDL: 110- 129 mg/dLBorderline High LDL: 130-159 mg/dLHigh LDL: 160-189 mg/dLVery High LDL: greater than or equal to 190 mg/dL HDL Cholesterol 51 >40 mg/dL [facility] Comment:Desirable HDL: great er than 40 mg/dL Note: This HDL assay may give artificially low results in patients with liver disease. Blood Venous blood specimen / Unknown 08/04/2024 2:34 PM EDT 08/04/2024 5:23 PM EDT us Sheri Santos MD LAB BLOOD ORDERABLES Final Re sult [facility] [address] [place] [phone] [phone] * ThinPrep Imaging Pap and HPV mRNA E6/E7 (11/26/2023 11:52 AM EDT) HPV nRNA E6/E7 Not Detected Not Detected [facility] Comment:Methodology: Transcr iption-Mediated AmplificationThis assay detects E6/E7 viral messenger RNA (mRNA) from 14high-risk HPV types (16,18,31,33,35,39,45,51,52,56,58,59,66,68).Cervical sources are required for HPV testing.If a vaginal source from a patient who has had atotal hysterectomy with removal of cervix wassubmitted, please contact the testing laboratoryfor alternative testing options.For additional information, please refer [email or web address]/[email or web address](This link if provided for information/educational purposes only.)THIS TEST WAS PERFORMED AT:[employer] [place] [phone] DURAND MD SOURCE: SEE NOTE [facility] Comment:None given Report Status: [facility] Clinical Information: SEE NOTE [facility] Comment:None given LMP: SEE NOTE [facility] Comment:NONE GIVEN Prev. PAP: SEE NOTE [facility] Comment:NONE GIVEN Prev. BX: SEE NOTE [facility] Comment:NONE GIVEN Statement Of Adequacy: SEE NOTE [facility] Comment:Satisfactory for brant luation.Endocervical/transformation zone component absent. General Categorization: [facility] Interpretation/Result: SEE NOTE [facility] Comment:Cytology Results: Ne gative for intraepitheliallesion or malignancy. Cytology Comment SEE NOTE [facility] Comment:This Pap test has be en evaluated with computerassisted technology. Blast Furnace Tender: SEE NOTE [facility] Comment:JXM, CT(ASCP)CT scre ening location: [place] [address] Review Blast Furnace Tender: [facility] Pathologist [facility] PAP Infection [facility] See Note SEE NOTE [facility] Comment:EXPLANATORY NOTE:The Pap is a [...] AM EDT 11/26/2023 7:10 PM EDT Narrative [facility] - 11/30/2023 3:23 PM EDT SEE SCANNED RESULTS IN EMR us Joslyn Gage CNM LAB PATHOLOGY ORDERABLES Final Result Performing Organization Address City/[facility]/ZIP Co de Phone Number [facility] [address] [place] [phone] * Hepatitis C Ab (09/26/2023 10:32 AM EDT) Hepatitis C Antibody Nonreactive Nonreactive [facility] Comment:Antibodies to HCV no t detected; does not exclude early acuteHCV infection. Blood Venous blood specimen / Unknown 09/26/2023 10:32 AM EDT 09/26/2023 2:08 PM EDT us Ricky Jefferson MD LAB BLOOD ORDERABLES Final Result Performing Organization Address City/[facility]/ZIP Co de Phone Number [facility] [address] [place] [phone] * HIV-1/2 Antigen and Antibodies, Fourth Generation, with Reflexes (09/26/2023 10:32 AM EDT) HIV AB/AG Nonreactive Nonreactive [facility] Comment:HIV-1 p24 Ag and/or HIV-1/HIV-2 Ab not detected.A test result that is nonreactive does not exclude thepossibility of exposure to or infection with HIV-1 and/orHIV-2. Nonreactive results in this assay for individualswith prior exposure to HIV-1 and/or HIV-2 may be due toantigen and antibody levels that are below the limit ofdetection of this assay.The Rubikloud HIV Ag/Ab Combo assay result andsupplemental assay results should be interpreted inconjunction with the patient's clinical presentation,history and other laboratory results. If the results areinconsistent with clinical evidence, additional testing issuggested to confirm the result. Blood Venous blood specimen / Unknown 09/26/2023 10:32 AM EDT 09/26/2023 2:08 PM EDT us Ricky Jefferson MD LAB BLOOD ORDERABLES Final Result [facility] [address] [place] [phone] * 3D UNILATERAL ADDED VIEWS 1 [...] Most Recently Relevant to Health Maintenance Insurance [place] MEDICAID STAND ADULT Care Teams Hand Sole Sewer Relationship Specialty Start Date End Date Sheri Santos MD [address] [place] [phone] PCP - General Family Medicine 08/04/24 Silviano River CROZER OPERATOR Nurse Practitioner Psychiatry 03/19/19
--- OUTSIDE RECORDS SUMMARY | 2024-12-03 19:15 | XMS_ITS | Encounter Summary ---
Author Organization [employer] Address [address] [place] [address] Care Team Providers Care Manager Data Warehousing Name Role Phone Sheri Santos MD Primary Care Provider [phone] Encounter Details Date Type Department Care Team (Latest Contact Info) Description 12/03/2024 Travel Social History Tobacco Use Types Packs/Day [...] Info) Description 12/19/2024 1:00 PM EDT Telemedicine [facility] [address] [place] [address] Annita Pickering, PharmD [address] [place] [address] 01/19/2025 9:30 AM EST Office Visit [facility] [address] [place] [address] Sheri Santos MD [address] [place] [address] documented as of this encounter Visit Diagnoses Not on filedocumented in this encounter Additional Health Concerns Assessment Noted Time PHQ-9 Depression Total Score: 13 025 11:35 AM EDT documented as of this encounter Care Teams Manager Data Warehousing Relationship Specialty Start Date End Date Sheri Sanots MD [address] [place] [address] PCP - General Family Medicine 08/04/24 Silviano River ASIC DESIGN ENGINEER Nurse Practitioner Psychiatry 03/19/19 documented as of this encounter
--- OUTSIDE RECORDS SUMMARY | 2024-12-03 19:15 | XMS_ITS | Encounter Summary ---
Author Organization [employer] Address [address] [facility] [address] [place] [address] Care Team Providers Care Radiology Therapist Name Role Phone Sheri Santos MD Primary Care Provider [phone] Reason for Visit * Reason Onset Date Comments Appointment Request 11/11/2024 Encounter Details Date Type Department Care Team ([facility] Contact Info) Description 11/11/2024 Telephone [facility] MED & PEDS [address] [place] [address] Sheri Santos MD [address] [place] [address] Appointment Request Social History Tobacco Use Types [...] encounter Miscellaneous Notes * Telephone Encounter - Tarun Osorio - 11/11/2024 8:22 AM EDT Tc from Faby at [facility] requesting to schedule a PE. Contact Faby at [phone] documented in this encounter Plan of Treatment Upcoming Encounters Date Type Department Care Team (Late st Contact Info) Description 12/19/2024 1:00 PM EDT Telemedicine [facility] MED & PEDS [address] [place] [address] Annita Pickering, PharmD [address] [place] [address] 01/19/2025 9:30 AM EST Office Visit [facility] MED & PEDS [address] [place] [address] Sheri Santos MD [address] [place] [address] documented as of this encounter Visit Diagnoses Not on filedocumented in this encounter Additional Health Concerns Assessment Noted Time PHQ-9 Depression Total Score: 13 025 11:35 AM EDT documented as of this encounter Care Teams Radiology Therapist Relationship Specialty Start Date End Date Sheri Santos MD [address] [place] [address] PCP - General Family Medicine 08/04/24 Silviano River ALTERATION TAILOR Nurse Practitioner Psychiatry 03/19/19 documented as of this encounter
--- OUTSIDE RECORDS SUMMARY | 2024-12-03 19:15 | XMS_ITS | Encounter Summary ---
Author Organization [employer] Address [address] [facility] [address] 7t [place] [address] Care Team Providers Care Transformer Coil Winder Name Role Phone Sheri Santos MD Primary Care Provider [phone] Reason for Visit * Reason Onset Date Comments Nurse Triage 12/02/2024 Encounter Details Date Type Department Care Team ([facility] st Contact Info) Description 12/02/2024 Telephone [facility] MEDICINE [address] [place] [address] Sheri Santos MD [address] [place] [address] Nurse Triage Social History Tobacco Use Types [...] your housing situation today? I have escobar dinora 10/10/[address] you li [...] encounter Miscellaneous Notes * Telephone Encounter - Opal Phillip RN - 12/02/2024 3:32 PM EDT No software sales needed as this life underwriter speaks [place]. Call returned to Joanne Vences to triage below at [phone]. Reports having rash on nasal bridge and swelling. No nasal congestion. Pt has hx of rosacea. Pt has used doxycycline in past. Last used 1 week ago. Having pus filled bumps. Nofever. No fast spreading redness. Pt also having white thick cottage like vaginal discharge and mild pelvic pain. No odor to discharge. Pt wants tx for this as well. Advised to mention during visit tomorrow. Reviewed home care advise, ER precautions and reasons to call back. Protocol Used: Rash or Redness - Localized (Adult) Protocol-Based Disposition: See in Office or Video Visit Today or Tomorrow Future Appointments Date Time Provider Department Center 12/03/2024 3:20 PM [facility] 12/19/2024 1:00 PM Annita Pickering PharmD [facility] 01/19/2025 9:30 AM Sheri Santos MD [facility] Insurance verified as active per Real Time Eligibility in [facility]. Video visit offer not recorded Positive Triage Question: * Pimples (localized) and no improvement after using CARE ADVICE * All higher-acuity triage questions were negative Care Advice Discussed: * Reassurance and Education - Mild Localized Rash * Avoid the Cause * Wash the Area * Cold Pack for Mild Itching or Mild Pain * Hydrocortisone Cream for Itching * Don't Scratch * Contagiousness * Reasons To Call Back - Rash spreads or becomes worse - Rash lasts longer than 1 week - You become worse * Telephone Encounter - Jen Avilez LPN - 12/02/2024 3:25 PM EDT Triage call returned with BLS #[id number] Shannon x 2 voicemail left and Again no answer. * Telephone Encounter - Isai Phillips - 12/02/2024 3:12 PM EDT Tc from pt returning call. Pt had technical difficulties with the phone company. If pt did not answer the line to just leave aV to know that there was a phone call made for this pt. Contact pt at [phone] * Telephone Encounter - Jen Avilez LPN - 12/02/2024 1:43 PM EDT Triage call returned with BLS #[id number] Lin. Call placed x 2 no answer and VM left to return call to [phone]. * Telephone Encounter - Isai Phillips - 12/02/2024 1:12 PM EDT Tc from pt returning call regarding prior message. Contact pt at [phone] ([place]ican speaker) * Telephone Encounter - Devora Figueroa RN - 12/02/2024 12:48 PM EDT Called pt. Via S software sales Sharon Almeida. No answer. Hot Patcher left message for pt. To call back [facility] nurses at [phone]. Hot Patcher called pt. Back again, no answer. Hot Patcher did not leave second voicemail. RE: Face pain- vaginal pain and white vaginal discharge * Telephone Encounter - Nica Johnston - 12/02/2024 12:38 PM EDT Symptoms: Face Pain - Not From Injury, Vaginal Symptoms - Not Bleeding Outcome: Talk to a nurse or provider within 15 minutes Reason: Severe pelvic pain now The caller accepted this outcome. Pt also report vaginal white discharge Contact pt at [phone] documented in this encounter Plan of Treatment Upcoming Encounters Date Type Department Care Team (Late st Contact Info) Description 12/19/2024 1:00 PM EDT Telemedicine [facility] MED & PEDS [address] [place] [address] Annita Pickering, LalithaD [address] [place] [address] 01/19/2025 9:30 AM EST Office Visit [facility] MED & PEDS [address] [place] [address] Sheri Santos MD [address] [place] [address] documented as of this encounter Visit Diagnoses Not on filedocumented in this encounter Additional Health Concerns Assessment Noted Time PHQ-9 Depression Total Score: 13 025 11:35 AM EDT documented as of this encounter Care Teams Transformer Coil Winder Relationship Specialty Start Date End Date Sheri Santos MD [address] [place] [address] PCP - General Family Medicine 08/04/24 Silviano River NP Nurse Practitioner Psychiatry 03/19/19 documented as of this encounter
--- OUTSIDE RECORDS SUMMARY | 2024-12-03 19:15 | XMS_ITS | Encounter Summary ---
Author Organization [employer] Address [address] 7[address] [place] [address] Care Team Providers Care Ribbon Lapper Tender Name Role Phone Sheri Santos MD Primary Care Provider [phone] Reason for Visit * Reason Onset Date Comments Medication Question 10/16/2024 Encounter Details Date Type Department Care Team ([facility] st Contact Info) Description 10/16/2024 Telephone [facility] MEDICINE [address] [place] [address] Sheri Santos MD [address] [place] [address] Medication Question Social History Tobacco Use Types Packs/Day Years [...] is your housing situation today? I have escobarmichael farias 10/10/[address] you [...] encounter Miscellaneous Notes * Telephone Encounter - Romeo Martin - 10/16/2024 12:02 PM EDT Tc from pt requesting call back stating symptoms of rosacea are returning and she is requesting an anti biotic from when she was treated previously. Pt is unsure on medication name. Please contact pt at [phone]. documented in this encounter Plan of Treatment Upcoming Encounters Date Type Department Care Team ([facility] st Contact Info) Description 12/19/2024 1:00 PM EDT Telemedicine [facility] MED & PEDS [address] [place] [address] Annita Pickering, PharmD [address] [place] [address] 01/19/2025 9:30 AM EST Office Visit [facility] MED & PEDS [address] [place] [address] Sheri Santos MD [address] [place] [address] documented as of this encounter Visit Diagnoses Not on filedocumented in this encounter Additional Health Concerns Assessment Noted Time PHQ-9 Depression Total Score: 8 05/01/19 25 11:20 AM EST documented as of this encounter Care Teams Ribbon Lapper Tender Relationship Specialty Start Date End Date Sheri Santos MD [address] [place] [address] PCP - General Family Medicine 08/04/24 Silviano River CONTINUOUS IMPROVEMENT DIRECTOR Nurse Practitioner Psychiatry 03/19/19 documented as of this encounter
--- OUTSIDE RECORDS SUMMARY | 2024-12-03 19:15 | XMS_ITS | Encounter Summary ---
Author Organization [employer] Address [address] [facility] 7t [place] [address] Care Team Providers Care Licensed Guide Name Role Phone Ricky Jefferson MD Primary Care Provider Sheri Santos MD Primary Care Provider [phone] Reason for Visit * Reason Onset Date Comments Appointment Request 08/15/2022 Encounter Details Date Type Department Care Team (Late st Contact Info) Description 08/15/2022 Telephone [facility] MEDICINE [address] [place] [address] Ricky Jefferson MD [address] [place] [address] Appointment Request Social History Tobacco Use Types [...] Description 12/19/2024 1:00 PM EDT Telemedicine [facility] MED & PEDS [address] [place] [address] Annita Pickering, PharmD [address] [place] [address] 01/19/2025 9:30 AM EST Office Visit [facility] MED & PEDS [address] [place] [address] Sheri Santos MD [address] [place] [address] documented as of this encounter Visit Diagnoses Not on filedocumented in this encounter Additional Health Concerns Assessment Noted Time PHQ-9 Depression Total Score: 17 023 2:03 PM EDT documented as of this encounter Care Teams Licensed Guide Relationship Specialty Start Date End Date Ricky Jefferson MD [address] [place] [address] PCP - General Internal Medicine 03/19/18 08/03/24 Sheri Santos MD [address] [place] [address] PCP - General Family Medicine 08/04/24 Silviano River PROGRAM SUPPORT ASSISTANT Nurse Practitioner Psychiatry 03/19/19 documented as of this encounter
--- OUTSIDE RECORDS SUMMARY | 2024-12-03 19:15 | XMS_ITS | Encounter Summary ---
Author Organization [employer] Address [address] [facility] 7t [place] [address] Care Team Providers Care Body Shop Mechanic Name Role Phone Sheri Santos MD Primary Care Provider Reason for Referral * Neurology (Routine) - Closed Specialty Diagnoses / Procedures Referred By Contfelipe t Referred To Contact Diagnoses Seizure (CMS/HCC) Procedures EEG awake or drowsy routine Ricky Jefferson MD [address] [place] [address] Phone: tel: fax: [address] Phone: tel: fax: Referral ID Status Reason Start Date Expiration Date Visits Re quested Visits Authorized [id number] Closed 08/28/2024 08/28/2025 1 1 Encounter Details Date Type Department Care Team (Late st Contact Info) Description 08/28/2024 Orders Only [facility] MED [facility] PEDS [address] [place], [place] [id number] Ricky Jefferson MD [address] [place], [place] [phone] Seizure (CMS/HCC) (Primary Dx) Social History Tobacco [...] Info) Description 12/19/2024 1:00 PM EDT Telemedicine [facility] MED & PEDS [address] [place] [address] Annita Pickering, PharmD [address] [place] [address] 01/19/2025 9:30 AM EST Office Visit [facility] MED & PEDS [address] [place] [address] Sheri Santos MD [address] [place] [address] Scheduled Orders Name Type Priority Associated Diagnoses Orde r Schedule EEG awake or drowsy routine Neurology Routine Seizure ([facility]/HCC) Expected: 08/28/2024 (Approximate), Expires: 08/28/2025 documented as of this encounter Procedures Procedure Name Priority Date/Time Associated Diagnosis Comments XR KNEE 4+ VIEWS LEFT Routine 09/18/2024 2:25 PM EDT documented in this encounter Results * XR Knee 4+ Views Left (09/18/2024 2:25 PM EDT) Anatomical Region Laterality Modality Lower Extremities, Knee Left Radiogra phic Imaging 09/18/2024 2:25 PM EDT Narrative 09/18/2024 2:47 PM EDT [address] [address] XRay Report Signed Patient: Joanne Vences MR#: [id number] : 1975 Acct:[id number] Age/Sex: 48 / F ADM Date: 09/18/24 Loc: .ED Attending Dr: Ordering Physician: Migdalia Conner NP Date of Service: 09/18/24 Procedure(s): XR knee LT 4V Accession Number(s): [id number] cc: Migdalia Conner NP; Sheri Santos MD [...] 09/18/24 1444 DD/ 1425 TD/TT: 09/18/24 1430 Umbrella Finisher: Procedure Note Queenie, Image - 09/18/[address] [address] XRay Report Signed Patient: rAy Vences#: [id number] : 1975Acct:[id number] Age/Sex: 48 / FADM Date: 09/18/24 Loc: .ED Attending Dr: Ordering Physician: Migdalia Conner NP Date of Service: 09/18/24 Procedure(s): XR knee LT 4V Accession Number(s): [id number] cc: Migdalia Conner LADLE FILLER; Sheri Santos MD EXAMINATION: XR KNEE, LEFT [...] 09/18/24 1444 DD/ 1425 TD/TT: 09/18/24 1430 Umbrella Finisher: [facility] External Provider IMG XR PROCEDURES Edited Result - Final documented in this encounter Visit Diagnoses Diagnosis Seizure (CMS/HCC)- Primary Other convulsions documented in this encounter Additional Health Concerns Assessment Noted Time PHQ-9 Depression Total Score: 8 05/01/19 25 11:20 AM EST documented as of this encounter Care Teams Body Shop Mechanic Relationship Specialty Start Date End Date Sheri Santos MD [address] [place] [address] PCP - General Family Medicine 08/04/24 Silviano River LADLE FILLER Nurse Practitioner Psychiatry 03/19/19 documented as of this encounter
--- OUTSIDE RECORDS SUMMARY | 2024-12-03 19:15 | XMS_ITS | Encounter Summary ---
Author Organization [employer] Address [address] [facility] 7t [place] [address] Care Team Providers Care Sawmill Moulder Operator Name Role Phone Sheri Santos MD Primary Care Provider [phone] Reason for Visit * Reason Comments Med Refill Encounter Details Date Type Department Care Team ([facility] Contact Info) Description 10/14/2024 Refill [facility] MED & PEDS [address] [place] [address] Ricky Jefferson MD [address] [place] [address] Social History Tobacco Use Types Packs/Day Years [...] Description 12/19/2024 1:00 PM EDT Telemedicine [facility] MED & PEDS [address] [place] [address] Annita Pickering PharmD [address] [place] [address] 01/19/2025 9:30 AM EST Office Visit [facility] MED & PEDS [address] [place] [address] Sheri Santos MD [address] [place] [address] documented as of this encounter Visit Diagnoses Not on filedocumented in this encounter Additional Health Concerns Assessment Noted Time PHQ-9 Depression Total Score: 8 05/01/19 11:20 AM EST documented as of this encounter Care Teams Sawmill Moulder Operator Relationship Specialty Start Date End Date Sheri Santos MD [address] [place] [address] PCP - General Family Medicine 08/04/24 Silviano River BUS ESCORT Nurse Practitioner Psychiatry 03/19/19 documented as of this encounter
--- OUTSIDE RECORDS SUMMARY | 2024-12-03 19:15 | XMS_ITS | Encounter Summary ---
Author Organization [employer] Address [address] [facility] 7t [place] [address] Care Team Providers Care Soot Blower Name Role Phone Ricky Jefferson MD Primary Care Provider Sheri Santos MD Primary Care Provider [phone] Reason for Visit * Reason Onset Date Comments PT1 08/29/2022 Encounter Details Date Type Department Care Team (Late st Contact Info) Description 08/29/2022 Telephone [facility] MED & PEDS [address] [place], [place] [phone] Ricky Jefferson MD [address] [place] [address] PT1 Social History Tobacco Use Types Packs/Day [...] the mail. * Telephone Encounter - Denice Parra - 08/29/2022 11:42 AM EDT PT1- Location: [address] [place] [address] Date: n/a Time: n/a Construction Cost Estimator Needed: yes Wheel Chair Access: no PT1- Location: [address] [place] [address] Date: n/a Time: n/a Construction Cost Estimator Needed: yes Wheel Chair Access: no documented in this encounter Plan of Treatment Upcoming Encounters Date Type Department Care Team (Late st Contact Info) Description 12/19/2024 1:00 PM EDT Telemedicine [facility] MED & PEDS [address] [place] [address] Annita Pickering PharmD [address] [place] [address] 01/19/2025 9:30 AM EST Office Visit [facility] MED & PEDS [address] [place] [address] Sheri Santos MD [address] [place] [address] documented as of this encounter Visit Diagnoses Not on filedocumented in this encounter Additional Health Concerns Assessment Noted Time PHQ-9 Depression Total Score: 17 05 023 2:03 PM EDT documented as of this encounter Care Teams Soot Blower Relationship Specialty Start Date End Date Ricky Jefferson MD [address] [place] [address] PCP - General Internal Medicine 03/19/18 08/03/24 Sheri Santos MD [address] [place] [address] PCP - General Family Medicine 08/04/24 Silviano River PAINTER FOREMAN Nurse Practitioner Psychiatry 03/19/19 documented as of this encounter
--- OUTSIDE RECORDS SUMMARY | 2024-12-03 19:15 | XMS_ITS | Encounter Summary ---
Author Organization [email or web address] Address [address] [address] [place] [address] Care Team Providers Care Industrial Hygiene Manager Name Role Phone Sheri Santos MD Primary Care Provider [phone] Reason for Visit * Reason Onset Date Comments Nurse Triage 10/08/2024 Encounter Details Date Type Department Care Team ([facility] Contact Info) Description 10/08/2024 Telephone [facility] MED & PEDS [address] [place] [address] Sheri Santos MD [address] [place] [address] Nurse Triage Social History Tobacco Use Types [...] encounter Miscellaneous Notes * Telephone Encounter - Cori Strange RN - 10/08/2024 11:15 AM EDT Triage call with [facility] [place] [id number] Al[place] Pt reports hot flashes have become more increased and difficult to manage. Pt reports especially at night the occurrence is increasing and making sleep impossible. Pt denies being seen for this before. Pt requests to be seen by MACHINE PRESSER. Pt is not taking medication for this. ASK apt with JARED Gage 10/09/24 @ 1000am. Pt is requesting an uber for transportation. Uber is scheduled for 930am pickup. Protocol Used: No Protocol Available (Adult) Protocol-Based Disposition: See in Office or Video Visit Today or Tomorrow Video visit not offered Positive Triage Question: * Nursing judgment * All higher-acuity triage questions were negative Care Advice Discussed: * Reasons To Call Back - New symptoms develop - You become worse * Telephone Encounter - Mirian Troy - 10/08/2024 9:32 AM EDT Symptom: Hot Flashes Outcome: Schedule an appointment to be seen within 3 days Reason: This is the only possible outcome for this symptom The caller accepted this outcome. Contact pt at [phone] (malagasy) documented in this encounter Plan of Treatment Upcoming Encounters Date Type Department Care Team ([facility] st Contact Info) Description 12/19/2024 1:00 PM EDT Telemedicine [facility] MED & PEDS [address] [place] [address] Annita Pickering PharmD [address] [place] [address] 01/19/2025 9:30 AM EST Office Visit [facility] MED & PEDS [address] [place] [address] Sheri Santos MD [address] [place] [address] documented as of this encounter Visit Diagnoses Diagnosis Vasomotor symptoms due to menopause documented in this encounter Additional Health Concerns Assessment Noted Time PHQ-9 Depression Total Score: 8 05/01/19 25 11:20 AM EST documented as of this encounter Care Teams Industrial Hygiene Manager Relationship Specialty Start Date End Date Sheri Santos MD [address] [place] [address] PCP - General Family Medicine 08/04/24 Silviano River MONONITROTOLUENE OPERATOR Nurse Practitioner Psychiatry 03/19/19 documented as of this encounter
--- OUTSIDE RECORDS SUMMARY | 2024-12-03 19:15 | XMS_ITS | Encounter Summary ---
Author Organization [employer] Address [address] [facility] 7t [place] [address] Care Team Providers Care Metal Wire Coating Operator Name Role Phone Ricky Jefferson MD Primary Care Provider [phone] Sheri Santos MD Primary Care Provider [phone] Encounter Details Date Type Department Care Team (Late st Contact Info) Description 04/15/2024 Orders Only [facility] MED & PEDS [address] [place] [address] Ricky Jefferson MD [address] [place] [address] Vel (Primary Dx) Social History Tobacco Use Types Packs/Day Years Used Date Smoking Tobacco: Never Passive Smoke Exposure: Never Smokeless Tobacco: Never Alcohol Use Standard Drinks/Week Comments Never 0 (1 standard drink = 0.6 oz pur e alcohol) Depression Answer Date Recorded Patient Health Questionnaire-9 Score 17 08/03/2022 Housing Stability Answer Date Recorded What is your housing situation today? I have escobarmichael farias 09/28/[address] you [...] EDT Telemedicine [facility] MED & PEDS [address] [place] [address] Annita Pickering, PharmD [address] [place], [place] [phone] 01/19/2025 9:30 AM EST Office Visit [facility] MED & PEDS [address] [place] [address] Sheri Santos MD [address] [place] [address] documented as of this encounter Visit Diagnoses Diagnosis Rosacea- Primary documented in this encounter Additional Health Concerns Assessment Noted Time PHQ-9 Depression Total Score: 17 023 2:03 PM EDT documented as of this encounter Care Teams Metal Wire Coating Operator Relationship Specialty Start Date End Date Ricky Jefferson MD [address] [place] [address] PCP - General Internal Medicine 03/19/18 08/03/24 Sheri Santos MD [address] [place] [address] PCP - General Family Medicine 08/04/24 Silviano River STERILE PROCESSING TECHNOLOGIST Nurse Practitioner Psychiatry 03/19/19 documented as of this encounter
--- OUTSIDE RECORDS SUMMARY | 2024-12-03 19:15 | XMS_ITS | Encounter Summary ---
Author Organization [employer] Address [address] [facility] [address] [facility] [address] [facility] [address] 7[address] [place] [address] Care Team Providers Care Military Logistics Specialist Name Role Phone Sheri Santos MD Primary Care Provider [phone] Reason for Visit * Reason Onset Date Comments Appointment Request 11/03/2024 Encounter Details Date Type Department Care Team ([facility] st Contact Info) Description 11/03/2024 Telephone [facility] MEDICINE [address] [place] [address] Sheri Santos MD [address] [place] [address] Appointment Request Social History Tobacco Use Types [...] encounter Miscellaneous Notes * Telephone Encounter - Nica Johnston - 11/03/2024 3:55 PM EDT Tc from pt requesting an appt with commercial tire service technician Contact pt at [phone] Need pet adoption counselor documented in this encounter Plan of Treatment Upcoming Encounters Date Type Department Care Team ([facility] st Contact Info) Description 12/19/2024 1:00 PM EDT Telemedicine [facility] MED & PEDS [address] [place] [address] Annita Pickering, PharmD [address] [place] [address] 01/19/2025 9:30 AM EST Office Visit [facility] MED & PEDS [address] [place], [place] [phone] Sheri Santos MD [address] [place] [address] documented as of this encounter Visit Diagnoses Not on filedocumented in this encounter Additional Health Concerns Assessment Noted Time PHQ-9 Depression Total Score: 13 025 11:35 AM EDT documented as of this encounter Care Teams Military Logistics Specialist Relationship Specialty Start Date End Date Sheri Santos MD [address] [place] [address] PCP - General Family Medicine 08/04/24 Silviano River NP Nurse Practitioner Psychiatry 03/19/19 documented as of this encounter
--- OUTSIDE RECORDS SUMMARY | 2024-12-03 19:15 | XMS_ITS | Encounter Summary ---
Author Organization [employer] Address [address] [facility] [address] [place] [address] Care Team Providers Care Streetsweeper Operator Name Role Phone Ricky Jefferson MD Primary Care Provider [phone] Sheri Santos MD Primary Care Provider [phone] Encounter Details Date Type Department Care Team (Late st Contact Info) Description 07/08/2024 Telephone [facility] MED & PEDS [address] [place] [address] Ricky Jefferson MD [address] [place] [address] Social History Tobacco Use Types Packs/Day Years [...] 2:31 PM EDT Pt was referred to [facility] hand surgery. Pt to call their office [...] 12/19/2024 1:00 PM EDT Telemedicine [facility] MED & PEDS [address] [place] [address] Annita Pickreing, PharmD [address] [place], [place] [id number] 01/19/2025 9:30 AM EST Office Visit [facility] MED & PEDS [address] [place] [address] Sheri Santos MD [address] [place] [address] documented as of this encounter Visit Diagnoses Not on filedocumented in this encounter Additional Health Concerns Assessment Noted Time PHQ-9 Depression Total Score: 8 05/01/19 11:20 AM EST documented as of this encounter Care Teams Streetsweeper Operator Relationship Specialty Start Date End Date Ricky Jefferson MD [address] [place] [address] PCP - General Internal Medicine 03/19/18 08/03/24 Sheri Santos MD [address] [place] [address] PCP - General Family Medicine 08/04/24 Silviano Rivre BIOINFORMATICS TEAM MEMBER Nurse Practitioner Psychiatry 03/19/19 documented as of this encounter
--- OUTSIDE RECORDS SUMMARY | 2024-12-03 19:16 | XMS_ITS | Encounter Summary ---
Author Organization [employer] Address [address] [facility] [address] [place] [address] Care Team Providers Care Laboratory Sample Carrier Name Role Phone Sheri Santos MD Primary Care Provider [phone] Reason for Visit * Reason Onset Date Comments Nurse Triage 08/18/2024 Encounter Details Date Type Department Care Team ([facility] st Contact Info) Description 08/18/2024 Telephone [facility] MEDICINE [address] [place] [address] Sheri Santos MD [address] [place] [address] Nurse Triage Social History Tobacco Use Types [...] housing situation today? I have escobar dinora 09/28/[address] you li [...] Telephone Encounter - Cori Strange RN - 08/18/2024 12:18 PM EDT Triage call with [facility] [place] [id number] ,called pt x2 no answer, left voice mail message to call [facility] triage line at [phone] * Telephone Encounter - Shelbi Turner - 08/18/2024 11:51 AM EDT Symptom: Knee Pain - Not From Injury Outcome: Schedule an urgent appointment (within 1 hour) or talk to a nurse or provider soon Reason: Severe pain now The caller accepted this outcome. [phone] mongolian documented in this encounter Plan of Treatment Upcoming Encounters Date Type Department Care Team (Late st Contact Info) Description 12/19/2024 1:00 PM EDT Telemedicine [facility] MED & PEDS [address] [place] [address] Annita Pickering, PharmD [address] [place] [address] 01/19/2025 9:30 AM EST Office Visit [facility] CHC MED & PEDS [address] [place] [address] Sheri Santos MD [address] [place] [address] documented as of this encounter Visit Diagnoses Not on filedocumented in this encounter Additional Health Concerns Assessment Noted Time PHQ-9 Depression Total Score: 8 05/01/19 25 11:20 AM EST documented as of this encounter Care Teams Laboratory Sample Carrier Relationship Specialty Start Date End Date Sheri Santos MD [address] [place] [address] PCP - General Family Medicine 08/04/24 Silviano River DATA PROCESSING AUDITOR Nurse Practitioner Psychiatry 03/19/19 documented as of this encounter
--- OUTSIDE RECORDS SUMMARY | 2024-12-03 19:16 | XMS_ITS | Encounter Summary ---
Author Organization [employer] Address [address] [facility] [address] [place] [address] Care Team Providers Care Fiberglass Machine Operator Name Role Phone Ricky Jefferson MD Primary Care Provider [phone] Sheri Santos MD Primary Care Provider [phone] Encounter Details Date Type Department Care Team (Late st Contact Info) Description 07/15/2024 Telephone [facility] MEDICINE [address] [place] [address] Ricky Jefferson MD [address] [place] [address] Social History Tobacco Use Types Packs/Day Years [...] [facility] [address] [place] [address] Annita Pickering PharmD [address] [place] [address] 01/19/2025 9:30 AM EST Office Visit [facility] MED & PEDS [address] [place] [address] Sheri Santos MD [address] [place] [address] documented as of this encounter Visit Diagnoses Not on filedocumented in this encounter Additional Health Concerns Assessment Noted Time PHQ-9 Depression Total Score: 8 05/01/19 25 11:20 AM EST documented as of this encounter Care Teams Fiberglass Machine Operator Relationship Specialty Start Date End Date Ricky Jefferson MD [address] [place] [address] PCP - General Internal Medicine 03/19/18 08/03/24 Sheri Santos MD [address] [place] [address] PCP - General Family Medicine 08/04/24 Silviano River RN SUPPLEMENTAL Nurse Practitioner Psychiatry 03/19/19 documented as of this encounter
[2024-12-04 08:59] LABS: Bacterial Vaginosis PCR NEGATIVE (Negative); Candida Group PCR NOT DETECTED (Not Detect); Candida glab krusei PCR NOT DETECTED (Not Detect); Trichomonas vaginalis PCR NOT DETECTED (Not Detect)
== END 2024-12-03 16:05 | disposition home or self-care (01) ==
LOC: HO.CHCLNP 16:04
PROVIDERS: Visit Provider Internal Medicine
DX: N76.0 Acute vaginitis (principal)
CPT/HCPCS: 81515

== ENCOUNTER 2025-01-05 10:35 | Emergency (ER) | payer OTHER, SELFPAY ==
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
[2025-01-05 10:47] VITALS: BP 137/68; BP 172/98; PULSE 82; PULSE 88; RESP 20; TEMP 36.8; O2SAT 98; O2SAT 99; BMI 37.8
[2025-01-05 10:50] VITALS: BP 137/68; PULSE 82; RESP 20; TEMP 36.8; O2SAT 98
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
[2025-01-05 12:36] VITALS: BP 0/0; PULSE 82; RESP 20; TEMP 36.8; O2SAT 98
== END 2025-01-05 12:37 | disposition home or self-care (01) ==
PROVIDERS: Emergency Provider Emergency Medicine; PCP Family Medicine
DX: M54.2 Cervicalgia (principal); S13.4XXA Sprain of ligaments of cervical spine, initial encounter; S09.90XA Unspecified injury of head, initial encounter; D64.9 Anemia, unspecified; V43.52XA Car driver injured in collision with other type car in traffic accident, initial encounter; Y93.89 Activity, other specified; Y92.488 Other paved roadways as the place of occurrence of the external cause; Y99.8 Other external cause status
CPT/HCPCS: 70450; 72125; 73030; 99284

== ENCOUNTER → 2025-01-05 10:56 | Outpatient (BNV) | payer MEDICAID, SELFPAY | PROVIDERS: Emergency Provider Emergency Medicine; PCP Family Medicine; Visit Provider Radiology Diagnostic Radiology | DX: M54.2 Cervicalgia (principal); R51.9 Headache, unspecified; M25.512 Pain in left shoulder | CPT/HCPCS: 70450; 72125; 73030 ==

== ENCOUNTER 2025-02-15 20:37 | Emergency (ER) | payer MEDICAID, SELFPAY ==
[2025-02-15 20:40] VITALS: BP 124/85; PULSE 127; RESP 18; TEMP 37.1; O2SAT 97; BMI 33.0
--- NOTE | 2025-02-15 20:52 | ECG_ITS ---
Test Reason : weakness Blood Pressure : */* mmHG Vent. Rate : 133 BPM Atrial Rate : 133 BPM P-R Int : 124 ms QRS Dur : 84 ms QT Int : 282 ms P-R-T Axes : 65 40 51 degrees QTcB Int : 419 ms Sinus tachycardia Otherwise normal ECG When compared with ECG of 30-Sep-2024 19:11, No significant change was found Referred By: Emmanuel Mccoy Electronically Signed By: BESSY FREEMAN
--- NOTE | 2025-02-15 20:52 | ED.GENADULT ---
HPI - General Adult General Chief complaint: Anxiety Stated complaint: nauseas, does not have meds, sweaty Time Seen by Provider: 02/15/25 23:48 Source: patient Mode of arrival: ambulatory Limitations: no limitations History of Present Illness ED Provider: Dr. Aimee Jones HPI narrative: Patient comes to the emergency room complaining of anxiety, feeling restless, unwell, nauseous, shaky. Patient denies any seizure-like activity, denies SI or HI. Patient states that towards the end of every month, she gets a refill medication of clonazepam, but this month she was not able to get it. Related Data Previous Rx's ?Medication ?Instructions ?Recorded lorazepam 1 mg tablet (Ativan) 1 mg PO TID PRN anxiety #10 tabs 01/06/21 cephalexin 500 mg capsule 500 mg PO QID 7 days #27 caps 06/26/21 doxycycline hyclate 100 mg tablet 100 mg PO BID 7 days #14 tabs 06/26/21 lamotrigine 100 mg tablet 100 mg PO DAILY #14 tabs 07/15/21 magnesium oxide 400 mg (241.3 mg 400 mg PO DAILY #14 tabs 07/13/24 magnesium) tablet cyclobenzaprine 5 mg tablet 5 mg PO BEDTIME PRN muscle spasm 08/18/24 #7 tabs psyllium seed (sugar) oral powder 1 tbsp PO BID #1,254 grams 08/27/24 (Metamucil (sugar) oral powder) methocarbamol 750 mg tablet 750 mg PO Q8H PRN pain #30 tabs 09/30/24 prednisone 20 mg tablet 40 mg (2 x 20 mg) PO DAILY 5 days 09/30/24 #10 tabs cyclobenzaprine 10 mg tablet 10 mg PO TID PRN muscle spasm #20 01/05/25 tabs ibuprofen 600 mg tablet 600 mg PO Q6H PRN pain #30 tabs 01/05/25 lidocaine 5 % topical patch 1 patch topical DAILY #30 ea 01/05/25 clonazepam 0.5 mg tablet (Klonopin) 0.5 mg PO BID PRN anxiety #4 tabs 02/16/25 Allergies Allergy/AdvReac Type Severity Reaction Status Date / Time acetaminophen (Percocet) Allergy Unknown rash Verified 02/15/25 20:48 oxycodone (Percocet) Allergy Unknown rash Verified 02/15/25 20:48 penicillin G Allergy Unknown rash Verified 02/15/25 20:48 Penicillins Allergy Unknown ITCHY RASH Verified 02/15/25 20:48 From VICODIN Allergy Unknown UNKNOWN Uncoded 01/05/25 10:48 [facility] Past Medical History Medical History Bleeding hemorrhoids Thrombocytosis Hx of carpal tunnel syndrome High cholesterol Cyst of breast Menses painful Migraine Anemia Seizures Family History Family History Mother Primary cancer of blood vessel Social History Social History Alcohol intake: never Patient Tobacco Use Status: Never used Tobacco Current occupational status: disabled 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 Please refer to detailed history, exam, evaluation, and management by primary provider. patient with generalized weakness, increased anxiety. Medications Administered Discontinued Medications Generic Name Dose Route Start Last Admin Trade Name Freq PRN Reason Stop Dose Admin Clonazepam 1 mg 02/15/25 23:58 02/16/25 00:39 Clonazepam 1 Mg Tablet PO 02/15/25 23:59 1 mg ONCE ONE Administration Ketorolac Tromethamine 30 mg 02/15/25 23:58 02/16/25 00:39 Ketorolac Tromethamine 30 Mg/Ml Vial IM 02/15/25 23:59 30 mg ONCE ONE Administration Ondansetron HCl 4 mg 02/15/25 23:58 02/16/25 00:39 Ondansetron Odt 4 Mg Tab.Rapdis TRANSLINGU 02/15/25 23:59 4 mg ONCE ONE Administration Medical Decision Making Lab Data 02/15/25 21:15 02/15/25 21:15 Labs: Lab Results 02/15/25 Range/Units 21:15 WBC 9.2 (4.8-10.8) X10*3/uL RBC 4.99 D (4.20-5.50) X10*6/uL Hgb 13.6 (12.0-16.0) g/dl Hct 41.5 D (37.0-47.0) % MCV 83.2 (80.0-98.0) fL MCH 27.3 (27.0-33.0) pg MCHC 32.8 (31.0-35.0) g/dl RDW 13.2 (11.0-16.0) % Plt Count 385 (160-400) X10*3/uL MPV 9.6 (9.4-12.3) fL Immature Gran % (Auto) 0.2 (0.0-0.4) % Neut % (Auto) 62.3 (45-73) % Lymph % (Auto) 27.3 (20-40) % Coleman % (Auto) 7.2 (2-11) % Eos % (Auto) 2.1 (0-4) % Baso % (Auto) 0.9 (0-2) % Lymph # (Auto) 2.5 (1.2-4.9) X10*3/uL Coleman # (Auto) 0.7 (0.1-1.2) X10*3/uL Eos # (Auto) 0.2 (0.0-0.4) X10*3/uL Baso # (Auto) 0.1 (0.0-0.2) X10*3/uL Abs Immat Gran (auto) 0.02 (0.00-0.03) X10*3/uL Absolute Neuts (auto) 5.8 (2.0-8.3) x10*3/uL Absolute Nucleated RBC 0.000 (0.0-0.012) X10*3/uL Nucleated RBC % (auto) 0.0 (0.0-0.2) /100WBC Sodium 140 (135-145) mmol/L Potassium 3.6 (3.3-5.1) mmol/L Chloride 108 (96-108) mmol/L Carbon Dioxide 23 (22-29) mmol/L Anion Gap 13 (12-20) BUN 15 (9-16) mg/dL Creatinine 0.81 (0.5-1.4) mg/dL Estim Creat Clear Calc 85.1 Estimated GFR > 60 Random Glucose 137 H (60-115) mg/dL Calcium 9.8 D (8.4-10.2) mg/dL Discharge Plan Discharge Clinical Impression: Acute anxiety, Benzodiazepine withdrawal, Nausea Patient Disposition: Home, Self-Care Instructions: Acute Nausea and Vomiting (ED), Anxiety (ED) Additional Instructions: Please follow-up with your primary care physician tomorrow. If you have any worsening or new symptoms, please return to the emergency room or call 911 Prescriptions: New clonazepam [Klonopin] 0.5 mg tablet 0.5 mg PO BID PRN (Reason: anxiety) Qty: 4 0RF No Action lorazepam [Ativan] 1 mg tablet 1 mg PO TID PRN (Reason: anxiety) Qty: 10 0RF Rx Instructions: Patient may request partial fill doxycycline hyclate 100 mg tablet 100 mg PO BID 7 Days Qty: 14 0RF cephalexin 500 mg capsule 500 mg PO QID 7 Days Qty: 27 0RF Rx Instructions: Patient received 1st dose in the ER lamotrigine 100 mg tablet 100 mg PO DAILY Qty: 14 0RF magnesium oxide 400 mg (241.3 mg magnesium) tablet 400 mg PO DAILY Qty: 14 0RF cyclobenzaprine 5 mg tablet 5 mg PO BEDTIME PRN (Reason: muscle spasm) Qty: 7 0RF prednisone 20 mg tablet 40 mg PO DAILY 5 Days Qty: 10 0RF methocarbamol 750 mg tablet 750 mg PO Q8H PRN (Reason: pain) Qty: 30 0RF cyclobenzaprine 10 mg tablet 10 mg PO TID PRN (Reason: muscle spasm) Qty: 20 0RF lidocaine 5 % adhesive patch,medicated 1 patch topical DAILY Qty: 30 0RF Rx Instructions: leave on most painful area for up to 12 hrs ibuprofen 600 mg tablet 600 mg PO Q6H PRN (Reason: pain) Qty: 30 0RF Metamucil (sugar) Powder 1 tbsp PO BID Qty: 1254 2RF Interventions: ED Discharge Assessment Last Done: 02/16/25 00:51 Discharge Date/Time: 02/16/25 00:52 Print Language: Urdu
[2025-02-15 21:19] LABS: MANUAL DIFF FLAG NO
[2025-02-15 21:33] LABS: Anion Gap 13 (12-20); Blood Urea Nitrogen 15 mg/dL (9-16); Calcium 9.8 mg/dL (8.4-10.2); Carbon Dioxide 23 mmol/L (22-29); Chloride 108 mmol/L (96-108); Creatinine Clr Calc Pharmacy 85.1; Estimated Glomerular Filt Rate > 60; Hematocrit 41.5 % (37.0-47.0); Hemoglobin 13.6 g/dl (12.0-16.0); Imm Gran Abs Auto 0.02 X10*3/uL (0.00-0.03); Imm Gran Pct Auto 0.2 % (0.0-0.4); Lymphocytes Absolute Auto 2.5 X10*3/uL (1.2-4.9); Mean Corpuscular HGB Conc 32.8 g/dl (31.0-35.0); Mean Corpuscular Hemoglobin 27.3 pg (27.0-33.0); Mean Corpuscular Volume 83.2 fL (80.0-98.0); NRBC Abs Auto 0.000 X10*3/uL (0.0-0.012); NRBC Pct Auto 0.0 /100WBC (0.0-0.2); Platelet Count 385 X10*3/uL (160-400); Potassium 3.6 mmol/L (3.3-5.1); Red Blood Count 4.99 X10*6/uL (4.20-5.50); Sodium 140 mmol/L (135-145); White Blood Count 9.2 X10*3/uL (4.8-10.8)
[2025-02-16 00:44] VITALS: BP 117/71; PULSE 128; RESP 20; TEMP 36.8; O2SAT 99
[2025-02-16 00:51] VITALS: BP 117/71; PULSE 128; RESP 20; TEMP 36.8; O2SAT 99
== END 2025-02-16 00:52 | disposition home or self-care (01) ==
PROVIDERS: Physician Assistant; Emergency Provider Emergency Medicine; PCP Family Medicine
DX: F41.9 Anxiety disorder, unspecified (principal); F15.23 Other stimulant dependence with withdrawal; R11.10 Vomiting, unspecified; R53.1 Weakness; R00.0 Tachycardia, unspecified
CPT/HCPCS: 36415; 80048; 85025; 93005; 96372; 99284; J1885

== ENCOUNTER → 2025-02-15 20:52 | Outpatient (BNV) | payer MEDICAID, SELFPAY | PROVIDERS: Emergency Provider Emergency Medicine; PCP Family Medicine; Visit Provider Internal Medicine | DX: R00.0 Tachycardia, unspecified (principal) | CPT/HCPCS: 93010 ==